=== PATIENT | female | born 1965 ===

== ENCOUNTER 2021-01-17 10:13 | Outpatient (REF) | payer MEDICARE, MEDICAID, SELFPAY ==
[2021-01-18 14:29] LABS: BV Int Neg Control Negative (Negative); BV Int Pos Control Positive (Positive)
== END 2021-01-17 10:14 | disposition home or self-care (01) ==
LOC: HO.LAB 10:13
PROVIDERS: Visit Provider Nurse Practitioner Family
DX: B37.3 Candidiasis of vulva and vagina (principal); B00.9 Herpesviral infection, unspecified
CPT/HCPCS: 87255; 87480; 87510; 87660

== ENCOUNTER 2021-06-06 07:24 | Outpatient (REF) | payer MEDICARE, BC, MEDICAID, SELFPAY ==
[2021-06-06 11:22] LABS: Hematocrit 42.5 % (37-47); Hemoglobin 13.5 g/dl (12.0-16.0); Mean Corpuscular HGB Conc 31.8 g/dl (31.0-35.0); Mean Corpuscular Hemoglobin 29.3 pg (27.0-33.0); Mean Corpuscular Volume 92.4 fL (80-98); Mean Platelet Volume 11.2 fL (9.4-12.3); Platelet Count 241 X10*3/uL (160-400); Red Cell Distribution Width 13.2 % (11.0-16.0); White Blood Count 4.8 X10*3/uL (4.8-10.8)
[2021-06-06 11:32] LABS: Estimated Average Glucose 217 mg/dL; Hemoglobin A1c % 9.2 %
[2021-06-06 12:05] LABS: Creatinine Urine 184.84 mg/dL; Microalbum/Creatinine Ratio Ur 59.5 ug/mg cr
[2021-06-06 12:06] LABS: ~Hepatitis B Surface Antibody NONREACTIVE (Nonreactive)
[2021-06-06 12:13] LABS: Alanine Aminotransferase 22 U/L (0-31); Alkaline Phosphatase 75 U/L (39-117); Anion Gap 14 (12-20); Aspartate Amino Transferase 16 U/L (5-31); Bilirubin Total 0.9 mg/dL (0.0-1.0); Blood Urea Nitrogen 10 mg/dL (9-16); Calcium 9.1 mg/dL (8.4-10.2); Carbon Dioxide 26 mmol/L (22-29); Chloride 104 mmol/L (96-108); Cholesterol 201 mg/dL; Estimated Glomerular Filt Rate > 60; Glucose Fasting 226 mg/dL (60-99); HDL Cholesterol 61 mg/dL; LDL Cholesterol Calculated 118 mg/dl; Potassium 4.6 mmol/L (3.3-5.1); Sodium 139 mmol/L (135-145); Total Protein 7.1 g/dL (6.5-8.0); Triglycerides 112 mg/dL
[2021-06-06 12:21] LABS: Thyroid Stimulating Hormone 1.89 uIU/mL (0.32-4.0)
[2021-06-07 12:41] LABS: Mumps Virus IgG Antibody <9.00 AU/mL; Rubella IgG Antibody <0.90 Index; Rubeola IgG (Measles) <13.50 AU/mL
[2021-06-09 01:51] LABS: TS Negative Control Passed; TS Panel A 0; TS Panel B 0; TS Positive Control Passed; TSpotTB Negative (SeeBelow)
== END 2021-06-06 07:25 | disposition home or self-care (01) ==
LOC: HO.HMGCLDS 07:24
PROVIDERS: PCP Internal Medicine; Visit Provider Internal Medicine
DX: Z02.1 Encounter for pre-employment examination (principal); E11.9 Type 2 diabetes mellitus without complications; E78.5 Hyperlipidemia, unspecified; E66.9 Obesity, unspecified
CPT/HCPCS: 36415; 80053; 80061; 82043; 83036; 84443; 85027; 86481; 86706; 86735; 86762; 86765; 86787

== ENCOUNTER 2021-06-28 12:59 | Outpatient (REF) | payer BC, MEDICARE, MEDICAID, SELFPAY ==
--- NOTE | ~2021-06-28 | XR_ITS ---
EXAMINATION: XR CHEST CLINICAL INFORMATION: Chest pain COMPARISON: Previous chest x-ray most recent April 2017 TECHNIQUE: 2 views of the chest were obtained. FINDINGS: The cardiac silhouette is upper normal in size. There is an air-fluid level behind the heart probably representing an esophageal hernia. Hilar and mediastinal contours are otherwise unremarkable. The lungs are clear. There is no pleural effusion. Bony structures are unremarkable. XR/XR chest 2V IMPRESSION: Upper normal-size cardiac silhouette. Air-fluid level behind the heart probably representing an esophageal hernia.
== END 2021-06-28 13:00 | disposition home or self-care (01) ==
LOC: HO.HMGCX 12:59
PROVIDERS: PCP Internal Medicine; Visit Provider Internal Medicine
DX: Z13.89 Encounter for screening for other disorder (principal)
CPT/HCPCS: 71046

== ENCOUNTER 2022-05-21 08:08 | Outpatient (REF) | payer BC, MEDICARE, MEDICAID, SELFPAY ==
[2022-05-21 11:42] LABS: Estimated Average Glucose 120 mg/dL; Hemoglobin A1c % 5.8 %
[2022-05-21 11:53] LABS: Alanine Aminotransferase 15 U/L (0-31); Alkaline Phosphatase 76 U/L (39-117); Anion Gap 14 (12-20); Aspartate Amino Transferase 15 U/L (5-31); Bilirubin Total 1.4 mg/dL (0.0-1.0); Blood Urea Nitrogen 12 mg/dL (9-16); Calcium 9.3 mg/dL (8.4-10.2); Carbon Dioxide 27 mmol/L (22-29); Chloride 105 mmol/L (96-108); Cholesterol 191 mg/dL; Estimated Glomerular Filt Rate > 60; Glucose Fasting 105 mg/dL (60-99); HDL Cholesterol 67 mg/dL; LDL Cholesterol Calculated 108 mg/dl; Potassium 4.4 mmol/L (3.3-5.1); Sodium 142 mmol/L (135-145); Total Protein 7.1 g/dL (6.5-8.0); Triglycerides 83 mg/dL
[2022-05-21 12:21] LABS: Creatinine Urine 73.32 mg/dL; Microalbum/Creatinine Ratio Ur 27.2 ug/mg cr
== END 2022-05-21 08:09 | disposition home or self-care (01) ==
LOC: HO.HMGCLDS 08:08
PROVIDERS: PCP Internal Medicine; Visit Provider Internal Medicine
DX: E11.9 Type 2 diabetes mellitus without complications (principal); E78.5 Hyperlipidemia, unspecified; M72.2 Plantar fascial fibromatosis
CPT/HCPCS: 36415; 80053; 80061; 82043; 83036

== ENCOUNTER 2022-07-16 09:08 | Outpatient (REF) | payer BC, MEDICARE, SELFPAY ==
[2022-07-16 12:07] LABS: Estimated Average Glucose 123 mg/dL; Hemoglobin A1c % 5.9 %
== END 2022-07-16 09:09 | disposition home or self-care (01) ==
LOC: HO.HMGCLDS 09:08
PROVIDERS: PCP Internal Medicine; Visit Provider Podiatrist
DX: E11.9 Type 2 diabetes mellitus without complications (principal)
CPT/HCPCS: 36415; 83036

== ENCOUNTER 2022-07-25 05:50 | Day surgery (SDC) | payer BC, MEDICARE, SELFPAY ==
--- NOTE | 2022-07-24 11:05 | HP_ITS ---
DATE OF SERVICE: 07/25/2022 PREOPERATIVE DIAGNOSIS: Plantar fibroma left foot. PLANNED PROCEDURE: Excision of plantar fibroma, left foot. PAST MEDICAL HISTORY: Arthritis; asthma; hip, back, knee pain; cancer; cataracts; diabetes; chickenpox; gallbladder problems; joint implants; blindness in left eye; and blood clot. CURRENT MEDICATIONS: Albuterol, Eliquis, gabapentin, meloxicam, metformin, Trulicity, rosuvastatin. PAST SURGICAL HISTORY: Denies. FAMILY HISTORY: Heart disease, stroke, diabetes, hypertension. SOCIAL HISTORY: Patient is a nonsmoker. Denies any illicit drug use. 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 She is with 3 children. ALLERGIES: TO LATEX AND OXYCODONE. HOSPITALIZATIONS: Denies. REVIEW OF SYSTEMS: Within normal limits. HISTORY OF PRESENT ILLNESS: This is a 57-year-old female who presents with a painful lump and tenderness in her plantar left arch, has been present for over a year and a half. It has been getting progressively worse. Patient tried rest, medications, including prednisone, elevations, soaks, change in shoes and stretching without any significant relief in symptoms. PHYSICAL EXAMINATION: GENERAL: Reveals a pleasant, alert, well-nourished, well-developed, well-hydrated individual demonstrates proper attention to body habitus, in no acute distress. NEUROLOGIC: Reveals intact sensorium. Pain sensation is normal. Vibratory sensation is intact. Pinprick sensation is normal. There is no anesthesias, burning, or paresthesias bilaterally. VASCULAR: DP and PT pulses are 3/4 bilaterally. Capillary refill is immediate to all digits. Skin temperature, elasticity, and turgor is normal. Pigmentation is normal. There is no edema. DERMATOLOGIC: Shows signs of a semifirm painful, nontranslucent, non pulsatile subcutaneous tumor measuring about 14 mm on the plantar midfoot of the left foot. ORTHOPEDIC: Muscle strength 5/5 in a symmetrical fashion. There is antalgic gait abnormality and she has pes planus structure with decreased dorsiflexion of the ankle joint within the extended. She also has some pain on palpation of plantar fascia at the medial and central bands, intrinsic muscular, infracalcaneal bursa, and medial calcaneal tubercle of the left foot. LABORATORY DATA: Hemoglobin A1c is 5.9. PLAN: The patient is scheduled for surgery. Surgical procedures to treat the patient's foot problem were discussed in detail with the patient including risks, benefits, and possible complications including, but not limited to pain, swelling, bleeding, scarring, numbness, infection, delayed or nonhealing, failure of the procedure, need for more surgery, recurrence, as well as possibility of loss of toe, foot, life, or limb. Discussed use of local and IV anesthesia and the usual postoperative course. No guarantees were given. The patient indicated a full understanding of the above conversation and any other questions were answered to her satisfaction. We decided on performing excision of plantar fibroma of the left foot. Based on the patient's complaints, medical and social history, and physical exam. The patient would like to proceed with surgical treatment and discuss that patient will need to be nonweightbearing for at least 3 weeks postoperatively to allow to skin healing. Risk of recurrence and scarring was discussed in detail with the patient. The patient would like to proceed with surgical treatment. She will obtain preoperative labs as well as medical clearance for surgery and anesthesia. She was made aware to stop blood thinners, her Eliquis 3 days prior to surgery and restart her Eliquis 1 day postoperatively according to her primary care physician. She is made aware that driving is not allowed during a portion of postoperative period. The patient is also made aware that smoking tobacco products are not allowed. An A1c was performed just prior to surgery about 5.9, which is sufficient for her planned procedure. The patient was given prescription for Vicodin for postoperative breakthrough pain. Patient can take Tylenol or Motrin as needed postoperatively. RIC Rahman / [id number]
--- NOTE | 2022-07-24 11:13 | P.CONAN_ITS ---
Documented by User: Ryann Hernandez NP 07/24/22 11:17 HPI - Anesthesia Eval Consult details Narrative: 57yo F for Left excision,plantar fibroma on arch of foot PCP cleared Eliquis for hx DVT *No IV/BP on Right s/p mastectomy* PMFSH Active Problems Active Problems: All Active Problems (Updated 07/22/22 @ 13:52 by Michell Fatima MD) Bone cyst of foot (Acute) Herpes (Acute) Candidal vaginitis (Acute) Encounter for pre-employment health screening examination (Acute) Peripheral neuropathy (Acute) Plantar fasciitis of left foot (Acute) Annual physical exam (Acute) Chest pain (Acute) Obese (Acute) Normal Pap smear (Acute) Normal colonoscopy (Acute) DVT (deep venous thrombosis) (Acute) Breast CA (Acute) Asthma (Acute) Hyperlipemia (Acute) DM (diabetes mellitus) (Acute) Past Medical History Medical History Annual physical exam Asthma Breast CA Chest pain DM (diabetes mellitus) DVT (deep venous thrombosis) Hyperlipemia Normal colonoscopy Normal Pap smear Obese Family History Family History Father Dementia Mother No problems noted. Son No problems noted. Son No problems noted. Daughter No problems noted. Brother Substance use disorder Brother Substance use disorder Surgical History Surgical History H/O colonoscopy History of esophagogastroduodenoscopy (EGD) Hx of meniscectomy of right knee Social History Social History Housing: House Patient Tobacco Use Status: Never used Tobacco e-Cigarette/Vaping Use: Never Used Use of substances other than those prescribed or required for medical reasons: No Are you DNR?: No Advance Directives: No Advance Directives Information Provided: Yes Current occupational status: employed and unemployed Cognitive needs: No Hearing needs: No Vision needs: Yes Meds Allergies Allergy/AdvReac Type Severity Reaction Status Date / Time codeine [CODEINE] Allergy Severe SWELLING Verified 07/22/22 13:25 dapagliflozin [From FARXIGA] Allergy Intermediate RASH Verified 07/22/22 13:25 latex [LATEX] Allergy Intermediate RASH Verified 07/22/22 13:25 montelukast [MONTELUKAST] Allergy Unknown ?? HX ILL Verified 07/22/22 13:25 EFFECTS BUT STILL TAKING oxycodone [OXYCODONE] Allergy Unknown PER H&P Verified 07/22/22 13:25 metformin AdvReac Intermediate stomach Verified 07/22/22 13:25 upset Home Medications Medication Instructions Recorded Confirmed Last Taken Type clotrimazole-betamethasone 1 appl topical 06/28/21 07/22/22 Unknown History %-0.05 % topical cream cholecalciferol (vitamin D3) 50 50 mcg PO DAILY 07/17/21 07/22/22 Unknown History mcg (2,000 unit) capsule multivitamin (Daily Multi-Vitamin 1 tab PO DAILY 07/17/21 07/22/22 Unknown History tablet) ondansetron HCl 4 mg tablet 4 mg PO Q8H PRN 10/08/21 07/22/22 Unknown History psyllium husk 6 gram/6 gram oral 1 tbsp PO DAILY 10/08/21 07/22/22 Unknown History powder Exam Exam Date and Time: July 24, 2022 1113 Pertinent Lab Results Pertinent Lab Results: Laboratory Tests 05/21/22 08:14 Sodium 142 Potassium 4.4 Chloride 105 Carbon Dioxide 27 BUN 12 Creatinine 0.64 Assessment and Plan Assessment Anesthesia Assessment: Chart Reviewed Documented by User: Christian Barreto MD 07/25/22 16:28 [facility] Past Medical History Medical History Annual physical exam Asthma Breast CA Chest pain DM (diabetes mellitus) DVT (deep venous thrombosis) Hyperlipemia Normal colonoscopy Normal Pap smear Obese Family History Family History Father Dementia Mother No problems noted. Son No problems noted. Son No problems noted. Daughter No problems noted. Brother Substance use disorder Brother Substance use disorder Family history of problems with anesthesia: No Surgical History Surgical History H/O colonoscopy History of esophagogastroduodenoscopy (EGD) Hx of meniscectomy of right knee History of Problems with Anesthesia: Yes (PONV) Social History Social History Housing: House Patient Tobacco Use Status: Never used Tobacco e-Cigarette/Vaping Use: Never Used Use of substances other than those prescribed or required for medical reasons: No Are you DNR?: No Advance Directives: No Advance Directives Information Provided: Yes Current occupational status: employed and unemployed Cognitive needs: No Hearing needs: No Vision needs: Yes Meds Allergies Allergy/AdvReac Type Severity Reaction Status Date / Time codeine [CODEINE] Allergy Severe SWELLING Verified 07/22/22 13:25 dapagliflozin [From FARXIGA] Allergy Intermediate RASH Verified 07/22/22 13:25 latex [LATEX] Allergy Intermediate RASH Verified 07/22/22 13:25 montelukast [MONTELUKAST] Allergy Unknown ?? HX ILL Verified 07/22/22 13:25 EFFECTS BUT STILL TAKING oxycodone [OXYCODONE] Allergy Unknown PER H&P Verified 07/22/22 13:25 metformin AdvReac Intermediate stomach Verified 07/22/22 13:25 upset Home Medications Medication Instructions Recorded Confirmed Last Taken Type clotrimazole-betamethasone 1 appl topical 06/28/21 07/22/22 Unknown History %-0.05 % topical cream cholecalciferol (vitamin D3) 50 50 mcg PO DAILY 07/17/21 07/22/22 Unknown Histo ry mcg (2,000 unit) capsule multivitamin (Daily Multi-Vitamin 1 tab PO DAILY 07/17/21 07/22/22 Unknown History tablet) ondansetron HCl 4 mg tablet 4 mg PO Q8H PRN 10/08/21 07/22/22 Unknown History psyllium husk 6 gram/6 gram oral 1 tbsp PO DAILY 10/08/21 07/22/22 Unknown History powder Exam Airway Mallampati Class: III TM Dist: >3cm Neck ROM: Full Loose/Missing/Broken Teeth: Yes (Chipped teeth ) Heart: S1,S2 Lungs: b/l breath sounds Assessment and Plan Assessment Anesthesia Assessment: Anesthesia Plan Discussed Final Anesthetic Review Family History of Problems with Anesthesia: No History of Problems with Anesthesia: Yes (PONV) NPO: Yes ASA Class: III Final Preanesthetic Review: Meds/Allgs Chart Reviewed and Anes Risks/Benef Reviewed Patient Risk: Intermediate Procedure Risk: Intermediate Anesthetic Plan Anesthetic Plan: GA Disposition: Standard PACU
[2022-07-25] VITALS (12 sets, daily range): BP systolic 124–131; BP diastolic 70–88; PULSE 81–97; RESP 15–20; TEMP 36.4–36.9; O2SAT 95–99; BMI 34.5
[2022-07-25 06:30] LABS: Glucose, Whole Blood 115 mg/dL (60-115)
[2022-07-25] MEDS: Lactated Ringers 1,000 ML 100 ML IVCONT (06:42)
--- NOTE | 2022-07-25 07:34 | MHC.SHP ---
Pre-Procedural Eval Section A Date of Service: 07/25/22 The patient is an INPATIENT: No Changes since office visit: No Cold of Flu in the past 2 weeks, No New Medical Problems, No Changes in Medication and No Patient answered all questions The History & Physical has been completed within 30 days and I have reviewed it.: Yes Section B Chief Complaint: Plantar fascial fibromatosis Allergies: Allergies Allergy/AdvReac Type Severity Reaction Status Date / Time codeine [CODEINE] Allergy Severe SWELLING Verified 07/22/22 13:25 dapagliflozin [From FARXIGA] Allergy Intermediate RASH Verified 07/22/22 13:25 latex [LATEX] Allergy Intermediate RASH Verified 07/22/22 13:25 montelukast [MONTELUKAST] Allergy Unknown ?? HX ILL Verified 07/22/22 13:25 EFFECTS BUT STILL TAKING oxycodone [OXYCODONE] Allergy Unknown PER H&P Verified 07/22/22 13:25 metformin AdvReac Intermediate stomach Verified 07/22/22 13:25 upset Plan I have reviewed the history and physical and performed a pertinent physical examination on my patient. No changes have occurred unless specified.
--- NOTE | 2022-07-25 08:22 | P.BOP_ITS ---
Brief Operative Note Date of Service: 07/25/22 Pre-op diagnosis: Plantar fibroma left foot Post-op diagnosis: same Procedure: Left excision of plantar fibroma Surgeon: Ronna Bernal Anesthesia: GLMA Was an Human Resources Partner used for this Procedure?: Yes Human Resources Partner: Mendoza Vasquez Estimated blood loss (mL): 1 Tourniquet time (min): 15 Pathology: other Condition: stable Disposition: PACU
[2022-07-25] MEDS: Acetaminophen 325 MG TABLET 650 MG PO (08:47)
[2022-07-25] MEDS: fentaNYL citrate/PF 100 MCG/2 ML VIAL 25 MCG IVPUSH ×3 (09:04→09:18)
[2022-07-25 11:05] LABS: Glucose, Whole Blood 150 mg/dL (60-115)
--- NOTE | 2022-07-25 11:26 | PC.NURSE ---
BS 150 IN DISCHARGE AREA. PATIENT REQUESTED BS TO BE TAKEN. ASYMPTOMATIC. PATIENT'S NAUSEA CLEARED UP AFTER SOME GINGERALE.
--- NOTE | 2022-07-26 09:46 | OP_ITS ---
SURGEON: Ronna Bernal DPM PREOPERATIVE DIAGNOSIS: Plantar fibroma, left foot. POSTOPERATIVE DIAGNOSIS: Plantar fibroma, left foot. PROCEDURE PERFORMED: Excision of fibroma, left foot. ESTIMATED BLOOD LOSS: Less than 1 cc. COMPLICATIONS: None. ANESTHESIA: LMA with local consisting preoperatively of 12 cc of 0.5% Marcaine plain and 2% lidocaine plain. RESORT KEEPER: Mendoza Vasquez DPM HEMOSTASIS: Pneumatic ankle tourniquet set at 230 mmHg for 15 minutes. INDICATIONS FOR SURGERY: Patient had a painful lump noted to the arch of her left foot that has been present for sometime. Patient has failed conservative therapies. The above-mentioned surgery was discussed in detail with the patient including risks, benefits, and possible complications, specifically including recurrence of fibroma, pain, scarring, hammertoe deformities. The patient understood and wanted to proceed with surgical treatment. The above-mentioned surgery had surgical consents written and oral consents were performed. DESCRIPTION OF PROCEDURE: The patient was brought to the operating room, placed operating table in the supine position. The patient was placed under anesthesia and 2 g of cefazolin was administered as a prophylactic preoperative antibiotic. The above-mentioned local anesthesia was injected about the left foot in a regional field block fashion and the left foot was scrubbed, prepped, and draped in a sterile manner. The left foot was exsanguinated and the pneumatic ankle tourniquet was inflated to 230 mmHg. Attention was directed to the plantar aspect of the left foot, where there was a palpable mass noted to the medial arch of the left plantar foot using a lazy-S incision overlying the mass. The incision was deepened down through subcutaneous tissue. Great care was taken to retract vital, neural, and vascular structures. All bleeders were cauterized as necessary. The soft tissues were bluntly dissected down to the level of the plantar fascia. There was noted to be a nodule or fibroma within the plantar fascia. Using a 15 blade, the plantar fibroma was excised in total and passed the operative site and sent for pathology. The wound was irrigated with copious amounts of normal sterile saline. The subcutaneous tissues were reapproximated with 3-0 Vicryl in an interrupted suture technique. The skin was reapproximated with interrupted horizontal sutures of 3-0 nylon and simple sutures of 2-0 nylon in an interrupted suture technique. The foot was then postoperatively injection with 5 cc of ropivacaine and 1 cc of dexamethasone and the incision was dressed with Xeroform, Betadine-soaked gauze, 4 x 4s, fluffs, Kerlix, cast padding, and an Jermain bandage. Pneumatic ankle tourniquet was deflated after 15 minutes. A prompt capillary refill was noted to all 5 digits. The patient tolerated procedure and anesthesia well. She was transferred to the recovery room with vital signs stable and vascular status at preoperative levels. Following a period of postoperative recovery, the patient will be discharged home with written and oral postop instructions. She is to be strict nonweightbearing to the left foot with either crutches, walker, or knee scooter. The patient will follow up in my office for all postoperative followup care. Ronna Bernal DPM LP/KAUSHAL / [id number]
== END 2022-07-25 10:50 | disposition home or self-care (01) ==
PROVIDERS: PCP Internal Medicine; Visit Provider Podiatrist
PROC: (CPT 28043; principal; 2022-07-25 07:30)
DX: M72.2 Plantar fascial fibromatosis (principal); J45.909 Unspecified asthma, uncomplicated; E11.9 Type 2 diabetes mellitus without complications; E78.5 Hyperlipidemia, unspecified; I82.409 Acute embolism and thrombosis of unspecified deep veins of unspecified lower extremity; M19.90 Unspecified osteoarthritis, unspecified site; Z79.01 Long term (current) use of anticoagulants; Z79.84 Long term (current) use of oral hypoglycemic drugs; Z79.899 Other long term (current) drug therapy; Z88.8 Allergy status to other drugs, medicaments and biological substances; Z91.040 Latex allergy status; Z85.3 Personal history of malignant neoplasm of breast
CPT/HCPCS: 28043; 82947; 88305; J0690; J1100; J2250; J2405; J2795; J3010

== ENCOUNTER 2022-10-24 06:27 | Outpatient (REF) | payer BC, MEDICARE, SELFPAY ==
[2022-10-24 11:21] LABS: MANUAL DIFF FLAG NO
[2022-10-24 11:42] LABS: Basophils Percent Auto 0.4 % (0-2); Eosinophils Absolute Auto 0.2 X10*3/uL (0.0-0.4); Hematocrit 40.7 % (37.0-47.0); Imm Gran Abs Auto 0.02 X10*3/uL (0.00-0.03); Imm Gran Pct Auto 0.4 % (0.0-0.4); Lymphocytes Absolute Auto 1.7 X10*3/uL (1.2-4.9); Lymphocytes Percent Auto 34.1 % (20-40); Mean Corpuscular HGB Conc 31.9 g/dl (31.0-35.0); Mean Corpuscular Hemoglobin 29.9 pg (27.0-33.0); Mean Corpuscular Volume 93.6 fL (80.0-98.0); Mean Platelet Volume 10.8 fL (9.4-12.3); Monocytes Absolute Auto 0.3 X10*3/uL (0.1-1.2); Monocytes Percent Auto 6.8 % (2-11); Neutrophils Absolute Auto 2.7 x10*3/uL (2.0-8.3); Neutrophils Percent Auto 54.3 % (45-73); Platelet Count 216 X10*3/uL (160-400); Red Blood Count 4.35 X10*6/uL (4.20-5.50); Red Cell Distribution Width 13.3 % (11.0-16.0)
[2022-10-24 11:53] LABS: Estimated Average Glucose 114 mg/dL; Hemoglobin A1c % 5.6 %
[2022-10-24 12:07] LABS: Creatinine Urine 97.58 mg/dL; Microalbum/Creatinine Ratio Ur 6.1 ug/mg cr
[2022-10-24 12:12] LABS: Alanine Aminotransferase 16 U/L (0-31); Alkaline Phosphatase 72 U/L (39-117); Anion Gap 14 (12-20); Aspartate Amino Transferase 15 U/L (5-31); Bilirubin Total 0.9 mg/dL (0.0-1.0); Blood Urea Nitrogen 15 mg/dL (9-16); Calcium 9.1 mg/dL (8.4-10.2); Carbon Dioxide 26 mmol/L (22-29); Chloride 107 mmol/L (96-108); Cholesterol 203 mg/dL; Estimated Glomerular Filt Rate > 60; Glucose Fasting 132 mg/dL (60-99); HDL Cholesterol 70 mg/dL; LDL Cholesterol Calculated 114 mg/dl; Potassium 4.8 mmol/L (3.3-5.1); Sodium 142 mmol/L (135-145); Total Protein 6.9 g/dL (6.5-8.0); Triglycerides 98 mg/dL
[2022-10-24 12:16] LABS: TSH reflex Free T4 1.56 uIU/mL (0.32-4.0)
== END 2022-10-24 06:28 | disposition home or self-care (01) ==
LOC: HO.HMGCLDS 06:27
PROVIDERS: PCP Internal Medicine; Visit Provider Internal Medicine
DX: Z00.00 Encounter for general adult medical examination without abnormal findings (principal); M85.679 Other cyst of bone, unspecified ankle and foot; E11.9 Type 2 diabetes mellitus without complications; E78.5 Hyperlipidemia, unspecified
CPT/HCPCS: 36415; 80053; 80061; 82043; 83036; 84443; 85025

== ENCOUNTER → 2023-01-02 09:38 | Outpatient (BNVA) | payer BC, MEDICARE, SELFPAY | PROVIDERS: PCP Internal Medicine; Visit Provider Nurse Practitioner | DX: Z13.89 Encounter for screening for other disorder (principal) ==

== ENCOUNTER 2023-01-02 10:49 | Outpatient (REF) | payer BC, MEDICARE, SELFPAY ==
[2023-01-02 12:48] LABS: C Reactive Protein 0.21 mg/dL (< or = 0.50)
== END 2023-01-02 10:50 | disposition home or self-care (01) ==
LOC: HO.LAB 10:49
PROVIDERS: Visit Provider Nurse Practitioner
DX: R19.5 Other fecal abnormalities (principal); K59.04 Chronic idiopathic constipation
CPT/HCPCS: 36415; 86003; 86140

== ENCOUNTER 2023-01-21 11:02 | Outpatient (REF) | payer BC, MEDICARE, SELFPAY ==
[2023-01-30 00:53] LABS: Pancreatic Elastase-1 253 mcg/g
== END 2023-01-21 11:03 | disposition home or self-care (01) ==
LOC: HO.LNP 11:02
PROVIDERS: Visit Provider Nurse Practitioner
DX: K59.04 Chronic idiopathic constipation (principal); R19.5 Other fecal abnormalities
CPT/HCPCS: 82656

== ENCOUNTER → 2023-01-23 08:21 | Outpatient (BNVA) | payer BC, MEDICARE, SELFPAY | PROVIDERS: PCP Internal Medicine; Visit Provider Nurse Practitioner | DX: Z13.89 Encounter for screening for other disorder (principal) ==

== ENCOUNTER 2023-02-13 08:23 | Outpatient (REF) | payer BC, SELFPAY ==
[2023-02-13 11:19] LABS: MANUAL DIFF FLAG NO
[2023-02-13 11:42] LABS: Basophils Percent Auto 0.4 % (0-2); Eosinophils Absolute Auto 0.2 X10*3/uL (0.0-0.4); Eosinophils Percent Auto 3.4 % (0-4); Hematocrit 42.3 % (37.0-47.0); Hemoglobin 13.5 g/dl (12.0-16.0); Imm Gran Abs Auto 0.01 X10*3/uL (0.00-0.03); Imm Gran Pct Auto 0.2 % (0.0-0.4); Lymphocytes Percent Auto 39.8 % (20-40); Mean Corpuscular HGB Conc 31.9 g/dl (31.0-35.0); Mean Corpuscular Hemoglobin 29.7 pg (27.0-33.0); Mean Platelet Volume 10.8 fL (9.4-12.3); Monocytes Absolute Auto 0.4 X10*3/uL (0.1-1.2); Monocytes Percent Auto 7.1 % (2-11); Neutrophils Absolute Auto 2.5 x10*3/uL (2.0-8.3); Neutrophils Percent Auto 49.1 % (45-73); Platelet Count 232 X10*3/uL (160-400); Red Blood Count 4.55 X10*6/uL (4.20-5.50); Red Cell Distribution Width 13.4 % (11.0-16.0); White Blood Count 5.1 X10*3/uL (4.8-10.8)
[2023-02-13 11:51] LABS: Estimated Average Glucose 128 mg/dL; Hemoglobin A1c % 6.1 %
[2023-02-13 12:04] LABS: Creatinine Urine 115.88 mg/dL; Microalbumin Urine < 5.0 mg/L
[2023-02-13 12:36] LABS: Alanine Aminotransferase 18 U/L (0-31); Alkaline Phosphatase 83 U/L (39-117); Anion Gap 12 (12-20); Aspartate Amino Transferase 15 U/L (5-31); Bilirubin Total 1.2 mg/dL (0.0-1.0); Blood Urea Nitrogen 14 mg/dL (9-16); Calcium 9.4 mg/dL (8.4-10.2); Carbon Dioxide 30 mmol/L (22-29); Chloride 105 mmol/L (96-108); Cholesterol 212 mg/dL; Estimated Glomerular Filt Rate > 60; Glucose Fasting 121 mg/dL (60-99); HDL Cholesterol 69 mg/dL; LDL Cholesterol Calculated 128 mg/dl; Potassium 4.7 mmol/L (3.3-5.1); Sodium 142 mmol/L (135-145); Total Protein 7.1 g/dL (6.5-8.0); Triglycerides 75 mg/dL
== END 2023-02-13 08:24 | disposition home or self-care (01) ==
LOC: HO.HMGCLDS 08:23
PROVIDERS: PCP Internal Medicine; Visit Provider Internal Medicine
DX: Z00.00 Encounter for general adult medical examination without abnormal findings (principal); E78.5 Hyperlipidemia, unspecified; K63.5 Polyp of colon; E11.9 Type 2 diabetes mellitus without complications
CPT/HCPCS: 36415; 80053; 80061; 82043; 83036; 85025

== ENCOUNTER 2023-02-18 07:46 | Outpatient (REF) | payer BC, SELFPAY ==
--- NOTE | ~2023-02-18 | FL_ITS ---
PROCEDURE: XR UPPER GI SERIES WITH SMALL BOWEL CLINICAL INFORMATION: Chronic idiopathic constipation. Irritable bowel syndrome. COMPARISON: None available. TECHNIQUE: A single KUB is obtained prior to the exam. Subsequently 2 glasses of barium was administered orally and sequential images were obtained. Water was administered after 2 hours to facilitate peristalsis. FINDINGS: Single supine view of the abdomen reveals scattered stool in the right colon and gas in the rest of the colon. No organomegaly. There are phleboliths in the pelvis. The gallbladder has been surgically removed. Initial images after barium reveal the small bowel essentially jejunal pattern to be normal. No narrowing or wall thickening seen. Subsequent images reveal ileum to be normal. Delayed visualization of the ileocecal junction seen by 168 minutes which is greater than 2 hours. On spot images of the ileocecal junction no abnormality seen involving the junction or the terminal ileum. Appendix is visualized and appears normal. FLUOROSCOPY TIME: Less than 1 minute. DOSE AREA PRODUCT: 59.961 uGy-m2 (microgray-meter squared). FL/FL upper GI small bowel IMPRESSION: 1. There is delayed visualization of the ileocecal junction by 168 minutes. 2. There is no abnormality seen involving the ileocecal junction or the small bowel pattern.
== END 2023-02-18 07:47 | disposition home or self-care (01) ==
LOC: HO.XRAY 07:46
PROVIDERS: PCP Internal Medicine; Visit Provider Nurse Practitioner
DX: K59.04 Chronic idiopathic constipation (principal)
CPT/HCPCS: 74240; 74248

== ENCOUNTER → 2023-03-05 07:47 | Outpatient (BNVA) | payer BC, SELFPAY | PROVIDERS: PCP Internal Medicine; Referring Provider Internal Medicine; Visit Provider Nurse Practitioner ==

== ENCOUNTER → 2023-04-09 08:16 | Outpatient (BNVA) | payer BC, SELFPAY | PROVIDERS: PCP Internal Medicine; Visit Provider Nurse Practitioner ==

== ENCOUNTER 2023-06-12 08:46 | Outpatient (AMB) | payer BC, SELFPAY ==
--- NOTE | 2023-06-12 08:51 | MHC.OFFVIS ---
Intake Vital Signs 06/12/23 08:55 Height 5 ft 2 in Weight 201 lb 15.095 oz BMI 36.9 BP 128/88 Blood Pressure Location Lt brachial Position Sitting Pulse 92 Intake Visit Reasons: 6 week follow up Intake Note: Katya presents in the office as a 6 weeks follow up. CC: Patient c/o constipation, diarrhea, and epigastric pain. She also reports darker stools lately. 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 HX ILL EFFECTS BUT STILL TAKING oxycodone [OXYCODONE] Allergy (Unknown, Verified 06/12/23 08:59) PER H&P HPI 6 week follow up HPI Details Assessment & Plan (1) Small bowel motility disorder: ?Comment: Determined by small-bowel follow-through study ?Code(s): K59.9 - Functional intestinal disorder, unspecified ?Plan: Her PCP told her the risk was too high for the reglan. She still had her usual 5 day stooling cycle with severe bloating in between. She continues on her LInzess 290, and we will try adding bisacodyl 1-2 tabs qhs. She is agreeable to this.? She does have a severe delay in the small-bowel and they are very little ways for us to address this besides Reglan but will try adding additional stimulant laxatives. Her vacation was quite trying because family members were ill - but she had some fun the last week. ROV 6 weeks. (2) Chronic idiopathic constipation: ?Code(s): K59.04 - Chronic idiopathic constipation (3) Egg protein allergy: ?Code(s): Z91.012 - Allergy to eggs ? ? ? Medications: New bisacodyl (Dulcola x (bisacodyl)) 10 mg (2 x 5 mg) P O BEDTIME 30 days 60 tabs 6RF ? ? Refilled linaclotide (Linze ss) 290 mcg? PO DAILY 30 days 30 caps 6R F K59.04 - Chronic i diopathic constipa tion ? TODAYS VISIT She is still having bloating, worse in the after noon, but her BM's with LInzess 290 and bisacodyl are producing watery diarrhea several times a day. She also is having burning back pain. We will stop the bisacodyl and continue LInzess, and we discuss another trial of reglan. She was scared away from the possible a/e by her PCP (who clearly does not understand that these effects are very rare and occur at very high doses over 60mg/day.) She did NOT have any a/e. She understands that with a small bowel motility disorder we have limited pharmacological options otherwise I would be more than happy to recommend different course. In fact this is what we tried to do by managing it from the bottom down with the laxative regimen. Will restart the Reglan at bid 5mg. Will get abd xr and LS/Si xr. ROV 4 weeks. [facility] Medical History Annual physical exam (~10/29/22) Asthma Breast CA Chest pain DM (diabetes mellitus) DVT (deep venous thrombosis) Hyperlipemia Normal colonoscopy Normal Pap smear Obese Surgical History (Updated 06/12/23 @ 09:29 by BANDAR Sheldon) H/O colonoscopy History of esophagogastroduodenoscopy (EGD) Hx of meniscectomy of right knee S/P repair of paraesophageal hernia Family History Father Dementia Mother No problems noted. Son No problems noted. Son No problems noted. Daughter No problems noted. Brother Substance use disorder Brother Substance use disorder Social History Housing: House Patient Tobacco Use Status: Never used Tobacco e-Cigarette/Vaping Use: Never Used Current occupational status: employed and unemployed Cognitive needs: No Hearing needs: No Vision needs: Yes Review of Systems Const Denies fatigue, Denies fever(s), Denies night sweats, Denies poor appetite and Reports weight loss (Intentional dieting) ENT Reports Normal hearing present, Denies dental pain, Denies dysphagia, Denies hearing loss, Denies mouth pain, Denies odynophagia, Denies throat swelling, Denies tongue swelling and Reports other (Dentition adequate) Card Reports no additional complaints Resp Reports no additional complaints GI Denies abdominal pain, Denies melena, Reports bloating, Denies hematochezia, Reports constipation, Denies GI cramping, Denies dysphagia, Denies excessive flatus, Denies early satiety, Denies heartburn, Reports diarrhea, Denies nausea, Denies odynophagia, Denies vomiting and Denies hematemesis Musc Reports back pain Skin/Breast Denies pruritus, Denies lesions, Denies rash and Denies jaundice Neuro Reports Normal hearing present and Denies Abnormal speech present Endo Denies fatigue Aller/Immun Denies throat swelling and Denies tongue swelling Physical Exam Vital Signs: Last Vital Signs Pulse 92 06/12/23 08:55 BP 128/88 06/12/23 08:55 BMI result Body Mass Index 36.9 Const General: cooperative, no acute distress, well developed and well groomed Nutritional Appearance: well nourished and obese Orientation/consciousness: oriented to person, oriented to place and oriented to time Limitations: No language barrier HEENT Head: Yes normocephalic and Yes atraumatic Eyes General: appearance normal, both eyes and all related structures Pupils: Equal, round and reactive pupils present Neck Neck: Yes normal visual inspection and Yes no lymphadenopathy Thyroid: Thyroid normal Resp Effort & Inspection: normal respiratory effort and able to speak in complete sentences Auscultation: clear to auscultation bilaterally Cardio Rate: regular rate Rhythm: regular rhythm Heart sounds: Normal, physiologic split S2 sound present Peripheral pulses: radial pulses present and posterior tibial pulses present GI Inspection: No distended, Yes Abdominal panniculus present and Yes obesity Palpation (GI): Soft to palpation, nontender, no guarding, not rigid and No hepatosplenomegaly present Percussion: Yes normal to percussion Auscultation: normal bowel sounds Rectal Exam - Female: deferred Skin General skin exam: no rashes or lesions noted, turgor normal, skin not dry, no jaundice, No spider nevi and no striae Rashes: no rashes Nails: normal Neuro General: oriented to person, oriented to place and oriented to time Cranial nerves: Yes Equal, round and reactive pupils present and Yes Normal hearing present Speech: No Abnormal speech present Extrem General: Yes normal to inspection, No clubbing, No cyanosis and No edema Psych Appearance: grossly normal and well kempt Mental Status: mental status grossly normal Speech and movement: Normal speech and movement present Affect: normal affect Attitude: cooperative Thought process: Normal thought process present and not confabulating Thought content: Normal thought content present Insight: Fair insight present (Psych) Judgement: Fair judgement present (Psych) Assessment & Plan Assessment & Plan (1) Small bowel motility disorder: Comment: Determined by small-bowel follow-through study Code(s): K59.9 - Functional intestinal disorder, unspecified Plan: She is still having bloating, worse in the after noon, but her BM's with LInzess 290 and bisacodyl are producing watery diarrhea several times a day. She also is having burning back pain. We will stop the bisacodyl and continue LInzess, and we discuss another trial of reglan. She was scared away from the possible a/e by her PCP (who clearly does not understand that these effects are very rare and occur at very high doses over 60mg/day.) She did NOT have any a/e. She understands that with a small bowel motility disorder we have limited pharmacological options otherwise I would be more than happy to recommend different course. In fact this is what we tried to do by managing it from the bottom down with the laxative regimen. Will restart the Reglan at bid 5mg. Will get abd xr and LS/Si xr. ROV 4 weeks. (2) Chronic idiopathic constipation: Code(s): K59.04 - Chronic idiopathic constipation Orders: Orders XR abdomen w decubitus Today K59.04 - Chronic idiopathic constipation XR lumbar spine 2-3V Today K59.9 - Functional intestinal disorder, unspecified XR sacroiliac joint 1-2V Today K59.9 - Functional intestinal disorder, unspecified Medications: New metoclopramide HCl (Reglan) pt is NOT allergic to this, she was misguided about potential adverse effects by another provider. 5 mg PO TID 90 tabs 3RF K59.9 - Functional intestinal disorder, unspecified Coding Level of Care Code Est Pt Level 3 (81422) Diagnoses Small bowel motility disorder K59.9 Chronic idiopathic constipation K59.04
[2023-06-12 08:55] VITALS: BP 128/88; PULSE 92; BMI 36.9
== END 2023-06-12 09:31 | disposition home or self-care (01) ==
PROVIDERS: PCP Internal Medicine; Visit Provider Nurse Practitioner
DX: K59.9 Functional intestinal disorder, unspecified (principal); K59.04 Chronic idiopathic constipation
CPT/HCPCS: 99213

== ENCOUNTER 2023-06-12 08:46 | Outpatient (REF) | payer BC, SELFPAY ==
--- NOTE | ~2023-06-12 | XR_ITS ---
EXAMINATION: XR ABDOMEN WITH DECUBITUS VIEWS CLINICAL INDICATION: Pain. Constipation. COMPARISON: None available. TECHNIQUE: Single view of the abdomen obtained. FINDINGS: The bowel gas pattern is normal with no evidence of ileus or obstruction. There is scattered retained stool. No unusual soft tissue calcifications are noted. The bones are unremarkable. XR/XR abdomen w decubitus IMPRESSION: Nonspecific bowel gas pattern.
--- NOTE | ~2023-06-12 | XR_ITS ---
EXAMINATION: XR LUMBOSACRAL SPINE XR SACROILIAC JOINTS CLINICAL INFORMATION: Pain without injury. Sacroiliac joint pain. COMPARISON: None available. TECHNIQUE: AP and lateral views of the lumbar spine and lateral view of the lumbosacral junction. AP and bilateral Judet views of the sacroiliac joints, FINDINGS: LUMBOSACRAL SPINE: There is mild bony demineralization. Vertebral body heights and alignment are normal. At L5-S1, there is moderately severe disc space narrowing. The remaining disc spaces are relatively well-maintained. No acute fracture or spondylolisthesis is seen. There is multi-level mild thoracolumbar spondylosis. The posterior elements are intact. There is facet arthropathy at L4-L5 and L5-S1. There are aortic atherosclerotic calcifications. There are right upper quadrant surgical clips. SACROILIAC JOINTS: Bones and soft tissues are normal. No fracture. Alignment is anatomic. Sacroiliac joint spaces are well-maintained without erosions or surrounding sclerosis. There are multiple pelvic phleboliths. XR/XR lumbar spine 2-3V IMPRESSION: LUMBOSACRAL SPINE: 1. There is moderately severe degenerative disc disease at L5-S1. 2. There is mild thoracolumbar spondylosis. 3. There is facet arthropathy at L4-L5 and L5-S1. SACROILIAC JOINTS Normal sacroiliac joints.
--- NOTE | ~2023-06-12 | XR_ITS ---
EXAMINATION: XR LUMBOSACRAL SPINE XR SACROILIAC JOINTS CLINICAL INFORMATION: Pain without injury. Sacroiliac joint pain. COMPARISON: None available. TECHNIQUE: AP and lateral views of the lumbar spine and lateral view of the lumbosacral junction. AP and bilateral Judet views of the sacroiliac joints, FINDINGS: LUMBOSACRAL SPINE: There is mild bony demineralization. Vertebral body heights and alignment are normal. At L5-S1, there is moderately severe disc space narrowing. The remaining disc spaces are relatively well-maintained. No acute fracture or spondylolisthesis is seen. There is multi-level mild thoracolumbar spondylosis. The posterior elements are intact. There is facet arthropathy at L4-L5 and L5-S1. There are aortic atherosclerotic calcifications. There are right upper quadrant surgical clips. SACROILIAC JOINTS: Bones and soft tissues are normal. No fracture. Alignment is anatomic. Sacroiliac joint spaces are well-maintained without erosions or surrounding sclerosis. There are multiple pelvic phleboliths. XR/XR sacroiliac joint 1-2V IMPRESSION: LUMBOSACRAL SPINE: 1. There is moderately severe degenerative disc disease at L5-S1. 2. There is mild thoracolumbar spondylosis. 3. There is facet arthropathy at L4-L5 and L5-S1. SACROILIAC JOINTS Normal sacroiliac joints.
== END 2023-06-12 08:47 | disposition home or self-care (01) ==
LOC: HO.XRAY 08:46
PROVIDERS: PCP Internal Medicine; Visit Provider Nurse Practitioner
DX: K59.04 Chronic idiopathic constipation (principal); K59.9 Functional intestinal disorder, unspecified; M54.50 Low back pain, unspecified; M53.3 Sacrococcygeal disorders, not elsewhere classified; M51.37 Other intervertebral disc degeneration, lumbosacral region; M47.815 Spondylosis without myelopathy or radiculopathy, thoracolumbar region
CPT/HCPCS: 72100; 72200; 74021

== ENCOUNTER 2023-07-09 08:25 | Outpatient (AMB) | payer BC, SELFPAY ==
[2023-07-09 08:38] VITALS: BP 112/74; PULSE 87; O2SAT 96; BMI 36.6
--- NOTE | 2023-07-09 08:38 | MHC.PC.OV ---
Vital Signs 07/09/23 08:38 Height 5 ft 2 in Weight 200 lb BMI 36.6 BP 112/74 Blood Pressure Location Lt brachial Position Sitting Pulse 87 Pulse Source Pulse Oximeter Pulse Oximetry (%) 96 Oxygen Delivery Method Room Air Intake Visit Reasons: 4m follow up Intake Note: Pt is here today for 4 months follow up visit. Allergies codeine [CODEINE] Allergy (Severe, Verified 07/09/23 08:40) SWELLING dapagliflozin [From FARXIGA] Allergy (Intermediate, Verified 07/09/23 08:40) RASH latex [LATEX] Allergy (Intermediate, Verified 07/09/23 08:40) RASH montelukast [MONTELUKAST] Allergy (Unknown, Verified 07/09/23 08:40) ?? HX ILL EFFECTS BUT STILL TAKING oxycodone [OXYCODONE] Allergy (Unknown, Verified 07/09/23 08:40) PER H&P Medication List - Last Reconciled 07/09/23 by Michell Fatima MD albuterol sulfate 2.5 mg inhalation Q20M apixaban 5 mg PO BID atorvastatin 20 mg PO DAILY bisacodyl (Dulcolax (bisacodyl)) 10 mg (2 x 5 mg) PO BEDTIME 30 days blood sugar diagnostic (FreeStyle Lite Strips) check glucose once a day blood-glucose meter (Nanorexuch Ultra2 Meter) As directed blood-glucose meter (FreeStyle [place] kit) 1 bid dulaglutide (Trulicity) 1.5 mg (0.5 mL) subcut QWEEK gabapentin (Neurontin) 100 mg PO BID glipizide 10 mg (2 x 5 mg) PO BID linaclotide (Linzess) 290 mcg PO DAILY 30 days metformin 1,000 mg PO BID metoclopramide HCl (Reglan) 5 mg PO TID multivitamin (Daily Multi-Vitamin tablet) 1 tab PO DAILY ondansetron HCl 4 mg PO Q8H PRN Tobacco use date assessed: 07/09/23 Dental Screening Dental Screen Date: 07/09/23 Did you have a dental visit in the last 12 months?: Yes Did you have a dental problem in the last 6 months where you did not have access to dental care?: No Was dental information given to patient?: Patient has dentist HPI 4m follow up HPI Details Pt presents for f/u of DM 2. Patient complains of chronic lower back pain radiating to both sides of her hips left more than right, pain is worse when patient is walking. Patient denies pain radiating to lower extremities or weakness in lower extremities. Patient has been under lot of stress because she lost her job and her mother with dementia lives with her. [facility] Medical History (Updated 07/09/23 @ 09:15 by Michell Fatima MD) Annual physical exam (~10/29/22) Chest pain Obese Normal Pap smear Normal colonoscopy DVT (deep venous thrombosis) Breast CA Asthma Hyperlipemia DM (diabetes mellitus) Surgical History (Updated 06/12/23 @ 09:29 by BANDAR Sheldon) S/P repair of paraesophageal hernia History of esophagogastroduodenoscopy (EGD) H/O colonoscopy Hx of meniscectomy of right knee Family History Father Dementia Mother No problems noted. Son No problems noted. Son No problems noted. Daughter No problems noted. Brother Substance use disorder Brother Substance use disorder Social History Housing: House Patient Tobacco Use Status: Never used Tobacco e-Cigarette/Vaping Use: Never Used Current occupational status: employed and unemployed Cognitive needs: No Hearing needs: No Vision needs: Yes Questionnaire PHQ-9 Over the last 2 weeks, how often have you been bothered by any of the following problems? 1. Little interest or pleasure in doing things: several days 2. Feeling down, depressed, or hopeless: not at all 3. Trouble falling or staying asleep, or sleeping too much: nearly every day 4. Feeling tired or having little energy: several days 5. Poor appetite or overeating: not at all 6. Feeling bad about yourself - or that you are a failure or have let yourself or your family down: not at all 7. Trouble concentrating on things, such as reading the newspaper or watching television: not at all 8. Moving or speaking so slowly that other people could have noticed. Or the opposite - being so fidgety or restless that you have been moving around a lot more than usual: not at all 9. Thoughts that you would be better off or of hurting yourself in some way: not at all Total score: 5 Depression Screening Interpretation: Negative Source: Developed by Drs. Denny Cooley, Markell Izaguirre and colleagues, with an educational jenise from [employer]. Thrive Questionnaire Date Thrive assessed: 07/09/23 I am a: Patient What is your living situation today?: I have a steady place to live Within the past 12 months, did the food you bought not last and you didn't have the money to get more?: Never true Within the past 12 months, did you worry whether your food would run out before you got money to buy more?: Never true Do you have trouble paying for medicines?: No Do you have trouble getting transportation to medical appointments?: No Do you have trouble paying your heating and electricity bill?: No Do you have trouble taking care of your child, family member or friend?: No Do you have trouble with day-to-day activities such as bathing, preparing meals, shopping, managing finances, etc.?: No Are you currently unemployed and looking for a job?: No Are you interested in more education?: No Please select the resources that you would like help with: None Currently or been in a relationship where the following occur: no concerns reported RAMON-7 AMB Questionnaire RAMON-7 Date RAMON - 7 assessed: 07/09/23 Feeling nervous, anxious, or on edge: 0 = Not at all Not being able to stop or control worryin = Not at all Worrying too much about different things: 0 = Not at all Trouble relaxin = Not at all Being so restless that it is hard to sit still: 0 = Not at all Becoming easily annoyed or irritable: 0 = Not at all Feeling afraid as if something awful might happen: 0 = Not at all Total RAMON-7 score (0-4 normal; 5-9 mild; 10-14 moderate; 15-21 severe): 0 Source: Developed by Drs. Denny Cooley, Markell Izaguirre and colleagues, with an educational jenise from [employer]. Review of Systems Const All systems reviewed & are unremarkable except as noted in HPI and below Reports no additional complaints Eyes Reports no additional complaints ENT Reports no additional complaints Card Reports no additional complaints Resp Reports no additional complaints GI Reports no additional complaints Reports no additional complaints Physical exam (Primary Care) Vital Signs: Last Vital Signs Pulse 87 07/09/23 08:38 BP 112/74 07/09/23 08:38 Pulse Ox 96 07/09/23 08:38 Oxygen Delivery Method Room Air 07/09/23 08:38 BMI result Body Mass Index 36.6 Tobacco/Smoking Status: Tobacco use Status Tobacco use date assessed 07/09/23 07/09/23 08:44 Patient Tobacco Use Status Never used Tobacco 07/09/23 08:44 e-Cigarette/Vaping Use Never Used 07/09/23 08:44 PHQ-9: PHQ-9 Score PHQ-9: Total score 5 07/09/23 08:44 Depression Screening Interpretation: Negative Thrive Assessment: Date of Thrive Assessment Date Thrive assessed 07/09/23 07/09/23 08:44 Currently or been in a relationship where the following occur: no concerns reported Const General: no acute distress HENMT Head: Yes normal to inspection Ears: hearing grossly normal bilaterally Face and sinus: Yes normal facial exam Mouth: Normal oral and palatal mucosa present Throat: Yes posterior oropharynx normal Eyes General: appearance normal, both eyes and all related structures Neck Neck: Yes no lymphadenopathy and Yes supple Resp Effort & Inspection: normal respiratory effort Auscultation: clear to auscultation bilaterally Cardio Rhythm: regular rhythm Heart sounds: S1 normal heart sound present and S2 normal heart sound present GI Inspection: Yes normal to inspection Palpation (GI): Soft to palpation Percussion: Yes normal to percussion Extrem Other: Paraspinal tenderness in the lower lumbar region, there is left trochanteric area tenderness, DROM of both hips General: Yes no clubbing, cyanosis or edema Assessment and Plan Assessment & Plan (1) Hip pain, bilateral: Code(s): M25.551 - Pain in right hip; M25.552 - Pain in left hip Plan: Check x-rays of both hips physical therapy was recommended but patient declined. She was giving trochanteric bursitis stretching exercises (2) Hyperlipemia: Code(s): E78.5 - Hyperlipidemia, unspecified Plan: Continue statin (3) Asthma: Code(s): J45.909 - Unspecified asthma, uncomplicated (4) DM (diabetes mellitus): Code(s): E11.9 - Type 2 diabetes mellitus without complications Plan: Patient will have a fasting blood work today, ADA diet regular physical activity weight loss discussed with the patient. She will continue same medications and will follow-up in 4 months with a fasting labs before Orders: Orders Hemoglobin A1c 4 Months E78.5 - Hyperlipidemia, unspecified, J45.909 - Unspecified asthma, uncomplicated XR hip BI w PEL1V Today M25.551 - Pain in right hip, M25.552 - Pain in left hip Comprehensive [place]. Panel Fast 4 Months E78.5 - Hyperlipidemia, unspecified, J45.909 - Unspecified asthma, uncomplicated Complete Blood Count Auto Diff 4 Months E78.5 - Hyperlipidemia, unspecified, J45.909 - Unspecified asthma, uncomplicated Lipid Panel 4 Months E78.5 - Hyperlipidemia, unspecified, J45.909 - Unspecified asthma, uncomplicated Microalbumin, Random (w Creat) 4 Months E78.5 - Hyperlipidemia, unspecified, J45.909 - Unspecified asthma, uncomplicated Medications: New dulaglutide (Trulicity) 3 mg (0.5 mL) subcut QWEEK 6 mL 3RF Refilled gabapentin (Neurontin) 1 cap Q AM, 2-3 caps QPM 100 mg PO BID 360 caps 5RF gabapentin (Neurontin) 1 cap Q AM, 2-3 caps QPM 100 mg PO BID 360 caps 5RF Discontinued dulaglutide (Trulicity) Discontinued Reason: Doctor's Order 1.5 mg (0.5 mL) subcut QWEEK 6 mL 3RF E11.9 - Type 2 diabetes mellitus without complications Coding Level of Care Code Est Pt Level 4 (72803) Diagnoses Hip pain, bilateral M25.551; M25.552 Hyperlipemia E78.5 Asthma J45.909 DM (diabetes mellitus) E11.9
== END 2023-07-09 09:39 | disposition home or self-care (01) ==
PROVIDERS: Visit Provider Internal Medicine
DX: M25.551 Pain in right hip (principal); J45.909 Unspecified asthma, uncomplicated; E11.9 Type 2 diabetes mellitus without complications; M25.552 Pain in left hip; E78.5 Hyperlipidemia, unspecified
CPT/HCPCS: 99214

== ENCOUNTER 2023-07-09 09:25 | Outpatient (REF) | payer BC, SELFPAY ==
--- NOTE | ~2023-07-09 | XR_ITS ---
EXAMINATION: XR HIP, WITH AP PELVIS, BILATERAL CLINICAL INFORMATION: Pain in the right hip. COMPARISON: None available. TECHNIQUE: AP and frog-leg lateral views of each hip and an AP view of the pelvis. FINDINGS: Small marginal osteophytes are present at the acetabula. No fracture or malalignment. SI joints and pubic symphysis are unremarkable. Enthesopathic spurring is present in the anterior superior iliac spines. There is degenerative spondylosis in the lower lumbar spine. Phleboliths are present in the central pelvis. 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 No acute osseous findings.
[2023-07-09 12:24] LABS: Estimated Average Glucose 131 mg/dL; Hemoglobin A1c % 6.2 % (<6.0)
[2023-07-09 13:09] LABS: Alanine Aminotransferase 20 U/L (0-31); Albumin Level 4.1 g/dL (3.5-5.0); Alkaline Phosphatase 76 U/L (39-117); Anion Gap 13 (12-20); Aspartate Amino Transferase 16 U/L (5-31); Bilirubin Total 0.8 mg/dL (0.0-1.0); Blood Urea Nitrogen 14 mg/dL (9-16); Calcium 9.6 mg/dL (8.4-10.2); Carbon Dioxide 27 mmol/L (22-29); Chloride 106 mmol/L (96-108); Cholesterol 212 mg/dL (<200); Estimated Glomerular Filt Rate > 60; Glucose Fasting 106 mg/dL (60-99); HDL Cholesterol 76 mg/dL (>40); LDL Cholesterol Calculated 121 mg/dL (<100); Potassium 4.5 mmol/L (3.3-5.1); Sodium 141 mmol/L (135-145); Total Protein 7.5 g/dL (6.5-8.0); Triglycerides 79 mg/dL (<150)
[2023-07-09 13:28] LABS: TSH reflex Free T4 1.91 uIU/mL (0.32-4.0)
== END 2023-07-09 09:26 | disposition home or self-care (01) ==
LOC: HO.HMGCX 09:25
PROVIDERS: PCP Internal Medicine; Visit Provider Internal Medicine
DX: M25.551 Pain in right hip (principal); M25.552 Pain in left hip; E11.9 Type 2 diabetes mellitus without complications; E78.5 Hyperlipidemia, unspecified
CPT/HCPCS: 36415; 73521; 80053; 80061; 83036; 84443

== ENCOUNTER 2023-07-11 08:44 | Outpatient (AMB) | payer BC, SELFPAY ==
--- NOTE | 2023-07-11 08:52 | A.OFFVIS_ITS ---
Intake Vital Signs 07/11/23 08:58 Height 5 ft 2 in Weight 201 lb BMI 36.8 BP 123/73 Blood Pressure Location Lt brachial Position Sitting Pulse 100 Intake Visit Reasons: 4 week follow up Intake Note: Patient follow up for x ray results and med check. Patient cc: abdominal bloating, and between diarrhea and constipation. Denies any other GI issues or concern for today. [employer] Tender Required: No Accompanied by: Self / Same As Patient Allergies codeine [CODEINE] Allergy (Severe, Verified 08/06/23 09:16) SWELLING dapagliflozin [From FARXIGA] Allergy (Intermediate, Verified 08/06/23 09:16) RASH latex [LATEX] Allergy (Intermediate, Verified 08/06/23 09:16) RASH montelukast [MONTELUKAST] Allergy (Unknown, Verified 08/06/23 09:16) ?? HX ILL EFFECTS BUT STILL TAKING oxycodone [OXYCODONE] Allergy (Unknown, Verified 08/06/23 09:16) PER H&P HPI 4 week follow up HPI Details Assessment & Plan (1) Small bowel motility disorder: Comment: Determined by small-bowel follow-through study Code(s): K59.9 - Functional intestinal disorder, unspecified Plan: She is still having bloating, worse in the after noon, but her BM's with LInzess 290 and bisacodyl are producing watery diarrhea several times a day. She also is having burning back pain. We will stop the bisacodyl and continue LInzess, and we discuss another trial of reglan. She was scared away from the possible a/e by her PCP (who clearly does not understand that these effects are very rare and occur at very high doses over 60mg/day.) She did NOT have any a/e. She understands that with a small bowel motility disorder we have limited pharmacological options otherwise I would be more than happy to recommend different course. In fact this is what we tried to do by managing it from the bottom down with the laxative regimen. Will restart the Reglan at bid 5mg. Will get abd xr and LS/Si xr. ROV 4 weeks. (2) Chronic idiopathic constipation: Code(s): K59.04 - Chronic idiopathic constipation Orders: Orders XR abdomen w decub itus Today K59.04 - Chronic i diopathic constipa tion XR lumbar spine 2- 3V Today K59.9 - Functional intestinal disord er, unspecified XR sacroiliac join t 1-2V Today K59.9 - Functional intestinal disord er, unspecified Medications: New metoclopramide HCl (Reglan) pt is NOT allergic to t his, she was misgu ided about potenti al adverse effects by another provid er. 5 mg PO TID 90 ta bs 3RF K59.9 - Functional intestinal disord er, unspecified X-RAY OF THE ABDOMEN/LUMBAR SPINE X-RAY/SI JOINT X-RAYS 06/13/23 ABDOMEN FINDINGS: The bowel gas pattern is normal with no evidence of ileus or obstruction. There is scattered retained stool. No unusual soft tissue calcifications are noted. The bones are unremarkable. XR/XR abdomen w decubitus IMPRESSION: Nonspecific bowel gas pattern. FINDINGS: LUMBOSACRAL SPINE: There is mild bony demineralization. Vertebral body heights and alignment are normal. At L5-S1, there is moderately severe disc space narrowing. The remaining disc spaces are relatively well-maintained. No acute fracture or spondylolisthesis is seen. There is multi-level mild thoracolumbar spondylosis. The posterior elements are intact. There is facet arthropathy at L4-L5 and L5-S1. There are aortic atherosclerotic calcifications. There are right upper quadrant surgical clips. SACROILIAC JOINTS: Bones and soft tissues are normal. No fracture. Alignment is anatomic. Sacroiliac joint spaces are well-maintained without erosions or surrounding sclerosis. There are multiple pelvic phleboliths. XR/XR sacroiliac joint 1-2V IMPRESSION: LUMBOSACRAL SPINE: 1. There is moderately severe degenerati ve disc disease at L5-S1. 2. There is mild thoracolumbar spondylos is. 3. There is facet arthropathy at L4-L5 a nd L5-S1. SACROILIAC JOINTS Normal sacroiliac joints. Right Breast Cancer - 07/2012 -s/p R Mastectomy & chemo . ? BP ON LEFT SIDE ONLY. ?type I diabetes. ?Asthma. ?GERD - acid reflux. ?Hiatal Hernia. ?Chronic back pain. ?Mammogram. ?Colonoscopy. ?pap 05/2017 [facility]. Surgical Historyeye surgery Right Mastectomy - implant - [facility] - 09/2012gall bladder tubal ligation hand surgery- Left and Right bladder surgery heart surgery-PORT EGD + biopsy & Colonoscopy - Dr Winnie Ramon - [facility] [place] - 12/12/2016EGD with large polypectomies x 5 - Dr Winnie Ramon - [facility] [place] - 04/08/18PEH repair - Dr Weinstein - 03/2018 TODAYS VISIT She has not had good success with the LInzess has not moved her bowels but twice since last visit. Was doing better wtih bisacodyl but had some diarrhea. Did not start reglan, has concerns. We agree to try the LInzess with 1-2 bisacodyl. We review the xrays and she has moderately severe lumbar and thoracic DJD with spondylosis and facet arthropaty. Her hip xray were largely benign, so the groin and hip pain is likely referred or radicular for other parts of the spine. I am referring her to pain mgmt, but she also has good relief with yaima low dose. Has failed PT in the past and injections. ROV 4 weeks. [facility] Medical History Annual physical exam (~10/29/22) Chest pain Obese Normal Pap smear Normal colonoscopy DVT (deep venous thrombosis) Breast CA Asthma Hyperlipemia DM (diabetes mellitus) Surgical History S/P repair of paraesophageal hernia History of esophagogastroduodenoscopy (EGD) H/O colonoscopy Hx of meniscectomy of right knee Family History Father Dementia Mother No problems noted. Son No problems noted. Son No problems noted. Daughter No problems noted. Brother Substance use disorder Brother Substance use disorder Social History Housing: House Patient Tobacco Use Status: Never used Tobacco e-Cigarette/Vaping Use: Never Used Current occupational status: employed and unemployed Cognitive needs: No Hearing needs: No Vision needs: Yes Review of Systems Const Denies fatigue, Denies fever(s), Denies night sweats, Denies poor appetite and Denies weight loss ENT Reports Normal hearing present, Denies dental pain, Denies dysphagia, Denies hearing loss, Denies mouth pain, Denies odynophagia, Denies throat swelling, Den ies tongue swelling and Reports other (Dentition adequate) Card Reports no additional complaints Resp Reports no additional complaints GI Denies abdominal pain, Denies melena, Reports bloating, Denies hematochezia, Reports constipation, Reports GI cramping, Denies dysphagia, Denies excessive flatus, Denies early satiety, Denies heartburn, Denies diarrhea, Denies nausea, Denies odynophagia, Denies vomiting and Denies hematemesis Skin/Breast Denies pruritus, Denies lesions, Denies rash and Denies jaundice Neuro Reports Normal hearing present and Denies Abnormal speech present Endo Denies fatigue Aller/Immun Denies throat swelling and Denies tongue swelling Physical Exam Vital Signs: Last Vital Signs Pulse 100 07/11/23 08:58 BP 123/73 07/11/23 08:58 BMI result Body Mass Index 36.8 Const General: cooperative, no acute distress, well developed and well groomed Nutritional Appearance: well nourished and obese Orientation/consciousness: oriented to person, oriented to place and oriented to time Limitations: No language barrier HEENT Head: Yes normocephalic and Yes atraumatic Eyes General: appearance normal, both eyes and all related structures Pupils: Equal, round and reactive pupils present Neck Neck: Yes normal visual inspection and Yes no lymphadenopathy Thyroid: Thyroid normal Resp Effort & Inspection: normal respiratory effort and able to speak in complete sentences Auscultation: clear to auscultation bilaterally Cardio Rate: regular rate Rhythm: regular rhythm Heart sounds: Normal, physiologic split S2 sound present Peripheral pulses: radial pulses present and posterior tibial pulses present GI Inspection: No distended, Yes Abdominal panniculus present and Yes obesity Palpation (GI): Soft to palpation, nontender, no guarding, not rigid and No hepa tosplenomegaly present Percussion: Yes normal to percussion Auscultation: normal bowel sounds Rectal Exam - Female: deferred Skin General skin exam: no rashes or lesions noted, turgor normal, skin not dry, no jaundice, No spider nevi and no striae Rashes: no rashes Nails: normal Neuro General: oriented to person, oriented to place and oriented to time Cranial nerves: Yes Equal, round and reactive pupils present and Yes Normal hearing present Speech: No Abnormal speech present Extrem General: Yes normal to inspection, No clubbing, No cyanosis and No edema Psych Appearance: grossly normal and well kempt Mental Status: mental status grossly normal Speech and movement: Normal speech and movement present Affect: normal affect Attitude: cooperative Thought process: Normal thought process present and not confabulating Thought content: Normal thought content present Insight: Limited insight present (Psych) Judgement: Limited judgement present (Psych) Assessment & Plan Assessment & Plan (1) Chronic idiopathic constipation: Code(s): K59.04 - Chronic idiopathic constipation Plan: She has not had good success with the LInzess has not moved her bowels but twice since last visit. Was doing better wtih bisacodyl but had some diarrhea. Did not start reglan, has concerns. We agree to try the LInzess with 1-2 bisacodyl. We review the xrays and she has moderately severe lumbar and thoracic DJD with spondylosis and facet arthropaty. Her hip xray were largely benign, so the groin and hip pain is likely referred or radicular for other parts of the spine. I am referring her to pain mgmt, but she also has good relief with yaima low dose. Has failed PT in the past and injections. ROV 4 weeks. (2) Lumbar spondylosis with myelopathy: Code(s): M47.16 - Other spondylosis with myelopathy, lumbar region (3) Lumbar facet arthropathy: Code(s): M47.816 - Spondylosis without myelopathy or radiculopathy, lumbar region Orders: Referrals Pain Management Referral M47.16 - Other spondylosis with myelopathy, lumbar region, M47.816 - Spondylosis without myelopathy or radiculopathy, lumbar region Medications: New bisacodyl (Dulcolax (bisacodyl)) 10 mg (2 x 5 mg) PO BEDTIME 60 tabs 3RF 30 days K59.04 - Chronic idiopathic constipation Refilled linaclotide (Linzess) 290 mcg PO DAILY 30 caps 6RF 30 days K59.04 - Chronic idio pathic constipation Coding Level of Care Code Est Pt Level 3 (25176) Diagnoses Chronic idiopathic constipation K59.04 Lumbar spondylosis with myelopathy M47.16 Lumbar facet arthropathy M47.816
[2023-07-11 08:58] VITALS: BP 123/73; PULSE 100; BMI 36.8
== END 2023-07-11 09:20 | disposition home or self-care (01) ==
PROVIDERS: PCP Internal Medicine; Visit Provider Nurse Practitioner
DX: K59.04 Chronic idiopathic constipation (principal); M47.16 Other spondylosis with myelopathy, lumbar region; M47.816 Spondylosis without myelopathy or radiculopathy, lumbar region
CPT/HCPCS: 99213

== ENCOUNTER → 2023-07-11 08:44 | Outpatient (BNVA) | payer BC, SELFPAY | PROVIDERS: PCP Internal Medicine; Visit Provider Nurse Practitioner ==

== ENCOUNTER 2023-08-06 09:04 | Outpatient (AMB) | payer BC, SELFPAY ==
--- NOTE | 2023-08-06 09:09 | MHC.OFFVIS ---
Intake Vital Signs 08/06/23 09:12 Height 5 ft 2 in Weight 205 lb 0.478 oz BMI 37.5 BP 134/88 Blood Pressure Location Lt brachial Position Sitting Pulse 96 Intake Visit Reasons: 4 week follow up Intake Note: Patient presents to in office visit today in follow up of constipation. CC: Patient reports doing better from constipation with Dulcolax. She states the pharmacy did not received the Linzess. Allergies codeine [CODEINE] Allergy (Severe, Verified 08/06/23 09:16) SWELLING dapagliflozin [From FARXIGA] Allergy (Intermediate, Verified 08/06/23 09:16) RASH latex [LATEX] Allergy (Intermediate, Verified 08/06/23 09:16) RASH montelukast [MONTELUKAST] Allergy (Unknown, Verified 08/06/23 09:16) ?? HX ILL EFFECTS BUT STILL TAKING oxycodone [OXYCODONE] Allergy (Unknown, Verified 08/06/23 09:16) PER H&P HPI 4 week follow up HPI Details Assessment & Plan (1) Small bowel motility disorder: Comment: Determined by small-bowel follow-through study Code(s): K59.9 - Functional intestinal disorder, unspecified Plan: She is still having bloating, worse in the after noon, but her BM's with LInzess 290 and bisacodyl are producing watery diarrhea several times a day. She also is having burning back pain. We will stop the bisacodyl and continue LInzess, and we discuss another trial of reglan. She was scared away from the possible a/e by her PCP (who clearly does not understand that these effects are very rare and occur at very high doses over 60mg/day.) She did NOT have any a/e. She understands that with a small bowel motility disorder we have limited pharmacological options otherwise I would be more than happy to recommend different course. In fact this is what we tried to do by managing it from the bottom down with the laxative regimen. Will restart the Reglan at bid 5mg. Will get abd xr and LS/Si xr. ROV 4 weeks. (2) Chronic idiopathic constipation: Code(s): K59.04 - Chronic idiopathic constipation Orders: Orders XR abdomen w decub itus Today K59.04 - Chronic i diopathic constipa tion XR lumbar spine 2- 3V Today K59.9 - Functional intestinal disord er, unspecified XR sacroiliac join t 1-2V Today K59.9 - Functional intestinal disord er, unspecified Medications: New metoclopramide HCl (Reglan) pt is NOT allergic to t his, she was misgu ided about potenti al adverse effects by another provid er. 5 mg PO TID 90 ta bs 3RF K59.9 - Functional intestinal disord er, unspecified X-RAY OF THE ABDOMEN/LUMBAR SPINE X-RAY/SI JOINT X-RAYS 06/13/23 ABDOMEN FINDINGS: The bowel gas pattern is normal with no evidence of ileus or obstruction. There is scattered retained stool. No unusual soft tissue calcifications are noted. The bones are unremarkable. XR/XR abdomen w decubitus IMPRESSION: Nonspecific bowel gas pattern. FINDINGS: LUMBOSACRAL SPINE: There is mild bony demineralization. Vertebral body heights and alignment are normal. At L5-S1, there is moderately severe disc space narrowing. The remaining disc spaces are relatively well-maintained. No acute fracture or spondylolisthesis is seen. There is multi-level mild thoracolumbar spondylosis. The posterior elements are intact. There is facet arthropathy at L4-L5 and L5-S1. There are aortic atherosclerotic calcifications. There are right upper quadrant surgical clips. SACROILIAC JOINTS: Bones and soft tissues are normal. No fracture. Alignment is anatomic. Sacroiliac joint spaces are well-maintained without erosions or surrounding sclerosis. There are multiple pelvic phleboliths. XR/XR sacroiliac joint 1-2V IMPRESSION: LUMBOSACRAL SPINE: 1. There is moderately severe degenerative disc disease at L5-S1. 2. There is mild thoracolumbar spondylosis. 3. There is facet arthropathy at L4-L5 and L5-S1. SACROILIAC JOINTS Normal sacroiliac joints. TODAYS VISIT She had a problem getting her LInzess from the pharmacy - they said they did not get our refill. She also uses bisacodyl. However, when she does have all of her medications she is satisfied with her GI regimen. 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 Likely there is radiculopathy and facet arthropathy causing radiation to her groin and her hips. Her sacral iliac joints appear to be fine. I encouraged her if she has worsening difficulty sit discuss this with her primary care provider and have a possible referral to pain management. ROV 6 mos. [facility] Medical History Annual physical exam (~10/29/22) Chest pain Obese Normal Pap smear Normal colonoscopy DVT (deep venous thrombosis) Breast CA Asthma Hyperlipemia DM (diabetes mellitus) Surgical History S/P repair of paraesophageal hernia History of esophagogastroduodenoscopy (EGD) H/O colonoscopy Hx of meniscectomy of right knee Family History Father Dementia Mother No problems noted. Son No problems noted. Son No problems noted. Daughter No problems noted. Brother Substance use disorder Brother Substance use disorder Social History Housing: House Patient Tobacco Use Status: Never used Tobacco e-Cigarette/Vaping Use: Never Used Current occupational status: employed and unemployed Cognitive needs: No Hearing needs: No Vision needs: Yes Review of Systems Const Denies fatigue, Denies fever(s), Denies night sweats, Denies poor appetite and Denies weight loss ENT Reports Normal hearing present, Denies dental pain, Denies dysphagia, Denies hearing loss, Denies mouth pain, Denies odynophagia, Denies throat swelling, Denies tongue swelling and Reports other (Dentition adequate) Card Reports no additional complaints Resp Reports no additional complaints GI Denies abdominal pain, Denies melena, Denies bloating, Denies hematochezia, Reports constipation, Denies GI cramping, Denies dysphagia, Denies excessive flatus, Denies early satiety, Denies heartburn, Denies diarrhea, Denies nausea, Denies odynophagia, Denies vomiting and Denies hematemesis Musc Reports back pain, Reports arthralgias and Reports radiating pain into limb Skin/Breast Denies pruritus, Denies lesions, Denies rash and Denies jaundice Neuro Reports Normal hearing present and Denies Abnormal speech present Endo Denies fatigue Aller/Immun Denies throat swelling and Denies tongue swelling Physical Exam Vital Signs: Last Vital Signs Pulse 96 08/06/23 09:12 BP 134/88 08/06/23 09:12 BMI result Body Mass Index 37.5 Const General: cooperative, no acute distress, well developed and well groomed Nutritional Appearance: well nourished and obese morbidly obese Orientation/consciousness: oriented to person, oriented to place and oriented to time Limitations: No language barrier HEENT Head: Yes normocephalic and Yes atraumatic Eyes General: appearance normal, both eyes and all related structures Pupils: Equal, round and reactive pupils present Neck Neck: Yes normal visual inspection and Yes no lymphadenopathy Thyroid: Thyroid normal Resp Effort & Inspection: normal respiratory effort and able to speak in complete sentences Auscultation: clear to auscultation bilaterally Cardio Rate: regular rate Rhythm: regular rhythm Heart sounds: Normal, physiologic split S2 sound present Peripheral pulses: radial pulses present and posterior tibial pulses present GI Inspection: No distended, Yes Abdominal panniculus present and Yes obesity Palpation (GI): Soft to palpation, nontender, no guarding, not rigid and No hepatosplenomegaly present Percussion: Yes normal to percussion Auscultation: normal bowel sounds Rectal Exam - Female: deferred Skin General skin exam: no rashes or lesions noted, turgor normal, skin not dry, no jaundice, No spider nevi and no striae Rashes: no rashes Nails: normal Neuro General: oriented to person, oriented to place and oriented to time Cranial nerves: Yes Equal, round and reactive pupils present and Yes Normal hearing present Speech: No Abnormal speech present Extrem General: Yes normal to inspection, No clubbing, No cyanosis and No edema Psych Appearance: grossly normal and well kempt Mental Status: mental status grossly normal Speech and movement: Normal speech and movement present Affect: normal affect Attitude: cooperative Thought process: Normal thought process present and not confabulating Thought content: Normal thought content present Insight: Fair insight present (Psych) Judgement: Fair judgement present (Psych) Assessment & Plan Assessment & Plan (1) Small bowel motility disorder: Comment: Determined by small-bowel follow-through study Code(s): K59.9 - Functional intestinal disorder, unspecified Plan: She had a problem getting her LInzess from the pharmacy - they said they did not get our refill. She also uses bisacodyl. However, when she does have all of her medications she is satisfied with her GI regimen. 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 Likely there is radiculopathy and facet arthropathy causing radiation to her groin and her hips. Her sacral iliac joints appear to be fine. I encouraged her if she has worsening difficulty sit discuss this with her primary care provider and have a possible referral to pain management. ROV 6 mos. (2) Chronic idiopathic constipation: Code(s): K59.04 - Chronic idiopathic constipation Medications: Refilled bisacodyl (Dulcolax (bisacodyl)) 10 mg (2 x 5 mg) PO BEDTIME 30 days 60 tabs 3RF K59.04 - Chronic idiopathic constipation linaclotide (Linzess) 290 mcg PO DAILY 30 days 30 caps 6RF K59.04 - Chronic idiopathic constipation Coding Level of Care Code Est Pt Level 3 (66899) Diagnoses Small bowel motility disorder K59.9 Chronic idiopathic constipation K59.04
[2023-08-06 09:12] VITALS: BP 134/88; PULSE 96; BMI 37.5
== END 2023-08-06 09:32 | disposition home or self-care (01) ==
PROVIDERS: PCP Internal Medicine; Visit Provider Nurse Practitioner
DX: K59.9 Functional intestinal disorder, unspecified (principal); K59.04 Chronic idiopathic constipation
CPT/HCPCS: 99213

== ENCOUNTER → 2023-08-06 09:04 | Outpatient (BNVA) | payer BC, SELFPAY | PROVIDERS: PCP Internal Medicine; Visit Provider Nurse Practitioner ==

== ENCOUNTER 2023-10-29 08:35 | Outpatient (REF) | payer BC, SELFPAY ==
[2023-10-29 11:34] LABS: MANUAL DIFF FLAG NO
[2023-10-29 11:41] LABS: Basophils Percent Auto 0.4 % (0-2); Eosinophils Absolute Auto 0.1 X10*3/uL (0.0-0.4); Eosinophils Percent Auto 2.2 % (0-4); Hematocrit 41.6 % (37.0-47.0); Hemoglobin 13.6 g/dl (12.0-16.0); Imm Gran Abs Auto 0.01 X10*3/uL (0.00-0.03); Imm Gran Pct Auto 0.2 % (0.0-0.4); Lymphocytes Percent Auto 42.8 % (20-40); Mean Corpuscular HGB Conc 32.7 g/dl (31.0-35.0); Mean Corpuscular Hemoglobin 29.9 pg (27.0-33.0); Mean Corpuscular Volume 91.4 fL (80.0-98.0); Monocytes Absolute Auto 0.3 X10*3/uL (0.1-1.2); Monocytes Percent Auto 5.5 % (2-11); Neutrophils Absolute Auto 2.2 x10*3/uL (2.0-8.3); Neutrophils Percent Auto 48.9 % (45-73); Platelet Count 211 X10*3/uL (160-400); Red Blood Count 4.55 X10*6/uL (4.20-5.50); Red Cell Distribution Width 13.3 % (11.0-16.0); White Blood Count 4.6 X10*3/uL (4.8-10.8)
[2023-10-29 11:55] LABS: Estimated Average Glucose 126 mg/dL; Hemoglobin A1C 148.5084 umol/L
[2023-10-29 12:11] LABS: Alanine Aminotransferase 17 U/L (0-31); Alkaline Phosphatase 74 U/L (39-117); Anion Gap 15 (12-20); Aspartate Amino Transferase 18 U/L (5-31); Bilirubin Total 0.8 mg/dL (0.0-1.0); Blood Urea Nitrogen 8 mg/dL (9-16); Carbon Dioxide 25 mmol/L (22-29); Chloride 105 mmol/L (96-108); Cholesterol 163 mg/dL (<200); Estimated Glomerular Filt Rate > 60; Glucose Fasting 101 mg/dL (60-99); HDL Cholesterol 55 mg/dL (>40); LDL Cholesterol Calculated 90 mg/dL (<100); Sodium 141 mmol/L (135-145); Total Protein 7.5 g/dL (6.5-8.0); Triglycerides 94 mg/dL (<150)
== END 2023-10-29 08:36 | disposition home or self-care (01) ==
LOC: HO.HMGCLDS 08:35
PROVIDERS: PCP Internal Medicine; Visit Provider Internal Medicine
DX: J45.909 Unspecified asthma, uncomplicated (principal); E78.5 Hyperlipidemia, unspecified
CPT/HCPCS: 36415; 80053; 80061; 83036; 85025

== ENCOUNTER 2023-10-30 12:49 | Outpatient (AMB) | payer BC, SELFPAY ==
--- NOTE | 2023-10-30 12:54 | MHC.PC.OV ---
Vital Signs 10/30/23 12:56 Height 5 ft 2 in Weight 202 lb BMI 36.9 BP 118/80 Blood Pressure Location Lt brachial Position Sitting Pulse 105 H Pulse Source Pulse Oximeter Pulse Oximetry (%) 96 Oxygen Delivery Method Room Air Intake Visit Reasons: Annual PE Intake Note: Pt is here today for PE.Pt states that she has been sick for a week now. Pt states that she has a cough and wheezing.Pt states that she has a covid test at home and it was negative. Allergies codeine [CODEINE] Allergy (Severe, Verified 10/30/23 12:58) SWELLING dapagliflozin [From FARXIGA] Allergy (Intermediate, Verified 10/30/23 12:58) RASH latex [LATEX] Allergy (Intermediate, Verified 10/30/23 12:58) RASH montelukast [MONTELUKAST] Allergy (Unknown, Verified 10/30/23 12:58) ?? HX ILL EFFECTS BUT STILL TAKING oxycodone [OXYCODONE] Allergy (Unknown, Verified 10/30/23 12:58) PER H&P Medication List - Last Reconciled 10/30/23 by Michell Fatima MD albuterol sulfate 2.5 mg (0.5 mL) inhalation Q20M apixaban 5 mg PO BID atorvastatin 20 mg PO DAILY bisacodyl (Dulcolax (bisacodyl)) 10 mg (2 x 5 mg) PO BEDTIME 30 days blood sugar diagnostic (FreeStyle Lite Strips) check glucose once a day blood-glucose meter (OneTouch Ultra2 Meter) As directed blood-glucose meter (FreeStyle [place] kit) 1 bid dulaglutide (Trulicity) 3 mg (0.5 mL) subcut QWEEK gabapentin (Neurontin) 100 mg PO BID glipizide 10 mg PO BID linaclotide (Linzess) 290 mcg PO DAILY 30 days metformin 1,000 mg PO BID multivitamin (Daily Multi-Vitamin tablet) 1 tab PO DAILY Tobacco use date assessed: 10/30/23 Dental Screening Dental Screen Date: 10/30/23 Did you have a dental visit in the last 12 months?: Yes Did you have a dental problem in the last 6 months where you did not have access to dental care?: No Was dental information given to patient?: Patient has dentist HPI Annual PE HPI Details Pt presents for PE. Pt c/o 1 week cough, fever, chills, wheezing, chest tightness. Patient has been using albuterol nebulized up to 3 times a day with minimal relief. [facility] Medical History Annual physical exam (~10/29/22) Chest pain Obese Normal Pap smear Normal colonoscopy DVT (deep venous thrombosis) Breast CA Asthma Hyperlipemia DM (diabetes mellitus) Surgical History S/P repair of paraesophageal hernia History of esophagogastroduodenoscopy (EGD) H/O colonoscopy Hx of meniscectomy of right knee Family History Father Dementia Mother No problems noted. Son No problems noted. Son No problems noted. Daughter No problems noted. Brother Substance use disorder Brother Substance use disorder Social History Housing: House Patient Tobacco Use Status: Never used Tobacco e-Cigarette/Vaping Use: Never Used Current occupational status: employed and unemployed Cognitive needs: No Hearing needs: No Vision needs: Yes Questionnaire Thrive Questionnaire Date Thrive assessed: 07/09/23 AUDIT C Alcohol Use Questionnaire (AUDIT-C) 1. How often do you have a drink containing alcohol?: Never 3. How often do you have six or more drinks on one occasion?: Never Total Score: 0 RAMON-7 AMB Questionnaire RAMON-7 Date RAMON - 7 assessed: 07/09/23 Source: Developed by Drs. Denny Cooley, Eneida Fleming, Markell Mtz and colleagues, with an educational jenise from [employer]. Review of Systems Const All systems reviewed & are unremarkable except as noted in HPI and below Reports no additional complaints Eyes Reports no additional complaints ENT Reports no additional complaints Card Reports no additional complaints Resp Reports no additional complaints GI Reports no additional complaints Reports no additional complaints Physical exam (Primary Care) Vital Signs: Last Vital Signs Pulse 105 H 10/30/23 12:56 BP 118/80 10/30/23 12:56 Pulse Ox 96 10/30/23 12:56 Oxygen Delivery Method Room Air 10/30/23 12:56 BMI result Body Mass Index 36.9 Tobacco/Smoking Status: Tobacco use Status Tobacco use date assessed 10/30/23 10/30/23 13:01 Patient Tobacco Use Status Never used Tobacco 10/30/23 13:01 e-Cigarette/Vaping Use Never Used 10/30/23 12:54 Thrive Assessment: Date of Thrive Assessment Date Thrive assessed 07/09/23 10/30/23 12:54 Const General: no acute distress HENMT Head: Yes normal to inspection Ears: hearing grossly normal bilaterally General nose exam: Normal external nose present Mouth: Normal oral and palatal mucosa present Eyes General: appearance normal, both eyes and all related structures Neck Neck: Yes supple Resp Effort & Inspection: able to speak in complete sentences and Actively coughing Auscultation: rhonchi, wheezes and diminished lung sounds Cardio Rhythm: regular rhythm Heart sounds: S1 normal heart sound present and S2 normal heart sound present GI Inspection: Yes normal to inspection Palpation (GI): Soft to palpation Percussion: Yes normal to percussion Auscultation: normal bowel sounds Extrem General: Yes no clubbing, cyanosis or edema Assessment and Plan Assessment & Plan (1) Hyperlipemia: Code(s): E78.5 - Hyperlipidemia, unspecified Plan: Continue statin (2) Asthma: Code(s): J45.909 - Unspecified asthma, uncomplicated Plan: For asthma exacerbation and bronchitis doxycycline 100 mg twice a day for 10 days, prednisone taper and Tessalon Perles are prescribed patient was advised to use albuterol up to 3 times a day as needed. (3) DM (diabetes mellitus): Code(s): E11.9 - Type 2 diabetes mellitus without complications Plan: A1c is 6.0, ADA diet regular exercise weight loss discussed with the patient she will continue the same medications and follow-up in 3 months with a fasting labs before Orders: Orders Complete Blood Count Auto Diff 3 Months E11.9 - Type 2 diabetes mellitus without complications, E78.5 - Hyperlipidemia, unspecified, J45.909 - Unspecified asthma, uncomplicated Lipid Panel 3 Months E11.9 - Type 2 diabetes mellitus without complications, E78.5 - Hyperlipidemia, unspecified, J45.909 - Unspecified asthma, uncomplicated Hemoglobin A1c 3 Months E11.9 - Type 2 diabetes mellitus without complications, E78.5 - Hyperlipidemia, unspecified, J45.909 - Unspecified asthma, uncomplicated Comprehensive [place]. Panel Fast 3 Months E11.9 - Type 2 diabetes mellitus without complications, E78.5 - Hyperlipidemia, unspecified, J45.909 - Unspecified asthma, uncomplicated Microalbumin, Random (w Creat) 3 Months E11.9 - Type 2 diabetes mellitus without complications, E78.5 - Hyperlipidemia, unspecified, J45.909 - Unspecified asthma, uncomplicated Medications: New prednisone 4 tabl qd x 3 days, then 3 tabl qd x 3days, then 2 tabl qd x 3 days, then 1 tabl qd x 3 days 10 mg PO DAILY 30 tabs 0RF doxycycline hyclate 100 mg PO BID 20 tabs 0RF benzonatate 100 mg PO BID-TID PRN 30 caps 0RF cough Changed From albuterol sulfate for up to 3 doses 2.5 mg (0.5 mL) inhalation Q20M 30 ea 0RF To albuterol sulfate 2.5 mg (0.5 mL) inhalation Q8H 90 ea 3RF Refilled linaclotide (Linzess) 290 mcg PO DAILY 30 days 90 caps 6RF K59.04 - Chronic idiopathic constipation gabapentin (Neurontin) 1 cap Q AM, 2-3 caps QPM 100 mg PO BID 360 caps 5RF Discontinued glipizide Discontinued Reason: Doctor's Order 10 mg PO BID 180 tabs 1RF Coding Level of Care Code Est Pt Prev Care 40-64y(64405) Diagnoses Hyperlipemia E78.5 Asthma J45.909 DM (diabetes mellitus) E11.9
[2023-10-30 12:56] VITALS: BP 118/80; PULSE 105; O2SAT 96; BMI 36.9
== END 2023-10-30 14:11 | disposition home or self-care (01) ==
PROVIDERS: PCP Internal Medicine; Visit Provider Internal Medicine
DX: Z00.00 Encounter for general adult medical examination without abnormal findings (principal); E78.5 Hyperlipidemia, unspecified; J45.909 Unspecified asthma, uncomplicated; E11.9 Type 2 diabetes mellitus without complications
CPT/HCPCS: 99396

== ENCOUNTER 2024-02-22 12:44 | Emergency (ER) | payer BC, SELFPAY ==
--- NOTE | ~2024-02-22 | CT_ITS ---
EXAMINATION: CT ABDOMEN AND PELVIS WITHOUT CONTRAST CLINICAL INFORMATION: Right flank pain COMPARISON: None available. TECHNIQUE: Multidetector volumetric imaging was performed from the superior aspect of the liver through the pubic symphysis. Sagittal and coronal reformatted images were obtained on the technologist's workstation. This CT examination was performed using dose optimization techniques as appropriate, variously including the following: *Automated exposure control *Adjustment of mA and/or kV according to patient size (this includes techniques or standardized protocols for targeted exams where dose is matched to indication/reason for exam; i.e. extremities or head) *Use of iterative reconstruction technique DLP: 593 mGy-cm FINDINGS: LUNG BASES: The visualized lung bases are clear. Partially visualized right breast implant. LIVER, GALLBLADDER, AND BILIARY TREE: The liver is normal in size, shape, and attenuation. No focal hepatic lesion or biliary ductal dilatation is present. The gallbladder has been removed. PANCREAS: Unremarkable. SPLEEN: Unremarkable. ADRENAL GLANDS: Unremarkable. KIDNEYS AND URETERS: The kidneys are normal in size, shape, and attenuation. No hydronephrosis, hydroureter, or calculi seen. No perinephric stranding. BLADDER: Not optimally distended. GASTROINTESTINAL TRACT: Small and large bowel is nondilated but fluid-filled. Appearance is questionable for a generalized ileus. The small and large bowel are otherwise unremarkable. The appendix is unremarkable. There is an esophageal hernia. ABDOMINAL WALL: No significant hernia is appreciated. LYMPH NODES: Normal. VASCULAR: Unremarkable. PELVIC VISCERA: Unremarkable. OSSEOUS STRUCTURES: Degenerative changes of the spine. CT/CT abdomen pelvis wo IV con IMPRESSION: No stone or hydronephrosis. Fluid-filled nondilated small and large bowel questionable for an ileus. Esophageal hernia. Fleischner guidelines were followed.
--- NOTE | 2024-02-22 13:16 | ED_ITS ---
HPI - Abdominal Pain General Chief Complaint: Abdominal Pain Stated Complaint: GI Discomfort Time Seen by Provider: 02/22/24 13:40 Source: patient Mode of arrival: ambulatory Limitations: no limitations History of Present Illness HPI narrative: 58-year-old female presents the ER for evaluation of right lower back pain that radiates to the right groin that started all of a sudden 4 days ago. Patient reports the pain is burning in nature, 07/29 and is now constant. It was initially intermittent but over the course of the last couple of days it is now more constant. She denies any nausea, vomiting, fever, chills. No urinary symptoms. She has chronic bowel issues, follows with January here and has frequent watery bowel movements. Last bowel movement was this morning and was at her baseline. MD elicited complaint: abdominal pain Pertinent past history: constipation and other (Diarrhea) Onset (ago): day(s) Pain Consistency: constant Location: R flank Severity: severe Pain scale (0-10): 10 Quality: burning Radiation: other (Right groin) Exacerbating factors: movement Associated symptoms: diarrhea Related Data Home Medications ?Medication ?Instructions ?Recorded ?Confirmed multivitamin (Daily Multi-Vitamin 1 tab PO DAILY 07/17/21 10/30/23 tablet) Previous Rx's ?Medication ?Instructions ?Recorded blood-glucose meter (OneTouch #1 ea 01/22/21 Ultra2 Meter) atorvastatin 20 mg tablet 20 mg PO DAILY #90 tabs 10/08/21 blood-glucose meter (FreeStyle #1 ea 10/08/21 Goodrich kit) blood sugar diagnostic (FreeStyle #100 ea 10/29/22 Lite Strips) apixaban 5 mg tablet 5 mg PO BID #180 tabs 05/13/23 dulaglutide 3 mg/0.5 mL 3 mg (0.5 mL) subcut QWEEK #6 mL 07/09/23 [facility] bisacodyl 5 mg tablet,delayed 10 mg (2 x 5 mg) PO BEDTIME 30 08/06/23 release (Dulcolax (bisacodyl)) days #60 tabs metformin 1,000 mg tablet 1,000 mg PO BID #180 tabs 10/03/23 benzonatate 100 mg capsule 100 mg PO BID-TID PRN cough #30 10/30/23 caps doxycycline hyclate 100 mg tablet 100 mg PO BID #20 tabs 10/30/23 gabapentin 100 mg capsule 100 mg PO BID #360 caps 10/30/23 (Neurontin) linaclotide 290 mcg capsule 290 mcg PO DAILY 30 days #90 caps 10/30/23 (Linzess) prednisone 10 mg tablet 10 mg PO DAILY #30 tabs 10/30/23 albuterol sulfate 2.5 mg/3 mL 2.5 mg (3 mL) inhalation .COMPLEX 11/05/23 (0.083 %) solution for nebulization PRN shortness of breath or wheezing #90 mL levofloxacin 500 mg tablet 500 mg PO DAILY #7 tabs 02/22/24 morphine 15 mg immediate release 15 mg PO Q8H PRN severe pain 02/22/24 tablet (scale score 7-10) #6 tabs Allergies Allergy/AdvReac Type Severity Reaction Status Date / Time codeine [CODEINE] Allergy Severe SWELLING Verified 02/22/24 13:23 dapagliflozin [From [facility]] Allergy Intermediate RASH Verified 02/22/24 13:23 latex [LATEX] Allergy Intermediate RASH Verified 02/22/24 13:23 montelukast [MONTELUKAST] Allergy Unknown ?? HX ILL Verified 02/22/24 13:23 EFFECTS BUT STILL TAKING oxycodone [OXYCODONE] Allergy Unknown PER H&P Verified 02/22/24 13:23 Review of Systems Review of Systems Yes all other systems are reviewed and are negative [facility] Past Medical History Medical History Annual physical exam (~10/29/22) Chest pain Obese Normal Pap smear Normal colonoscopy DVT (deep venous thrombosis) Breast CA Asthma Hyperlipemia DM (diabetes mellitus) Surgical History S/P repair of paraesophageal hernia History of esophagogastroduodenoscopy (EGD) H/O colonoscopy Hx of meniscectomy of right knee Family History Family History Father Dementia Mother No problems noted. Son No problems noted. Son No problems noted. Daughter No problems noted. Brother Substance use disorder Brother Substance use disorder Social History Social History Housing: House Patient Tobacco Use Status: Never used Tobacco Smoked in Last 30 Days: No e-Cigarette/Vaping Use: Never Used Use of substances other than those prescribed or required for medical reasons: No Advance Directives: No Advance Directives Information Provided: Yes Do you have a plan to hurt others: No Plan Current occupational status: employed and unemployed Cognitive needs: No Hearing needs: No Vision needs: Yes Physical Exam ED Vital Signs: Vital Signs - 24 hr 02/22/24 13:17 02/22/24 15:37 Temperature 96.8 F Pulse Rate 98 93 Respiratory Rate 18 20 Blood Pressure 138/83 132/92 H Pulse Oximetry 95 97 Oxygen Delivery Method Room Air Room Air BMI result Body Mass Index 40.2 Appearance: Alert. Oriented X3. No acute distress. Head: normocephalic, atraumatic. Eyes: Pupils equal, round and reactive to light. ENT: Pharynx normal. No tonsillar swelling or exudate. Neck: Normal inspection. Neck supple. CVS: Normal heart rate and rhythm. Pulses normal. Respiratory: No respiratory distress. Breath sounds normal. Abdomen: Obese, Soft and nontender. Mild tenderness to the right flank. +BS x4. Positive CVA tenderness on the right Skin: Skin warm and dry. Normal skin color. Normal skin turgor. No rashes. Extremities: No lower extremity edema. No joint swelling. Neuro/psych: Oriented X 3. No motor deficit. No sensory deficit. CN II-XII intact. Normal speech and cognition. Course Course Course Narrative: This is an RME performed by Karen Lal CNP: Additional HPI, ROS, PE not included below will be deferred to primary provider. Patient is a 58-year-old who presents emergency department for evaluation of R flank pain radiating into abdomen x 4 days. Burning pain, feels liks its on fire like someone is stabbing me if i move the wrong way . Nonradiating into the leg. Denies urinary frequency/urgency/hesitancy, dysuria, hematuria. She has chronic constipation and diarrhea secondary to IBS. Physical exam: Tenderness upon palpation right/SI, reported radiation into the right lower quadrant of abdomen. No rebound tenderness. Plan: Labs, urinalysis Medical Decision Making Medical Decision Making MDM Narrative: 58-year-old female presents to the ER for evaluation of right lower back pain that radiates into the right inguinal area that started on . No palpable masses on exam. No urinary symptoms. She does have CVA tenderness on exam. Be musculoskeletal pain. Lab workup showing no leukocytosis, no anemia. Her urinalysis is positive for infection with microscopic hematuria. CT scan of the abdomen was ordered to rule out obstructive uropathy. This was negative for stone. It showed possible ileus however clinically she does not have an ileus. She is moving her bowels and not vomiting. Will treat for pyelonephritis. Levaquin and pain control ordered. Can not take NSAIDs due to her anticoagulation. Stable for discharge home with close outpatient follow-up. Return precautions were discussed. Differential Diagnosis Differential Diagnoses: The differential diagnosis associated with the presentation includes UTI, pyelonephritis, musculoskeletal pain, obstructive uropathy, kidney stones, hernia Admission/Observation Consideration of admission/observation: Escalation of care including admission/observation considered Lab Data MDM Lab Attestation statement: I reviewed the patient's lab results. No leukocytosis, no anemia 02/22/24 13:31 02/22/24 13:31 Labs: Lab Results 02/22/24 02/22/24 Range/Units 13:31 13:35 WBC 7.5 (4.8-10.8) X10*3/uL RBC 4.74 (4.20-5.50) X10*6/uL Hgb 14.4 (12.0-16.0) g/dl Hct 43.3 (37.0-47.0) % MCV 91.4 (80.0-98.0) fL MCH 30.4 (27.0-33.0) pg MCHC 33.3 (31.0-35.0) g/dl RDW 13.2 (11.0-16.0) % Plt Count 242 (160-400) X10*3/uL MPV 10.2 (9.4-12.3) fL Immature Gran % (Auto) 0.3 (0.0-0.4) % Neut % (Auto) 65.2 (45-73) % Lymph % (Auto) 26.5 (20-40) % [place] % (Auto) 5.9 (2-11) % Eos % (Auto) 1.7 (0-4) % Baso % (Auto) 0.4 (0-2) % Lymph # (Auto) 2.0 (1.2-4.9) X10*3/uL [place] # (Auto) 0.4 (0.1-1.2) X10*3/uL Eos # (Auto) 0.1 (0.0-0.4) X10*3/uL Baso # (Auto) 0.0 (0.0-0.2) X10*3/uL Abs Immat Gran (auto) 0.02 (0.00-0.03) X10*3/uL Absolute Neuts (auto) 4.9 (2.0-8.3) x10*3/uL Absolute Nucleated RBC 0.000 (0.0-0.012) X10*3/uL Nucleated RBC % (auto) 0.0 (0.0-0.2) /100WBC Sodium 143 (135-145) mmol/L Potassium 4.2 (3.3-5.1) mmol/L Chloride 107 (96-108) mmol/L Carbon Dioxide 25 (22-29) mmol/L Anion Gap 15 (12-20) BUN 10 (9-16) mg/dL Creatinine 0.69 (0.5-1.4) mg/dL Estim Creat Clear Calc 99.4 Estimated GFR > 60 Random Glucose 71 (60-115) mg/dL Calcium 10.0 D (8.4-10.2) mg/dL Total Bilirubin 0.6 (0.0-1.0) mg/dL AST 15 (5-31) U/L ALT 19 (0-31) U/L Alkaline Phosphatase 84 (39-117) U/L Total Protein 8.0 (6.5-8.0) g/dL Albumin 4.2 (3.5-5.0) g/dL Urine Color Yellow Urine Appearance Cloudy Urine pH 5.5 (5.0-9.0) Ur Specific [place] 1.020 (1.005-1.025) Urine Protein Trace (Neg-Trace) mg/dL Urine Glucose (UA) Negative (Negative) mg/dL Urine Ketones Trace (Negative) mg/dL Urine Blood Small (1+) H (Negative) Urine Nitrite Positive H (Negative) Ur Leukocyte Esterase Moderate (2+) H (Negative) Urine RBC 0-2 (0-2) /HPF Urine WBC >50 H (0-5) /HPF Ur Squamous Epith Cells 6-10 (0-2) /HPF Urine Bacteria 4+ (None Seen) Hyaline Casts 3-5 (0-2) /LPF Independent Interpretation I performed an independent interpretation of an: CT Scan Interpretation: No kidney stone appreciated, some dilated loops of bowel in the small bowel without any transition point, air in colon, no evidence of SBO or obstruction Radiology Impression Discussion of test interpretation with radiology: I have reviewed the radiologist's reading. Radiologist Impression: EXAMINATION: CT ABDOMEN AND PELVIS WITHOUT CONTRAST CLINICAL INFORMATION: Right flank pain COMPARISON: None available. TECHNIQUE: Multidetector volumetric imaging was performed from the superior aspect of the liver through the pubic symphysis. Sagittal and coronal reformatted images were obtained on the technologist's workstation. This CT examination was performed using dose optimization techniques as appropriate, variously including the following: *Automated exposure control *Adjustment of mA and/or kV according to patient size (this includes techniques or standardized protocols for targeted exams where dose is matched to indication/reason for exam; i.e. extremities or head) *Use of iterative reconstruction technique DLP: 593 mGy-cm FINDINGS: LUNG BASES: The visualized lung bases are clear. Partially visualized right breast implant. LIVER, GALLBLADDER, AND BILIARY TREE: The liver is normal in size, shape, and attenuation. No focal hepatic lesion or biliary ductal dilatation is present. The gallbladder has been removed. PANCREAS: Unremarkable. SPLEEN: Unremarkable. ADRENAL GLANDS: Unremarkable. KIDNEYS AND URETERS: The kidneys are normal in size, shape, and attenuation. No hydronephrosis, hydroureter, or calculi seen. No perinephric stranding. BLADDER: Not optimally distended. GASTROINTESTINAL TRACT: Small and large bowel is nondilated but fluid-filled. Appearance is questionable for a generalized ileus. The small and large bowel are otherwise unremarkable. The appendix is unremarkable. There is an esophageal hernia. ABDOMINAL WALL: No significant hernia is appreciated. LYMPH NODES: Normal. VASCULAR: Unremarkable. PELVIC VISCERA: Unremarkable. OSSEOUS STRUCTURES: Degenerative changes of the spine. CT/CT abdomen pelvis wo IV con IMPRESSION: No stone or hydronephrosis. Fluid-filled nondilated small and large bowel questionable for an ileus. Esophageal hernia. Independent Historian Clinical information obtained from an independent historian. History obtained from or confirmed by: Spouse External Record Review External record reviewed: Outpatient record, Prior outpatient labs and Prior outpatient radiology Prescription Management I considered prescription management with: Pain Medication and Antibiotic Chronic Conditions Patient?s care impacted by: Other (Small-bowel motility disorder, chronic constipation) Critical Care Time Critical Care Time Critical Care Time: No Discharge Plan Discharge Clinical Impression: Pyelonephritis Patient Disposition: Home, Self-Care Instructions: Kidney Infection (ED) Additional Instructions: Your urine test was positive for infection. Your being treated for kidney infection. Take the prescribed antibiotics as directed, complete the entire course and do not miss any doses Your CT scan showed some dilated loops of bowel, this could be due to slow transition in the bowel. If you develop any abdominal pain, vomiting or are not passing any bowel movements, call your doctor or come back to the ER for further evaluation and treatment If you develop new or worsening symptoms call 911 or come back to the ER for further evaluation. Prescriptions: New levofloxacin 500 mg tablet 500 mg PO DAILY Qty: 7 0RF morphine 15 mg tablet 15 mg PO Q8H PRN (Reason: severe pain (scale score 7-10)) Qty: 6 0RF Rx Instructions: Partial Fill upon patient request. No Action (DME) blood-glucose meter [[employer] Ultra2 Meter] Misc See Rx Instructions .ROUTE .MEDSUPPLY Qty: 1 0RF Rx Instructions: As directed apixaban 5 mg tablet 5 mg PO BID Qty: 180 3RF metformin 1,000 mg tablet 1,000 mg PO BID Qty: 180 3RF albuterol sulfate 2.5 mg /3 mL (0.083 %) solution for nebulization 2.5 mg inhalation .COMPLEX PRN (Reason: shortness of breath or wheezing) Qty: 90 3RF Rx Instructions: 2.5 mg inhaled every 20 min for up to 3 doses PRN; atorvastatin 20 mg tablet 20 mg PO DAILY Qty: 90 3RF (DME) blood-glucose meter [iogynyle Goodrich] Kit See Rx Instructions .Route Qty: 1 0RF Rx Instructions: 1 bid multivitamin [Daily Multi-Vitamin] Tablet 1 tab PO DAILY Trulicity 3 mg/0.5 mL pen injector 3 mg subcut QWEEK Qty: 6 3RF Linzess 290 mcg capsule 290 mcg PO DAILY 30 Days Qty: 90 6RF gabapentin [Neurontin] 100 mg capsule 100 mg PO BID Qty: 360 5RF Rx Instructions: 1 cap Q AM, 2-3 caps QPM prednisone 10 mg tablet 10 mg PO DAILY Qty: 30 0RF Rx Instructions: 4 tabl qd x 3 days, then 3 tabl qd x 3days, then 2 tabl qd x 3 days, then 1 tabl qd x 3 days doxycycline hyclate 100 mg tablet 100 mg PO BID Qty: 20 0RF benzonatate 100 mg capsule 100 mg PO BID-TID PRN (Reason: cough) Qty: 30 0RF (DME) FreeStyle Lite Strips Strip See Rx Instructions .Route Qty: 100 3RF Rx Instructions: check glucose once a day bisacodyl [Dulcolax (bisacodyl)] 5 mg tablet,delayed release (DR/EC) 10 mg PO BEDTIME 30 Days Qty: 60 3RF Referrals: Michell Fatima MD [Primary Care Provider] - Print Language: Nepalese
[2024-02-22 13:17] VITALS: BP 138/83; PULSE 98; RESP 18; TEMP 36; O2SAT 95; BMI 40.2
[2024-02-22 13:35] LABS: MANUAL DIFF FLAG NO
[2024-02-22 13:37] LABS: Basophils Percent Auto 0.4 % (0-2); Eosinophils Absolute Auto 0.1 X10*3/uL (0.0-0.4); Eosinophils Percent Auto 1.7 % (0-4); Hematocrit 43.3 % (37.0-47.0); Hemoglobin 14.4 g/dl (12.0-16.0); Imm Gran Abs Auto 0.02 X10*3/uL (0.00-0.03); Imm Gran Pct Auto 0.3 % (0.0-0.4); Lymphocytes Percent Auto 26.5 % (20-40); Mean Corpuscular HGB Conc 33.3 g/dl (31.0-35.0); Mean Corpuscular Hemoglobin 30.4 pg (27.0-33.0); Mean Corpuscular Volume 91.4 fL (80.0-98.0); Mean Platelet Volume 10.2 fL (9.4-12.3); Monocytes Absolute Auto 0.4 X10*3/uL (0.1-1.2); Monocytes Percent Auto 5.9 % (2-11); Neutrophils Absolute Auto 4.9 x10*3/uL (2.0-8.3); Neutrophils Percent Auto 65.2 % (45-73); Platelet Count 242 X10*3/uL (160-400); Red Blood Count 4.74 X10*6/uL (4.20-5.50); Red Cell Distribution Width 13.2 % (11.0-16.0); White Blood Count 7.5 X10*3/uL (4.8-10.8)
[2024-02-22 13:42] LABS: Appearance Urine Cloudy; Color Urine Yellow; Glucose Urine UA Negative (Negative); Leukocyte Esterase Urine Moderate (2+) (Negative); Nitrite Urine Positive (Negative); PH 5.5 (5.0-9.0); UMIC TRIGGER UACC YES; Urine Blood Small (1+) (Negative); Urine Ketones Trace mg/dL (Negative); Urine Protein Trace mg/dL (Neg-Trace)
[2024-02-22 13:54] LABS: Bacteria Urine 4+ (None Seen); RBC Urine 0-2 /HPF (0-2); UACC Culture Trigger YES; WBC Urine >50 /HPF (0-5)
[2024-02-22 14:01] LABS: Alanine Aminotransferase 19 U/L (0-31); Albumin Level 4.2 g/dL (3.5-5.0); Alkaline Phosphatase 84 U/L (39-117); Anion Gap 15 (12-20); Aspartate Amino Transferase 15 U/L (5-31); Bilirubin Total 0.6 mg/dL (0.0-1.0); Blood Urea Nitrogen 10 mg/dL (9-16); Carbon Dioxide 25 mmol/L (22-29); Chloride 107 mmol/L (96-108); Creatinine Clr Calc Pharmacy 99.4; Estimated Glomerular Filt Rate > 60; Glucose Random 71 mg/dL (60-115); Potassium 4.2 mmol/L (3.3-5.1); Sodium 143 mmol/L (135-145)
[2024-02-22 15:37] VITALS: BP 132/92; PULSE 93; RESP 20; O2SAT 97
[2024-02-22] MEDS: levoFLOXacin 500 MG TABLET PO (16:07)
[2024-02-22] MEDS: Morphine Sulfate Immed Release 15 MG TABLET PO (16:07)
[2024-02-22] MEDS: Phenazopyridine HCL 100 MG TABLET PO (16:07)
[2024-02-22 16:24] VITALS: BP 132/92; PULSE 93; RESP 20; TEMP 36.8; O2SAT 97
== END 2024-02-22 16:15 | disposition home or self-care (01) ==
PROVIDERS: Nurse Practitioner Family; Emergency Provider Emergency Medicine; PCP Internal Medicine
DX: N12 Tubulo-interstitial nephritis, not specified as acute or chronic (principal); E11.9 Type 2 diabetes mellitus without complications; J45.909 Unspecified asthma, uncomplicated; Z86.718 Personal history of other venous thrombosis and embolism
CPT/HCPCS: 36415; 74176; 80053; 81001; 85025; 87086; 87088; 87186; 99284

== ENCOUNTER 2024-05-05 08:57 | Outpatient (AMB) | payer BC, MEDICARE, SELFPAY ==
--- NOTE | 2024-05-05 09:01 | MHC.OFFWIV ---
Intake Vital Signs 05/05/24 09:04 Height 5 ft 2 in Weight 204 lb BMI 37.3 BP 128/84 Blood Pressure Location Lt brachial Position Sitting Pulse 94 Pulse Source Pulse Oximeter Temp 98.1 F Temp Source Oral Pulse Oximetry (%) 96 Oxygen Delivery Method Room Air Intake Visit Reasons: EP LT knee Pain 1 month Intake Note: pt is here c/o LT knee pain for 1 month Patient Tobacco Use Status: Never used Tobacco Allergies codeine [CODEINE] Allergy (Severe, Verified 05/05/24 09:01) SWELLING dapagliflozin [From FARXIGA] Allergy (Intermediate, Verified 05/05/24 09:01) RASH latex [LATEX] Allergy (Intermediate, Verified 05/05/24 09:01) RASH montelukast [MONTELUKAST] Allergy (Unknown, Verified 05/05/24 09:01) ?? HX ILL EFFECTS BUT STILL TAKING oxycodone [OXYCODONE] Allergy (Unknown, Verified 05/05/24 09:01) PER H&P Do you need a note to return to daycare/school/sports/work: No HPI HPI Comments History of Present Illness Details Patient is a 58-year-old female complaining of increasing left knee pain over the last month. She states she had surgery on her right knee at [facility] and she thinks she was using her left leg to compensate during that recovery and then she had surgery on the bottom of her left foot for a cyst and she is thinking that also exacerbated they pain during her recovery from the surgery. She states she has been using a compression garment and she has been icing it with minimal relief. She states it feels exactly like the right knee felt before she needed surgery on that knee. She states she did not have a knee replacement rather a smaller surgery she is unclear exactly what it was, maybe a tendon repair. [facility], [facility] Medical History Annual physical exam (~10/29/22) Chest pain Obese Normal Pap smear Normal colonoscopy DVT (deep venous thrombosis) Breast CA Asthma Hyperlipemia DM (diabetes mellitus) Surgical History S/P repair of paraesophageal hernia History of esophagogastroduodenoscopy (EGD) H/O colonoscopy Hx of meniscectomy of right knee Family History Father Dementia Mother No problems noted. Son No problems noted. Son No problems noted. Daughter No problems noted. Brother Substance use disorder Brother Substance use disorder Social History Housing: House Patient Tobacco Use Status: Never used Tobacco e-Cigarette/Vaping Use: Never Used Current occupational status: employed and unemployed Cognitive needs: No Hearing needs: No Vision needs: Yes Review of Systems Const All systems reviewed & are unremarkable except as noted in HPI and below Physical Exam Vital Signs: Last Vital Signs Temp 98.1 F 05/05/24 09:04 Pulse 94 05/05/24 09:04 BP 128/84 05/05/24 09:04 Pulse Ox 96 05/05/24 09:04 Oxygen Delivery Method Room Air 05/05/24 09:04 BMI result Body Mass Index 37.3 Const General: cooperative, healthy appearing, comfortable, no acute distress and well developed Orientation/consciousness: patient oriented x3 Limitations: no limitations HEENT Head: Yes normal to inspection Ears: hearing grossly normal bilaterally General nose exam: Normal external nose present Neuro General: patient oriented x3 Extrem Left lower extremity: knee Details: normal to inspection, tenderness Location: of the medial joint line, normal ROM and knee ligament exam normal; no swelling, no abrasions, no lacerations, no ecchymosis, no deformity and no unusual warmth Assessment & Plan Assessment & Plan (1) Left medial knee pain: Code(s): M25.562 - Pain in left knee Plan: Sent referral for orthopedics Plan See above Orders: Referrals Orthopedics Referral M25.562 - Pain in left knee Coding Level of Care Code Est Pt Level 3 (67146) Diagnoses Left medial knee pain M25.562
[2024-05-05 09:04] VITALS: BP 128/84; PULSE 94; TEMP 36.7; O2SAT 96; BMI 37.3
== END 2024-05-05 09:52 | disposition home or self-care (01) ==
PROVIDERS: PCP Internal Medicine; Visit Provider Physician Assistant
DX: M25.562 Pain in left knee (principal)
CPT/HCPCS: 99213

== ENCOUNTER 2024-06-02 09:28 | Outpatient (AMB) | payer BC, MEDICARE, SELFPAY ==
--- NOTE | 2024-06-02 09:28 | MHC.OFFWIV ---
Intake Vital Signs 06/02/24 09:30 Height 5 ft 2 in Weight 206 lb BMI 37.7 BP 140/90 H Blood Pressure Location Lt brachial Position Sitting Pulse 111 H Pulse Source Pulse Oximeter Temp 98.4 F Temp Source Oral Pulse Oximetry (%) 98 Oxygen Delivery Method Room Air Intake Visit Reasons: EP- sick, coughing, vomiting, dizziness Intake Note: Patient here for cough,vomiting,no appetite which has been present for about 2 weeks. She has tried theraflu,mucinex and has been using albuterol inhaler. Patient Tobacco Use Status: Never used Tobacco Allergies codeine [CODEINE] Allergy (Severe, Verified 06/02/24 09:31) SWELLING dapagliflozin [From FARXIGA] Allergy (Intermediate, Verified 06/02/24 09:31) RASH latex [LATEX] Allergy (Intermediate, Verified 06/02/24 09:31) RASH montelukast [MONTELUKAST] Allergy (Unknown, Verified 06/02/24 09:31) ?? HX ILL EFFECTS BUT STILL TAKING oxycodone [OXYCODONE] Allergy (Unknown, Verified 06/02/24 09:31) PER H&P Do you need a note to return to daycare/school/sports/work: No HPI HPI Comments History of Present Illness Details Patient is a 58-year-old female complaining of 2 weeks of cough, wheezing, chest congestion and sweating. She states she has not actually checked her temperature but she feels like she sweating all the time. She also states she has been vomiting, last vomiting episode was this morning after she ate a small orange and an [place] muffin. She states she is unable to keep any food down. She states she has tried Mucinex, TheraFlu and her albuterol inhaler without much relief. She states she did test at home for COVID and was negative. She denies any head pain, ear pain. [facility] Medical History Annual physical exam (~10/29/22) Chest pain Obese Normal Pap smear Normal colonoscopy DVT (deep venous thrombosis) Breast CA Asthma Hyperlipemia DM (diabetes mellitus) Surgical History S/P repair of paraesophageal hernia History of esophagogastroduodenoscopy (EGD) H/O colonoscopy Hx of meniscectomy of right knee Family History Father Dementia Mother No problems noted. Son No problems noted. Son No problems noted. Daughter No problems noted. Brother Substance use disorder Brother Substance use disorder Social History Housing: House Patient Tobacco Use Status: Never used Tobacco e-Cigarette/Vaping Use: Never Used Current occupational status: employed and unemployed Cognitive needs: No Hearing needs: No Vision needs: Yes Review of Systems Const All systems reviewed & are unremarkable except as noted in HPI and below Physical Exam Vital Signs: Last Vital Signs Temp 98.4 F 06/02/24 09:30 Pulse 111 H 06/02/24 09:30 BP 140/90 H 06/02/24 09:30 Pulse Ox 98 06/02/24 09:30 Oxygen Delivery Method Room Air 06/02/24 09:30 BMI result Body Mass Index 37.7 Const General: cooperative, healthy appearing, comfortable and no acute distress Orientation/consciousness: patient oriented x3 Limitations: no limitations HEENT Head: Yes normal to inspection Ears: hearing grossly normal bilaterally and external ears normal General nose exam: Normal external nose present, Normal nares present and No nasal discharge present Face and sinus: Yes normal facial exam and Yes sinuses nontender Mouth: Normal oral and palatal mucosa present and moist mucous membranes Throat: Yes tonsils normal, Yes uvula midline and Yes posterior oropharynx abnormal (Erythema) Eyes General: appearance normal, both eyes and all related structures Neck Neck: Yes normal visual inspection Resp Effort & Inspection: normal respiratory effort, able to speak in complete sentences, Actively coughing, no respiratory distress, not tachypneic, no tripod positioning and no use of accessory muscles Auscultation: clear to auscultation bilaterally, rhonchi and wheezes expiratory wheezes Cardio Rate: regular rate Rhythm: regular rhythm Heart sounds: normal S1 and S2 Skin General skin exam: no rashes or lesions noted Neuro General: patient oriented x3 Extrem General: Yes normal to inspection and Yes no clubbing, cyanosis or edema Assessment & Plan Assessment & Plan (1) CAP (community acquired pneumonia): Code(s): J18.9 - Pneumonia, unspecified organism Qualifiers: Laterality: unspecified laterality Qualified Code(s): J18.9 - Pneumonia, unspecified organism Plan: CXR shows what looks like a small pneumonia. Still waiting on final radiologist's read. As patient is tachycardic, she is clearly dehydrated and needs IV fluids and labs. She does not want to pay her ER co-pay so she knows of an urgent care in [place] she is going to go to to get IV hydration and labs. Plan See above Orders: Orders XR chest 2V Today R05.9 - Cough, unspecified Medications: New azithromycin For 250 mg dose pack: take 500 mg today (day 1), then 250 mg for 4 days (days 2-5) PO 6 tabs 0RF prednisone 50 mg PO DAILY 5 tabs 0RF Coding Level of Care Code Est Pt Level 4 (92054) Diagnoses Community acquired pneumonia, unspecified laterality J18.9 Laterality: unspecified laterality
[2024-06-02 09:30] VITALS: BP 140/90; PULSE 111; TEMP 36.9; O2SAT 98; BMI 37.7
== END 2024-06-02 10:43 | disposition home or self-care (01) ==
PROVIDERS: PCP Internal Medicine; Visit Provider Physician Assistant
DX: J18.9 Pneumonia, unspecified organism (principal)
CPT/HCPCS: 99214

== ENCOUNTER 2024-06-02 09:52 | Outpatient (REF) | payer BC, SELFPAY ==
--- NOTE | ~2024-06-02 | XR_ITS ---
EXAMINATION: XR CHEST CLINICAL INFORMATION: Cough. COMPARISON: 06/28/2021 TECHNIQUE: 2 views of the chest were obtained. FINDINGS: The lungs are moderately expanded. No focal consolidation. No pleural effusion. Cardiac silhouette is unchanged. Moderate hiatal hernia. XR/XR chest 2V IMPRESSION: No acute abnormality.
== END 2024-06-02 09:53 | disposition home or self-care (01) ==
LOC: HO.HMGCX 09:52
PROVIDERS: PCP Internal Medicine; Visit Provider Physician Assistant
DX: R05.9 Cough, unspecified (principal)
CPT/HCPCS: 71046

== ENCOUNTER 2024-06-04 08:39 | Outpatient (REF) | payer BC, SELFPAY ==
--- NOTE | ~2024-06-04 | XR_ITS ---
EXAMINATION: Left knee x-ray. CLINICAL INFORMATION: Left knee pain COMPARISON: None available. TECHNIQUE: AP frontal x-ray of right and left knees, sunrise view X-rays of left knee FINDINGS: BONES: Bony structures are intact. There is no focal bone destruction or periosteal reaction seen. JOINTS: Alignment of joints is normal. SOFT TISSUE: Soft tissue is normal. No radiopaque foreign body or abnormal air collection is seen. XR/XR knee LT 2V IMPRESSION: 1. Normal x-rays of left knee. No fracture or dislocation or signs of osteomyelitis are found. Electronically signed by: Rosalba Jimenez MD 06/25/2024 08:14 AM EDT
--- NOTE | ~2024-06-04 | XR_ITS ---
EXAMINATION: XR KNEE, RIGHT CLINICAL INFORMATION: Right knee pain COMPARISON: X-ray right knee on 02/25/2020 TECHNIQUE: AP x-ray of the right knee. FINDINGS: BONES: Bony structures are intact. Mild medial right femoral condyle and medial tibial plateau osteophytosis is present. There is no focal bone destruction or periosteal reaction seen. JOINTS: Alignment of joints is normal. There is persistent mild decrease in medial compartment right knee joint space. SOFT TISSUE: Soft tissue is normal. No radiopaque foreign body or abnormal air collection is seen. XR/XR knee RT 1V IMPRESSION: 1. Unchanged mild medial compartment right tibiofemoral joint osteoarthritis. 2. No fracture or dislocation or signs of osteomyelitis are found. Electronically signed by: Rosalba Jimenez MD 06/25/2024 08:14 AM EDT
== END 2024-06-04 08:40 | disposition home or self-care (01) ==
LOC: HO.XRAY 08:39
PROVIDERS: PCP Internal Medicine; Visit Provider Physician Assistant
DX: M25.561 Pain in right knee (principal); M25.562 Pain in left knee
CPT/HCPCS: 73560

== ENCOUNTER 2024-06-04 09:17 | Outpatient (AMB) | payer BC, SELFPAY ==
--- NOTE | 2024-06-04 09:35 | A.OFFVIS_ITS ---
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 Patient reports her pain has been present for about 1.5 months. Denies injury. She describes her pain as a burning stabbing sensation located at the medial aspect. No previous tx. Hx of right knee . She uses a knee sleeve. Finds no relief with Motrin. [facility] Medical History Annual physical exam (~10/29/22) Chest pain Obese Normal Pap smear Normal colonoscopy DVT (deep venous thrombosis) Breast CA Asthma Hyperlipemia DM (diabetes mellitus) Surgical History S/P repair of paraesophageal hernia History of esophagogastroduodenoscopy (EGD) H/O colonoscopy Hx of meniscectomy of right knee Family History Father Dementia Mother No problems noted. Son No problems noted. Son No problems noted. Daughter No problems noted. Brother Substance use disorder Brother Substance use disorder Social History Housing: House Patient Tobacco Use Status: Never used Tobacco e-Cigarette/Vaping Use: Never Used Current occupational status: employed and unemployed Cognitive needs: No Hearing needs: No Vision needs: Yes Physical Exam Vital Signs: BMI result Body Mass Index 37.7 Extrem Other: Left knee with medial compartment tenderness to palpation positive medial Leann's. No effusion. Positive gait antalgia. Full range of motion. Stable ligamentous exam. Results Reviewed Results Reviewed: I personally reviewed relevant radiographs. Mild patellofemoral OA left knee and mild medial compartment OA. Right knee with moderate medial compartment and lateral compartment OA Assessment & Plan Assessment & Plan (1) Internal derangement of left knee: Code(s): M23.92 - Unspecified internal derangement of left knee Category: Medical Plan: This is a 58-year-old woman who has medial compartment pain in the left knee. She had a right knee arthroscopy at an outside institution. She has had treatment for her left knee including injections and has done physical therapy. I recommend an MRI to assess. Orders: Orders XR knee LT 2V 06/04/24 M25.562 - Pain in left knee XR knee RT 1V 06/04/24 M25.561 - Pain in right knee Coding Level of Care Code New Pt Level 3 (85082) Diagnoses Internal derangement of left knee M23.92
[2024-06-04 09:55] VITALS: BMI 37.7
== END 2024-06-04 09:56 | disposition home or self-care (01) ==
PROVIDERS: PCP Internal Medicine; Visit Provider Orthopaedic Surgery
DX: M23.92 Unspecified internal derangement of left knee (principal)
CPT/HCPCS: 99203

== ENCOUNTER 2024-06-09 09:48 | Outpatient (AMB) | payer BC, MEDICARE, SELFPAY ==
--- NOTE | 2024-06-09 09:54 | A.OFFPC_ITS ---
Vital Signs 06/09/24 09:56 Height 5 ft 2 in Weight 206 lb BMI 37.7 BP 128/78 Blood Pressure Location Lt brachial Position Sitting Pulse 96 Pulse Source Pulse Oximeter Pulse Oximetry (%) 97 Oxygen Delivery Method Room Air Intake Visit Reasons: Diabetes followup Intake Note: Pt is here today for a follow up visit. Pt states that she was dx with walking pneumonia and she is on antibiotics and prednisone. Allergies codeine [CODEINE] Allergy (Severe, Verified 06/09/24 09:58) SWELLING dapagliflozin [From FARXIGA] Allergy (Intermediate, Verified 06/09/24 09:58) RASH latex [LATEX] Allergy (Intermediate, Verified 06/09/24 09:58) RASH montelukast [MONTELUKAST] Allergy (Unknown, Verified 06/09/24 09:58) ?? HX ILL EFFECTS BUT STILL TAKING oxycodone [OXYCODONE] Allergy (Unknown, Verified 06/09/24 09:58) PER H&P Medication List - Last Reconciled 06/09/24 by Michell Fatima MD albuterol sulfate 2.5 mg inhaled every 20 min for up to 3 doses PRN; apixaban 5 mg PO BID atorvastatin 20 mg PO DAILY azithromycin For 250 mg dose pack: take 500 mg today (day 1), then 250 mg for 4 days (days 2-5) PO bisacodyl (Dulcolax (bisacodyl)) 10 mg (2 x 5 mg) PO BEDTIME 30 days blood sugar diagnostic (FreeStyle Lite Strips) check glucose once a day blood-glucose meter (OneTouch Ultra2 Meter) As directed blood-glucose meter (FreeStyle Hope kit) 1 bid dulaglutide (Trulicity) 3 mg (0.5 mL) subcut QWEEK gabapentin (Neurontin) 100 mg PO BID linaclotide (Linzess) 290 mcg PO DAILY 30 days metformin 1,000 mg PO BID multivitamin (Daily Multi-Vitamin tablet) 1 tab PO DAILY oxybutynin chloride 5 mg PO DAILY prednisone 50 mg PO DAILY Tobacco use date assessed: 06/09/24 Dental Screening Dental Screen Date: 06/09/24 Did you have a dental visit in the last 12 months?: Yes Did you have a dental problem in the last 6 months where you did not have access to dental care?: No Was dental information given to patient?: Patient has dentist HPI Diabetes followup HPI Details Patient presents for the follow-up of walk in visit for acute bronchitis question community-acquired pneumonia. She was prescribed Z-Stevo, Augmentin and 50 mg of prednisone for 5 days, finished yesterday. Patient reports persistent productive cough wheezing but denies pleurisy fever chills night sweats. Type 2 diabetes is controlled on Trulicity and metformin. Patient complains of chronic left knee pain and will have an MRI ordered by [facility] Medical History Annual physical exam (~10/29/22) Chest pain Obese Normal Pap smear Normal colonoscopy DVT (deep venous thrombosis) Breast CA Asthma Hyperlipemia DM (diabetes mellitus) Surgical History S/P repair of paraesophageal hernia History of esophagogastroduodenoscopy (EGD) H/O colonoscopy Hx of meniscectomy of right knee Family History Father Dementia Mother No problems noted. Son No problems noted. Son No problems noted. Daughter No problems noted. Brother Substance use disorder Brother Substance use disorder Social History Housing: House Patient Tobacco Use Status: Never used Tobacco e-Cigarette/Vaping Use: Never Used service: No Current occupational status: unemployed Cognitive needs: No Hearing needs: No Vision needs: Yes Questionnaire PHQ-9 Over the last 2 weeks, how often have you been bothered by any of the following problems? 1. Little interest or pleasure in doing things: not at all 2. Feeling down, depressed, or hopeless: not at all 3. Trouble falling or staying asleep, or sleeping too much: not at all 4. Feeling tired or having little energy: not at all 5. Poor appetite or overeating: not at all 6. Feeling bad about yourself - or that you are a failure or have let yourself or your family down: not at all 7. Trouble concentrating on things, such as reading the newspaper or watching television: not at all 8. Moving or speaking so slowly that other people could have noticed. Or the opposite - being so fidgety or restless that you have been moving around a lot more than usual: not at all 9. Thoughts that you would be better off or of hurting yourself in some way: not at all Total score: 0 Depression Screening Interpretation: Negative Depression Screening Done: Yes 66942 - PHQ-9 Billing: Yes Source: Developed by Drs. Denny Cooley, Eneida Fleming, Markell Mtz and colleagues, with an educational jenise from [employer]. Thrive Questionnaire Date Thrive assessed: 06/09/24 I am a: Patient What is your living situation today?: I have a steady place to live Within the past 12 months, did the food you bought not last and you didn't have the money to get more?: Never true Within the past 12 months, did you worry whether your food would run out before you got money to buy more?: Never true Do you have trouble paying for medicines?: No Do you have trouble getting transportation to medical appointments?: No Do you have trouble paying your heating and electricity bill?: No Do you have trouble taking care of your child, family member or friend?: No Do you have trouble with day-to-day activities such as bathing, preparing meals, shopping, managing finances, etc.?: No Are you currently unemployed and looking for a job?: No Are you interested in more education?: No Please select the resources that you would like help with: None THRIVE Score: 0 AUDIT C Alcohol Use Questionnaire (AUDIT-C) 1. How often do you have a drink containing alcohol?: Never 3. How often do you have six or more drinks on one occasion?: Never Total Score: 0 RAMON-7 AMB Questionnaire RAMON-7 Date RAMON - 7 assessed: 06/09/24 Feeling nervous, anxious, or on edge: 0 = Not at all Not being able to stop or control worryin = Not at all Worrying too much about different things: 0 = Not at all Trouble relaxin = Not at all Being so restless that it is hard to sit still: 0 = Not at all Becoming easily annoyed or irritable: 0 = Not at all Feeling afraid as if something awful might happen: 0 = Not at all Total RAMON-7 score (0-4 normal; 5-9 mild; 10-14 moderate; 15-21 severe): 0 Source: Developed by Drs. Denny Cooley, Eneida Fleming, Markell Mtz and colleagues, with an educational jenise from [employer]. RAMON-7 Assessment Billing RAMON-7 Assessment Tool: RAMON-7 Assessment 26582 Physical exam (Primary Care) Vital Signs: Last Vital Signs Pulse 96 06/09/24 09:56 BP 128/78 06/09/24 09:56 Pulse Ox 97 06/09/24 09:56 Oxygen Delivery Method Room Air 06/09/24 09:56 BMI result Body Mass Index 37.7 Tobacco/Smoking Status: Tobacco use Status Tobacco use date assessed 06/09/24 06/09/24 09:59 Patient Tobacco Use Status Never used Tobacco 06/09/24 09:59 e-Cigarette/Vaping Use Never Used 06/09/24 09:55 PHQ-9: PHQ-9 Score PHQ-9: Total score 0 06/09/24 10:44 Depression Screening Interpretation: Negative Thrive Assessment: Date of Thrive Assessment Date Thrive assessed 06/09/24 06/09/24 10:04 Const General: no acute distress HENMT Ears: hearing grossly normal bilaterally Throat: Yes posterior oropharynx normal Eyes General: appearance normal, both eyes and all related structures Neck Neck: Yes supple Resp Effort & Inspection: normal respiratory effort Auscultation: rhonchi and wheezes Cardio Rhythm: regular rhythm Heart sounds: S1 normal heart sound present and S2 normal heart sound present Office Procedures Nebulizer Treatment Nebulizer Treatment 59650-Ersieziev/MDI RX initial, or Nebulizer Subsequent Treatment Office Meds ipratropium 0.5 mg-albuterol 3 mg (2.5 mg base)/3 mL nebulization soln Performing Provider: Michell Fatima MD Performing Location: [facility] Administered by: Belinda Montano RN on 06/09/24 10:44 Dose Route Admin Location Dispensed Lot Number Expiration Date N[employer] 3 mL inhalation 3 mL [id number] 08/19/25 [id number] [employer] Results AMB Hemoglobin A1c AMB Hemoglobin A1c 7.1 % Last Edit by MAGGI Browne on 06/09/24 10:1 1 Results Reviewed Results Reviewed: Laboratory Last Values Hgb A1c (Clinic) 7.1 % (4.0-6.0) H 06/09/24 10:05 Assessment and Plan Assessment & Plan (1) Asthma: Code(s): J45.909 - Unspecified asthma, uncomplicated Plan: With acute upper respiratory infection with bronchospasm patient will continue 20 mg of prednisone for 5 days and Augmentin. She will restart albuterol nebuli zed up to 4 times a day and Breo 100/25 will be started. Follow-up in 1 week (2) DM (diabetes mellitus): Code(s): E11.9 - Type 2 diabetes mellitus without complications Plan: A1c is 7.0, ADA diet increase exercise discussed with the patient Trulicity will be increased to 4.5 mg patient will continue metformin (3) Breast CA: Comment: infiltrating ductal CA estrogen positive status post right mastectomy chemotherapy 2011 and s/p tamoxifen 5yrs , silicone bilateral breast implant f/u [facility] Breast ca Code(s): C50.919 - Malignant neoplasm of unspecified site of unspecified female breast Plan: Follow-up with oncology (4) DVT (deep venous thrombosis): Comment: recurrent on Eliquis Code(s): I82.409 - Acute embolism and thrombosis of unspecified deep veins of unspecified lower extremity Plan: Continue Eliquis Orders: Orders AMB Hemoglobin A1c Today Z13.9 - Encounter for screening, unspecified AMB Nebulizer Treatment Today J18.9 - Pneumonia, unspecified organism Medications: New fluconazole 150 mg PO Q3D 2 tabs 1RF nebulizers As directed 1 ea 0RF J45.909 - Unspecified asthma, uncomplicated Breo Ellipta 100-25 mcg/dose (fluticasone furoate-vilanterol) 1 inh inhalation DAILY 60 ea 4RF NS prednisone 20 mg PO DAILY 5 tabs 0RF Refilled albuterol sulfate (3 mL) 2.5 mg inhaled every 20 min for up to 3 doses PRN; 90 mL 3RF shortness of breath or wheezing J45.909 - Unspecified asthma, uncomplicated Discontinued azithromycin Discontinued Reason: Doctor's Order For 250 mg dose pack: take 500 mg today (day 1), then 250 mg for 4 days (days 2-5) PO 6 tabs 0RF prednisone Discontinued Reason: Doctor's Order 50 mg PO DAILY 5 tabs 0RF Coding Level of Care Code Est Pt Level 4 (95320) Diagnoses Asthma J45.909 DM (diabetes mellitus) E11.9 Breast CA C50.919 DVT (deep venous thrombosis) I82.409 CPT Codes Nebulizer Treatment - Nebulizer Treatment, initial or subsequent: 21975- Nebulizer/MDI RX initial, or Nebulizer Subsequent Treatment ([id number]) Additional Codes RAMON-7 Assessment Billing - RAMON-7 Assessment Tool: RAMON-7 Assessment 78759 ([id number])
[2024-06-09 09:56] VITALS: BP 128/78; PULSE 96; O2SAT 97; BMI 37.7
== END 2024-06-09 11:20 | disposition home or self-care (01) ==
PROVIDERS: PCP Internal Medicine; Visit Provider Internal Medicine
DX: J45.909 Unspecified asthma, uncomplicated (principal); E11.9 Type 2 diabetes mellitus without complications; C50.919 Malignant neoplasm of unspecified site of unspecified female breast; I82.409 Acute embolism and thrombosis of unspecified deep veins of unspecified lower extremity; J18.9 Pneumonia, unspecified organism
CPT/HCPCS: 83036; 94640; 99214; J7620

== ENCOUNTER 2024-06-22 12:39 | Outpatient (AMB) | payer BC, MEDICARE, SELFPAY ==
[2024-06-22 12:40] VITALS: BP 118/68; PULSE 104; O2SAT 96; BMI 36.8
--- NOTE | 2024-06-22 12:40 | MHC.PC.OV ---
Vital Signs 06/22/24 12:40 Height 5 ft 2 in Weight 201 lb BMI 36.8 BP 118/68 Blood Pressure Location Lt brachial Position Sitting Pulse 104 H Pulse Source Pulse Oximeter Pulse Oximetry (%) 96 Oxygen Delivery Method Room Air Intake Visit Reasons: 1 week f/u Allergies codeine [CODEINE] Allergy (Severe, Verified 06/22/24 12:53) SWELLING dapagliflozin [From FARXIGA] Allergy (Intermediate, Verified 06/22/24 12:53) RASH latex [LATEX] Allergy (Intermediate, Verified 06/22/24 12:53) RASH montelukast [MONTELUKAST] Allergy (Unknown, Verified 06/22/24 12:53) ?? HX ILL EFFECTS BUT STILL TAKING oxycodone [OXYCODONE] Allergy (Unknown, Verified 06/22/24 12:53) PER H&P Medication List - Last Reconciled 06/22/24 by Michell Fatima MD albuterol sulfate 2.5 mg inhaled every 20 min for up to 3 doses PRN; apixaban 5 mg PO BID atorvastatin 20 mg PO DAILY benzonatate 100 mg PO BID PRN bisacodyl (Dulcolax (bisacodyl)) 10 mg (2 x 5 mg) PO BEDTIME 30 days blood sugar diagnostic (FreeStyle Lite Strips) check glucose once a day blood-glucose meter (OneTouch Ultra2 Meter) As directed blood-glucose meter (FreeStyle [place] kit) 1 bid Breo Ellipta 100-25 mcg/dose (fluticasone furoate-vilanterol) 1 inh inhalation DAILY NS dulaglutide (Trulicity) 4.5 mg (0.5 mL) subcut QWEEK fluconazole 150 mg PO Q3D 2 doses fluticasone furoate-vilanterol 200-25 mcg/dose (Breo Ellipta) 1 inh inhalation DAILY gabapentin (Neurontin) 100 mg PO BID linaclotide (Linzess) 290 mcg PO DAILY 30 days metformin 1,000 mg PO BID multivitamin (Daily Multi-Vitamin tablet) 1 tab PO DAILY nebulizers As directed oxybutynin chloride 5 mg PO DAILY Tobacco use date assessed: 06/09/24 Dental Screening Dental Screen Date: 06/09/24 HPI 1 week f/u HPI Details Patient presents for the follow-up of asthma exacerbation. Patient is feeling better but still has occasional cough. She denies fever chills pleurisy sputum production [facility] Medical History Annual physical exam (~10/29/22) Chest pain Obese Normal Pap smear Normal colonoscopy DVT (deep venous thrombosis) Breast CA Asthma Hyperlipemia DM (diabetes mellitus) Surgical History S/P repair of paraesophageal hernia History of esophagogastroduodenoscopy (EGD) H/O colonoscopy Hx of meniscectomy of right knee Family History Father Dementia Mother No problems noted. Son No problems noted. Son No problems noted. Daughter No problems noted. Brother Substance use disorder Brother Substance use disorder Social History Housing: House Patient Tobacco Use Status: Never used Tobacco e-Cigarette/Vaping Use: Never Used service: No Current occupational status: unemployed Cognitive needs: No Hearing needs: No Vision needs: Yes Questionnaire PHQ-9 Over the last 2 weeks, how often have you been bothered by any of the following problems? 1. Little interest or pleasure in doing things: not at all 2. Feeling down, depressed, or hopeless: not at all 3. Trouble falling or staying asleep, or sleeping too much: not at all 4. Feeling tired or having little energy: not at all 5. Poor appetite or overeating: not at all 6. Feeling bad about yourself - or that you are a failure or have let yourself or your family down: not at all Source: Developed by Drs. Denny Cooley, Markell Izaguirre and colleagues, with an educational jenise from [employer]. Thrive Questionnaire Date Thrive assessed: 06/09/24 RAMON-7 AMB Questionnaire RAMON-7 Date RAMON - 7 assessed: 06/09/24 Source: Developed by Drs. Denny Cooley, Markell Izaguirre and colleagues, with an educational jenise from [employer]. Review of Systems Const All systems reviewed & are unremarkable except as noted in HPI and below ENT Reports no additional complaints Card Reports no additional complaints Resp Reports no additional complaints GI Reports no additional complaints Reports no additional complaints Physical exam (Primary Care) Vital Signs: Last Vital Signs Pulse 104 H 06/22/24 12:40 BP 118/68 06/22/24 12:40 Pulse Ox 96 06/22/24 12:40 Oxygen Delivery Method Room Air 06/22/24 12:40 BMI result Body Mass Index 36.8 Tobacco/Smoking Status: Tobacco use Status Tobacco use date assessed 06/09/24 06/22/24 12:40 Patient Tobacco Use Status Never used Tobacco 06/22/24 12:40 e-Cigarette/Vaping Use Never Used 06/22/24 12:40 Thrive Assessment: Date of Thrive Assessment Date Thrive assessed 06/09/24 06/22/24 12:40 Const General: no acute distress HENMT Head: Yes normal to inspection Mouth: Normal oral and palatal mucosa present Eyes General: appearance normal, both eyes and all related structures Neck Neck: Yes supple Resp Effort & Inspection: normal respiratory effort Auscultation: clear to auscultation bilaterally Cardio Rhythm: regular rhythm Heart sounds: S1 normal heart sound present and S2 normal heart sound present Assessment and Plan Assessment & Plan (1) Asthma: Code(s): J45.909 - Unspecified asthma, uncomplicated Plan: Change Breo Ellipta from 100 to 200 mcg, continue albuterol p.r.n. and Tessalon Perles prn for cough. Follow-up in 3 weeks (2) DM (diabetes mellitus): Code(s): E11.9 - Type 2 diabetes mellitus without complications Plan: Continue current medication and ADA diet Medications: New fluticasone furoate-vilanterol 200-25 mcg/dose (Breo Ellipta) 1 inh inhalation DAILY 60 ea 1RF benzonatate 100 mg PO BID PRN 30 caps 0RF cough Coding Level of Care Code Est Pt Level 3 (79797) Diagnoses Asthma J45.909 DM (diabetes mellitus) E11.9
== END 2024-06-22 13:19 | disposition home or self-care (01) ==
PROVIDERS: PCP Internal Medicine; Visit Provider Internal Medicine
DX: J45.909 Unspecified asthma, uncomplicated (principal); E11.9 Type 2 diabetes mellitus without complications
CPT/HCPCS: 99213

== ENCOUNTER 2024-07-12 20:02 | Outpatient (REF) | payer BC, MEDICARE, SELFPAY ==
--- NOTE | ~2024-07-12 | MR_ITS ---
EXAMINATION: MR KNEE WITHOUT CONTRAST, LEFT CLINICAL INFORMATION: Left knee pain and swelling. Internal derangement. COMPARISON: Left knee radiographs dated 06/04/2024. TECHNIQUE: MRI of the knee without contrast was performed using routine sequences on a high-field scanner. FINDINGS: MENISCI: Medial Meniscus: Near-complete radial tear of the meniscal body measuring 0.6 cm in AP dimension with a superiorly displaced meniscal flap measuring up to 0.6 cm. Adjacent soft tissue edema. Oblique inner margin tearing extending through the posterior body and into the posterior horn and root. Lateral Meniscus: Intact LIGAMENTS: Cruciate: Intact Collateral: Edema adjacent to the medial collateral ligament which may be related to the meniscal tear or indicate a grade 1 sprain. Intact fibular collateral ligament. EXTENSOR MECHANISM: Superior and inferior patellar enthesophytes. Intact quadriceps and patellar tendons. Normal patellofemoral alignment. ARTICULAR CARTILAGE/BONE: Patellofemoral Compartment: Intact articular cartilage. Medial Compartment: Intact articular cartilage. Lateral Compartment: Intact articular cartilage. JOINT FLUID AND BURSAE: Small joint effusion and trace Sandoval's cyst. Edema within the popliteal fossa. MR/MR knee LT wo con IMPRESSION: 1. Near-complete radial tear of the medial meniscal body with a superiorly displaced meniscal flap measuring up to 0.6 cm. Oblique inner margin tearing extending through the posterior body, posterior horn, and root. 2. Edema adjacent to the medial collateral ligament which may be related to the meniscal tear or indicate a grade 1 sprain. 3. Small joint effusion and trace Sandoval's cyst. Edema within the popliteal fossa. Electronically signed by: Jovanni Luz MD 07/13/2024 01:40 PM EDT
== END 2024-07-12 20:03 | disposition home or self-care (01) ==
LOC: HO.MRI 20:02
PROVIDERS: PCP Internal Medicine; Visit Provider Orthopaedic Surgery
DX: M23.92 Unspecified internal derangement of left knee (principal)
CPT/HCPCS: 73721

== ENCOUNTER 2024-07-13 10:22 | Outpatient (AMB) | payer BC, MEDICARE, SELFPAY ==
[2024-07-13 10:59] VITALS: BP 124/80; PULSE 88; O2SAT 98; BMI 36.6
--- NOTE | 2024-07-13 10:59 | MHC.PC.OV ---
Vital Signs 07/13/24 10:59 Height 5 ft 2 in Weight 200 lb BMI 36.6 BP 124/80 Blood Pressure Location Lt brachial Position Sitting Pulse 88 Pulse Source Pulse Oximeter Pulse Oximetry (%) 98 Oxygen Delivery Method Room Air Intake Visit Reasons: Follow up Allergies codeine [CODEINE] Allergy (Severe, Verified 07/13/24 11:08) SWELLING dapagliflozin [From FARXIGA] Allergy (Intermediate, Verified 07/13/24 11:08) RASH latex [LATEX] Allergy (Intermediate, Verified 07/13/24 11:08) RASH montelukast [MONTELUKAST] Allergy (Unknown, Verified 07/13/24 11:08) ?? HX ILL EFFECTS BUT STILL TAKING oxycodone [OXYCODONE] Allergy (Unknown, Verified 07/13/24 11:08) PER H&P Medication List - Last Reconciled 07/13/24 by Michell Fatima MD albuterol sulfate 2.5 mg inhaled every 20 min for up to 3 doses PRN; apixaban 5 mg PO BID atorvastatin 20 mg PO DAILY benzonatate 100 mg PO BID PRN bisacodyl (Dulcolax (bisacodyl)) 10 mg (2 x 5 mg) PO BEDTIME 30 days blood sugar diagnostic (FreeStyle Lite Strips) check glucose once a day blood-glucose meter ([place] Ultra2 Meter) As directed blood-glucose meter (FreeStyle [place] kit) 1 bid Breo Ellipta 100-25 mcg/dose (fluticasone furoate-vilanterol) 1 inh inhalation DAILY NS dulaglutide (Trulicity) 4.5 mg (0.5 mL) subcut QWEEK fluconazole 150 mg PO Q3D 2 doses fluticasone furoate-vilanterol 200-25 mcg/dose (Breo Ellipta) 1 inh inhalation DAILY gabapentin (Neurontin) 100 mg PO BID linaclotide (Linzess) 290 mcg PO DAILY 30 days metformin 1,000 mg PO BID multivitamin (Daily Multi-Vitamin tablet) 1 tab PO DAILY nebulizers As directed oxybutynin chloride 5 mg PO DAILY Tobacco use date assessed: 07/13/24 Dental Screening Dental Screen Date: 06/09/24 HPI Follow up HPI Details Patient presents for the follow-up asthma better controlled on higher dose of Breo. Patient can not tolerate higher dose of Trulicity 4.5 mg , complaining of nausea and abdominal upset. She reports fasting blood glucose around 140. Patient has been under lot of stress taking care of her ill mother. [facility] Medical History Annual physical exam (~10/29/22) Chest pain Obese Normal Pap smear Normal colonoscopy DVT (deep venous thrombosis) Breast CA Asthma Hyperlipemia DM (diabetes mellitus) Surgical History S/P repair of paraesophageal hernia History of esophagogastroduodenoscopy (EGD) H/O colonoscopy Hx of meniscectomy of right knee Family History Father Dementia Mother No problems noted. Son No problems noted. Son No problems noted. Daughter No problems noted. Brother Substance use disorder Brother Substance use disorder Social History Housing: House Patient Tobacco Use Status: Never used Tobacco e-Cigarette/Vaping Use: Never Used service: No Current occupational status: unemployed Cognitive needs: No Hearing needs: No Vision needs: Yes Questionnaire Thrive Questionnaire Date Thrive assessed: 06/09/24 RAMON-7 AMB Questionnaire RAMON-7 Date RAMON - 7 assessed: 06/09/24 Source: Developed by Drs. Denny Cooley, Eneida Fleming, Markell Mtz and colleagues, with an educational jenise from [employer]. Review of Systems Const All systems reviewed & are unremarkable except as noted in HPI and below ENT Reports no additional complaints Card Reports no additional complaints Resp Reports no additional complaints GI Reports no additional complaints Reports no additional complaints Physical exam (Primary Care) Vital Signs: Last Vital Signs Pulse 88 07/13/24 10:59 BP 124/80 07/13/24 10:59 Pulse Ox 98 07/13/24 10:59 Oxygen Delivery Method Room Air 07/13/24 10:59 BMI result Body Mass Index 36.6 Tobacco/Smoking Status: Tobacco use Status Tobacco use date assessed 07/13/24 07/13/24 11:12 Patient Tobacco Use Status Never used Tobacco 07/13/24 11:00 e-Cigarette/Vaping Use Never Used 07/13/24 11:00 Thrive Assessment: Date of Thrive Assessment Date Thrive assessed 06/09/24 07/13/24 11:00 Const General: no acute distress HENMT Head: Yes normal to inspection Neck Neck: Yes no lymphadenopathy and Yes supple Resp Effort & Inspection: normal respiratory effort Auscultation: clear to auscultation bilaterally Cardio Rhythm: regular rhythm Heart sounds: S1 normal heart sound present and S2 normal heart sound present Assessment and Plan Assessment & Plan (1) DM (diabetes mellitus): Code(s): E11.9 - Type 2 diabetes mellitus without complications Plan: ADA diet increase physical activity weight loss discussed with the patient. She will try Mounjaro instead of Trulicity at 2.5 mg for the 1st month then increase to 5 mg. Patient will continue metformin and follow-up in 2 months with a fasting labs before (2) Hyperlipemia: Code(s): E78.5 - Hyperlipidemia, unspecified Plan: Continue statin (3) Asthma: Code(s): J45.909 - Unspecified asthma, uncomplicated Plan: Continue Breo and [id number] antihistamine p.r.n. for seasonal allergy Orders: Orders Hemoglobin A1c 2 Months E11.9 - Type 2 diabetes mellitus without complications, E78.5 - Hyperlipidemia, unspecified, J45.909 - Unspecified asthma, uncomplicated Complete Blood Count Auto Diff 2 Months E11.9 - Type 2 diabetes mellitus without complications, E78.5 - Hyperlipidemia, unspecified, J45.909 - Unspecified asthma, uncomplicated Lipid Panel 2 Months E11.9 - Type 2 diabetes mellitus without complications, E78.5 - Hyperlipidemia, unspecified, J45.909 - Unspecified asthma, uncomplicated Microalbumin, Random (w Creat) 2 Months E11.9 - Type 2 diabetes mellitus without complications, E78.5 - Hyperlipidemia, unspecified, J45.909 - Unspecified asthma, uncomplicated Comprehensive [place]. Panel Fast 2 Months E11.9 - Type 2 diabetes mellitus without complications, E78.5 - Hyperlipidemia, unspecified, J45.909 - Unspecified asthma, uncomplicated Medications: New Mounjaro (tirzepatide) for 4 weeks, then 5 mg weekly 2.5 mg (0.5 mL) subcut QWEEK 6 mL 0RF NS Refilled fluticasone furoate-vilanterol 200-25 mcg/dose (Breo Ellipta) 1 inh inhalation DAILY 120 ea 2RF benzonatate 100 mg PO BID PRN 30 caps 0RF cough Discontinued Breo Ellipta 100-25 mcg/dose (fluticasone furoate-vilanterol) Discontinued Reason: Doctor's Order 1 inh inhalation DAILY 60 ea 4RF NS dulaglutide (Trulicity) Discontinued Reason: Doctor's Order 4.5 mg (0.5 mL) subcut QWEEK 6 mL 2RF Coding Level of Care Code Est Pt Level 4 (82770) Diagnoses DM (diabetes mellitus) E11.9 Hyperlipemia E78.5 Asthma J45.909
== END 2024-07-13 11:40 | disposition home or self-care (01) ==
PROVIDERS: PCP Internal Medicine; Visit Provider Internal Medicine
DX: E11.9 Type 2 diabetes mellitus without complications (principal); E78.5 Hyperlipidemia, unspecified; J45.909 Unspecified asthma, uncomplicated

== ENCOUNTER → 2024-07-13 10:22 | Outpatient (BNVA) | payer BC, MEDICARE, SELFPAY | PROVIDERS: PCP Internal Medicine; Visit Provider Internal Medicine | DX: E11.9 Type 2 diabetes mellitus without complications (principal); E78.5 Hyperlipidemia, unspecified; J45.909 Unspecified asthma, uncomplicated; Z79.899 Other long term (current) drug therapy ==

== ENCOUNTER 2024-07-30 11:47 | Outpatient (AMB) | payer BC, MEDICARE, SELFPAY ==
--- NOTE | 2024-07-30 12:10 | A.OFFVIS_ITS ---
Intake Visit Reasons: OV - Left Knee MRI Review Intake Note: Katya is a 59 year old female who presents today for an MRI review of her left knee. She was last seen in May with atraumatic left knee pain. Hx of left knee Arthroscopy at outside facility. Tried and failed Physical Therapy and Injections. MR/MR knee LT wo con IMPRESSION: 1. Near-complete radial tear of the medial meniscal body with a superiorly displaced meniscal flap measuring up to 0.6 cm. Oblique inner margin tearing extending through the posterior body, posterior horn, and root. 2. Edema adjacent to the medial collateral ligament which may be related to the meniscal tear or indicate a grade 1 sprain. 3. Small joint effusion and trace Sandoval's cyst. Edema within the popliteal fossa. Electronically signed by: Jovanni Luz MD 07/13/2024 01:40 PM EDT RP Allergies codeine [CODEINE] Allergy (Severe, Verified 07/30/24 12:10) SWELLING dapagliflozin [From FARXIGA] Allergy (Intermediate, Verified 07/30/24 12:10) RASH latex [LATEX] Allergy (Intermediate, Verified 07/30/24 12:10) RASH montelukast [MONTELUKAST] Allergy (Unknown, Verified 07/30/24 12:10) ?? HX ILL EFFECTS BUT STILL TAKING oxycodone [OXYCODONE] Allergy (Unknown, Verified 07/30/24 12:10) PER H&P HPI HPI OV - Left Knee MRI Review: Details: Katya is a 59 year old female who presents today for an MRI review of her left knee. She was last seen in May with atraumatic left knee pain. Hx of left knee Arthroscopy at outside facility. Tried and failed Physical Therapy and Injections. She describes difficulty ambulating and twisting. She has pain that is mostly medial and posterior. She feels extremely limited and frustrated. [facility] Medical History Annual physical exam (~10/29/22) Chest pain Obese Normal Pap smear Normal colonoscopy DVT (deep venous thrombosis) Breast CA Asthma Hyperlipemia DM (diabetes mellitus) Surgical History S/P repair of paraesophageal hernia History of esophagogastroduodenoscopy (EGD) H/O colonoscopy Hx of meniscectomy of right knee Family History Father Dementia Mother No problems noted. Son No problems noted. Son No problems noted. Daughter No problems noted. Brother Substance use disorder Brother Substance use disorder Social History Housing: House Patient Tobacco Use Status: Never used Tobacco e-Cigarette/Vaping Use: Never Used service: No Current occupational status: unemployed Cognitive needs: No Hearing needs: No Vision needs: Yes Physical Exam Extrem Other: Left knee with medial compartment tenderness to palpation positive medial Leann's. No effusion. Positive gait antalgia. Full range of motion. Stable ligamentous exam. Results Reviewed Results Reviewed: I personally reviewed the MR images. IMPRESSION: 1. Near-complete radial tear of the medial meniscal body with a superiorly displaced meniscal flap measuring up to 0.6 cm. Oblique inner margin tearing extending through the posterior body, posterior horn, and root. 2. Edema adjacent to the medial collateral ligament which may be related to the meniscal tear or indicate a grade 1 sprain. 3. Small joint effusion and trace Sandoval's cyst. Edema within the popliteal fossa. Assessment & Plan Assessment & Plan (1) Medial meniscus tear: Code(s): S83.249A - Other tear of medial meniscus, current injury, unspecified knee, initial encounter Category: Medical Plan: This is a 59-year-old woman with a large medial meniscus tear of the left knee. I discussed treatment options and I recommend a medial meniscectomy with po ssible medial meniscus repair. I discussed with her the surgery as well as the risks, benefits and alternatives including to, but not limited to, the risk of infection, stiffness, incomplete symptom resolution as well as medical complications associated with surgery in general. She expressed understanding and we will proceed forward accordingly. Coding Level of Care Code Est Pt Level 4 (40587) Diagnoses Medial meniscus tear S83.249A
== END 2024-07-30 12:38 | disposition home or self-care (01) ==
PROVIDERS: PCP Internal Medicine; Visit Provider Orthopaedic Surgery
DX: S83.242A Other tear of medial meniscus, current injury, left knee, initial encounter (principal)
CPT/HCPCS: 99214

== ENCOUNTER → 2024-07-30 11:47 | Outpatient (BNVA) | payer BC, MEDICARE, SELFPAY | PROVIDERS: PCP Internal Medicine; Visit Provider Orthopaedic Surgery ==

== ENCOUNTER 2024-08-13 08:05 | Outpatient (AMB) | payer BC, MEDICARE, SELFPAY ==
[2024-08-13 08:07] VITALS: BP 124/92; PULSE 82; TEMP 36.4; O2SAT 98; BMI 36.2
--- NOTE | 2024-08-13 08:07 | MHC.OFFWIV ---
Intake Vital Signs 08/13/24 08:07 Height 5 ft 2 in Weight 198 lb BMI 36.2 BP 124/92 H Blood Pressure Location Lt brachial Position Sitting Pulse 82 Pulse Source Pulse Oximeter Temp 97.5 F Temp Source Oral Pulse Oximetry (%) 98 Oxygen Delivery Method Room Air Intake Visit Reasons: EP RT elbow Intake Note: Pt is here today c/o Rt elbow pain due to a event sliding in a park and has a red spot inflammed Patient Tobacco Use Status: Never used Tobacco Allergies codeine [CODEINE] Allergy (Severe, Verified 08/13/24 08:10) SWELLING dapagliflozin [From FARXIGA] Allergy (Intermediate, Verified 08/13/24 08:10) RASH latex [LATEX] Allergy (Intermediate, Verified 08/13/24 08:10) RASH montelukast [MONTELUKAST] Allergy (Unknown, Verified 08/13/24 08:10) ?? HX ILL EFFECTS BUT STILL TAKING oxycodone [OXYCODONE] Allergy (Unknown, Verified 08/13/24 08:10) PER H&P HPI HPI Comments History of Present Illness Details Patient is a 59-year-old female complaining of left elbow tenderness. She tells me she has 2 areas of concern, the 1st area is a scab that she thinks is healing well from incident going down a slide but right next to it she says this area of redness started 2 days ago and it is very tender and feels like it is burning. She was able to squeeze it last night and get some drainage out of it but now it just feels hard and warm and uncomfortable. [facility] Medical History Annual physical exam (~10/29/22) Chest pain Obese Normal Pap smear Normal colonoscopy DVT (deep venous thrombosis) Breast CA Asthma Hyperlipemia DM (diabetes mellitus) Surgical History S/P repair of paraesophageal hernia History of esophagogastroduodenoscopy (EGD) H/O colonoscopy Hx of meniscectomy of right knee Family History Father Dementia Mother No problems noted. Son No problems noted. Son No problems noted. Daughter No problems noted. Brother Substance use disorder Brother Substance use disorder Social History Housing: House Patient Tobacco Use Status: Never used Tobacco e-Cigarette/Vaping Use: Never Used service: No Current occupational status: unemployed Cognitive needs: No Hearing needs: No Vision needs: Yes Review of Systems Const All systems reviewed & are unremarkable except as noted in HPI and below Physical Exam Vital Signs: Last Vital Signs Temp 97.5 F 08/13/24 08:07 Pulse 82 08/13/24 08:07 BP 124/92 H 08/13/24 08:07 Pulse Ox 98 08/13/24 08:07 Oxygen Delivery Method Room Air 08/13/24 08:07 BMI result Body Mass Index 36.2 Const General: cooperative, healthy appearing, comfortable, no acute distress and well developed Orientation/consciousness: patient oriented x3 Limitations: no limitations HEENT Head: Yes normal to inspection Eyes General: appearance normal, both eyes and all related structures Neck Neck: Yes normal visual inspection and Yes full ROM Resp Effort & Inspection: normal respiratory effort and able to speak in complete sentences Skin Other: 1cm area of erythema, warmth on right elbow, indurated, not fluctuant, no drainage noted upon squeezing, no ecchymosis, no lesions, no lacerations or abrasions noted Neuro General: patient oriented x3 Extrem General: Yes normal to inspection Assessment & Plan Assessment & Plan (1) Cellulitis: Code(s): L03.90 - Cellulitis, unspecified Qualifiers: Site of cellulitis: extremity Site of cellulitis of extremity: upper extremity Laterality: right Qualified Code(s): L03.113 - Cellulitis of right upper limb Plan: As there does not appear to be an abscess left, we will treat this as cellulitis with Keflex, sent prescription to pharmacy. Plan See above Medications: New cephalexin 500 mg PO Q6H 20 caps 0RF Coding Level of Care Code Est Pt Level 3 (99914) Diagnoses Cellulitis of right upper extremity L03.113 Site of cellulitis: extremity Site of cellulitis of extremity: upper extremity Laterality: right
== END 2024-08-13 09:06 | disposition home or self-care (01) ==
PROVIDERS: PCP Internal Medicine; Visit Provider Physician Assistant
DX: L03.113 Cellulitis of right upper limb (principal)

== ENCOUNTER → 2024-08-13 08:05 | Outpatient (BNVA) | payer BC, MEDICARE, SELFPAY | PROVIDERS: PCP Internal Medicine ==

== ENCOUNTER 2024-08-25 05:58 | Day surgery (SDC) | payer BC, MEDICARE, SELFPAY ==
[2024-08-20 15:07] VITALS: BMI 36.6
--- NOTE | 2024-08-24 09:35 | P.CONAN_ITS ---
Documented by User: Ryann Hernandez NP 08/24/24 09:37 HPI - Anesthesia Eval Consult details Narrative: 59yo F for Left Knee Arthroscopy Eliquis for DVT PMFSH Active Problems Active Problems: All Active Problems Cellulitis (Acute) Medial meniscus tear (Acute) Internal derangement of left knee (Acute) CAP (community acquired pneumonia) (Acute) Left medial knee pain (Acute) Lumbar facet arthropathy (Acute) Lumbar spondylosis with myelopathy (Acute) Hip pain, bilateral (Acute) 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 allergy (Acute) Loose stools (Acute) Chronic idiopathic constipation (Acute) Bone cyst of foot (Acute) Annual physical exam (Acute ~10/29/22) Plantar fasciitis of left foot (Acute) Peripheral neuropathy (Acute) Encounter for pre-employment health screening examination (Acute) Candidal vaginitis (Acute) Herpes (Acute) Normal Pap smear (Acute) Chest pain (Acute) Obese (Acute) Normal colonoscopy (Acute) DVT (deep venous thrombosis) (Acute) Breast CA (Acute) Asthma (Acute) Hyperlipemia (Acute) DM (diabetes mellitus) (Acute) Past Medical History Medical History (Updated 08/25/24 @ 06:14 by Gabby Lyles RN) Peripheral neuropathy Lumbar spondylosis Chest pain Obese Normal colonoscopy DVT (deep venous thrombosis) Breast CA Asthma Hyperlipemia DM (diabetes mellitus) Family History Family History Father Dementia Mother No problems noted. Son No problems noted. Son No problems noted. Daughter No problems noted. Brother Substance use disorder Brother Substance use disorder Family history of problems with anesthesia: No Surgical History Surgical History (Updated 08/25/24 @ 06:17 by Gabby Lyles RN) History of foot surgery Hx of right mastectomy Hx of foot surgery S/P repair of paraesophageal hernia History of esophagogastroduodenoscopy (EGD) H/O colonoscopy Hx of meniscectomy of right knee History of Problems with Anesthesia: Yes Social History Social History Housing: House Patient Tobacco Use Status: Never used Tobacco e-Cigarette/Vaping Use: Never Used Use of substances other than those prescribed or required for medical reasons: No Are you DNR?: No Advance Directives: No Advance Directives Information Provided: Yes Advance Directives on File: No Recently lost weight without trying: No Nutrition Risks: No Nutritional Risk Patient : No service: No Current occupational status: unemployed Cognitive needs: No Hearing needs: No Vision needs: Yes Meds Allergies Allergy/AdvReac Type Severity Reaction Status Date / Time codeine [CODEINE] Allergy Severe SWELLING Verified 08/13/24 08:10 dapagliflozin [From FARXIGA] Allergy Intermediate RASH Verified 08/13/24 08:10 latex [LATEX] Allergy Intermediate RASH Verified 08/13/24 08:10 montelukast [MONTELUKAST] Allergy Mild ill effects Verified 08/20/24 15:05 oxycodone [OXYCODONE] Allergy Unknown Rash Verified 08/25/24 06:16 Home Medications ?Medication ?Instructions ?Recorded ?Confirmed ?Last Taken ?Type multivitamin (Daily Multi-Vitamin 1 tab PO DAILY 07/17/21 08/20/24 Unknown History tablet) oxybutynin chloride 5 mg tablet 5 mg PO DAILY 05/05/24 08/20/24 Unknown History Exam Height,Weight and Vital Signs: Height 5 ft 2 in Weight 90.718 kg Pertinent Lab Results Pertinent Lab Results: Laboratory Tests 02/22/24 13:31 WBC 7.5 Hgb 14.4 Hct 43.3 Plt Count 242 Sodium 143 Potassium 4.2 Chloride 107 Carbon Dioxide 25 BUN 10 Creatinine 0.69 Assessment and Plan Assessment Anesthesia Assessment: Chart Reviewed Final Anesthetic Review Family History of Problems with Anesthesia: No History of Problems with Anesthesia: Yes Documented by User: Aguila Motta MD 08/25/24 08:01 [facility], [facility] Past Medical History Medical History (Updated 08/25/24 @ 06:14 by Gabby Lyles RN) Peripheral neuropathy Lumbar spondylosis Chest pain Obese Normal colonoscopy DVT (deep venous thrombosis) Breast CA Asthma Hyperlipemia DM (diabetes mellitus) Family History Family History Father Dementia Mother No problems noted. Son No problems noted. Son No problems noted. Daughter No problems noted. Brother Substance use disorder Brother Substance use disorder Surgical History Surgical History (Updated 08/25/24 @ 06:17 by Gabby Lyles RN) History of foot surgery Hx of right mastectomy Hx of foot surgery S/P repair of paraesophageal hernia History of esophagogastroduodenoscopy (EGD) H/O colonoscopy Hx of meniscectomy of right knee History of Problems with Anesthesia: No Social History Social History Housing: House Patient Tobacco Use Status: Never used Tobacco e-Cigarette/Vaping Use: Never Used Use of substances other than those prescribed or required for medical reasons: No Are you DNR?: No Advance Directives: No Advance Directives Information Provided: Yes Advance Directives on File: No Recently lost weight without trying: No Nutrition Risks: No Nutritional Risk Patient : No service: No Current occupational status: unemployed Cognitive needs: No Hearing needs: No Vision needs: Yes Meds Allergies Allergy/AdvReac Type Severity Reaction Status Date / Time codeine [CODEINE] Allergy Severe SWELLING Verified 08/13/24 08:10 dapagliflozin [From FARXIGA] Allergy Intermediate RASH Verified 08/13/24 08:10 latex [LATEX] Allergy Intermediate RASH Verified 08/13/24 08:10 montelukast [MONTELUKAST] Allergy Mild ill effects Verified 08/20/24 15:05 oxycodone [OXYCODONE] Allergy Unknown Rash Verified 08/25/24 06:16 Home Medications ?Medication ?Instructions ?Recorded ?Confirmed ?Last Taken ?Type multivitamin (Daily Multi-Vitamin 1 tab PO DAILY 07/17/21 08/20/24 Unknown History tablet) oxybutynin chloride 5 mg tablet 5 mg PO DAILY 05/05/24 08/20/24 Unknown History Exam Airway Mallampati Class: II TM Dist: >3cm Neck ROM: Full Assessment and Plan Assessment Anesthesia Assessment: Anesthesia Plan Discussed Final Anesthetic Review History of Problems with Anesthesia: No NPO: Yes ASA Class: III Final Preanesthetic Review: No Changes in Pt Med Stat, Meds/Allgs Chart Reviewed, Consent Obtained/Reviewed and Anes Risks/Benef Reviewed Patient Risk: Intermediate Anesthetic Plan Anesthetic Plan: GA Disposition: Standard PACU
[2024-08-25] VITALS (8 sets, daily range): BP systolic 142–152; BP diastolic 90–105; PULSE 87–107; RESP 16–18; TEMP 36.6–37.2; O2SAT 94–97; BMI 35.7
[2024-08-25 06:41] LABS: Glucose, Whole Blood 228 mg/dL (60-115)
[2024-08-25] MEDS: Lactated Ringers 1,000 ML 100 ML IVCONT (06:50)
--- NOTE | 2024-08-25 07:21 | MHC.SHP ---
Pre-Procedural Eval Section A - 24 Hr Update-Section A only Date of Service: 08/25/24 The patient is an INPATIENT: No Changes since office visit: No Cold of Flu in the past 2 weeks, No New Medical Problems, No Changes in Medication and No Patient answered all questions The patient has been examined within 24 hours of the surgical procedure. The History & Physical has been completed within 30 days and I have reviewed it.: Yes Section B - Complete if H&P > 30 days Chief Complaint: Other tear of medial meniscus, current injury, lef Allergies: Allergies Allergy/AdvReac Type Severity Reaction Status Date / Time codeine [CODEINE] Allergy Severe SWELLING Verified 08/13/24 08:10 dapagliflozin [From FARXIGA] Allergy Intermediate RASH Verified 08/13/24 08:10 latex [LATEX] Allergy Intermediate RASH Verified 08/13/24 08:10 montelukast [MONTELUKAST] Allergy Mild ill effects Verified 08/20/24 15:05 oxycodone [OXYCODONE] Allergy Unknown Rash Verified 08/25/24 06:16 Plan I have reviewed the history and physical and performed a pertinent physical examination on my patient. No changes have occurred unless specified. Time Spent With Patient Time: Total time managing care of this patient today ____ minutes.
--- NOTE | 2024-08-25 08:03 | W.PM.OPN ---
Operative Note Operative Note Date of Service: 08/25/24 Narrative: Date of Service: 08/25/24 Pre-op diagnosis: Left knee MMT Post-op diagnosis: same Procedure: Left knee partial medial meniscectomy Implants: none Surgeon: Nitin Perez MD Anesthesia: GLMA and local Was an Helper Coordinator used for this Procedure?: No Estimated blood loss (mL): 0 Tourniquet time (min): 13 IV fluids (mL): 500 Pathology: none sent Condition: stable Disposition: PACU Procedure in detail: Patient was brought to the operating room placed supine on the arthroscopic table and prepped and draped in standard sterile fashion. A time-out was called to identify proper site proper procedure proper surgeon and IV antibiotics per weight were administered. I began by exsanguinating the limb and insufflating tourniquet to 300 mm Hg. Then made a standard anterolateral stab incision. The knee was insufflated with water and 30 degree arthroscope was placed. There was normal cartilage of the patella and trochlea and overall the suprapatellar pouch and the gutters were clean. I descended into the medial compartment where I made my medial portal under direct visualization. There was a complex tear of the posterior horn of the medial meniscus. The root was intact and there was grade 0changes in the tibial plateau and MFC. I used a combination of biter shaver and cautery to remove unstable portions of the meniscus. Apporximately 30% meniscal volume was removed. Once I was satsfied with this the ACL was examined and found to be intact and the lateral compartment also was without the need for intervention. I then removed all instrumentation and closed the portals with skin glue. 25 mL of 2% Marcaine with epinephrine was injected into the joint and the surrounding soft tissues. Patient was then placed in sterile dressing extubated brought recovery room stable condition. There were no known complications.
[2024-08-25] MEDS: fentaNYL citrate/PF 100 MCG/2 ML VIAL 50 MCG IVPUSH (08:45)
== END 2024-08-25 09:37 | disposition home or self-care (01) ==
LOC: HO.SSS 05:58
PROVIDERS: PCP Internal Medicine; Visit Provider Orthopaedic Surgery
PROC: (CPT 29870; principal; 2024-08-25 07:30)
DX: S83.232A Complex tear of medial meniscus, current injury, left knee, initial encounter (principal); R26.2 Difficulty in walking, not elsewhere classified; R60.0 Localized edema; M25.462 Effusion, left knee; X58.XXXA Exposure to other specified factors, initial encounter; Y93.9 Activity, unspecified; Y92.9 Unspecified place or not applicable; Y99.9 Unspecified external cause status; E11.9 Type 2 diabetes mellitus without complications; E78.5 Hyperlipidemia, unspecified; J45.909 Unspecified asthma, uncomplicated; I82.509 Chronic embolism and thrombosis of unspecified deep veins of unspecified lower extremity; Z79.01 Long term (current) use of anticoagulants; Z85.3 Personal history of malignant neoplasm of breast; Z79.51 Long term (current) use of inhaled steroids; Z79.84 Long term (current) use of oral hypoglycemic drugs; Z79.899 Other long term (current) drug therapy; Z88.5 Allergy status to narcotic agent; Z88.8 Allergy status to other drugs, medicaments and biological substances; Z91.040 Latex allergy status; Z56.0 Unemployment, unspecified
CPT/HCPCS: 29881; 82947; J0131; J0171; J0690; J1100; J2003; J2250; J2405; J2704; J2795; J3010

== ENCOUNTER → 2024-08-25 05:58 | Outpatient (BNV) | payer BC, MEDICARE, SELFPAY | PROVIDERS: PCP Internal Medicine; Visit Provider Orthopaedic Surgery | DX: S83.232A Complex tear of medial meniscus, current injury, left knee, initial encounter (principal) | CPT/HCPCS: 29881 ==

== ENCOUNTER 2024-09-01 12:07 | Outpatient (REF) | payer BC, MEDICARE, SELFPAY ==
[2024-09-02 12:04] LABS: Bacterial Vaginosis PCR NEGATIVE (Negative); Candida Group PCR DETECTED (Not Detect); Candida glab krusei PCR NOT DETECTED (Not Detect); Trichomonas vaginalis PCR NOT DETECTED (Not Detect)
== END 2024-09-01 12:08 | disposition home or self-care (01) ==
LOC: HO.LAB 12:07
PROVIDERS: PCP Internal Medicine; Visit Provider Internal Medicine
DX: N76.0 Acute vaginitis (principal)
CPT/HCPCS: 0352U

== ENCOUNTER 2024-09-01 12:07 | Outpatient (AMB) | payer BC, MEDICARE, SELFPAY ==
--- NOTE | 2024-09-01 12:08 | A.OFFPC_ITS ---
Vital Signs 09/01/24 12:09 Height 5 ft 2 in Weight 195 lb BMI 35.7 BP 126/78 Blood Pressure Location Lt brachial Position Sitting Pulse 96 Pulse Source Pulse Oximeter Pulse Oximetry (%) 96 Oxygen Delivery Method Room Air Intake Visit Reasons: Yeast infection Intake Note: Pt is here today for a follow up visit. Pt c/o on going vaginal itchiness and discharge. Pt states that she was on Fluconazole and she finished it but it did not help. Allergies codeine [CODEINE] Allergy (Severe, Verified 09/01/24 12:13) SWELLING dapagliflozin [From FARXIGA] Allergy (Intermediate, Verified 09/01/24 12:13) RASH latex [LATEX] Allergy (Intermediate, Verified 09/01/24 12:13) RASH montelukast [MONTELUKAST] Allergy (Mild, Verified 09/01/24 12:13) ill effects oxycodone [OXYCODONE] Allergy (Unknown, Verified 09/01/24 12:13) Rash Medication List - Last Reconciled 09/01/24 by Michell Fatima MD albuterol sulfate 2.5 mg inhaled every 20 min for up to 3 doses PRN; apixaban 5 mg PO BID atorvastatin 20 mg PO DAILY blood sugar diagnostic (FreeStyle Lite Strips) check glucose once a day blood-glucose meter (Upstream Commerceuch Ultra2 Meter) As directed blood-glucose meter (FreeStyle [place] kit) 1 bid fluticasone furoate-vilanterol 200-25 mcg/dose (Breo Ellipta) 1 inh inhalation DAILY gabapentin (Neurontin) 100 mg PO BID hydrocodone-acetaminophen 5-325 mg 1 tab PO Q4-6H PRN 7 days linaclotide (Linzess) 290 mcg PO DAILY 30 days metformin 1,000 mg PO BID multivitamin (Daily Multi-Vitamin tablet) 1 tab PO DAILY nebulizers As directed oxybutynin chloride 5 mg PO DAILY Tobacco use date assessed: 07/13/24 Dental Screening Dental Screen Date: 06/09/24 HPI Yeast infection HPI Details Patient complains of vaginal discharge itching and discomfort during the intercourse for 1 week started after patient took Keflex for elbow cellulitis. She reports increasing wheezing and productive cough with clear sputum for the last month. Patient denies fever chills pleurisy. She has been taking Breo daily and using albuterol at least twice a day [facility] Medical History (Updated 09/01/24 @ 12:46 by Michell Fatima MD) Peripheral neuropathy Lumbar spondylosis Chest pain Obese Normal colonoscopy DVT (deep venous thrombosis) Breast CA Asthma Hyperlipemia DM (diabetes mellitus) Surgical History (Updated 08/25/24 @ 06:17 by Gabby Lyles RN) History of foot surgery Hx of right mastectomy Hx of foot surgery S/P repair of paraesophageal hernia History of esophagogastroduodenoscopy (EGD) H/O colonoscopy Hx of meniscectomy of right knee Family History Father Dementia Mother No problems noted. Son No problems noted. Son No problems noted. Daughter No problems noted. Brother Substance use disorder Brother Substance use disorder Social History Housing: House Patient Tobacco Use Status: Never used Tobacco e-Cigarette/Vaping Use: Never Used service: No Current occupational status: unemployed Cognitive needs: No Hearing needs: No Vision needs: Yes Questionnaire Thrive Questionnaire Date Thrive assessed: 09/01/24 I am a: Patient RAMON-7 AMB Questionnaire RAMON-7 Date RAMON - 7 assessed: 06/09/24 Source: Developed by Drs. Denny Cooley, Eneida Fleming, Markell Mtz and colleagues, with an educational jenise from [employer]. Review of Systems Const All systems reviewed & are unremarkable except as noted in HPI and below ENT Reports no additional complaints Card Reports no additional complaints Resp Reports no additional complaints GI Reports no additional complaints Reports no additional complaints Physical exam (Primary Care) Vital Signs: Last Vital Signs Pulse 96 09/01/24 12:09 BP 126/78 09/01/24 12:09 Pulse Ox 96 09/01/24 12:09 Oxygen Delivery Method Room Air 09/01/24 12:09 BMI result Body Mass Index 35.7 Tobacco/Smoking Status: Tobacco use Status Tobacco use date assessed 07/13/24 09/01/24 12:14 Patient Tobacco Use Status Never used Tobacco 09/01/24 12:14 e-Cigarette/Vaping Use Never Used 09/01/24 12:14 Thrive Assessment: Date of Thrive Assessment Date Thrive assessed 09/01/24 09/01/24 12:14 Const General: no acute distress HENMT Head: Yes normal to inspection Resp Effort & Inspection: normal respiratory effort Auscultation: rhonchi and wheezes Cardio Rhythm: regular rhythm Heart sounds: S1 normal heart sound present and S2 normal heart sound present External Female Exam: externally tender and external swelling Speculum Exam - Vagina: abnormal vaginal discharge white and erythematous Speculum Exam - Cervix: normal appearance of the cervix Coding Level of Care Code Est Pt Level 4 (26700) Diagnoses Candidal vaginitis B37.3 Asthma J45.909 DM (diabetes mellitus) E11.9 Assessment & Plan Assessment & Plan (1) Candidal vaginitis: Code(s): B37.3 - Candidiasis of vulva and vagina Category: Medical Plan: Vaginitis swab sent and Diflucan 100 mg daily for 1 week as prescribed. (2) Asthma: Code(s): J45.909 - Unspecified asthma, uncomplicated Category: Medical Plan: Change Breo to Trelegy 100 continue albuterol p.r.n. and add montelukast follow- up next week (3) DM (diabetes mellitus): Code(s): E11.9 - Type 2 diabetes mellitus without complications Category: Medical Plan: Continue metformin ADA diet return for fasting blood work next week Orders: Orders Bacterial Vaginosis Panel Today N76.0 - Acute vaginitis Medications: New fluconazole (Diflucan) 100 mg PO DAILY 7 tabs 0RF Trelegy Ellipta 100-62.5-25 mcg ([id number]) 1 inh inhalation DAILY 60 ea 3RF NS montelukast 10 mg PO BEDTIME 90 tabs 0RF Refilled linaclotide (Linzess) 290 mcg PO DAILY 30 days 90 caps 6RF K59.04 - Chronic idiopathic constipation Discontinued fluticasone furoate-vilanterol 200-25 mcg/dose (Breo Ellipta) Discontinued Reason: Doctor's Order 1 inh inhalation DAILY 120 ea 2RF
[2024-09-01 12:09] VITALS: BP 126/78; PULSE 96; O2SAT 96; BMI 35.7
== END 2024-09-01 12:46 | disposition home or self-care (01) ==
PROVIDERS: PCP Internal Medicine; Visit Provider Internal Medicine
DX: J45.909 Unspecified asthma, uncomplicated (principal); B37.31 Acute candidiasis of vulva and vagina; E11.9 Type 2 diabetes mellitus without complications

== ENCOUNTER 2024-09-02 15:02 | Outpatient (AMB) | payer BC, MEDICARE, SELFPAY ==
--- NOTE | 2024-09-02 15:06 | A.OFFVIS_ITS ---
Intake Visit Reasons: PO Lt knee partial medial meniscectomy 08/25/24 NE Intake Note: Katya is a 59 year old female who presents today for a post op appointment s/p Left knee partial medial meniscectomy 08/25/24 NE. Patient reports she is doing better. She mentions when she is getting up from the sitting position she tends to hear a popping sound. Allergies codeine [CODEINE] Allergy (Severe, Verified 09/02/24 15:11) SWELLING dapagliflozin [From FARXIGA] Allergy (Intermediate, Verified 09/02/24 15:11) RASH latex [LATEX] Allergy (Intermediate, Verified 09/02/24 15:11) RASH montelukast [MONTELUKAST] Allergy (Mild, Verified 09/02/24 15:11) ill effects oxycodone [OXYCODONE] Allergy (Unknown, Verified 09/02/24 15:11) Rash HPI HPI PO Lt knee partial medial meniscectomy 08/25/24 NE: Details: 59-year-old female who presents in the office today 8 days status post left knee partial medial meniscectomy, which was performed on 08/25/[address] Perez. While in the office today, the patient reports experiencing a popping sound when moving from sitting to standing position. Otherwise, the patient states she is doing better. COUNT INCLUDES THE [facility] Medical History (Updated 09/02/24 @ 15:22 by Edith Diaz) Peripheral neuropathy Lumbar spondylosis Chest pain Obese Normal colonoscopy DVT (deep venous thrombosis) Breast CA Asthma Hyperlipemia DM (diabetes mellitus) Surgical History (Updated 08/25/24 @ 06:17 by Gabby Lyles RN) History of foot surgery Hx of right mastectomy Hx of foot surgery S/P repair of paraesophageal hernia History of esophagogastroduodenoscopy (EGD) H/O colonoscopy Hx of meniscectomy of right knee Family History Father Dementia Mother No problems noted. Son No problems noted. Son No problems noted. Daughter No problems noted. Brother Substance use disorder Brother Substance use disorder Social History Housing: House Patient Tobacco Use Status: Never used Tobacco e-Cigarette/Vaping Use: Never Used service: No Current occupational status: unemployed Cognitive needs: No Hearing needs: No Vision needs: Yes Review of Systems Const All systems reviewed & are unremarkable except as noted in HPI and below Physical Exam Const General: cooperative, healthy appearing and no acute distress Resp Effort & Inspection: normal respiratory effort and able to speak in complete sentences Cardio Rate: regular rate Peripheral pulses: Peripheral pulses 2+ throughout GI Palpation (GI): Soft to palpation Skin Lesions: no lesions Rashes: no rashes Extrem Other: Left knee: Incision sites are clean, dry, and intact. No surrounding erythema or drainage. No signs of infection. ROM is 0-110. NVI. Assessment & Plan Assessment & Plan (1) Tear of medial meniscus of left knee: Code(s): S83.242A - Other tear of medial meniscus, current injury, left knee, initial encounter Category: Medical (2) Tear of medial meniscus of left knee: Code(s): S83.242A - Other tear of medial meniscus, current injury, left knee, initial encounter Category: Medical Plan Ms. Skaggs is a 59-year-old female who presents in the office today 8 days status post left knee partial medial meniscectomy which was performed on 08/25/[address] Perez. While in the office today, the patient reports experiencing a popping sound when moving from sitting to standing position. Otherwise, the patient states she is doing better. We discussed the role of physical therapy; however, the patient deferred it at this time. She will return to normal activities as tolerated. Follow up will be PRN, or sooner if needed. Patient Instructions: Scribed by Edith Diaz director medical safety, for Gina Nieto PA-C on 09/02/24 at 3:22 pm EST. Coding Level of Care Code Global (23505) Diagnoses Tear of medial meniscus of left knee S83.242A
== END 2024-09-02 15:13 | disposition home or self-care (01) ==
PROVIDERS: PCP Internal Medicine; Visit Provider Physician Assistant
DX: S83.242A Other tear of medial meniscus, current injury, left knee, initial encounter (principal)
CPT/HCPCS: 99024

== ENCOUNTER 2024-09-07 08:01 | Outpatient (REF) | payer BC, MEDICARE, SELFPAY ==
[2024-09-07 10:07] LABS: MANUAL DIFF FLAG NO
[2024-09-07 10:21] LABS: Basophils Percent Auto 0.5 % (0-2); Eosinophils Absolute Auto 0.2 X10*3/uL (0.0-0.4); Eosinophils Percent Auto 3.5 % (0-4); Hematocrit 41.4 % (37.0-47.0); Hemoglobin 13.6 g/dl (12.0-16.0); Imm Gran Abs Auto 0.03 X10*3/uL (0.00-0.03); Imm Gran Pct Auto 0.5 % (0.0-0.4); Lymphocytes Absolute Auto 2.4 X10*3/uL (1.2-4.9); Lymphocytes Percent Auto 37.8 % (20-40); Mean Corpuscular HGB Conc 32.9 g/dl (31.0-35.0); Mean Corpuscular Hemoglobin 30.4 pg (27.0-33.0); Mean Corpuscular Volume 92.6 fL (80.0-98.0); Mean Platelet Volume 11.1 fL (9.4-12.3); Monocytes Absolute Auto 0.4 X10*3/uL (0.1-1.2); Monocytes Percent Auto 7.1 % (2-11); Neutrophils Absolute Auto 3.2 x10*3/uL (2.0-8.3); Neutrophils Percent Auto 50.6 % (45-73); Platelet Count 275 X10*3/uL (160-400); Red Blood Count 4.47 X10*6/uL (4.20-5.50); Red Cell Distribution Width 12.5 % (11.0-16.0); White Blood Count 6.2 X10*3/uL (4.8-10.8)
[2024-09-07 10:24] LABS: Estimated Average Glucose 235 mg/dL; Hemoglobin A1C 294.6572 umol/L; Hemoglobin A1c % 9.8 % (<6.0); Total Hemoglobin (HGBA1C) 3528.0687 umol/L
[2024-09-07 10:54] LABS: Alanine Aminotransferase 24 U/L (0-31); Alkaline Phosphatase 90 U/L (39-117); Anion Gap 11 (12-20); Aspartate Amino Transferase 21 U/L (5-31); Bilirubin Total 0.9 mg/dL (0.0-1.0); Blood Urea Nitrogen 13 mg/dL (9-16); Calcium 9.6 mg/dL (8.4-10.2); Carbon Dioxide 29 mmol/L (22-29); Chloride 103 mmol/L (96-108); Cholesterol 189 mg/dL (<200); Estimated Glomerular Filt Rate > 60; Glucose Fasting 212 mg/dL (60-99); HDL Cholesterol 60 mg/dL (>40); LDL Cholesterol Calculated 105 mg/dL (<100); Potassium 4.5 mmol/L (3.3-5.1); Sodium 138 mmol/L (135-145); Total Protein 7.5 g/dL (6.5-8.0); Triglycerides 123 mg/dL (<150)
[2024-09-07 11:49] LABS: Creatinine Urine 52.98 mg/dL; Microalbumin Urine < 5.0 mg/L
== END 2024-09-07 08:02 | disposition home or self-care (01) ==
LOC: HO.HMGCLDS 08:01
PROVIDERS: PCP Internal Medicine; Visit Provider Internal Medicine
DX: E11.9 Type 2 diabetes mellitus without complications (principal); E78.5 Hyperlipidemia, unspecified; J45.909 Unspecified asthma, uncomplicated
CPT/HCPCS: 36415; 80053; 80061; 82043; 82570; 83036; 85025

== ENCOUNTER 2024-09-09 10:20 | Outpatient (AMB) | payer BC, MEDICARE, SELFPAY ==
--- NOTE | 2024-09-09 10:22 | MHC.PC.OV ---
Vital Signs 09/09/24 10:23 Height 5 ft 2 in Weight 194 lb BMI 35.5 BP 118/70 Blood Pressure Location Lt brachial Position Sitting Pulse 110 H Pulse Source Pulse Oximeter Pulse Oximetry (%) 96 Oxygen Delivery Method Room Air Intake Visit Reasons: 2 months f/up Intake Note: Pt is here today for 2 months follow up visit. Allergies codeine [CODEINE] Allergy (Severe, Verified 09/09/24 10:27) SWELLING dapagliflozin [From FARXIGA] Allergy (Intermediate, Verified 09/09/24 10:27) RASH latex [LATEX] Allergy (Intermediate, Verified 09/09/24 10:27) RASH montelukast [MONTELUKAST] Allergy (Mild, Verified 09/09/24 10:27) ill effects oxycodone [OXYCODONE] Allergy (Unknown, Verified 09/09/24 10:27) Rash Medication List - Last Reconciled 09/09/24 by Michell Fatima MD albuterol sulfate 2.5 mg inhaled every 20 min for up to 3 doses PRN; apixaban 5 mg PO BID atorvastatin 20 mg PO DAILY blood sugar diagnostic (FreeStyle Lite Strips) check glucose once a day blood-glucose meter (OneTouch Ultra2 Meter) As directed blood-glucose meter (FreeStyle [place] kit) 1 bid fluconazole (Diflucan) 100 mg PO DAILY gabapentin (Neurontin) 100 mg PO BID glipizide 10 mg PO BID hydrocodone-acetaminophen 5-325 mg 1 tab PO Q4-6H PRN 7 days linaclotide (Linzess) 290 mcg PO DAILY 30 days metformin 1,000 mg PO BID montelukast 10 mg PO BEDTIME multivitamin (Daily Multi-Vitamin tablet) 1 tab PO DAILY nebulizers As directed oxybutynin chloride 5 mg PO DAILY Trelegy Ellipta 100-62.5-25 mcg (honslxzpjze-ykitywaic-jmqiwijf) 1 inh inhalation DAILY NS Tobacco use date assessed: 07/13/24 Dental Screening Dental Screen Date: 06/09/24 HPI 2 months f/up HPI Details Patient presents for the follow-up of type 2 diabetes and chronic asthma. She reports high blood glucose readings since stopped taking glipizide and Trulicity because of itching and rash. Patient could not tolerate Farxiga. She complains of persistent cough productive with yellow sputum for 3 weeks. She reports shortness or breath when walking up the stairs, PND, needs to use 2 pillows to elevate her head. Patient has been using Trelegy and albuterol once or twice a day. She denies pleurisy fever chills. [facility] Medical History (Updated 09/09/24 @ 11:13 by Michell Fatima MD) Peripheral neuropathy Lumbar spondylosis Chest pain Obese Normal colonoscopy DVT (deep venous thrombosis) Breast CA Asthma Hyperlipemia DM (diabetes mellitus) Surgical History (Updated 08/25/24 @ 06:17 by Gabby Lyles RN) History of foot surgery Hx of right mastectomy Hx of foot surgery S/P repair of paraesophageal hernia History of esophagogastroduodenoscopy (EGD) H/O colonoscopy Hx of meniscectomy of right knee Family History Father Dementia Mother No problems noted. Son No problems noted. Son No problems noted. Daughter No problems noted. Brother Substance use disorder Brother Substance use disorder Social History Housing: House Patient Tobacco Use Status: Never used Tobacco e-Cigarette/Vaping Use: Never Used service: No Current occupational status: unemployed Cognitive needs: No Hearing needs: No Vision needs: Yes Questionnaire Thrive Questionnaire Date Thrive assessed: 09/01/24 RAMON-7 AMB Questionnaire RAMON-7 Date RAMON - 7 assessed: 06/09/24 Source: Developed by Drs. Denny Cooley, Eneida Fleming, Markell Mtz and colleagues, with an educational jenise from [employer]. Review of Systems Const All systems reviewed & are unremarkable except as noted in HPI and below Eyes Reports no additional complaints Card Reports no additional complaints Resp Reports no additional complaints GI Reports no additional complaints Reports no additional complaints Physical exam (Primary Care) Vital Signs: Last Vital Signs Pulse 110 H 09/09/24 10:23 BP 118/70 09/09/24 10:23 Pulse Ox 96 09/09/24 10:23 Oxygen Delivery Method Room Air 09/09/24 10:23 BMI result Body Mass Index 35.5 Tobacco/Smoking Status: Tobacco use Status Tobacco use date assessed 07/13/24 09/09/24 10:22 Patient Tobacco Use Status Never used Tobacco 09/09/24 10:22 e-Cigarette/Vaping Use Never Used 09/09/24 10:22 Thrive Assessment: Date of Thrive Assessment Date Thrive assessed 09/01/24 09/09/24 10:22 Const General: no acute distress HENMT Head: Yes normal to inspection Throat: Yes posterior oropharynx normal Neck Neck: Yes supple Resp Effort & Inspection: able to speak in complete sentences Auscultation: rales (at bases) bilateral, rhonchi and diminished lung sounds Cardio Rate: tachycardic Rhythm: regular rhythm Heart sounds: S1 normal heart sound present and S2 normal heart sound present GI Inspection: Yes normal to inspection Palpation (GI): Soft to palpation Percussion: Yes normal to percussion Auscultation: normal bowel sounds Coding Level of Care Code Est Pt Level 4 (35999) Complex EM visit Add On G2211 Diagnoses DM (diabetes mellitus) E11.9 Asthma J45.909 Hyperlipemia E78.5 DVT (deep venous thrombosis) I82.409 SOB (shortness of breath) R06.02 Assessment & Plan Assessment & Plan (1) DM (diabetes mellitus): Comment: Intolerant to Farxiga and Trulicity(rash) Code(s): E11.9 - Type 2 diabetes mellitus without complications Category: Medical Plan: A1c is 9.8 increased since patient stopped taking glipizide and Trulicity. Glipizide will be restarted 10 mg twice a day, ADA diet increase physical activity continue metformin and try Mounjaro 2.5 mg weekly (2) Asthma: Code(s): J45.909 - Unspecified asthma, uncomplicated Category: Medical Plan: Continue Trelegy and albuterol as needed (3) Hyperlipemia: Code(s): E78.5 - Hyperlipidemia, unspecified Category: Medical Plan: Continue statin (4) DVT (deep venous thrombosis): Comment: recurrent on Eliquis Code(s): I82.409 - Acute embolism and thrombosis of unspecified deep veins of unspecified lower extremity Category: Medical Plan: Continue Eliquis (5) SOB (shortness of breath): Code(s): R06.02 - Shortness of breath Category: Medical Plan: For persistent cough and shortness or breath chest x-ray and echo will be obtained Z-Stevo as prescribed and patient was advised to use albuterol as needed Orders: Orders CA echo transthoracic complete Today R06.02 - Shortness of breath Hemoglobin A1c 3 Months E11.9 - Type 2 diabetes mellitus without complications, E78.5 - Hyperlipidemia, unspecified, I82.409 - Acute embolism and thrombosis of unspecified deep veins of unspecified lower extremity XR chest 2V Today J18.9 - Pneumonia, unspecified organism Comprehensive [place]. Panel Fast 3 Months E11.9 - Type 2 diabetes mellitus without complications, E78.5 - Hyperlipidemia, unspecified, I82.409 - Acute embolism and thrombosis of unspecified deep veins of unspecified lower extremity Lipid Panel 3 Months E11.9 - Type 2 diabetes mellitus without complications, E78.5 - Hyperlipidemia, unspecified, I82.409 - Acute embolism and thrombosis of unspecified deep veins of unspecified lower extremity Microalbumin, Random (w Creat) 3 Months E11.9 - Type 2 diabetes mellitus without complications, E78.5 - Hyperlipidemia, unspecified, I82.409 - Acute embolism and thrombosis of unspecified deep veins of unspecified lower extremity Complete Blood Count Auto Diff 3 Months E11.9 - Type 2 diabetes mellitus without complications, E78.5 - Hyperlipidemia, unspecified, I82.409 - Acute embolism and thrombosis of unspecified deep veins of unspecified lower extremity Medications: New glipizide 10 mg PO BID 180 tabs 2RF azithromycin For 250 mg dose pack: take 500 mg today (day 1), then 250 mg for 4 days (days 2-5) PO 6 tabs 0RF tirzepatide (Mounjaro) 2.5 mg (0.5 mL) subcut QWEEK 2 mL 2RF tirzepatide (Mounjaro) for 4 weeks 2.5 mg (0.5 mL) subcut QWEEK 2 mL 2RF
[2024-09-09 10:23] VITALS: BP 118/70; PULSE 110; O2SAT 96; BMI 35.5
== END 2024-09-09 11:15 | disposition home or self-care (01) ==
LOC: HO.HMCC 10:20
PROVIDERS: PCP Internal Medicine; Visit Provider Internal Medicine
DX: E11.9 Type 2 diabetes mellitus without complications (principal); J45.909 Unspecified asthma, uncomplicated; E78.5 Hyperlipidemia, unspecified; I82.409 Acute embolism and thrombosis of unspecified deep veins of unspecified lower extremity; R06.02 Shortness of breath

== ENCOUNTER → 2024-09-29 08:47 | Outpatient (REF) | payer MEDICARE, BC, SELFPAY ==
--- NOTE | 2024-09-29 08:55 | CA_ITS ---
Transthoracic Echocardiogram Patient (Last, First, Middle): Katya Skaggs D Gender: Female Date of : 1965 Age: 59 Procedure Date: 09/29/2024 Procedure Type: Transthoracic Echocardiogram Location: OP Height: 157.48 cm Weight: 95.26 kg BSA: 1.95 m2 Heart Rate: bpm BP: 128 / 80 mmHg Mycologist: Referring MD: Michell Fatima MD Director Of Services: Franco York MD Symptoms: J45.909 UNSPECIFIED ASTHMA, E78.5 HYPERLIPIDEMIA, E11.9 TYPE 2 DM Study Quality: Adequate ECG Rhythm: Sinus Conclusions: - 1. Normal LV ejection fraction of 60 65% with grade 1 diastolic dysfunction 2. Cardiac valvular Dopplers within normal limits 3. Normal RV systolic pressure 4. No gross pericardial effusion Findings Left Ventricle Normal left ventricular size, thickness, and systolic function. The visually estimated ejection fraction is between 60-65%. Spectral Doppler is indicative of an impaired relaxation filling pattern. E/E prime ratio is <8, consistent with normal filling pressures. the basal inferior wall as well as the basal inferoseptal wall appear to be hypokinetic Right Ventricle Normal right ventricular cavity size and systolic function. Atria Both atria are normal in size. There is lipomatous hypertrophy of the interatrial septum. There is no evidence of interatrial shunt. Aortic Valve The aortic valve structure and function is likely normal. There is no aortic valve stenosis. There is no aortic valve regurgitation. Mitral Valve Likely normal mitral valve structure and function. There is mild anterior mitral leaflet thickening. There is trace mitral valve regurgitation. There is no mitral valve stenosis. Pulmonic Valve The pulmonic valve was not well visualized. Tricuspid Valve Likely normal tricuspid valve structure and function. There is trace tricuspid valve regurgitation. The right ventricular systolic pressure is normal. The right ventricular systolic pressure is 19 mmHg. Normal right atrial pressure. There is no evidence of pulmonary hypertension. Great Vessels All visible segments of the aorta are normal in size. The pulmonary artery was not well visualized. There is no dilatation of the ascending aorta measuring 3.20 cm. Venous The inferior vena cava is normal in size and collapses greater than 50% with inspiration. Pericardium/Pleural There is no evidence of pericardial effusion. Prior Study Comparison No prior study available for comparison. Measurements 2D Linear Measurements IVSd: 0.94 0.6-0.9/0.6-1.0 cm LVIDd: 4.55 3.9-5.3/4.2-5.9 cm LVIDd Index: 2.33 2.4-3.2/2.2-3.1 cm/m2 LVIDs: 3.02 2.0-3.6 cm LVPWd: 0.96 0.7-1.1 cm Ao Root: 2.80 2.1-3.5 cm LA Diam: 2.60 2.7-3.8/3.0-4.0 cm LAIDs Index: 1.33 1.5-2.3 cm/m2 LV Mass: 181.49 67-162/88-224 g LV Mass Index: 93.07 43-95/49-115 g/m2 LVOT Diam: 2.00 3.0+(-)1.3 cm Mitral Valve MV Pk E: 0.72 MV PK A: 0.76 MV Decel Time: 117.00 E/A: 0.90 E'Lateral: 9.03 E'Medial: 5.87 E/E' Med: 12.20 E/E' Lat: 7.90 PHT: 34.00 MVA PHT: 6.47 Decel Stephenson: 6.12 Aortic Valve AoV Pk Garfield: 1.43 AoV Mn Garfield: 0.88 AoV VTI: 0.27 AoV Pk Grad: 8.00 Aov Mn Grad: 4.00 MAYUR Cont.VTI: 2.73 LVOT LVOT Pk Garfield: 1.09 LVOT Mn Garfield: 0.70 LVOT VTI: 0.24 LVOT Pk Grad: 5.00 LVOT Mn Grad: 2.00 LVOT Diam: 2.00 LVOT Area: 3.14 Diastolic Function MV Pk E: 0.72 MV Pk A: 0.76 E/A: 0.90 E'Medial: 5.87 E/E' Med: 12.20 E' Laterial: 9.03 E/E' Lat: 7.90 Right Ventricle TAPSE (mm): 25.00 TVS' Garfield: 12.00 Tricuspid Valve TR Pk Garfield: 2.01 TR Pk Grad: 16.00 RA Press: 3.00 RVSP: 19.00 Great Vessels Aorta Ao Root-2D: 2.80 2.0-3.7 cm Ao Asc: 3.20 2.1-3.4 cm Pulmonary Valve PV Pk Garfield: 1.05 Peak PV Grad: 4.00 Updated in Other Vendor System with Status of Final Franco York MD electronically signed on 09/30/2024 8:27:22 AM with status of Final
== END ==
LOC: HO.CARD 08:47
PROVIDERS: PCP Internal Medicine; Visit Provider Internal Medicine
DX: R06.02 Shortness of breath (principal); J18.9 Pneumonia, unspecified organism; E11.9 Type 2 diabetes mellitus without complications; J45.909 Unspecified asthma, uncomplicated; E78.5 Hyperlipidemia, unspecified
CPT/HCPCS: 71046; 93306

== ENCOUNTER → 2024-09-29 08:55 | Outpatient (BNV) | payer MEDICARE, BC, SELFPAY | PROVIDERS: PCP Internal Medicine; Visit Provider Internal Medicine Cardiovascular Disease | DX: I51.89 Other ill-defined heart diseases (principal) | CPT/HCPCS: 93306 ==

== ENCOUNTER 2024-10-26 11:00 | Outpatient (AMB) | payer BC, MEDICARE, SELFPAY ==
--- NOTE | 2024-10-26 11:54 | AM.OFFWIN_ITS ---
Intake Vital Signs 10/26/24 11:55 Height 5 ft 2 in Weight 198 lb BMI 36.2 BP 112/80 Blood Pressure Location Lt brachial Position Sitting Pulse 95 Pulse Source Pulse Oximeter Temp 97.9 F Temp Source Oral Pulse Oximetry (%) 95 Oxygen Delivery Method Room Air Intake Visit Reasons: EP RT arm pain 2 weeks, DVT?? Intake Note: Pt is here today c/o Rt arm pain [id number] Patient Tobacco Use Status: Never used Tobacco Allergies codeine [CODEINE] Allergy (Severe, Verified 10/26/24 11:58) SWELLING dapagliflozin [From FARXIGA] Allergy (Intermediate, Verified 10/26/24 11:58) RASH latex [LATEX] Allergy (Intermediate, Verified 10/26/24 11:58) RASH montelukast [MONTELUKAST] Allergy (Mild, Verified 10/26/24 11:58) ill effects oxycodone [OXYCODONE] Allergy (Unknown, Verified 10/26/24 11:58) Rash HPI HPI Comments History of Present Illness Details Patient is a 59yo F who presents with pain to R arm x 3 weeks She has hx of breast ca with mastectomy R side and LN removal. Also + chemo She had + blood clot in LUE due to her port and has been on blood thinner since. She has been taking medicine as prescribed. She states R arm feels heavy constantly Has associated intermittent cold and tingling with sharp pain She states she has been using ice, heat and topical OTC gel without relief Pain radiation from fingers to shoulder and back down Pain and symptoms occur after use for a while Pain is worse with relaxing and at night She feels almost a pulsing pain She denies pain similar elsewhere Pt notices weakness to hand due to sharp pain she gets with grabbing items Pain level is about an 8.5/10 Denies similar symptoms in past PFSH Medical History (Updated 10/26/24 @ 12:10 by Belkys Khalil PA-C) Peripheral neuropathy Lumbar spondylosis Chest pain Obese Normal colonoscopy DVT (deep venous thrombosis) Breast CA Asthma Hyperlipemia DM (diabetes mellitus) Surgical History (Updated 08/25/24 @ 06:17 by Gabby Lyles RN) History of foot surgery Hx of right mastectomy Hx of foot surgery S/P repair of paraesophageal hernia History of esophagogastroduodenoscopy (EGD) H/O colonoscopy Hx of meniscectomy of right knee Family History Father Dementia Mother No problems noted. Son No problems noted. Son No problems noted. Daughter No problems noted. Brother Substance use disorder Brother Substance use disorder Social History Housing: House Patient Tobacco Use Status: Never used Tobacco e-Cigarette/Vaping Use: Never Used service: No Current occupational status: unemployed Cognitive needs: No Hearing needs: No Vision needs: Yes Review of Systems Const Denies chills, Denies fever(s) and Reports weakness Card Denies chest pain, Denies syncope and Denies dyspnea Resp Denies cough and Denies dyspnea Musc Reports radiating pain into limb, Reports tingling and Reports other (R extreity upper heaviness/pain) Skin/Breast Denies erythema, Denies rash and Denies wounds Neuro Denies syncope, Reports tingling and Reports weakness Physical Exam Vital Signs: Last Vital Signs Temp 97.9 F 10/26/24 11:55 Pulse 95 10/26/24 11:55 BP 112/80 10/26/24 11:55 Pulse Ox 95 10/26/24 11:55 Oxygen Delivery Method Room Air 10/26/24 11:55 BMI result Body Mass Index 36.2 General: Non-toxic, NAD. Speaking full sentences. Skin: Warm dry throughout. Upper extremities are equal is size and shape bilarerally. No erythema or echymosis. No pallor Eye: EOMI Respiratory: CTA bilaterally. No wheezes, rales or rhonchi Cardiac: RRR. No murmur. Radial pulse intact and equal bilaterally. RUE courtney's test with refill wnl. Cap refill all digits R hand < 2 seconds MSK: + diffuse tederness to palpation RUE near R wrist, R upper biceps region and anterior R shoulder. Neurology: Alert. No aphasia or facial droop. Gait without abnormality Psych: Good mood and affect Assessment & Plan Assessment & Plan (1) Arm pain: Code(s): M79.603 - Pain in arm, unspecified Qualifiers: Laterality: right Qualified Code(s): M79.601 - Pain in right arm Plan: Patient seen and evaluated. She has no vascular deficit on examination Discussed with pt if US comes back negative for DVT, it would be recommended to go to ER for chest scan to ensure not mass in chest region causing compression. I educated her to go directly to ER and she understands and is in agreeable to go to ER. Expect called to [place] [facility] Patient gave verbal understanding and had no additional questions or concerns at time of discharge All questions answered Coding Level of Care Code Est Pt Level 4 (98757) Diagnoses Pain of right upper extremity M79.601 Laterality: right
[2024-10-26 11:55] VITALS: BP 112/80; PULSE 95; TEMP 36.6; O2SAT 95; BMI 36.2
== END 2024-10-26 12:19 | disposition home or self-care (01) ==
PROVIDERS: PCP Internal Medicine; Visit Provider Physician Assistant
DX: M79.601 Pain in right arm (principal)

== ENCOUNTER 2024-11-02 10:41 | Emergency (ER) | payer BC, MEDICARE, SELFPAY ==
--- NOTE | ~2024-11-02 | US_ITS ---
EXAMINATION: US COLOR FLOW DOPPLER CLINICAL INFORMATION: Cold fingertips.? Arterial occlusion. COMPARISON: None available. TECHNIQUE: Grayscale, color and spectral Doppler imaging of the major arterial vasculature of the right upper extremity was obtained. FINDINGS: There is normal triphasic flow within the subclavian artery, axillary artery, brachial artery, radial artery, and ulnar arteries with normal peak systolic velocities and resistive indices. There are normal triphasic waveforms. There is no evidence of stenosis or occlusion of any arterial vessel. 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 US/US arterial duplex UE RT IMPRESSION: 1. Normal arterial examination of the right upper extremity without evidence of elevated peak systolic velocities, resistive indices, significant plaque, or occlusion. Electronically signed by: Telly Brooks MD 11/02/2024 01:42 PM [facility]
--- NOTE | ~2024-11-02 | US_ITS ---
EXAMINATION: US TRIPLEX UPPER EXTREMITY, RIGHT CLINICAL INFORMATION: Right arm pain. Past medical history of DVT. COMPARISON: None available. TECHNIQUE: Color-flow triplex imaging with spectral analysis and compression Doppler was performed on the right upper extremity. FINDINGS: The right internal jugular, subclavian, and axillary veins are patent and free of thrombus. The imaged segment of the right brachiocephalic vein is patent. Spectral doppler waveforms are normal. The brachial, basilic, cephalic, radial, and ulnar veins are patent and compressible. US/US venous duplex UE RT IMPRESSION: No evidence of deep venous thrombosis involving the right upper extremity. Electronically signed by: Telly Brooks MD 11/02/2024 01:32 PM [facility]
[2024-11-02 11:03] VITALS: BP 139/96; PULSE 95; RESP 20; TEMP 36.3; O2SAT 97; BMI 38.4
--- NOTE | 2024-11-02 11:09 | ED_ITS ---
HPI - General Adult General Chief complaint: Extremity Problem Stated complaint: R arm pain no injury Time Seen by Provider: 11/02/24 14:36 Source: patient Mode of arrival: ambulatory Limitations: no limitations History of Present Illness ED Provider: TEX HPI narrative: 59 yo female with PMH of triple positive breast cancer s/p lymph node resection, R mastectomy in remission x 10 years, lymphedema, raynauds, DM she is R hand dominant here with c/o R arm pain and R upper arm pain wosre with movements, worse at night. She feels her fingers get cold at time as well. No knew trauma. She has hx of DVT on eliquis - compliant PCP worried for DVT MD complaint: R arm pain Onset (ago): week(s) (3) Location: right and upper extremity Radiation: extremity Severity: moderate Quality: other (throbbing) Pain Consistency: intermittent Relieving factors: immobilization Exacerbating factors: movement and other (sleep) Associated symptoms: denies other symptoms Treatments prior to arrival: none Related Data Home Medications ?Medication ?Instructions ?Recorded ?Confirmed multivitamin (Daily Multi-Vitamin 1 tab PO DAILY 07/17/21 10/26/24 tablet) oxybutynin chloride 5 mg tablet 5 mg PO DAILY 05/05/24 10/26/24 Previous Rx's ?Medication ?Instructions ?Recorded blood-glucose meter (Tandem Diabetes CareTouch #1 ea 01/22/21 Ultra2 Meter) atorvastatin 20 mg tablet 20 mg PO DAILY #90 tabs 10/08/21 blood-glucose meter (FreeStyle #1 ea 10/08/21 Windsor kit) blood sugar diagnostic (FreeStyle #100 ea 10/29/22 Lite Strips) gabapentin 100 mg capsule 100 mg PO BID #360 caps 10/30/23 (Neurontin) albuterol sulfate 2.5 mg/3 mL 2.5 mg (3 mL) inhalation .COMPLEX 06/09/24 (0.083 %) solution for nebulization PRN shortness of breath or wheezing #90 mL apixaban 5 mg tablet 5 mg PO BID #180 tabs 06/09/24 nebulizers #1 ea 06/09/24 Trelegy Ellipta 100 mcg-62.5 1 inh inhalation DAILY #60 ea 09/01/24 mcg-25 mcg powder for inhalation (uykrypjckqg-zrsmvlkix-uguezxyb) linaclotide 290 mcg capsule 290 mcg PO DAILY 30 days #90 caps 09/01/24 (Linzess) glipizide 10 mg tablet 10 mg PO BID #180 tabs 09/09/24 tirzepatide 2.5 mg/0.5 mL 2.5 mg (0.5 mL) subcut QWEEK #2 mL 09/09/24 subcutaneous pen injector (Mounjaro) metformin 1,000 mg tablet 1,000 mg PO BID #180 tabs 10/21/24 cyclobenzaprine 10 mg tablet 10 mg PO TID PRN muscle spasm #20 11/02/24 tabs Allergies Allergy/AdvReac Type Severity Reaction Status Date / Time codeine [CODEINE] Allergy Severe SWELLING Verified 11/02/24 11:06 dapagliflozin [From FARGA] Allergy Intermediate RASH Verified 11/02/24 11:06 latex [LATEX] Allergy Intermediate RASH Verified 11/02/24 11:06 montelukast [MONTELUKAST] Allergy Mild ill effects Verified 11/02/24 11:06 oxycodone [OXYCODONE] Allergy Unknown Rash Verified 11/02/24 11:06 Review of Systems 2 Review of Systems: Constitutional : No Fever, No Chills ENT/Mouth : No Ear Pain, No Hoarseness, No sore throat Eyes: No Eye Pain, No Swelling, No Redness, No Foreign Body Cardiovascular : No Chest Pain, No SOB Respiratory : No Cough, No Dyspnea Gastrointestinal : No Nausea, No Vomiting, No Diarrhea, No abdominal Pain Genitourinary : No Dysuria, No Hematuria Musculoskeletal : positive joint pain, No Myalgias, No Joint Swelling Skin : No Skin lacerations, No rash Neuro : No Weakness, No Numbness, No Loss of Consciousness All other systems reviewed and are negative [facility] Past Medical History Attestation statement: The following information was validated with the patient. Source: old records reviewed Medical History Peripheral neuropathy Lumbar spondylosis Chest pain Obese Normal colonoscopy DVT (deep venous thrombosis) Breast CA Asthma Hyperlipemia DM (diabetes mellitus) Surgical History History of foot surgery Hx of right mastectomy Hx of foot surgery S/P repair of paraesophageal hernia History of esophagogastroduodenoscopy (EGD) H/O colonoscopy Hx of meniscectomy of right knee Family History Family History Father Dementia Mother No problems noted. Son No problems noted. Son No problems noted. Daughter No problems noted. Brother Substance use disorder Brother Substance use disorder Social History Social History Housing: House Patient Tobacco Use Status: Never used Tobacco e-Cigarette/Vaping Use: Never Used Advance Directives: No Advance Directives Information Provided: Yes service: No Current occupational status: unemployed Cognitive needs: No Hearing needs: No Vision needs: Yes Physical Exam ED Vital Signs: Vital Signs - 24 hr 11/02/24 11:03 11/02/24 14:46 Temperature 97.3 F 97.3 F Pulse Rate 95 95 Respiratory Rate 20 20 Blood Pressure 139/96 H 139/96 H Pulse Oximetry 97 97 Oxygen Delivery Method Room Air Room Air BMI result Body Mass Index 38.4 Appearance: Alert. Oriented X3. No acute distress. Eyes: Pupils equal, round and reactive to light. ENT: Pharynx normal. Neck: Normal inspection. Neck supple. CVS: Normal heart rate and rhythm. Pulses normal. Respiratory: No respiratory distress. Breath sounds normal. Abdomen: Soft and nontender. Skin: Skin warm and dry. Normal skin color. Normal skin turgor. Extremities: No lower extremity edema. neg phalens and tinels, 2+ pulse in radial, BCR in all digits, hand is same color + finkelsteins test R arm Neuro: Oriented X 3. No motor deficit. No sensory deficit. CN2-12 intact Course Course Course Narrative: RME: 59-year-old female history of DVT and breast cancer in remission presents to ED for right arm pain without any trauma. Patient was sent from urgent care for referral. She states right arm felt heavy and fingertips cold compared to left upper extremity. Physical exam right forearm up to shoulder warm normal color. Radial brachial pulse intact. Tender palpation on bicep. Right fingertips seems cooler than left fingertips but negative for any bluish black discoloration or gangrene. Right upper extremity motor/neuro/vascular exam intact. Left upper extremity normal motor/neuro/vascular exam intact. Labs arterial venous ultrasound ordered. Procedures Orthopedic Splinting/Casting Injury #1: Side: right Upper Extremity Injury Location: wrist Upper Extremity Immobilizer: wrist splint Additional Comments: NV intact Medical Decision Making Medical Decision Making [facility] Narrative: 59 yo female with PMH of triple positive breast cancer s/p lymph node resection, R mastectomy in remission x 10 years, lymphedema, raynauds, DM, DVT on eliquis here with c/o R arm pain and it feels cold certain movements and sleeping hurts it. She feels the hand and forearm throb and they are cold - on my exam BCR and 2+ radial pulse present, sensation present. Given history will obtain US of R arm and arterial study. She has + pain with certain movements possible tendonitis Differential Diagnosis Differential Diagnoses: The differential diagnosis associated with the presentation includes neuropathy, DVT, strain, tendonitis pulses intact doubt clot Admission/Observation Consideration of admission/observation: Escalation of care including admission/observation considered work up and exam reassuring stable for DC Lab Data [facility] Lab Attestation statement: I reviewed the patient's lab results. 11/02/24 11:57 11/02/24 11:57 Labs: Lab Results 11/02/24 Range/Units 11:57 WBC 5.1 (4.8-10.8) X10*3/uL RBC 4.37 (4.20-5.50) X10*6/uL Hgb 13.1 (12.0-16.0) g/dl Hct 39.3 (37.0-47.0) % MCV 89.9 (80.0-98.0) fL MCH 30.0 (27.0-33.0) pg MCHC 33.3 (31.0-35.0) g/dl RDW 13.2 (11.0-16.0) % Plt Count 222 (160-400) X10*3/uL MPV 9.9 (9.4-12.3) fL Immature Gran % (Auto) 0.2 (0.0-0.4) % Neut % (Auto) 54.7 (45-73) % Lymph % (Auto) 36.2 (20-40) % Barber % (Auto) 5.4 (2-11) % Eos % (Auto) 2.7 (0-4) % Baso % (Auto) 0.8 (0-2) % Lymph # (Auto) 1.9 (1.2-4.9) X10*3/uL Barber # (Auto) 0.3 (0.1-1.2) X10*3/uL Eos # (Auto) 0.1 (0.0-0.4) X10*3/uL Baso # (Auto) 0.0 (0.0-0.2) X10*3/uL Abs Immat Gran (auto) 0.01 (0.00-0.03) X10*3/uL Absolute Neuts (auto) 2.8 (2.0-8.3) x10*3/uL Absolute Nucleated RBC 0.000 (0.0-0.012) X10*3/uL Nucleated RBC % (auto) 0.0 (0.0-0.2) /100WBC PT 12.5 H (10.9-12.4) SEC INR 1.1 (0.9-1.1) APTT 28.9 (26.0-36.8) SEC Sodium 142 (135-145) mmol/L Potassium 4.3 (3.3-5.1) mmol/L Chloride 109 H (96-108) mmol/L Carbon Dioxide 29 (22-29) mmol/L Anion Gap 8 L (12-20) BUN 10 (9-16) mg/dL Creatinine 0.69 (0.5-1.4) mg/dL Estim Creat Clear Calc 95.6 Estimated GFR > 60 Random Glucose 123 H (60-115) mg/dL Calcium 9.8 (8.4-10.2) mg/dL Total Bilirubin 0.8 (0.0-1.0) mg/dL AST 18 (5-31) U/L ALT 20 (0-31) U/L Alkaline Phosphatase 85 (39-117) U/L Total Protein 7.5 (6.5-8.0) g/dL Albumin 4.0 (3.5-5.0) g/dL Independent Interpretation I performed an independent interpretation of an: Ultrasound (normal venous and arterial studies) Radiology Impression Discussion of test interpretation with radiology: I have reviewed the radiologist's reading. External Record Review External record reviewed: Outpatient record Prescription Management I considered prescription management with: Other Discharge Plan Discharge Clinical Impression: Tendonitis Arm pain Qualifiers: Laterality: right Qualified Code(s): M79.601 - Pain in right arm Patient Disposition: Home, Self-Care Instructions: Tendinitis (ED), Arm Pain (ED) Additional Instructions: wear splint for comfort it will help at night follow up with primary care doctor today labs are reassuring, negative for blood clot and your arteries are normal avoid alcohol and driving while on muscle relaxer no dishes no vaccum limit household duties for 2 weeks Prescriptions: New cyclobenzaprine 10 mg tablet 10 mg PO TID PRN (Reason: muscle spasm) Qty: 20 0RF No Action (DME) blood-glucose meter [[employer] Ultra2 Meter] [facility] [place] Rx Instructions .ROUTE .MEDSUPPLY Qty: 1 0RF Rx Instructions: As directed apixaban 5 mg tablet 5 mg PO BID Qty: 180 3RF metformin 1,000 mg tablet 1,000 mg PO BID Qty: 180 3RF atorvastatin 20 mg tablet 20 mg PO DAILY Qty: 90 3RF (DME) blood-glucose meter [FreeStyle Windsor] Kit See Rx Instructions .Route Qty: 1 0RF Rx Instructions: 1 bid multivitamin [Daily Multi-Vitamin] Tablet 1 tab PO DAILY gabapentin [Neurontin] 100 mg capsule 100 mg PO BID Qty: 360 5RF Rx Instructions: 1 cap Q AM, 2-3 caps QPM oxybutynin chloride 5 mg tablet 5 mg PO DAILY albuterol sulfate 2.5 mg /3 mL (0.083 %) solution for nebulization 2.5 mg inhalation .COMPLEX PRN (Reason: shortness of breath or wheezing) Qty: 90 3RF Rx Instructions: 2.5 mg inhaled every 20 min for up to 3 doses PRN; (DME) nebulizers [facility] [place] Rx Instructions .Route Qty: 1 0RF Rx Instructions: As directed (DME) FreeStyle Lite Strips Strip See Rx Instructions .Route Qty: 100 3RF Rx Instructions: check glucose once a day glipizide 10 mg tablet 10 mg PO BID Qty: 180 2RF Mounjaro 2.5 mg/0.5 mL pen injector 2.5 mg subcut QWEEK Qty: 2 2RF Trelegy Ellipta 100-62.5-25 mcg blister with device 1 inh inhalation DAILY Qty: 60 3RF Linzess 290 mcg capsule 290 mcg PO DAILY 30 Days Qty: 90 6RF Interventions: ED Discharge Assessment Last Done: 11/02/24 14:46 Discharge Date/Time: 11/02/24 14:46 Print Language: Micronesian
[2024-11-02 12:00] LABS: MANUAL DIFF FLAG NO
[2024-11-02 12:03] LABS: Basophils Percent Auto 0.8 % (0-2); Eosinophils Absolute Auto 0.1 X10*3/uL (0.0-0.4); Eosinophils Percent Auto 2.7 % (0-4); Hematocrit 39.3 % (37.0-47.0); Hemoglobin 13.1 g/dl (12.0-16.0); Imm Gran Abs Auto 0.01 X10*3/uL (0.00-0.03); Imm Gran Pct Auto 0.2 % (0.0-0.4); Lymphocytes Absolute Auto 1.9 X10*3/uL (1.2-4.9); Lymphocytes Percent Auto 36.2 % (20-40); Mean Corpuscular HGB Conc 33.3 g/dl (31.0-35.0); Mean Corpuscular Volume 89.9 fL (80.0-98.0); Mean Platelet Volume 9.9 fL (9.4-12.3); Monocytes Absolute Auto 0.3 X10*3/uL (0.1-1.2); Monocytes Percent Auto 5.4 % (2-11); Neutrophils Absolute Auto 2.8 x10*3/uL (2.0-8.3); Neutrophils Percent Auto 54.7 % (45-73); Platelet Count 222 X10*3/uL (160-400); Red Blood Count 4.37 X10*6/uL (4.20-5.50); Red Cell Distribution Width 13.2 % (11.0-16.0); White Blood Count 5.1 X10*3/uL (4.8-10.8)
[2024-11-02 12:13] LABS: INTERNATIONAL NORM RATIO 1.1 (0.9-1.1); Prothrombin Time 12.5 SEC (10.9-12.4)
[2024-11-02 12:16] LABS: Partial Thromboplastin Time 28.9 SEC (26.0-36.8)
[2024-11-02 12:19] LABS: Alanine Aminotransferase 20 U/L (0-31); Alkaline Phosphatase 85 U/L (39-117); Anion Gap 8 (12-20); Aspartate Amino Transferase 18 U/L (5-31); Bilirubin Total 0.8 mg/dL (0.0-1.0); Blood Urea Nitrogen 10 mg/dL (9-16); Calcium 9.8 mg/dL (8.4-10.2); Carbon Dioxide 29 mmol/L (22-29); Chloride 109 mmol/L (96-108); Creatinine Clr Calc Pharmacy 95.6; Estimated Glomerular Filt Rate > 60; Glucose Random 123 mg/dL (60-115); Potassium 4.3 mmol/L (3.3-5.1); Sodium 142 mmol/L (135-145); Total Protein 7.5 g/dL (6.5-8.0)
[2024-11-02 14:46] VITALS: BP 139/96; PULSE 95; RESP 20; TEMP 36.3; O2SAT 97
== END 2024-11-02 14:46 | disposition home or self-care (01) ==
PROVIDERS: Physician Assistant; Emergency Provider Emergency Medicine; PCP Internal Medicine
DX: M79.601 Pain in right arm (principal); M77.8 Other enthesopathies, not elsewhere classified; Z86.718 Personal history of other venous thrombosis and embolism; Z79.01 Long term (current) use of anticoagulants
CPT/HCPCS: 36415; 80053; 85025; 85610; 85730; 93931; 93971; 99282; 99284

== ENCOUNTER → 2024-11-02 11:08 | Outpatient (BNV) | payer BC, MEDICARE, SELFPAY | PROVIDERS: PCP Internal Medicine; Visit Provider Radiology Diagnostic Radiology | DX: R20.1 Hypoesthesia of skin (principal); M79.601 Pain in right arm | CPT/HCPCS: 93931; 93971 ==

== ENCOUNTER 2024-11-16 08:38 | Outpatient (REF) | payer BC, MEDICARE, SELFPAY ==
--- OUTSIDE RECORDS SUMMARY | 2024-11-16 09:02 | XMS_ITS | Clinical Summary ---
Author Organization [facility] Address [address] [place] [id number] Care Team Providers Care Neurology Teacher Name Role Phone Michell Fatima MD Primary Care Provider [phone] Social History Tobacco Use Types Packs/Day Years Used Date Smoking Tobacco: Never Assessed Sex and Gender Information Value Date Recorded Sex Assigned at Not on file Gender Identity Not on file Sexual Orientation Not on file Plan of Treatment Health Maintenance Due Date Last Done Comments Breast Cancer Screening 1966 DTaP,Tdap,and Td Vaccines (1 - Tdap) 1985 Hepatitis B Vaccines (1 of 3 - 19+ 3-dose series) 1985 Cervical Cancer Screening: P ap Smear 1987 Zoster Vaccines (1 of 2) 2016 COVID-19 Vaccine (2023-2 5 season) 2024 Influenza Vaccine (#1) 2024 HIB Vaccines Aged Out No longer eligi ble based on patient's age to complete this topic HPV Vaccines Aged Out No longer eligi ble based on patient's age to complete this topic Hepatitis A Vaccines Aged Out No long er eligible based on patient's age to complete this topic IPV Vaccines Aged Out No longer eligi ble based on patient's age to complete this topic MMR Vaccines Aged Out No longer eligi ble based on patient's age to complete this topic Meningococcal ACWY Vaccine Aged Out N o longer eligible based on patient's age to complete this topic Pneumococcal Vaccine: Pediat rics (0 to 5 Years) and At-Risk Patients (6 to 64 Years) Aged Out No longer eligible b ased on patient's age to complete this topic RSV Immunization Patients Un toña 20 months Aged Out No longer eligible b ased on patient's age to complete this topic Varicella Vaccines Aged Out No longer eligible based on patient's age to complete this topic Care Teams Neurology Teacher Relationship Specialty Start Date End Date Michell Fatima MD PCP - General Internal Medicine 11/11/17
--- OUTSIDE RECORDS SUMMARY | 2024-11-16 09:02 | XMS_ITS | Patient Health Record ---
[facility] Address [address] [place] [address] Care Team Providers Care Market News Reporter Name Role Phone Michell Fatima MD Primary Care Provider Ronna Andrade Unavailable [phone] Allergies Allergen (clinical drug ingredient) Drug/Non Drug Allergy documented on EMR Reaction Allergy Type Onset Date Status Latex Latex rash Allergy Active oxycodone Oxycodone vomiting Drug Allergy Active Reason For Referral No Information Medications Medication SIG (Take, Route, Frequency, Duration) Notes Start Date End Date Status HYDROcodone-Acetaminoph en 5-325 MG 1 tablet as needed Orally every 4-6 hrs for 7 days Active Rosuvastatin Calcium 5 MG Oral for 90 Active Trulicity 1.5 MG/0.5ML Subcutaneous for 28 Active metFORMIN HCl 1000 MG TAKE 1 TABLET BY M OUTH TWICE A DAY Oral for 90 Active Meloxicam 15 MG TAKE 1 TABLET BY LAMIN TH EVERY DAY Oral for 30 Active Linzess 145 MCG TAKE 1 CAPSULE BY MO UTH EVERY DAY Oral for 90 Active Gabapentin 100 MG Oral for 90 Active FreeStyle Lite Test - USE DIRECTED EV JAVAN GARCIA In Vitro for 50 Active Work Note . . . Patient can retu rn to work without restrictions on 09/24/22 09/10/2022 Active Eliquis 5 MG Oral for 90 Activ e Extra Depth Orthopedic Shoes (1 Pair) with Customized Heat Molded Multidensity Innersoles (3 Pair) as directed Dx: NIDDM (E11.9), Hammertoe Foot Deformity (M20.41,M20.42), Preulcerative Skin Lesion(s) (L85.1) 09/10/2022 Active Clotrimazole-Betamethas one 1-0.05 % APPLY TO AFFECTED AREA TWICE A DAY External for 90 Active albuterol PRN Winter Active Immunizations Vaccine Route Administration Date Status Comme nts COVID-19 Moderna Vaccine Unknown 11/22/2021 Administered 1st 05/25/21 2nd 06/22/21 Social History Tobacco Use: Social History Observation Description Date Details (start date - stop date) Never Smoker NA - NA Tobacco Use/Smoking Question Answer Notes Are you a: nonsmoker Additional Findings: Tobacco Non-User Current no n-smoker Alcohol Screen Question Answer Notes Did you have a drink containing alcohol in the p ast year? No Points 0 Interpretation Negative Tobacco use other than smoking: Question Answer Notes Are you an other tobacco user? No Problems Problem Type SNOMED Code ICD Code Onset Dates Problem Status W/U Status Risk Notes Problem Acquired hammer toe of right foot (7896729848415 105) Other hammer toe(s) (acquired), right foot (M20.41) Active confirmed Problem Acquired hammer toe of left foot ([id number] 103) Other hammer toe(s) (acquired), left foot (M20.42) Active confirmed Problem [id number] Type 2 diabetes mellitus without complications (E11.9) Active confirmed Plan Of Treatment Pending Test Test Name Order Date X ray : Foot, left 3V 05/21/2022 Insurance Providers Payer Name Payer Address Payer Phone Subscriber Number Group Number Insured Name Patient Relationship to Insured Coverage Start Date Coverage End Date [employer] [address] [place] [address] [phone] [id number] Ruel Skaggs Spouse - patient is the spouse of the insured [employer] [address] [place] [address] [id number] Katya Skaggs Self - patient is the insured Medical (General) History Medical History History ICD Code Arthritis asthma Back,Hip,and Knee pain Cancer Cataracts Diabetes mellitus type ll Gall bladder problems Chicken pox Joint implants/screws blindness left eye Surgical History Surgery Date(Month/Year) Excision Plantar fibroma 07/25/2022
[2024-11-16 10:15] LABS: MANUAL DIFF FLAG NO
[2024-11-16 10:19] LABS: Basophils Percent Auto 0.7 % (0-2); Eosinophils Absolute Auto 0.2 X10*3/uL (0.0-0.4); Eosinophils Percent Auto 3.7 % (0-4); Hematocrit 41.2 % (37.0-47.0); Hemoglobin 13.1 g/dl (12.0-16.0); Imm Gran Abs Auto 0.02 X10*3/uL (0.00-0.03); Imm Gran Pct Auto 0.4 % (0.0-0.4); Lymphocytes Absolute Auto 1.9 X10*3/uL (1.2-4.9); Lymphocytes Percent Auto 34.2 % (20-40); Mean Corpuscular HGB Conc 31.8 g/dl (31.0-35.0); Mean Corpuscular Hemoglobin 29.4 pg (27.0-33.0); Mean Corpuscular Volume 92.6 fL (80.0-98.0); Mean Platelet Volume 10.8 fL (9.4-12.3); Monocytes Absolute Auto 0.3 X10*3/uL (0.1-1.2); Platelet Count 246 X10*3/uL (160-400); Red Blood Count 4.45 X10*6/uL (4.20-5.50); Red Cell Distribution Width 13.3 % (11.0-16.0); White Blood Count 5.5 X10*3/uL (4.8-10.8)
[2024-11-16 10:30] LABS: Estimated Average Glucose 160 mg/dL; Hemoglobin A1C 188.3527 umol/L; Hemoglobin A1c % 7.2 % (<6.0); Total Hemoglobin (HGBA1C) 3426.8553 umol/L
[2024-11-16 10:42] LABS: Alanine Aminotransferase 19 U/L (0-31); Albumin Level 3.9 g/dL (3.5-5.0); Alkaline Phosphatase 82 U/L (39-117); Anion Gap 13 (12-20); Aspartate Amino Transferase 19 U/L (5-31); Bilirubin Total 0.7 mg/dL (0.0-1.0); Blood Urea Nitrogen 14 mg/dL (9-16); Calcium 9.2 mg/dL (8.4-10.2); Carbon Dioxide 27 mmol/L (22-29); Chloride 106 mmol/L (96-108); Cholesterol 189 mg/dL (<200); Estimated Glomerular Filt Rate > 60; Glucose Fasting 134 mg/dL (60-99); HDL Cholesterol 64 mg/dL (>40); LDL Cholesterol Calculated 109 mg/dL (<100); Potassium 4.6 mmol/L (3.3-5.1); Sodium 141 mmol/L (135-145); Total Protein 7.6 g/dL (6.5-8.0); Triglycerides 83 mg/dL (<150)
[2024-11-16 11:06] LABS: Microalbum/Creatinine Ratio Ur 11.1 ug/mg cr (<30)
== END 2024-11-16 08:39 | disposition home or self-care (01) ==
LOC: HO.HMGCLDS 08:38
PROVIDERS: PCP Internal Medicine; Visit Provider Internal Medicine
DX: E11.9 Type 2 diabetes mellitus without complications (principal); E78.5 Hyperlipidemia, unspecified; I82.409 Acute embolism and thrombosis of unspecified deep veins of unspecified lower extremity
CPT/HCPCS: 36415; 80053; 80061; 82043; 82570; 83036; 85025

== ENCOUNTER 2024-11-19 10:45 | Outpatient (REF) | payer BC, MEDICARE, SELFPAY ==
--- NOTE | ~2024-11-19 | XR_ITS ---
EXAMINATION: XR SHOULDER, RIGHT CLINICAL INFORMATION: M25.511 - Pain in right shoulder COMPARISON: None available. TECHNIQUE: Three views of the right shoulder. FINDINGS: No gross fracture, dislocation, or suspicious bone lesion. Bone island present within the glenoid. There is anatomical alignment. Probable minimal arthritic changes of the glenohumeral joint although visualization is somewhat limited. Mild arthritic spurring of the AC joint present with both undersurface and superior surface spurs. Mildly laterally downsloping acromion without significant spur. Preservation of the subacromial space. Mild calcification of the infraspinatus tendon abutting the footplate attachment. XR/XR shoulder RT min 2V IMPRESSION: 1. No acute fracture or dislocation. 2. Mild calcific tendinopathy of the infraspinatus tendon. 3. Mild arthritic spurring of the AC joint. Electronically signed by: Telly Brooks MD 11/19/2024 04:34 PM [facility]
--- OUTSIDE RECORDS SUMMARY | 2024-11-19 14:48 | XMS_ITS | Clinical Summary ---
Author Organization [facility] Address [id number] [place] [id number] Care Team Providers Care Auto Driver Name Role Phone Michell Fatima MD Primary Care Provider [phone] Social History Tobacco Use Types Packs/Day Years [...] age to complete this topic Care Teams Auto Driver Relationship Specialty Start Date End Date Michell Fatima MD PCP - General Internal Medicine 11/11/17
== END 2024-11-19 10:46 | disposition home or self-care (01) ==
LOC: HO.HMGCX 10:45
PROVIDERS: PCP Internal Medicine; Visit Provider Internal Medicine
DX: Z00.00 Encounter for general adult medical examination without abnormal findings (principal); M25.511 Pain in right shoulder; E11.9 Type 2 diabetes mellitus without complications; E78.5 Hyperlipidemia, unspecified; Z79.899 Other long term (current) drug therapy
CPT/HCPCS: 73030; 96127

== ENCOUNTER 2024-11-19 10:45 | Outpatient (AMB) | payer BC, MEDICARE, SELFPAY ==
--- OUTSIDE RECORDS SUMMARY | 2024-11-19 11:27 | XMS_ITS | Clinical Summary ---
Author Organization [facility] Address [address] [place] [phone] Care Team Providers Care Contact Person Name Role Phone Michell Fatima MD Primary Care Provider Social History Tobacco Use Types Packs/Day Years [...] age to complete this topic Care Teams Contact Person Relationship Specialty Start Date End Date Michell Fatima MD PCP - General Internal Medicine 11/11/17
[2024-11-19 11:37] VITALS: BP 128/78; PULSE 102; TEMP 36.8; O2SAT 95; BMI 36.6
--- NOTE | 2024-11-19 11:37 | A.OFFPC_ITS ---
Vital Signs 11/19/24 11:37 Height 5 ft 2 in Weight 200 lb BMI 36.6 BP 128/78 Blood Pressure Location Lt brachial Position Sitting Pulse 102 H Pulse Source Pulse Oximeter Temp 98.2 F Temp Source Oral Pulse Oximetry (%) 95 Oxygen Delivery Method Room Air Intake Visit Reasons: Annual PE Intake Note: Pt is here today for PE. Allergies codeine [CODEINE] Allergy (Severe, Verified 11/19/24 11:38) SWELLING dapagliflozin [From FARXIGA] Allergy (Intermediate, Verified 11/19/24 11:38) RASH latex [LATEX] Allergy (Intermediate, Verified 11/19/24 11:38) RASH montelukast [MONTELUKAST] Allergy (Mild, Verified 11/19/24 11:38) ill effects oxycodone [OXYCODONE] Allergy (Unknown, Verified 11/19/24 11:38) Rash Medication List - Last Reconciled 11/19/24 by Michell Fatima MD albuterol sulfate 2.5 mg inhaled every 20 min for up to 3 doses PRN; apixaban 5 mg PO BID atorvastatin 20 mg PO DAILY blood sugar diagnostic (FreeStyle Lite Strips) check glucose once a day blood-glucose meter (OneTouch Ultra2 Meter) As directed blood-glucose meter (FreeStyle [place] kit) 1 bid cyclobenzaprine 10 mg PO TID PRN gabapentin (Neurontin) 100 mg PO BID glipizide 10 mg PO BID linaclotide (Linzess) 290 mcg PO DAILY 30 days metformin 1,000 mg PO BID multivitamin (Daily Multi-Vitamin tablet) 1 tab PO DAILY nebulizers As directed oxybutynin chloride 5 mg PO DAILY tirzepatide (Mounjaro) 2.5 mg (0.5 mL) subcut QWEEK Trelegy Ellipta 100-62.5-25 mcg (zeqkwzscrvb-mqkbsnhzn-iewfnpst) 1 inh inhalation DAILY NS Tobacco use date assessed: 11/19/24 Dental Screening Dental Screen Date: 11/19/24 Did you have a dental visit in the last 12 months?: Yes Did you have a dental problem in the last 6 months where you did not have access to dental care?: No Was dental information given to patient?: Patient has dentist HPI Annual PE HPI Details Patient presents for physical. She complains of chronic right shoulder pain worse when trying to use it reaching overhead. She denies any injury but has been sleeping with her right arm tucked under the pillow [facility] Medical History Peripheral neuropathy Lumbar spondylosis Chest pain Obese Normal colonoscopy DVT (deep venous thrombosis) Breast CA Asthma Hyperlipemia DM (diabetes mellitus) Surgical History History of foot surgery Hx of right mastectomy Hx of foot surgery S/P repair of paraesophageal hernia History of esophagogastroduodenoscopy (EGD) H/O colonoscopy Hx of meniscectomy of right knee Family History Father Dementia Mother No problems noted. Son No problems noted. Son No problems noted. Daughter No problems noted. Brother Substance use disorder Brother Substance use disorder Social History Housing: House Patient Tobacco Use Status: Never used Tobacco e-Cigarette/Vaping Use: Never Used service: No Current occupational status: unemployed Cognitive needs: No Hearing needs: No Vision needs: Yes Questionnaire PHQ-9 Over the last 2 weeks, how often have you been bothered by any of the following problems? 1. Little interest or pleasure in doing things: not at all 2. Feeling down, depressed, or hopeless: not at all 3. Trouble falling or staying asleep, or sleeping too much: not at all 4. Feeling tired or having little energy: not at all 5. Poor appetite or overeating: not at all 6. Feeling bad about yourself - or that you are a failure or have let yourself or your family down: not at all 7. Trouble concentrating on things, such as reading the newspaper or watching television: not at all 8. Moving or speaking so slowly that other people could have noticed. Or the opposite - being so fidgety or restless that you have been moving around a lot more than usual: not at all 9. Thoughts that you would be better off or of hurting yourself in some way: not at all Total score: 0 Depression Screening Interpretation: Negative Depression Screening Done: Yes 52837 - PHQ-9 Billing: Yes Source: Developed by Drs. Denny Cooley, Markell Izaguirre and colleagues, with an educational jenise from [employer] Thrive Questionnaire Date Thrive assessed: 11/19/24 I am a: Patient What is your living situation today?: I have a steady place to live Within the past 12 months, did the food you bought not last and you didn't have the money to get more?: Never true Within the past 12 months, did you worry whether your food would run out before you got money to buy more?: Never true Do you have trouble paying for medicines?: No Do you have trouble getting transportation to medical appointments?: No Do you have trouble paying your heating and electricity bill?: No Do you have trouble taking care of your child, family member or friend?: No Do you have trouble with day-to-day activities such as bathing, preparing meals, shopping, managing finances, etc.?: No Are you currently unemployed and looking for a job?: No Are you interested in more education?: No Please select the resources that you would like help with: None THRIVE Score: 0 AUDIT C Alcohol Use Questionnaire (AUDIT-C) 1. How often do you have a drink containing alcohol?: Never 3. How often do you have six or more drinks on one occasion?: Never Total Score: 0 RAMON-7 AMB Questionnaire RAMON-7 Date RAMON - 7 assessed: 11/19/24 Feeling nervous, anxious, or on edge: 1 = Several days Not being able to stop or control worryin = Not at all Worrying too much about different things: 1 = Several days Trouble relaxin = Not at all Being so restless that it is hard to sit still: 0 = Not at all Becoming easily annoyed or irritable: 0 = Not at all Feeling afraid as if something awful might happen: 0 = Not at all Total RAMON-7 score (0-4 normal; 5-9 mild; 10-14 moderate; 15-21 severe): 2 Source: Developed by Eneida Carter Kurt Kroenke and colleagues, with an educational jenise from [employer] RAMON-7 Assessment Billing RAMON-7 Assessment Tool: RAMON-7 Assessment 78057 Review of Systems Const All systems reviewed & are unremarkable except as noted in HPI and below Eyes Reports no additional complaints ENT Reports no additional complaints Card Reports no additional complaints Resp Reports no additional complaints GI Reports no additional complaints Physical exam (Primary Care) Vital Signs: Last Vital Signs Temp 98.2 F 11/19/24 11:37 Pulse 102 H 11/19/24 11:37 BP 128/78 11/19/24 11:37 Pulse Ox 95 11/19/24 11:37 Oxygen Delivery Method Room Air 11/19/24 11:37 BMI result Body Mass Index 36.6 Tobacco/Smoking Status: Tobacco use Status Tobacco use date assessed 11/19/24 11/19/24 11:42 Patient Tobacco Use Status Never used Tobacco 11/19/24 11:42 e-Cigarette/Vaping Use Never Used 11/19/24 11:38 PHQ-9: PHQ-9 Score PHQ-9: Total score 0 11/19/24 11:49 Depression Screening Interpretation: Negative Thrive Assessment: Date of Thrive Assessment Date Thrive assessed 11/19/24 11/19/24 11:49 Const General: no acute distress HENMT Head: Yes normal to inspection Face and sinus: Yes normal facial exam Mouth: Normal oral and palatal mucosa present Eyes General: appearance normal, both eyes and all related structures Neck Neck: Yes supple Resp Effort & Inspection: normal respiratory effort Auscultation: clear to auscultation bilaterally Cardio Rhythm: regular rhythm Heart sounds: S1 normal heart sound present and S2 normal heart sound present GI Inspection: Yes normal to inspection Palpation (GI): Soft to palpation Percussion: Yes normal to percussion Auscultation: normal bowel sounds Extrem Other: There is decreased range of motion of the right shoulder. tenderness of lateral right elbow, no soft tissue swelling erythema or warmth Coding Level of Care Code Est Pt Prev Care 40-64y(50322) Diagnoses Shoulder pain, right M25.511 DM (diabetes mellitus) E11.9 Hyperlipemia E78.5 Annual physical exam Z00.00 Additional Codes RAMON-7 Assessment Billing - RAMON-7 Assessment Tool: RAMON-7 Assessment 30704 ([id number]) PHQ-9 - 99370 - PHQ-9 Billing: Yes ([id number]) Assessment & Plan Assessment & Plan (1) Shoulder pain, right: Code(s): M25.511 - Pain in right shoulder Category: Medical Plan: Check x-ray and referred to physical therapy (2) DM (diabetes mellitus): Comment: Intolerant to Farxiga and Trulicity(rash) Code(s): E11.9 - Type 2 diabetes mellitus without complications Category: Medical Plan: A1c is 7.2 from 9.3, continue ADA diet current medications increase Mounjaro to 5 mg weekly, follow-up in 3 months with a fasting labs before (3) Hyperlipemia: Code(s): E78.5 - Hyperlipidemia, unspecified Category: Medical Plan: Continue statin (4) Annual physical exam: Code(s): Z00.00 - Encounter for general adult medical examination without abnormal findings Category: Medical Plan: Well-balanced diet regular exercise discussed with the patient she is up-to-date with the mammogram and colonoscopy Orders: Orders XR shoulder RT min 2V Today M25.511 - Pain in right shoulder Comprehensive Cornelius. Panel Fast 3 Months E11.9 - Type 2 diabetes mellitus without complications, E78.5 - Hyperlipidemia, unspecified Lipid Panel 3 Months E11.9 - Type 2 diabetes mellitus without complications, E78.5 - Hyperlipidemia, unspecified Microalbumin, Random (w Creat) 3 Months E11.9 - Type 2 diabetes mellitus without complications, E78.5 - Hyperlipidemia, unspecified PT Evaluation and Treatment Today M25.511 - Pain in right shoulder Hemoglobin A1c 3 Months E11.9 - Type 2 diabetes mellitus without complications, E78.5 - Hyperlipidemia, unspecified Medications: New Mounjaro (tirzepatide) 5 mg (0.5 mL) subcut QWEEK 6 mL 0RF NS meloxicam 15 mg PO DAILY 10 tabs 0RF Changed From linaclotide (Linzess) 290 mcg PO DAILY 30 days 90 caps 6RF K59.04 - Chronic idiopathic constipation To Linzess (linaclotide) 290 mcg PO DAILY 90 caps 6RF NS K59.04 - Chronic idiopathic constipation Discontinued tirzepatide (Mounjaro) Discontinued Reason: Doctor's Order 2.5 mg (0.5 mL) subcut QWEEK 2 mL 2RF
== END 2024-11-19 12:43 | disposition home or self-care (01) ==
PROVIDERS: PCP Internal Medicine; Visit Provider Internal Medicine
DX: M25.511 Pain in right shoulder (principal); E11.9 Type 2 diabetes mellitus without complications; E78.5 Hyperlipidemia, unspecified; Z00.00 Encounter for general adult medical examination without abnormal findings

== ENCOUNTER → 2024-11-19 14:48 | Outpatient (BNV) | payer BC, MEDICARE, SELFPAY | PROVIDERS: PCP Internal Medicine; Visit Provider Radiology Diagnostic Radiology | DX: M25.511 Pain in right shoulder (principal) | CPT/HCPCS: 73030 ==

== ENCOUNTER 2025-02-01 08:58 | Outpatient (AMB) | payer MEDICARE, SELFPAY ==
--- NOTE | 2025-02-01 09:07 | MHC.OFFVIS ---
Vital Signs 02/01/25 09:20 Height 5 ft 2 in Weight 206 lb 12.697 oz BMI 37.8 BP 139/92 H Blood Pressure Location Lt brachial Position Sitting Pulse 100 Intake Visit Reasons: colo screening Intake Note: Katya presents in office today for pre colonoscopy visit. CC: Patient c/o constipaton, and a burning sensation from her stomach. Per patient the medications prescribed to go to the bathroom does not work. She also c/o nausea and abdominal bloating. Behavioral Health Care Coordinator Required: No Accompanied by: Self / Same As Patient Allergies codeine [CODEINE] Allergy (Severe, Verified 02/01/25 09:25) SWELLING dapagliflozin [From FARXIGA] Allergy (Intermediate, Verified 02/01/25 09:25) RASH latex [LATEX] Allergy (Intermediate, Verified 02/01/25 09:25) RASH montelukast [MONTELUKAST] Allergy (Mild, Verified 02/01/25 09:25) ill effects oxycodone [OXYCODONE] Allergy (Unknown, Verified 02/01/25 09:25) Rash HPI HPI colo screening: Details: Assessment & Plan (1) Small bowel motility disorder: Comment: Determined by small-bowel follow-through study Code(s): K59.9 - Functional intestinal disorder, unspecified Plan: She had a problem getting her LInzess from the pharmacy - they said they did not get our refill. She also uses bisacodyl. However, when she does have all of her medications she is satisfied with her GI regimen. 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 Likely there is radiculopathy and facet arthropathy causing radiation to her groin and her hips. Her sacral iliac joints appear to be fine. I encouraged her if she has worsening difficulty sit discuss this with her primary care provider and have a possible referral to pain management. ROV 6 mos. (2) Chronic idiopathic constipation: Code(s): K59.04 - Chronic idiopathic constipation Medications: Refilled bisacodyl (Dulcolax (bisacodyl)) 10 mg (2 x 5 mg) PO BEDTIME 30 days 60 tabs 3RF K59.04 - Chronic idiopathic constipation linaclotide (Linzess) 290 mcg PO DAILY 30 days 30 caps 6RF K59.04 - Chronic idiopathic constipation RELEVANT PMX ASTHMA HISTORY OF DVT LABS: Laboratory Tests 11/16/24 08:45 WBC 5.5 Hgb 13.1 Hct 41.2 Plt Count 246 Estimated GFR > 60 Hemoglobin A1c % 7.2 H Total Bilirubin 0.7 AST 19 ALT 19 Alkaline Phosphatase 82 TODAY'S VISIT The patient has been lost to follow-up since 07/2023. APPARENTLY SHE IS HERE FOR COLONOSCOPY although the repeat should be can years per myself and endoscopist I am not sure who thing she needs it this year. SHE CONTINUES TO HAVE THE SAME PROBLEMS. SHE HAS THE SEVERE BURNING in her abdomen for 5 days with absolutely no bowel movement and then when she does move her bowels she has to stay home all day and is completely watery. She is really getting quite fit up with this cycle as it is very uncomfortable and hard to live with. In the past, we had questions about whether this was precipitated by her work schedule and her inability to take the Linzess every day but now she is not working and she does take it every day and has not changed the cycle at all. We do know that she has a small bowel motility disorder. We had started her on metoclopramide but she stopped it because she says her primary told her it was ?too risky. ? She said this was based on her renal function. I find this to be patent only untrue as it really does not have any contraindications in terms of renal function and any side effects are extremely rare and tending occur only with high doses greater than 80 mg a day over a long period of time. We will be dealing with very low doses were starting at only 20 mg a day and usually the maximum I will prescribe as a total of 40 mg a day. This was all explained to the patient. Unfortunately, there is no other medication that does with this medicine does in the [place] so I think we need to revisit this. The patient is willing. For now we are going to hold off on the Linzess as we may consider lowering the dose depending on her response. Certainly she can use it if she does not have a bowel movement and she is very uncomfortable but I want to see what happens 1st just with the metoclopramide to simplify her medication regimen. She says she is due for colonoscopy per her primary because she has a ?cancer patient. ? this is not true per guidelines as this is not a colon cancer/crossover situation. However she would be due in 2026. To put her mind at ease I will try to get a colonoscopy based on a change in bowel habits. We certainly do not want to get stuck with a bill because it is not meeting insurance guidelines and regulations. She is on Eliquis and will need to hold that for the procedure She has asthma that is sufficiently controlled and denies any other cardiac problems. There are no prior problems with anesthesia or sedation. There are no infectious disease problems. There is no known family history of colon cancer or polyps. Return office visit next available to evaluate the metoclopramide response. [facility] Medical History Loose stools SOB (shortness of breath) Medial meniscus tear Vaginosis Cellulitis Breast CA Chest pain Normal Pap smear Candidal vaginitis Encounter for pre-employment health screening examination Annual physical exam Peripheral neuropathy Lumbar spondylosis Obese Normal colonoscopy DVT (deep venous thrombosis) Asthma Hyperlipemia DM (diabetes mellitus) Surgical History History of foot surgery Hx of right mastectomy Hx of foot surgery S/P repair of paraesophageal hernia History of esophagogastroduodenoscopy (EGD) H/O colonoscopy Hx of meniscectomy of right knee Family History Father Dementia Mother No problems noted. Son No problems noted. Son No problems noted. Daughter No problems noted. Brother Substance use disorder Brother Substance use disorder Social History Housing: House Patient Tobacco Use Status: Never used Tobacco e-Cigarette/Vaping Use: Never Used service: No Current occupational status: unemployed Cognitive needs: No Hearing needs: No Vision needs: Yes Review of Systems Const Denies fatigue, Denies fever(s), Denies night sweats, Denies poor appetite and Denies weight loss ENT Reports Normal hearing present, Denies dental pain, Denies dysphagia, Denies hearing loss, Denies mouth pain, Denies odynophagia, Denies throat swelling, Denies tongue swelling and Reports other (Dentition adequate) Card Reports no additional complaints Resp Reports no additional complaints GI Details: Reports abdominal pain, Denies melena, Reports bloating, Denies hematochezia, Reports constipation, Denies GI cramping, Denies dysphagia, Denies excessive flatus, Denies early satiety, Denies heartburn, Reports diarrhea, Reports nausea, Denies odynophagia, Denies vomiting and Denies hematemesis Skin/Breast Denies pruritus, Denies lesions, Denies rash and Denies jaundice Neuro Reports Normal hearing present and Denies Abnormal speech present Endo Denies fatigue Aller/Immun Denies throat swelling and Denies tongue swelling Physical Exam Vital Signs: Last Vital Signs Pulse 100 02/01/25 09:20 BP 139/92 H 02/01/25 09:20 BMI result Body Mass Index 37.8 Const General: cooperative, no acute distress, well developed and well groomed Nutritional Appearance: well nourished and obese Orientation/consciousness: oriented to person, oriented to place and oriented to time Limitations: No language barrier HEENT Head: Yes normocephalic and Yes atraumatic Eyes General: appearance normal, both eyes and all related structures Pupils: Equal, round and reactive pupils present Neck Neck: Yes normal visual inspection and Yes no lymphadenopathy Thyroid: Thyroid normal Resp Effort & Inspection: normal respiratory effort and able to speak in complete sentences Auscultation: clear to auscultation bilaterally Cardio Rate: regular rate Rhythm: regular rhythm Heart sounds: Normal, physiologic split S2 sound present Peripheral pulses: radial pulses present and posterior tibial pulses present GI Inspection: No distended, Yes Abdominal panniculus present and Yes obesity Palpation (GI): Soft to palpation, nontender, no guarding, not rigid and No hepatosplenomegaly present Percussion: Yes normal to percussion Auscultation: normal bowel sounds Rectal Exam - Female: deferred Skin General skin exam: no rashes or lesions noted, turgor normal, skin not dry, no jaundice, No spider nevi and no striae Rashes: no rashes Nails: normal Neuro General: oriented to person, oriented to place and oriented to time Cranial nerves: Yes Equal, round and reactive pupils present and Yes Normal hearing present Speech: No Abnormal speech present Extrem General: Yes normal to inspection, No clubbing, No cyanosis and No edema Psych Appearance: grossly normal and well kempt Mental Status: mental status grossly normal Speech and movement: Normal speech and movement present Affect: normal affect Attitude: cooperative Thought process: Normal thought process present and not confabulating Thought content: Normal thought content present Insight: Fair insight present (Psych) Judgement: Fair judgement present (Psych) Assessment & Plan Assessment & Plan (1) Small bowel motility disorder: Comment: Determined by small-bowel follow-through study Code(s): K59.9 - Functional intestinal disorder, unspecified Category: Medical (2) Chronic idiopathic constipation: Code(s): K59.04 - Chronic idiopathic constipation Category: Medical (3) Pre-op examination: Code(s): Z01.818 - Encounter for other preprocedural examination Category: Medical (4) Normal colonoscopy: Comment: 2017, repeat in 5 yrs (? Incorrect she was supposed to have a 10 year follow-up which would make her due in 2026) a EB Category: Medical (5) DVT (deep venous thrombosis): Comment: recurrent on Eliquis Code(s): I82.409 - Acute embolism and thrombosis of unspecified deep veins of unspecified lower extremity Category: Medical (6) Egg protein allergy: Code(s): Z91.012 - Allergy to eggs Category: Medical (7) Change in bowel habit: Code(s): R19.4 - Change in bowel habit Category: Medical Plan The patient has been lost to follow-up since 07/2023. APPARENTLY SHE IS HERE FOR COLONOSCOPY although the repeat should be can years per myself and endoscopist I am not sure who thing she needs it this year. SHE CONTINUES TO HAVE THE SAME PROBLEMS. SHE HAS THE SEVERE BURNING in her abdomen for 5 days with absolutely no bowel movement and then when she does move her bowels she has to stay home all day and is completely watery. She is really getting quite fit up with this cycle as it is very uncomfortable and hard to live with. In the past, we had questions about whether this was precipitated by her work schedule and her inability to take the Linzess every day but now she is not working and she does take it every day and has not changed the cycle at all. We do know that she has a small bowel motility disorder. We had started her on metoclopramide but she stopped it because she says her primary told her it was ?too risky. ? She said this was based on her renal function. I find this to be patent only untrue as it really does not have any contraindications in terms of renal function and any side effects are extremely rare and tending occur only with high doses greater than 80 mg a day over a long period of time. We will be dealing with very low doses were starting at only 20 mg a day and usually the maximum I will prescribe as a total of 40 mg a day. This was all explained to the patient. Unfortunately, there is no other medication that does with this medicine does in the [place] so I think we need to revisit this. The patient is willing. For now we are going to hold off on the Linzess as we may consider lowering the dose depending on her response. Certainly she can use it if she does not have a bowel movement and she is very uncomfortable but I want to see what happens 1st just with the metoclopramide to simplify her medication regimen. She says she is due for colonoscopy per her primary because she has a ?cancer patient. ? this is not true per guidelines as this is not a colon cancer/crossover situation. However she would be due in 2026. To put her mind at ease I will try to get a colonoscopy based on a change in bowel habits. We certainly do not want to get stuck with a bill because it is not meeting insurance guidelines and regulations. She is on Eliquis and will need to hold that for the procedure She has asthma that is sufficiently controlled and denies any other cardiac problems. There are no prior problems with anesthesia or sedation. There are no infectious disease problems. There is no known family history of colon cancer or polyps. Return office visit next available to evaluate the metoclopramide response. Orders: Orders Colonoscopy - GI Use Only Today R19.4 - Change in bowel habit Medications: New metoclopramide HCl (Reglan) 5 mg PO QIDACHS 120 tabs 6RF K59.9 - Functional intestinal disorder, unspecified bisacodyl (Dulcolax (bisacodyl)) 10 mg (2 x 5 mg) PO BEDTIME 4 tabs 0RF 2 days peg 3350-electrolytes 236-22.74-6.74 -5.86 gram (Golytely) until fecal effluent is clear; do not exceed a total volume of 2,000 mL 240 mL PO Q10M 4,000 mL 0RF 1 day Z12.11 - Encounter for screening for malignant neoplasm of colon On Hold Linzess (linaclotide) Hold Comment: Doctor's Order 290 mcg PO DAILY 90 caps 6RF NS K59.04 - Chronic idiopathic constipation Coding Level of Care Code Est Pt Level 4 (40639) Diagnoses Small bowel motility disorder K59.9 Chronic idiopathic constipation K59.04 Pre-op examination Z01.818 Normal colonoscopy DVT (deep venous thrombosis) I82.409 Egg protein allergy Z91.012 Change in bowel habit R19.4 Time Spent (min) 38
[2025-02-01 09:20] VITALS: BP 139/92; PULSE 100; BMI 37.8
--- OUTSIDE RECORDS SUMMARY | 2025-02-01 09:36 | XMS_ITS | Patient Health Record ---
[facility] Address [address] [place] [address] Care Team Providers Care Household Personal Assistant Name Role Phone Michell Fatima MD Primary Care Provider Ronna Andrade Unavailable [phone] Allergies Allergen (clinical drug ingredient) Drug/Non Drug [...] Problem Acquired hammer toe of right foot (3059661778423 105) Other hammer toe(s) (acquired), right foot (M20.41) Active confirmed Problem Acquired hammer toe of left foot (4637628515253 103) Other hammer toe(s) (acquired), left foot (M20.42) Active confirmed Problem [id number] Type 2 diabetes mellitus without complications (E11.9) Active confirmed Plan Of Treatment Pending Test Test Name Order Date X ray : Foot, left 3V 05/21/2022 Insurance Providers Payer Name Payer Address Payer Phone Subscriber Number Group Number Insured Name Patient Relationship to Insured Coverage Start Date Coverage End Date [employer] [address] [place] [address] [phone] [id number] Ruel Skaggs Spouse - patient is the spouse of the insured [employer] [address] [place] [address] [id number] Katya Skaggs Self - patient is the insured Medical (General) History Medical History History ICD Code Arthritis asthma Back,Hip,and Knee pain Cancer Cataracts Diabetes mellitus type ll Gall bladder problems Chicken pox Joint implants/screws blindness left eye Surgical History Surgery Date(Month/Year) Excision Plantar fibroma 07/25/2022
--- OUTSIDE RECORDS SUMMARY | 2025-02-01 09:36 | XMS_ITS | Clinical Summary ---
Author Organization [facility] ity Address [address] [place] [id number] Care Team Providers Care Leasing Property Manager Name Role Phone Michell Fatima MD Primary Care Provider [phone] Social History Tobacco Use Types Packs/Day Years Used Date Smoking Tobacco: Never Assessed Comments Unknown Sex and Gender Information Value Date Recorded Sex Assigned at Not on file Legal Sex Female 3:08 PM EST Gender Identity Not on file Sexual Orientation Not on file Plan of Treatment Health Maintenance Due Date Last Done Comments Breast Cancer Screening 1966 DTaP,Tdap,and Td Vaccines (1 - Tdap) 1985 Hepatitis B Vaccines (1 of 3 - 19+ 3-dose series) 1985 Cervical Cancer Screening: P ap Smear 1987 Pneumococcal Vaccine: 50+ Ye ars (1 of 1 - PCV) 2016 Zoster Vaccines (1 of 2) 2016 COVID-19 Vaccine ( - 2023-2 5 season) 2024 Influenza Vaccine (Season Ended) 2025 HIB Vaccines Aged Out No longer eligi [...] patient's age to complete this topic Meningococcal B Vaccine Aged Out No l onger eligible based on patient's age to complete [...] age to complete this topic Care Teams Leasing Property Manager Relationship Specialty Start Date End Date Michell Fatima MD PCP - General Internal Medicine 11/11/17
== END 2025-02-01 10:08 | disposition home or self-care (01) ==
PROVIDERS: PCP Internal Medicine; Visit Provider Nurse Practitioner
DX: K59.9 Functional intestinal disorder, unspecified (principal); R19.4 Change in bowel habit; Z01.818 Encounter for other preprocedural examination; Z12.11 Encounter for screening for malignant neoplasm of colon
CPT/HCPCS: 99214

== ENCOUNTER → 2025-02-01 08:58 | Outpatient (BNVA) | payer MEDICARE, SELFPAY | PROVIDERS: PCP Internal Medicine; Visit Provider Nurse Practitioner | DX: Z01.818 Encounter for other preprocedural examination (principal); K59.9 Functional intestinal disorder, unspecified; K59.04 Chronic idiopathic constipation; I82.409 Acute embolism and thrombosis of unspecified deep veins of unspecified lower extremity; Z91.012 Allergy to eggs; R19.4 Change in bowel habit | CPT/HCPCS: 99212 ==

== ENCOUNTER 2025-02-11 08:00 | Outpatient (RCR) | payer BC, MEDICARE, SELFPAY ==
--- NOTE | 2025-01-19 10:48 | MHC.PT.EP ---
[facility] [place] Office [place] Office [place] Office [address] Kath Motta [address] [phone] F: [phone] F: [phone] F: [phone] F: [phone] Physical Therapy Plan of Care Date of Evaluation: 01/19/25 Date of Surgery: Diagnosis: pain in right shoulder Assessment: Patient is a 59 year old R handed female who presents with s/s consistent with pain in R shoulder. She does not work but enjoys being active around the house and able to enter into the community. Patient past medical history is breast cancer with chemo and mastecomy, lymphedema and port complication. Current impairments include pain, posture, ROM, strength, activity tolerance and functional mobility. Functional limitations include decreased ability to sleep, lift, carry, push, pull and exert with RUE. Patient is motivated with good rehab potential. Skilled PT will address impairments and functional limitations in order to achieve goals. Frequency and Duration: The patient will be seen 2x/week for 5 weeks Short Term Goals: I with HEP -2 weeks AROM full and pain free - 3 weeks Pain free sleep - 3 weeks Improved postural awareness - 3 weeks Cmo & President Goals: Shoulder Strength - 4/5 grossly - 5 weeks SPADI 30% disability or less - 5 weeks min tight b/l pec - 5 weeks MT/LT 4/5 b/l - 5 weeks centralized s/s - 5 weeks Treatment Plan: Modalities to reduce pain, spasms and effusion. Manual therapy to restore motion and function. Therapeutic exercise to improve strength and flexibility. Neuromuscular re-education for posture and balance. Therapeutic activities to return to functional activities of daily living. Electronically signed by: Ruel Cuellar, PT Please sign and return to therapist. Thank you for your referral.
--- NOTE | 2025-04-29 08:42 | MHC.PT.DC ---
[facility] [place] Office [place] Office [place] Office [address] Kath Motta [address] [phone] F: [phone] F: [phone] F: [phone] F: [phone] Physical Therapy Discharge Report Diagnosis: pain in right shoulder Date of Surgery: Date of Evaluation: 01/19/25 Date of Discharge: Treatments to Date: 4 Cancellations to Date: No Shows to Date: Discharge Status: Patient Elected to Stop Discharge Summary: 02/11/25: pt progressing well with skilled PT. improved activity tolerance. however, s/s still present. continue to progress as tolerated. 02/08; Pt fatigued with RTC strengthening. Pt c/o heaviness with wall slide rested and resolved. 01/26/25: pt progressed with ROM, stretching within pain free ROM. some lightheadedness experienced with PB flexion. we will hold going forward. Patient is a 59 year old R handed female who presents with s/s consistent with pain in R shoulder. She does not work but enjoys being active around the house and able to enter into the community. Patient past medical history is breast cancer with chemo and mastecomy, lymphedema and port complication. Current impairments include pain, posture, ROM, strength, activity tolerance and functional mobility. Functional limitations include decreased ability to sleep, lift, carry, push, pull and exert with RUE. Patient is motivated with good rehab potential. Skilled PT will address impairments and functional limitations in order to achieve goals. Electronically signed by: Ruel Cuellar, PT Please sign and return to therapist. Thank you for your referral.
== END 2025-04-29 08:43 | disposition home or self-care (01) ==
LOC: HO.PTCHIC 08:00
PROVIDERS: PCP Internal Medicine; Visit Provider Internal Medicine
DX: M25.511 Pain in right shoulder (principal)
CPT/HCPCS: 97110; 97163

== ENCOUNTER 2025-02-15 07:58 | Outpatient (AMB) | payer BC, MEDICARE, SELFPAY ==
--- OUTSIDE RECORDS SUMMARY | 2025-02-15 08:03 | XMS_ITS | Clinical Summary ---
Author Organization [facility] ity Address [address] [place] [address] Care Team Providers Care Vice President For Philanthropy Name Role Phone Michell Fatima MD Primary Care Provider [phone] Social History Tobacco Use Types Packs/Day Years [...] age to complete this topic Care Teams Vice President For Philanthropy Relationship Specialty Start Date End Date Michell Fatima MD PCP - General Internal Medicine 11/11/17
--- OUTSIDE RECORDS SUMMARY | 2025-02-15 08:03 | XMS_ITS | Patient Health Record ---
[facility] Address [address] [place] [address] Care Team Providers Care Curing Oven Tender Name Role Phone Michell Fatima MD Primary Care Provider Ronna Andrade Unavailable [phone] Allergies Allergen (clinical drug ingredient) Drug/Non Drug [...] Problem Acquired hammer toe of right foot (4500678156544 105) Other hammer toe(s) (acquired), right foot (M20.41) Active confirmed Problem Acquired hammer toe of left foot (0467785132147 103) Other hammer toe(s) (acquired), left foot (M20.42) Active confirmed Problem [id number] Type 2 diabetes mellitus without complications (E11.9) Active confirmed Plan Of Treatment Pending Test Test Name Order Date X ray : Foot, left 3V 05/21/2022 Insurance Providers Payer Name Payer Address Payer Phone Subscriber Number Group Number Insured Name Patient Relationship to Insured Coverage Start Date Coverage End Date [employer] [address] [place] [address] [phone] [id number] Ruel Skaggs Spouse - patient is the spouse of the insured [employer] [address] [place] [address] [id number] Katya Skaggs Self - patient is the insured Medical (General) History Medical History History ICD Code Arthritis asthma Back,Hip,and Knee pain Cancer Cataracts Diabetes mellitus type ll Gall bladder problems Chicken pox Joint implants/screws blindness left eye Surgical History Surgery Date(Month/Year) Excision Plantar fibroma 07/25/2022
--- NOTE | 2025-02-15 08:41 | A.OFFPC_ITS ---
Vital Signs 02/15/25 08:42 Height 5 ft 2 in Weight 204 lb BMI 37.3 BP 110/76 Blood Pressure Location Lt brachial Position Sitting Respiration 18 Pulse 102 H Pulse Source Pulse Oximeter Temp 98.7 F Temp Source Oral Pulse Oximetry (%) 95 Oxygen Delivery Method Room Air Intake Visit Reasons: 3 months f/up Intake Note: Pt is here today for 3 months follow up visit. Allergies codeine [CODEINE] Allergy (Severe, Verified 02/15/25 08:44) SWELLING dapagliflozin [From FARXIGA] Allergy (Intermediate, Verified 02/15/25 08:44) RASH latex [LATEX] Allergy (Intermediate, Verified 02/15/25 08:44) RASH montelukast [MONTELUKAST] Allergy (Mild, Verified 02/15/25 08:44) ill effects oxycodone [OXYCODONE] Allergy (Unknown, Verified 02/15/25 08:44) Rash Medication List - Last Reconciled 02/15/25 by Michell Fatima MD albuterol sulfate 2.5 mg inhaled every 20 min for up to 3 doses PRN; apixaban 5 mg PO BID atorvastatin 20 mg PO DAILY bisacodyl (Dulcolax (bisacodyl)) 10 mg (2 x 5 mg) PO BEDTIME 2 days blood sugar diagnostic (FreeStyle Lite Strips) check glucose once a day blood-glucose meter (OneTouch Ultra2 Meter) As directed blood-glucose meter (FreeStyle [place] kit) 1 bid cyclobenzaprine 10 mg PO TID PRN gabapentin (Neurontin) 100 mg PO BID glipizide 10 mg PO BID Linzess (linaclotide) 290 mcg PO DAILY NS meloxicam 15 mg PO DAILY metformin 1,000 mg PO BID metoclopramide HCl (Reglan) 5 mg PO QIDACHS multivitamin (Daily Multi-Vitamin tablet) 1 tab PO DAILY nebulizers As directed peg 3350-electrolytes 236-22.74-6.74 -5.86 gram (Golytely) 240 mL PO Q10M 1 day Trelegy Ellipta 100-62.5-25 mcg (txacojojshs-hmrusmopa-kklywcne) 1 ea inhalation DAILY NS Tobacco use date assessed: 11/19/24 Dental Screening Dental Screen Date: 11/19/24 HPI 3 months f/up HPI Details Patient presents for the follow-up of type 2 diabetes hyperlipidemia chronic asthma stable on current medications. Patient could not refill Mounjaro for 2 months because of the shortage. She has been following ADA diet and has not been checking her blood glucose regularly. Patient complains of chronic constipation for which she tried Linzess, followed by metoclopramide for 2 weeks without significant improvement. Patient has been taking MiraLax and stool softener daily. She has been increasing fiber intake. She is scheduled for colonoscopy. [facility] Medical History Loose stools SOB (shortness of breath) Medial meniscus tear Vaginosis Cellulitis Breast CA Chest pain Normal Pap smear Candidal vaginitis Encounter for pre-employment health screening examination Annual physical exam Peripheral neuropathy Lumbar spondylosis Obese Normal colonoscopy DVT (deep venous thrombosis) Asthma Hyperlipemia DM (diabetes mellitus) Surgical History History of foot surgery Hx of right mastectomy Hx of foot surgery S/P repair of paraesophageal hernia History of esophagogastroduodenoscopy (EGD) H/O colonoscopy Hx of meniscectomy of right knee Family History Father Dementia Mother No problems noted. Son No problems noted. Son No problems noted. Daughter No problems noted. Brother Substance use disorder Brother Substance use disorder Social History Housing: House Patient Tobacco Use Status: Never used Tobacco e-Cigarette/Vaping Use: Never Used service: No Current occupational status: unemployed Cognitive needs: No Hearing needs: No Vision needs: Yes Questionnaire Thrive Questionnaire Date Thrive assessed: 09/01/24 I am a: Patient RAMON-7 AMB Questionnaire RAMON-7 Date RAMON - 7 assessed: 11/19/24 Source: Developed by Drs. Denny Cooley, Eneida Fleming, Markell Mtz and colleagues, with an educational jenise from [employer]. Review of Systems Const All systems reviewed & are unremarkable except as noted in HPI and below Eyes Reports no additional complaints ENT Reports no additional complaints Card Reports no additional complaints Resp Reports no additional complaints GI Reports no additional complaints Reports no additional complaints Physical exam (Primary Care) Vital Signs: Last Vital Signs Temp 98.7 F 02/15/25 08:42 Pulse 102 H 02/15/25 08:42 Resp 18 02/15/25 08:42 BP 110/76 02/15/25 08:42 Pulse Ox 95 02/15/25 08:42 Oxygen Delivery Method Room Air 02/15/25 08:42 BMI result Body Mass Index 37.3 Tobacco/Smoking Status: Tobacco use Status Tobacco use date assessed 11/19/24 02/15/25 08:47 Patient Tobacco Use Status Never used Tobacco 02/15/25 08:47 e-Cigarette/Vaping Use Never Used 02/15/25 08:47 Thrive Assessment: Date of Thrive Assessment Date Thrive assessed 09/01/24 02/15/25 08:47 Const General: no acute distress HENMT Head: Yes normal to inspection Face and sinus: Yes normal facial exam Resp Effort & Inspection: normal respiratory effort Auscultation: clear to auscultation bilaterally Cardio Rhythm: regular rhythm Heart sounds: S1 normal heart sound present and S2 normal heart sound present GI Inspection: Yes normal to inspection Palpation (GI): Soft to palpation Percussion: Yes normal to percussion Auscultation: normal bowel sounds Results AMB Hemoglobin A1c AMB Hemoglobin A1c 6.7 % Last Edit by MAGGI Browne on 02/15/25 09:2 9 Results Reviewed Results Reviewed: Laboratory Last Values Hgb A1c (Clinic) 6.7 % (4.0-6.0) H 02/15/25 09:28 Coding Level of Care Code Est Pt Level 4 (28981) Diagnoses DM (diabetes mellitus) E11.9 Hyperlipemia E78.5 Asthma J45.909 Chronic constipation K59.09 Assessment & Plan Assessment & Plan (1) DM (diabetes mellitus): Comment: Intolerant to Farxiga and Trulicity(rash) Code(s): E11.9 - Type 2 diabetes mellitus without complications Category: Medical Plan: A1c is 6.7, ADA diet increase exercise weight loss discussed with the patient. She will restart Mounjaro 2.5 mg weekly. (2) Hyperlipemia: Code(s): E78.5 - Hyperlipidemia, unspecified Category: Medical Plan: Continue statin (3) Asthma: Code(s): J45.909 - Unspecified asthma, uncomplicated Category: Medical Plan: Controlled on Trelegy (4) Chronic constipation: Code(s): K59.09 - Other constipation Category: Medical Plan: Patient was advised to stop taking Reglan as it has not been effective for 2 weeks and patient is at risk for tardive dyskinesia. She was advised increase fiber intake, increase MiraLax and stool softener to twice a day for 1 week if there is no significant improvement lactulose up to twice a day will be started. Patient will follow-up in 1 month. Orders: Orders AMB Hemoglobin A1c Today Z13.9 - Encounter for screening, unspecified Medications: New lactulose 20 grams (30 mL) PO BID 1,500 mL 2RF Mounjaro (tirzepatide) 2.5 mg (0.5 mL) subcut QWEEK 2 mL 2RF NS Mounjaro (tirzepatide) 2.5 mg (0.5 mL) subcut QWEEK 6 mL 1RF NS Mounjaro (tirzepatide) 2.5 mg (0.5 mL) subcut QWEEK 2 mL 2RF NS Refilled atorvastatin 20 mg PO DAILY 90 tabs 3RF Discontinued metoclopramide HCl (Reglan) Discontinued Reason: Doctor's Order 5 mg PO QIDACHS 120 tabs 6RF K59.9 - Functional intestinal disorder, unspecified
[2025-02-15 08:42] VITALS: BP 110/76; PULSE 102; RESP 18; TEMP 37.1; O2SAT 95; BMI 37.3
== END 2025-02-15 10:00 | disposition home or self-care (01) ==
LOC: HO.HMCC 07:59
PROVIDERS: PCP Internal Medicine; Visit Provider Internal Medicine
DX: E11.9 Type 2 diabetes mellitus without complications (principal); E78.5 Hyperlipidemia, unspecified; J45.909 Unspecified asthma, uncomplicated; K59.09 Other constipation; Z13.9 Encounter for screening, unspecified

== ENCOUNTER → 2025-02-15 07:58 | Outpatient (BNVA) | payer MEDICARE, SELFPAY | PROVIDERS: PCP Internal Medicine; Visit Provider Internal Medicine | DX: E11.9 Type 2 diabetes mellitus without complications (principal); E78.5 Hyperlipidemia, unspecified; J45.909 Unspecified asthma, uncomplicated; K59.09 Other constipation | CPT/HCPCS: 83036 ==

== ENCOUNTER 2025-04-21 13:29 | Outpatient (AMB) | payer MEDICARE, SELFPAY ==
[2025-04-21 13:31] VITALS: BP 108/74; PULSE 93; RESP 18; TEMP 36.6; O2SAT 97; BMI 38.4
--- NOTE | 2025-04-21 13:31 | MHC.PC.OV ---
Vital Signs 04/21/25 13:31 Height 5 ft 2 in Weight 210 lb BMI 38.4 BP 108/74 Blood Pressure Location Lt brachial Position Sitting Respiration 18 Pulse 93 Pulse Source Pulse Oximeter Temp 97.9 F Temp Source Oral Pulse Oximetry (%) 97 Oxygen Delivery Method Room Air Intake Visit Reasons: 1 month follow up Intake Note: Pt is here today for 1 month follow up visit. Pt needs a refill on Gabapentin. Allergies codeine (CODEINE) Allergy (Severe, Verified 04/21/25 13:32) SWELLING dapagliflozin (From FARXIGA) Allergy (Intermediate, Verified 04/21/25 13:32) RASH latex (LATEX) Allergy (Intermediate, Verified 04/21/25 13:32) RASH montelukast (MONTELUKAST) Allergy (Mild, Verified 04/21/25 13:32) ill effects oxycodone (OXYCODONE) Allergy (Unknown, Verified 04/21/25 13:32) Rash Medication List - Last Reconciled 04/21/25 by Michell Fatima MD albuterol sulfate 2.5 mg inhaled every 20 min for up to 3 doses PRN; apixaban 5 mg PO BID atorvastatin 20 mg PO DAILY bisacodyl (Dulcolax (bisacodyl)) 10 mg (2 x 5 mg) PO BEDTIME 2 days blood sugar diagnostic (FreeStyle Lite Strips) check glucose once a day blood-glucose meter (OneTouch Ultra2 Meter) As directed blood-glucose meter (FreeStyle [place] kit) 1 bid gabapentin (Neurontin) 100 mg PO BID glipizide 10 mg PO BID guaifenesin (Tussin Chest Congestion) PO lactulose 20 grams (30 mL) PO BID Linzess (linaclotide) 290 mcg PO DAILY NS Held on 02/01/25. Instructions: Doctor's Order metformin 1,000 mg PO BID montelukast 10 mg PO BEDTIME Mounjaro (tirzepatide) 2.5 mg (0.5 mL) subcut QWEEK NS multivitamin (Daily Multi-Vitamin tablet) 1 tab PO DAILY nebulizers As directed oxybutynin chloride 2.5 mg PO BID peg 3350-electrolytes 236-22.74-6.74 -5.86 gram (Golytely) 240 mL PO Q10M 1 day Trelegy Ellipta 100-62.5-25 mcg (obzupdcormq-oymgimvti-nzctsldf) 1 ea inhalation DAILY NS Tobacco use date assessed: 04/21/25 Dental Screening Dental Screen Date: 11/19/24 HPI 1 month follow up HPI Details Patient presents for the follow-up of type 2 diabetes asthma hyperlipidemia. Patient has not been taking Mounjaro for 1 month because she lost her insurance. She has been decreasing caloric intake increasing physical activity and monitoring her blood glucose with the readings between 100-140 fasting. Patient is planning to restart zip bound. Chronic asthma and hyperlipidemia are controlled on current medications. Patient continues to complain of chronic constipation. She did not try lactulose yet, she has been taking Linzess which has not been helping and stool softeners to at the bedtime. Patient reports having bowel movements every 5 days after taking gtyd-bfn-bxfyguz laxatives. She has been waiting for colonoscopy for over 6 months. [facility] Medical History Loose stools SOB (shortness of breath) Medial meniscus tear Vaginosis Cellulitis Breast CA Chest pain Normal Pap smear Candidal vaginitis Encounter for pre-employment health screening examination Annual physical exam Peripheral neuropathy Lumbar spondylosis Obese Normal colonoscopy DVT (deep venous thrombosis) Asthma Hyperlipemia DM (diabetes mellitus) Surgical History History of foot surgery Hx of right mastectomy Hx of foot surgery S/P repair of paraesophageal hernia History of esophagogastroduodenoscopy (EGD) H/O colonoscopy Hx of meniscectomy of right knee Family History Father Dementia Mother No problems noted. Son No problems noted. Son No problems noted. Daughter No problems noted. Brother Substance use disorder Brother Substance use disorder Social History Housing: House Patient Tobacco Use Status: Never used Tobacco e-Cigarette/Vaping Use: Never Used service: No Current occupational status: unemployed Cognitive needs: No Hearing needs: No Vision needs: Yes Questionnaire Thrive Questionnaire Date Thrive assessed: 09/01/24 I am a: Patient AUDIT C Alcohol Use Questionnaire (AUDIT-C) 1. How often do you have a drink containing alcohol?: Never 3. How often do you have six or more drinks on one occasion?: Never Total Score: 0 RAMON-7 AMB Questionnaire RAMON-7 Date RAMON - 7 assessed: 11/19/24 Source: Developed by Drs. Denny Cooley, Eneida Fleming, Markell Mtz and colleagues, with an educational jenise from [employer]. Review of Systems Const All systems reviewed & are unremarkable except as noted in HPI and below Eyes Reports no additional complaints ENT Reports no additional complaints Card Reports no additional complaints Resp Reports no additional complaints GI Reports no additional complaints Reports no additional complaints Physical exam (Primary Care) Vital Signs: Last Vital Signs Temp 97.9 F 04/21/25 13:31 Pulse 93 04/21/25 13:31 Resp 18 04/21/25 13:31 BP 108/74 04/21/25 13:31 Pulse Ox 97 04/21/25 13:31 Oxygen Delivery Method Room Air 04/21/25 13:31 BMI result Body Mass Index 38.4 Tobacco/Smoking Status: Tobacco use Status Tobacco use date assessed 04/21/25 04/21/25 13:33 Patient Tobacco Use Status Never used Tobacco 04/21/25 13:33 e-Cigarette/Vaping Use Never Used 04/21/25 13:33 Thrive Assessment: Date of Thrive Assessment Date Thrive assessed 09/01/24 04/21/25 13:33 Const General: no acute distress HENMT Head: Yes normal to inspection Throat: Yes posterior oropharynx normal Resp Effort & Inspection: normal respiratory effort Auscultation: clear to auscultation bilaterally Cardio Rhythm: regular rhythm Heart sounds: S1 normal heart sound present and S2 normal heart sound present GI Inspection: Yes normal to inspection Palpation (GI): Soft to palpation Percussion: Yes normal to percussion Auscultation: normal bowel sounds Coding Level of Care Code Est Pt Level 4 (88337) Complex EM visit Add On G2211 Diagnoses Hyperlipemia E78.5 DM (diabetes mellitus) E11.9 Chronic constipation K59.09 Asthma J45.909 Assessment & Plan Assessment & Plan (1) Hyperlipemia: Code(s): E78.5 - Hyperlipidemia, unspecified Category: Medical Plan: Continue statin (2) DM (diabetes mellitus): Comment: Intolerant to Farxiga and Trulicity(rash) Code(s): E11.9 - Type 2 diabetes mellitus without complications Category: Medical Plan: Continue current medications ADA diet discussed with the patient. She will restart Mounjaro follow-up in 2 months with a fasting labs before (3) Chronic constipation: Code(s): K59.09 - Other constipation Category: Medical Plan: Patient will continue stool softener and stop Linzess since it has not been helpful. Patient will start lactulose increase fluids intake and regular physical activity. She follow-up with GI for colonoscopy (4) Asthma: Code(s): J45.909 - Unspecified asthma, uncomplicated Category: Medical Plan: Continue Trelegy Medications: Changed From lactulose 20 grams (30 mL) PO BID 1,500 mL 2RF To lactulose 20 grams (30 mL) PO BEDTIME 1,500 mL 2RF Refilled gabapentin (Neurontin) 1 cap Q AM, 2-3 caps QPM 100 mg PO BID 360 caps 5RF Mounjaro (tirzepatide) 2.5 mg (0.5 mL) subcut QWEEK 2 mL 2RF NS blood sugar diagnostic (FreeStyle Lite Strips) check glucose once a day 100 ea 3RF E11.9 - Type 2 diabetes mellitus without complications Discontinued Linzess (linaclotide) Discontinued Reason: Doctor's Order 290 mcg PO DAILY 90 caps 6RF NS K59.04 - Chronic idiopathic constipation
--- OUTSIDE RECORDS SUMMARY | 2025-04-21 13:37 | XMS_ITS | Patient Health Record ---
Author Organization [facility] Address [address] [place] [id number] Care Team Providers Care Healthcare Financial Analyst Name Role Phone Michell Fatima MD Primary Care Provider Denny South Unavailable [phone] Brisa Weinstein Unavailable Unavailable Allergies Allergen (clinical drug ingredient) Drug/Non Drug Allergy documented on EMR Reaction Allergy Type Onset Date Status oxycodone Oxycodone HCl Unknown Drug Allergy Act lorena Reason For Referral No Information Medications Medication SIG (Take, Route, Fr equency, Duration) Notes Start Date End Date Status ProAir HFA Active Loratadine Active Nebulizer NEEDED Active Benzonatate Active glipiZIDE Active Prednisone Not-Takin g Singulair Active Omeprazole 20 MG 1 capsule Orally Once a day Active albuterol NEEDED Active Omeprazole 20 MG 1 capsule Orally BID --before breakfast and supper for 30 day(s) 02/19/2018 Active Lidoderm NEEDED Active Ventolin HFA Active Flonase NEEDED Active metFORMIN HCl Active Eliquis Active Stool Softener Activ e Immunizations Vaccine Route Administration Date Status Comme nts Influenza Unknown 12/19/2017 Administered Social History Tobacco Use: Social History Observation Description Date Details (start date - stop date) Never Smoker NA - NA Tobacco Use/Smoking Question Answer Notes Patient is a nonsmoker Alcohol Screen Question Answer Notes Did you have a drink containing alcohol in the p ast year? No Points 0 Interpretation Negative Section Notes: Nonsmoker; no alcohol Problems Problem Type SNOMED Code ICD Code Onset Dates Problem Status W/U Status Risk Notes Problem [id number] Gastroesophageal reflux disease without esophagitis (K21.9) Active confirmed Problem [id number] Hiatal hernia (K44.9) Active confirmed Plan Of Treatment No Information Insurance Providers Payer Name Payer Address Payer Phone Subscriber Number Group Number Insured Name Patient Relationship to Insured Coverage Start Date Coverage End Date [facility] [address] [place], [place] [id number] [phone] [id number] ROJELIO CARBONE Self - patient is the insured Medicare of [facility] [address] [place] [address] [id number] ROJELIO CARBONE Self - patient is the insured MEDICAID OF [facility] [address] [place] [phone] [id number] ROJELIO CARBONE Self - patient is the insured Medical (General) History Medical History History ICD Code Insomnia GERD NIDDM Asthma Breast cancer on the right w ith chemotherapy/mastectomy and reconstruction--2011 UE Blood clots Fibromyalgia Hiatal hernia Raynaud's Denies [place],CVA,renal disease EGD 11/2016--small hiatal her anisa, gastric polyps, gastritis, and biopsies negative for H. pylori--by Dr. Ramon Colonoscopy 11/2016--normal--by Dr. Nita vieyra C. difficile infection in 2012. 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
--- OUTSIDE RECORDS SUMMARY | 2025-04-21 13:37 | XMS_ITS | Patient Health Record ---
Author Organization [facility] Address [address] [place] [address] Care Team Providers Care Community Development Specialist Name Role Phone Michell Fatima MD Primary Care Provider Ronna Andrade Unavailable [phone] Allergies Allergen (clinical drug ingredient) Drug/Non Drug Allergy documented on EMR Reaction Allergy Type Onset Date Status Latex Latex rash Allergy Active oxycodone Oxycodone vomiting Drug Allergy Active Reason For Referral No Information Medications Medication SIG (Take, Route, Frequency, Duration) Notes Start Date End Date Status HYDROcodone-Acetaminoph en 5-325 MG 1 tablet as needed Orally every 4-6 hrs; Duration: 7 days Active Rosuvastatin Calcium 5 MG Oral; Duration: 90 Active Trulicity 1.5 MG/0.5ML Subcutaneous; Dur ation: 28 Active metFORMIN HCl 1000 MG TAKE 1 TABLET BY M OUTH TWICE A DAY Oral; Duration: 90 Active Meloxicam 15 MG TAKE 1 TABLET BY LAMIN TH EVERY DAY Oral; Duration: 30 Active Linzess 145 MCG TAKE 1 CAPSULE BY MO UTH EVERY DAY Oral; Duration: 90 Active Gabapentin 100 MG Oral; Duration: 90 Active FreeStyle Lite Test - USE DIRECTED EV JAVAN GARCIA In Vitro; Duration: 50 Active Work Note . . . Patient can retu rn to work without restrictions on 09/24/22 09/10/2022 Active Eliquis 5 MG Oral; Duration: 90 Active Extra Depth Orthopedic Shoes (1 Pair) with Customized Heat Molded Multidensity Innersoles (3 Pair) as directed Dx: NIDDM (E11.9), Hammertoe Foot Deformity (M20.41,M20.42), Preulcerative Skin Lesion(s) (L85.1) 09/10/2022 Active Clotrimazole-Betamethas one 1-0.05 % APPLY TO AFFECTED AREA TWICE A DAY External; Duration: 90 Active albuterol PRN Winter Active Immunizations [...] Problem Acquired hammer toe of right foot (464419239323810 5) Other hammer toe(s) (acquired), right foot (M20.41) Active confirmed Problem Acquired hammer toe of left foot ([id number] 3) Other hammer toe(s) (acquired), left foot (M20.42) Active confirmed Problem Type II diabetes mellitus without complication (978261047) Type 2 diabetes mellitus without complications (E11.9) Active confirmed Plan Of Treatment Pending Test Test Name Order Date X ray : Foot, left 3V 05/21/2022 Insurance Providers Payer Name Payer Address Payer Phone Subscriber Number Group Number Insured Name Patient Relationship to Insured Coverage Start Date Coverage End Date [facility] Others [address] [place] [address] [phone] [id number] Ruel Skaggs Spouse - patient is the spouse of the insured Medicare [employer] [address] [place] [address] [phone] [id number] Katya Skaggs Self - patient is the insured Medical (General) History Medical History History ICD Code Arthritis asthma Back,Hip,and Knee pain Cancer Cataracts Diabetes mellitus type ll Gall bladder problems Chicken pox Joint implants/screws blindness left eye Surgical History Surgery Date(Month/Year) Excision Plantar fibroma 07/25/2022
== END 2025-04-21 14:40 | disposition home or self-care (01) ==
LOC: HO.HMCC 13:30
PROVIDERS: PCP Internal Medicine; Visit Provider Internal Medicine
DX: E78.5 Hyperlipidemia, unspecified (principal); E11.9 Type 2 diabetes mellitus without complications; K59.09 Other constipation; J45.909 Unspecified asthma, uncomplicated

== ENCOUNTER → 2025-04-21 13:29 | Outpatient (BNVA) | payer BC, MEDICARE, SELFPAY | PROVIDERS: PCP Internal Medicine; Visit Provider Internal Medicine | DX: E11.9 Type 2 diabetes mellitus without complications (principal); J45.909 Unspecified asthma, uncomplicated; E78.5 Hyperlipidemia, unspecified; K59.09 Other constipation | CPT/HCPCS: 99212 ==

== ENCOUNTER 2025-05-12 13:36 | Outpatient (AMB) | payer MEDICARE, SELFPAY ==
[2025-05-12 13:38] VITALS: BP 128/85; PULSE 110; BMI 38.1
--- NOTE | 2025-05-12 13:38 | A.OFFVIS_ITS ---
Vital Signs 05/12/25 13:38 Height 5 ft 2 in Weight 208 lb 8.917 oz BMI 38.1 BP 128/85 Blood Pressure Location Lt brachial Position Sitting Pulse 110 H Intake Visit Reasons: Eval Reglan r/s 04/06/25 Intake Note: Katya presents to in office follow up to evaluate Reglan. CC: Patient c/o nausea, abdominal cramping, nausea, and occasional vomiting. Director Of Public Works Required: No Accompanied by: Self / Same As Patient Allergies codeine (CODEINE) Allergy (Severe, Verified 05/12/25 13:53) SWELLING dapagliflozin (From FARXIGA) Allergy (Intermediate, Verified 05/12/25 13:53) RASH latex (LATEX) Allergy (Intermediate, Verified 05/12/25 13:53) RASH montelukast (MONTELUKAST) Allergy (Mild, Verified 05/12/25 13:53) ill effects oxycodone (OXYCODONE) Allergy (Unknown, Verified 05/12/25 13:53) Rash HPI HPI Eval Reglan r/s 04/06/25: Details: Assessment & Plan (1) Small bowel motility disorder: Comment: Determined by small-bowel follow-through study Code(s): K59.9 - Functional intestinal disorder, unspecified Category: Medical (2) Chronic idiopathic constipation: Code(s): K59.04 - Chronic idiopathic constipation Category: Medical (3) Pre-op examination: Code(s): Z01.818 - Encounter for other preprocedural examination Category: Medical (4) Normal colonoscopy: Comment: 2016, repeat in 5 yrs (? Incorrect she was supposed to have a 10 year follow-up which would make her due in 2026) a EB Category: Medical (5) DVT (deep venous thrombosis): Comment: recurrent on Eliquis Code(s): I82.409 - Acute embolism and thrombosis of unspecified deep veins of unspecified lower extremity Category: Medical (6) Egg protein allergy: Code(s): Z91.012 - Allergy to eggs Category: Medical (7) Change in bowel habit: Code(s): R19.4 - Change in bowel habit Category: Medical Plan The patient has been lost to follow-up since 07/2023. APPARENTLY SHE IS HERE FOR COLONOSCOPY although the repeat should be can years per myself and endoscopist I am not sure who thing she needs it this year. SHE CONTINUES TO HAVE THE SAME PROBLEMS. SHE HAS THE SEVERE BURNING in her abdomen for 5 days with absolutely no bowel movement and then when she does move her bowels she has to stay home all day and is completely watery. She is really getting quite fit up with this cycle as it is very uncomfortable and hard to live with. In the past, we had questions about whether this was precipitated by her work schedule and her inability to take the Linzess every day but now she is not working and she does take it every day and has not changed the cycle at all. We do know that she has a small bowel motility disorder. We had started her on metoclopramide but she stopped it because she says her primary told her it was ?too risky. ? She said this was based on her renal function. I find this to be patent only untrue as it really does not have any contraindications in terms of renal function and any side effects are extremely rare and tending occur only with high doses greater than 80 mg a day over a long period of time. We will be dealing with very low doses were starting at only 20 mg a day and usually the maximum I will prescribe as a total of 40 mg a day. This was all explained to the patient. Unfortunately, there is no other medication that does with this medicine does in the [place] so I think we need to revisit this. The patient is willing. For now we are going to hold off on the Linzess as we may consider lowering the dose depending on her response. Certainly she can use it if she does not have a bowel movement and she is very uncomfortable but I want to see what happens 1st just with the metoclopramide to simplify her medication regimen. She says she is due for colonoscopy per her primary because she has a ?cancer p atient. ? this is not true per guidelines as this is not a colon cancer/crossover situation. However she would be due in 2026. To put her mind at ease I will try to get a colonoscopy based on a change in bowel habits. We certainly do not want to get stuck with a bill because it is not meeting insurance guidelines and regulations. She is on Eliquis and will need to hold that for the procedure She has asthma that is sufficiently controlled and denies any other cardiac problems. There are no prior problems with anesthesia or sedation. There are no infectious disease problems. There is no known family history of colon cancer or polyps. Return office visit next available to evaluate the metoclopramide response. Orders: Orders Colonoscopy - GI Use Only Today R19.4 - Change in bowel habit Medications: New metoclopramide HCl (Reglan) 5 mg PO QIDACHS 120 tabs 6RF K59.9 - Functional intestinal disorder, unspecified bisacodyl (Dulcolax (bisacodyl)) 10 mg (2 x 5 mg) PO BEDTIME 4 tabs 0RF 2 days peg 3350-electrolytes 236-22.74-6.74 -5.86 gram (Golytely) until fecal effluent is clear; do not exceed a total volume of 2,000 mL 240 mL PO Q10M 4,000 mL 0RF 1 day Z12.11 - Encounter for screening for malignant neoplasm of colon On Hold Linzess (linaclotide) Hold Comment: Doctor's Order 290 mcg PO DAILY 90 caps 6RF NS K59.04 - Chronic idiopathic constipation COLONOSCOPY BIOPSY TODAY'S VISIT Her current GI regimen consists of Reglan 5 mg 4 times a day, and we had been holding the Linzess to see how she responds to the Reglan to see if we need to add another medication. In the past she did not take it because she was fearful of having to move her bowels when she was working. The reglan did not help her to move her bowels. She re started the Linzess 290mcg and bisacodyl 2 qhs but with these she has watery BM's - this is usualy a sign that the Linzess is too sttong so we will move to 145mcg. She was also given lactulaose by her PCP but this did not work and made her very gassy. SHe continues to have severe bloating after eating that causes her pain. She says my PCP says that if you don't schedule the colonoscopy she will send me somewhere else. I have no control over the scheduling currently, and I have no problem with her getting this procedure somewhere else if she can find better availability. However, she had an unremarkable scope in 2016 and colonoscopy is usually NOT a good diagnostic tool for constipation. IT certainly is not diagnostic for small bowel motility pathology. She thinks her PCP told her she had a large stool bolus that liquid was just going around and that the bisacodyl was going to cause her colon to expand because of this. I don't know how ileus or SBO or obstipation can be diagnosed w/o imaging, and this seems unlikely or she would have N/V and severe pain. I will get an abd XR to be safe. Katya says she does not want to see a different GI provider, but I explain that if she has the colonoscopy elsewhere this does not mean she can not come back to see us. Confounding factors to her situation are her Mounjaro, metformin and oxybutinin, her diabetes. In the past she has had a UGI showing small bowel delay which was again seen on a CT in 2023. However, the only way to address this is with reglan and she has not tolerated this. There had never been any sign of megacolon, which is the pathology that is sometimes seen in laxative abuse. ROV 3 weeks. [facility] Medical History (Updated 05/12/25 @ 13:54 by BANDAR Sheldon) Change in bowel habit Chronic constipation Loose stools SOB (shortness of breath) Medial meniscus tear Vaginosis Cellulitis Breast CA Chest pain Normal Pap smear Candidal vaginitis Encounter for pre-employment health screening examination Annual physical exam Peripheral neuropathy Lumbar spondylosis Obese Normal colonoscopy DVT (deep venous thrombosis) Asthma Hyperlipemia DM (diabetes mellitus) Surgical History History of foot surgery Hx of right mastectomy Hx of foot surgery S/P repair of paraesophageal hernia History of esophagogastroduodenoscopy (EGD) H/O colonoscopy Hx of meniscectomy of right knee Family History Father Dementia Mother No problems noted. Son No problems noted. Son No problems noted. Daughter No problems noted. Brother Substance use disorder Brother Substance use disorder Social History Housing: House Patient Tobacco Use Status: Never used Tobacco e-Cigarette/Vaping Use: Never Used service: No Current occupational status: unemployed Cognitive needs: No Hearing needs: No Vision needs: Yes Review of Systems Const Denies fatigue, Denies fever(s), Denies night sweats, Denies poor appetite and Denies weight loss ENT Reports Normal hearing present, Denies dental pain, Denies dysphagia, Denies hearing loss, Denies mouth pain, Denies odynophagia, Denies throat swelling, Denies tongue swelling and Reports other (Dentition adequate) Card Reports no additional complaints Resp Reports no additional complaints GI Details: Denies abdominal pain, Denies melena, Reports bloating, Denies hematochezia, Reports constipation, Denies GI cramping, Denies dysphagia, Denies excessive flatus, Denies early satiety, Denies heartburn, Reports diarrhea, Denies nausea, Denies odynophagia, Denies vomiting and Denies hematemesis Skin/Breast Denies pruritus, Denies lesions, Denies rash and Denies jaundice Neuro Reports Normal hearing present and Denies Abnormal speech present Endo Denies fatigue Aller/Immun Denies throat swelling and Denies tongue swelling Physical Exam Vital Signs: Last Vital Signs Pulse 110 H 05/12/25 13:38 BP 128/85 05/12/25 13:38 BMI result Body Mass Index 38.1 Const General: cooperative, no acute distress, well developed and well groomed Nutritional Appearance: well nourished and obese Orientation/consciousness: oriented to person, oriented to place and oriented to time Limitations: No language barrier HEENT Head: Yes normocephalic and Yes atraumatic Eyes General: appearance normal, both eyes and all related structures Pupils: Equal, round and reactive pupils present Neck Neck: Yes normal visual inspection and Yes no lymphadenopathy Thyroid: Thyroid normal Resp Effort & Inspection: normal respiratory effort and able to speak in complete sentences Auscultation: clear to auscultation bilaterally Cardio Rate: regular rate Rhythm: regular rhythm Heart sounds: Normal, physiologic split S2 sound present Peripheral pulses: radial pulses present and posterior tibial pulses present GI Inspection: No distended, Yes Abdominal panniculus present and Yes obesity Palpation (GI): Soft to palpation, nontender, no guarding, not rigid and No hepatosplenomegaly present Percussion: Yes normal to percussion Auscultation: normal bowel sounds Rectal Exam - Female: deferred Skin General skin exam: no rashes or lesions noted, turgor normal, skin not dry, no jaundice, No spider nevi and no striae Rashes: no rashes Nails: normal Neuro General: oriented to person, oriented to place and oriented to time Cranial nerves: Yes Equal, round and reactive pupils present and Yes Normal hearing present Speech: No Abnormal speech present Extrem General: Yes normal to inspection, No clubbing, No cyanosis and No edema Psych Appearance: grossly normal and well kempt Mental Status: mental status grossly normal Speech and movement: Normal speech and movement present Affect: normal affect Attitude: cooperative Thought process: Normal thought process present and not confabulating Thought content: Normal thought content present Insight: Fair insight present (Psych) Judgement: Fair judgement present (Psych) Assessment & Plan Assessment & Plan (1) Chronic idiopathic constipation: Code(s): K59.04 - Chronic idiopathic constipation Category: Medical (2) Small bowel motility disorder: Comment: Determined by small-bowel follow-through study Code(s): K59.9 - Functional intestinal disorder, unspecified Category: Medical Plan Her current GI regimen consists of Reglan 5 mg 4 times a day, and we had been holding the Linzess to see how she responds to the Reglan to see if we need to add another medication. In the past she did not take it because she was fearful of having to move her bowels when she was working. The reglan did not help her to move her bowels. She re started the Linzess 290mcg and bisacodyl 2 qhs but with these she has watery BM's - this is usualy a sign that the Linzess is too sttong so we will move to 145mcg. She was also given lactulaose by her PCP but this did not work and made her very gassy. SHe continues to have severe bloating after eating that causes her pain. She says my PCP says that if you don't schedule the colonoscopy she will send me somewhere else. I have no control over the scheduling currently, and I have no problem with her getting this procedure somewhere else if she can find better availability. However, she had an unremarkable scope in 2017 and colonoscopy is usually NOT a good diagnostic tool for constipation. IT certainly is not diagnostic for small bowel motility pathology. She thinks her PCP told her she had a large stool bolus that liquid was just going around and that the bisacodyl was going to cause her colon to expand because of this. I don't know how ileus or SBO or obstipation can be diagnosed w/o imaging, and this seems unlikely or she would have N/V and severe pain. I will get an abd XR to be safe. Katya says she does not want to see a different GI provider, but I explain that if she has the colonoscopy elsewhere this does not mean she can not come back to see us. Confounding factors to her situation are her Mounjaro, metformin and oxybutinin, her diabetes. In the past she has had a UGI showing small bowel delay which was again seen on a CT in 2023. However, the only way to address this is with reglan and she has not tolerated this. There had never been any sign of megacolon, which is the pathology that is sometimes seen in laxative abuse. ROV 3 weeks. COLONOSCOPY BIOPSY XR ABD Orders: Orders XR abdomen w decubitus Today K59.04 - Chronic idiopathic constipation, K59.9 - Functional intestinal disorder, unspecified Medications: New linaclotide (Linzess) Take first thing in the morning with a full glass of water. 145 mcg PO QAM 30 caps 6RF K58.1 - Irritable bowel syndrome with constipation On Hold lactulose Hold Comment: Doctor's Order 20 grams (30 mL) PO BEDTIME 1,500 mL 2RF Coding Level of Care Code Est Pt Level 3 (30270) Diagnoses Chronic idiopathic constipation K59.04 Small bowel motility disorder K59.9
--- OUTSIDE RECORDS SUMMARY | 2025-05-12 13:42 | XMS_ITS | Clinical Summary ---
Author Organization [facility] it Address [address] [place] [address] Care Team Providers Care Crime Data Specialist Name Role Phone Michell Fatima MD Primary Care Provider [phone] Social History Tobacco Use Types Packs/Day Years [...] Vaccine ( - 2023-2 5 season) 2024 Depression Screening 10/20/2024 Influenza Vaccine (#1) 2025 HIB Vaccines Aged Out No longer [...] age to complete this topic Care Teams Crime Data Specialist Relationship Specialty Start Date End Date Michell Fatiam MD PCP - General Internal Medicine 11/11/17
--- OUTSIDE RECORDS SUMMARY | 2025-05-12 13:42 | XMS_ITS | Patient Health Record ---
Author Organization [facility] Address [address] [place] [address] Care Team Providers Care Waste Oil Pumper Name Role Phone Michell Fatima MD Primary Care Provider Denny South Unavailable [phone] Brisa Weinstein Unavailable Unavailable Allergies Allergen (clinical [...] Problem Status W/U Status Risk Notes Problem [id number] Gastroesophageal reflux disease without esophagitis (K21.9) Active confirmed Problem [id number] Hiatal hernia (K44.9) Active confirmed Plan Of Treatment No Information Insurance Providers Payer Name Payer Address Payer Phone Subscriber Number Group Number Insured Name Patient Relationship to Insured Coverage Start Date Coverage End Date [facility] [address] [place], [place] [id number] [phone] [id number] ROJELIO CARBONE Self - patient is the insured Medicare of [facility] [address] [place] [address] [id number] ROJELIO CARBONE Self - patient is the insured MEDICAID OF [facility] [address] [place] [phone] [id number] ROJELIO CARBONE Self - patient is the insured Medical (General) History Medical History History ICD Code Insomnia GERD NIDDM Asthma Breast cancer on the right w ith chemotherapy/mastectomy and reconstruction--2011 UE Blood clots Fibromyalgia Hiatal hernia Raynaud's Denies [place],CVA,renal disease EGD 11/2016--small hiatal her anisa, gastric polyps, gastritis, and biopsies negative for H. pylori--by Dr. Ramon Colonoscopy 11/2016--normal--by Dr. Nita vieyra C. difficile infection in 2012. 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
== END 2025-05-12 14:20 | disposition home or self-care (01) ==
LOC: HO.HGI 13:37
PROVIDERS: PCP Internal Medicine; Visit Provider Nurse Practitioner
DX: K59.04 Chronic idiopathic constipation (principal); K59.9 Functional intestinal disorder, unspecified
CPT/HCPCS: 99213

== ENCOUNTER → 2025-05-12 13:36 | Outpatient (BNVA) | payer MEDICARE, SELFPAY | PROVIDERS: PCP Internal Medicine; Visit Provider Nurse Practitioner | DX: K59.04 Chronic idiopathic constipation (principal); K59.9 Functional intestinal disorder, unspecified | CPT/HCPCS: 99212 ==

== ENCOUNTER 2025-05-13 11:21 | Outpatient (REF) | payer BC, MEDICARE, SELFPAY ==
--- NOTE | ~2025-05-13 | XR_ITS ---
EXAMINATION: XR ABDOMEN COMPLETE CLINICAL INDICATION: K59.04 - Chronic idiopathic constipation COMPARISON: June 12, 2023 TECHNIQUE: Upright and supine x-rays of the abdomen. FINDINGS: There clips in right upper quadrant related to cholecystectomy. There is gaseous distention of the stomach and a short focal segment of small bowel in the right lower quadrant. Minimal colonic stool is evident. Numerous pelvic calcifications are chronic and consistent with phleboliths.. XR/XR abdomen min 2V IMPRESSION: Unremarkable examination. Electronically signed by: Aflredo Worthington MD 05/13/2025 11:46 AM EDT
--- OUTSIDE RECORDS SUMMARY | 2025-05-13 11:25 | XMS_ITS | Patient Health Record ---
[facility] Address [address] [place] [address] Care Team Providers Care Clinical Education Specialist Name Role Phone Michell Fatima MD Primary Care Provider Ronna Andrade Unavailable [phone] Allergies Allergen (clinical drug ingredient) Drug/Non Drug [...] Problem Acquired hammer toe of right foot ([id number] 9105) Other hammer toe(s) (acquired), right foot (M20.41) Active confirmed Problem Acquired hammer toe of left foot ([id number] 9103) Other hammer toe(s) (acquired), left foot (M20.42) Active confirmed Problem Type 2 diabetes mellitus without complications (E11.9) Active confirmed Plan Of Treatment Pending Test Test Name Order Date X ray : Foot, left 3V 05/21/2022 Insurance Providers Payer Name Payer Address Payer Phone Subscriber Number Group Number Insured Name Patient Relationship to Insured Coverage Start Date Coverage End Date [employer] [address] [place] [address] [phone] [id number] Ruel Skaggs Spouse - patient is the spouse of the insured [employer] [address] [place] [address] [phone] [id number] Katya Skaggs Self - patient is the insured Medical (General) History Medical History History ICD Code Arthritis asthma Back,Hip,and Knee pain Cancer Cataracts Diabetes mellitus type ll Gall bladder problems Chicken pox Joint implants/screws blindness left eye Surgical History Surgery Date(Month/Year) Excision Plantar fibroma 07/25/2022
--- OUTSIDE RECORDS SUMMARY | 2025-05-13 11:25 | XMS_ITS | Clinical Summary ---
Author Organization [facility] Address [address] [place] [address] Care Team Providers Care Production Tool Engineer Name Role Phone Michell Fatima MD Primary Care Provider [phone] Social History Tobacco Use Types Packs/Day Years [...] age to complete this topic Care Teams Production Tool Engineer Relationship Specialty Start Date End Date Michell Fatima MD PCP - General Internal Medicine 11/11/17
--- OUTSIDE RECORDS SUMMARY | 2025-05-13 11:25 | XMS_ITS | Patient Health Record ---
Author Organization [facility] Address [address] [place] [address] Care Team Providers Care Fiction Writer Name Role Phone Michell Fatima MD Primary Care Provider Denny South Unavailable [phone] Brisa Weinstein Unavailable Unavailable Allergies Allergen (clinical [...] Problem Status W/U Status Risk Notes Problem [id number] Gastroesophageal reflux disease without esophagitis (K21.9) Active confirmed Problem [id number] Hiatal hernia (K44.9) Active confirmed Plan Of Treatment No Information Insurance Providers Payer Name Payer Address Payer Phone Subscriber Number Group Number Insured Name Patient Relationship to Insured Coverage Start Date Coverage End Date [facility] [address] [place], [place] [id number] [phone] [id number] ROJELIO CARBONE Self - patient is the insured Medicare of [facility] [address] [place] [address] [id number] ROJELIO CARBONE Self - patient is the insured MEDICAID OF [facility] [address] [place] [phone] [id number] ROJELIO CARBONE Self - patient is the insured Medical (General) History Medical History History ICD Code Insomnia GERD NIDDM Asthma Breast cancer on the right w ith chemotherapy/mastectomy and reconstruction--2011 UE Blood clots Fibromyalgia Hiatal hernia Raynaud's Denies [place],CVA,renal disease EGD 11/2016--small hiatal her anisa, gastric polyps, gastritis, and biopsies negative for H. pylori--by Dr. Ramon Colonoscopy 11/2016--normal--by Dr. Nita vieyra C. difficile infection in 2012. 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
== END 2025-05-13 11:22 | disposition home or self-care (01) ==
LOC: HO.XRAY 11:21
PROVIDERS: PCP Internal Medicine; Visit Provider Nurse Practitioner
DX: K59.04 Chronic idiopathic constipation (principal); K59.9 Functional intestinal disorder, unspecified
CPT/HCPCS: 74019

== ENCOUNTER → 2025-05-13 11:26 | Outpatient (BNV) | payer BC, MEDICARE, SELFPAY | PROVIDERS: PCP Internal Medicine; Visit Provider Radiology Diagnostic Radiology | DX: R14.0 Abdominal distension (gaseous) (principal) | CPT/HCPCS: 74019 ==

== ENCOUNTER 2025-05-20 09:27 | Outpatient (REF) | payer BC, MEDICARE, SELFPAY ==
--- OUTSIDE RECORDS SUMMARY | 2025-05-20 09:38 | XMS_ITS | Patient Health Record ---
Author Organization [facility] Address [address] [place] [address] Care Team Providers Care Flatware Maker Name Role Phone Michell Fatima MD Primary Care Provider Denny South Unavailable [phone] Brisa Weinstein Unavailable Unavailable Allergies Allergen (clinical [...] Problem Status W/U Status Risk Notes Problem [id number] Gastroesophageal reflux disease without esophagitis (K21.9) Active confirmed Problem [id number] Hiatal hernia (K44.9) Active confirmed Plan Of Treatment No Information Insurance Providers Payer Name Payer Address Payer Phone Subscriber Number Group Number Insured Name Patient Relationship to Insured Coverage Start Date Coverage End Date [facility] [address] [place], [place] [id number] [phone] [id number] ROJELIO CARBONE Self - patient is the insured Medicare of [facility] [address] [place] [address] [id number] ROJELIO CARBONE Self - patient is the insured MEDICAID OF [facility] [address] [place] [phone] [id number] ROJELIO CARBONE Self - patient is the insured Medical (General) History Medical History History ICD Code Insomnia GERD NIDDM Asthma Breast cancer on the right w ith chemotherapy/mastectomy and reconstruction--2011 UE Blood clots Fibromyalgia Hiatal hernia Raynaud's Denies [place],CVA,renal disease EGD 11/2016--small hiatal her anisa, gastric polyps, gastritis, and biopsies negative for H. pylori--by Dr. Ramon Colonoscopy 11/2016--normal--by Dr. Nita vieyra C. difficile infection in 2012. 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
--- OUTSIDE RECORDS SUMMARY | 2025-05-20 09:39 | XMS_ITS | Clinical Summary ---
Author Organization [facility] Address [address] [place] [address] Care Team Providers Care Multimedia Authoring Specialist Name Role Phone Michell Fatima MD Primary Care Provider [phone] Social History Tobacco Use Types Packs/Day Years [...] age to complete this topic Care Teams Multimedia Authoring Specialist Relationship Specialty Start Date End Date Michell Fatima MD PCP - General Internal Medicine 11/11/17
--- OUTSIDE RECORDS SUMMARY | 2025-05-20 09:39 | XMS_ITS | Patient Health Record ---
[facility] Address [address] [place] [address] Care Team Providers Care Welder Tech Name Role Phone Michell Fatima MD Primary Care Provider Ronna Andrade Unavailable [phone] Allergies Allergen (clinical drug ingredient) Drug/Non Drug [...] Problem Acquired hammer toe of right foot (550649382719194 5) Other hammer toe(s) (acquired), right foot (M20.41) Active confirmed Problem Acquired hammer toe of left foot (905667265754061 3) Other hammer toe(s) (acquired), left foot (M20.42) Active confirmed Problem Type II diabetes mellitus without complication (409278971) Type 2 diabetes mellitus without complications (E11.9) Active confirmed Plan Of Treatment Pending Test Test Name Order Date X ray : Foot, left 3V 05/21/2022 Insurance Providers Payer Name Payer Address Payer Phone Subscriber Number Group Number Insured Name Patient Relationship to Insured Coverage Start Date Coverage End Date [facility] All Others [address] [place] [address] [phone] [id number] Ruel Skaggs Spouse - patient is the spouse of the insured Medicare National [employer] [address] [place] [address] [phone] [id number] Katya Skaggs Self - patient is the insured Medical (General) History Medical History History ICD Code Arthritis asthma Back,Hip,and Knee pain Cancer Cataracts Diabetes mellitus type ll Gall bladder problems Chicken pox Joint implants/screws blindness left eye Surgical History Surgery Date(Month/Year) Excision Plantar fibroma 07/25/2022
[2025-05-20 11:46] LABS: Alanine Aminotransferase 24 U/L (0-31); Albumin Level 4.1 g/dL (3.5-5.0); Alkaline Phosphatase 73 U/L (39-117); Anion Gap 9 (12-20); Aspartate Amino Transferase 24 U/L (5-31); Blood Urea Nitrogen 9 mg/dL (9-16); Calcium 8.6 mg/dL (8.4-10.2); Carbon Dioxide 28 mmol/L (22-29); Chloride 109 mmol/L (96-108); Cholesterol 186 mg/dL (<200); Estimated Glomerular Filt Rate > 60; HDL Cholesterol 58 mg/dL (>40); Potassium 4.3 mmol/L (3.3-5.1); Sodium 142 mmol/L (135-145); Total Protein 7.1 g/dL (6.5-8.0); Triglycerides 70 mg/dL (<150)
[2025-05-20 12:35] LABS: Hemoglobin A1C 203.4784 umol/L; Total Hemoglobin (HGBA1C) 3421.2599 umol/L
== END 2025-05-20 09:28 | disposition home or self-care (01) ==
LOC: HO.HMGCLDS 09:27
PROVIDERS: PCP Internal Medicine; Visit Provider Internal Medicine
DX: E11.9 Type 2 diabetes mellitus without complications (principal); E78.5 Hyperlipidemia, unspecified
CPT/HCPCS: 36415; 80053; 80061; 83036

== ENCOUNTER 2025-05-23 10:33 | Outpatient (AMB) | payer BC, MEDICARE, SELFPAY ==
--- NOTE | 2025-05-23 11:01 | MHC.PC.OV ---
Vital Signs 05/23/25 11:10 Height 5 ft 2 in Weight 211 lb BMI 38.6 BP 122/70 Blood Pressure Location Lt brachial Position Sitting Respiration 18 Pulse 87 Pulse Source Pulse Oximeter Temp 97.8 F Temp Source Oral Pulse Oximetry (%) 97 Oxygen Delivery Method Room Air Intake Visit Reasons: 1 month follow up Intake Note: Pt is here today for 1 month follow up visit. Allergies codeine (CODEINE) Allergy (Severe, Verified 05/23/25 11:14) SWELLING dapagliflozin (From FARXIGA) Allergy (Intermediate, Verified 05/23/25 11:14) RASH latex (LATEX) Allergy (Intermediate, Verified 05/23/25 11:14) RASH montelukast (MONTELUKAST) Allergy (Mild, Verified 05/23/25 11:14) ill effects oxycodone (OXYCODONE) Allergy (Unknown, Verified 05/23/25 11:14) Rash lactulose Adverse Reaction (Intermediate, Verified 05/23/25 11:52) Abdominal Pain Medication List - Last Reconciled 05/23/25 by Michell Fatima MD albuterol sulfate 2.5 mg inhaled every 20 min for up to 3 doses PRN; apixaban 5 mg PO BID atorvastatin 20 mg PO DAILY bisacodyl (Dulcolax (bisacodyl)) 10 mg (2 x 5 mg) PO BEDTIME 2 days blood sugar diagnostic (FreeStyle Lite Strips) check glucose once a day blood-glucose meter (OneTouch Ultra2 Meter) As directed blood-glucose meter (FreeStyle [place] kit) 1 bid fluticasone furoate 100 mcg/actuation 1 inh inhalation DAILY gabapentin (Neurontin) 100 mg PO BID glipizide 10 mg PO BID guaifenesin (Tussin Chest Congestion) PO lactulose 20 grams (30 mL) PO BEDTIME Held on 05/12/25. Instructions: Doctor's Order linaclotide (Linzess) 145 mcg PO QAM metformin 1,000 mg PO BID montelukast 10 mg PO BEDTIME Mounjaro (tirzepatide) 2.5 mg (0.5 mL) subcut QWEEK NS multivitamin (Daily Multi-Vitamin tablet) 1 tab PO DAILY nebulizers As directed oxybutynin chloride 2.5 mg PO BID Tobacco use date assessed: 05/23/25 Dental Screening Dental Screen Date: 11/19/24 HPI 1 month follow up HPI Details Patient presents for the follow-up on type 2 diabetes hyperlipidemia hypertension and chronic constipation. Patient did not take Mounjaro for a month because of delayed insurance approval. She has been taking Linzess and stool softener for chronic constipation and will have colonoscopy in few months. Patient could not tolerate lactulose for constipation. She developed abdominal bloating. [facility] Medical History Change in bowel habit Chronic constipation Loose stools SOB (shortness of breath) Medial meniscus tear Vaginosis Cellulitis Breast CA Chest pain Normal Pap smear Candidal vaginitis Encounter for pre-employment health screening examination Annual physical exam Peripheral neuropathy Lumbar spondylosis Obese Normal colonoscopy DVT (deep venous thrombosis) Asthma Hyperlipemia DM (diabetes mellitus) Surgical History History of foot surgery Hx of right mastectomy Hx of foot surgery S/P repair of paraesophageal hernia History of esophagogastroduodenoscopy (EGD) H/O colonoscopy Hx of meniscectomy of right knee Family History Father Dementia Mother No problems noted. Son No problems noted. Son No problems noted. Daughter No problems noted. Brother Substance use disorder Brother Substance use disorder Social History Housing: House Patient Tobacco Use Status: Never used Tobacco e-Cigarette/Vaping Use: Never Used service: No Current occupational status: unemployed Cognitive needs: No Hearing needs: No Vision needs: Yes Questionnaire Thrive Questionnaire Date Thrive assessed: 09/01/24 I am a: Patient RAMON-7 AMB Questionnaire RAMON-7 Date RAMON - 7 assessed: 11/19/24 Source: Developed by Drs. Denny Cooley, Eneida Fleming, Markell Mtz and colleagues, with an educational jenise from [employer]. Review of Systems Const All systems reviewed & are unremarkable except as noted in HPI and below Eyes Reports no additional complaints ENT Reports no additional complaints Card Reports no additional complaints Resp Reports no additional complaints GI Reports no additional complaints Reports no additional complaints Physical exam (Primary Care) Vital Signs: Last Vital Signs Temp 97.8 F 05/23/25 11:10 Pulse 87 05/23/25 11:10 Resp 18 05/23/25 11:10 BP 122/70 05/23/25 11:10 Pulse Ox 97 05/23/25 11:10 Oxygen Delivery Method Room Air 05/23/25 11:10 BMI result Body Mass Index 38.6 Tobacco/Smoking Status: Tobacco use Status Tobacco use date assessed 05/23/25 05/23/25 11:17 Patient Tobacco Use Status Never used Tobacco 05/23/25 11:17 e-Cigarette/Vaping Use Never Used 05/23/25 11:01 Thrive Assessment: Date of Thrive Assessment Date Thrive assessed 09/01/24 05/23/25 11:01 Const General: no acute distress HENMT Head: Yes normal to inspection Neck Neck: Yes supple Resp Effort & Inspection: normal respiratory effort Auscultation: clear to auscultation bilaterally Cardio Rhythm: regular rhythm Heart sounds: S1 normal heart sound present and S2 normal heart sound present GI Inspection: Yes normal to inspection Palpation (GI): Soft to palpation Percussion: Yes normal to percussion Auscultation: normal bowel sounds Coding Level of Care Code Est Pt Level 4 (04561) Diagnoses DM (diabetes mellitus) E11.9 Hyperlipemia E78.5 Chronic idiopathic constipation K59.04 Assessment & Plan Assessment & Plan (1) DM (diabetes mellitus): Comment: Intolerant to Farxiga and Trulicity(rash) Code(s): E11.9 - Type 2 diabetes mellitus without complications Category: Medical Plan: A1c is 7.6 from 6.7. ADA diet increase exercise weight loss discussed with the patient she will restart Mounjaro 2.5 mg and after month will increase the dose to 5 mg if tolerates. Follow-up in 3 months with a fasting labs before (2) Hyperlipemia: Code(s): E78.5 - Hyperlipidemia, unspecified Category: Medical Plan: Increase atorvastatin to 40 mg a day for the goal of LDL less than 100 (3) Chronic idiopathic constipation: Code(s): K59.04 - Chronic idiopathic constipation Category: Medical Plan: Continue Linzess and stool softener follow-up with GI Orders: Orders Comprehensive [place]. Panel Fast 3 Months E11.9 - Type 2 diabetes mellitus without complications, E78.5 - Hyperlipidemia, unspecified Hemoglobin A1c 3 Months E11.9 - Type 2 diabetes mellitus without complications, E78.5 - Hyperlipidemia, unspecified Microalbumin, Random (w Creat) 3 Months E11.9 - Type 2 diabetes mellitus without complications, E78.5 - Hyperlipidemia, unspecified Complete Blood Count Auto Diff 3 Months E11.9 - Type 2 diabetes mellitus without complications, E78.5 - Hyperlipidemia, unspecified Lipid Panel 3 Months E11.9 - Type 2 diabetes mellitus without complications, E78.5 - Hyperlipidemia, unspecified Medications: New atorvastatin (Lipitor) 40 mg PO BEDTIME 90 tabs 3RF Mounjaro (tirzepatide) 5 mg (0.5 mL) subcut QWEEK 2 mL 2RF NS Discontinued atorvastatin Discontinued Reason: Doctor's Order 20 mg PO DAILY 90 tabs 3RF lactulose Discontinued Reason: Doctor's Order 20 grams (30 mL) PO BEDTIME 1,500 mL 2RF
[2025-05-23 11:10] VITALS: BP 122/70; PULSE 87; RESP 18; TEMP 36.6; O2SAT 97; BMI 38.6
--- OUTSIDE RECORDS SUMMARY | 2025-05-23 11:20 | XMS_ITS | Clinical Summary ---
Author Organization [facility] Address [address] [place] [address] Care Team Providers Care Collision Worker Name Role Phone Michell Fatima MD Primary Care Provider [phone] Social History Tobacco Use Types Packs/Day Years [...] age to complete this topic Care Teams Collision Worker Relationship Specialty Start Date End Date Michell Fatima MD PCP - General Internal Medicine 11/11/17
--- OUTSIDE RECORDS SUMMARY | 2025-05-23 11:20 | XMS_ITS | Patient Health Record ---
[facility] Address [address] [place] [address] Care Team Providers Care Marine Geologist Name Role Phone Michell Fatima MD Primary Care Provider Ronna Andrade Unavailable [phone] Allergies Allergen (clinical drug ingredient) Drug/Non Drug [...] 15 MG TAKE 1 TABLET BY LAMIN EVERY DAY Oral; Duration: 30 Active Linzess [...] Problem Acquired hammer toe of right foot (752948400820103 5) Other hammer toe(s) (acquired), right foot (M20.41) Active confirmed Problem Acquired hammer toe of left foot (665646400622614 3) Other hammer toe(s) (acquired), left foot (M20.42) Active confirmed Problem Type II diabetes mellitus without complication (871702434) Type 2 diabetes mellitus without complications (E11.9) Active confirmed Plan Of Treatment Pending Test Test Name Order Date X ray : Foot, left 3V 05/21/2022 Insurance Providers Payer Name Payer Address Payer Phone Subscriber Number Group Number Insured Name Patient Relationship to Insured Coverage Start Date Coverage End Date [facility] All Others [address] [place] [address] [phone] [id number] Ruel Skaggs Spouse - patient is the spouse of the insured Medicare National Govt [employer] [address] [place] [address] [id number] Katya Skaggs Self - patient is the insured Medical (General) History Medical History History ICD Code Arthritis asthma Back,Hip,and Knee pain Cancer Cataracts Diabetes mellitus type ll Gall bladder problems Chicken pox Joint implants/screws blindness left eye Surgical History Surgery Date(Month/Year) Excision Plantar fibroma 07/25/2022
--- OUTSIDE RECORDS SUMMARY | 2025-05-23 11:20 | XMS_ITS | Patient Health Record ---
Author Organization [facility] Address [address] [place] [address] Care Team Providers Care Instrumentation Fitter Name Role Phone Michell Fatima MD Primary Care Provider Denny South Unavailable [phone] Brisa Weinstein Unavailable Unavailable Allergies Allergen (clinical [...] Problem Status W/U Status Risk Notes Problem [id number] Gastroesophageal reflux disease without esophagitis (K21.9) Active confirmed Problem [id number] Hiatal hernia (K44.9) Active confirmed Plan Of Treatment No Information Insurance Providers Payer Name Payer Address Payer Phone Subscriber Number Group Number Insured Name Patient Relationship to Insured Coverage Start Date Coverage End Date [facility] [address] [place], [place] [id number] [phone] [id number] ROJELIO CARBONE Self - patient is the insured Medicare of [facility] [address] [place] [address] [id number] ROJELIO CARBONE Self - patient is the insured MEDICAID OF [facility] [address] [place] [phone] [id number] ROJELIO CARBONE Self - patient is the insured Medical (General) History Medical History History ICD Code Insomnia GERD NIDDM Asthma Breast cancer on the right w ith chemotherapy/mastectomy and reconstruction--2011 UE Blood clots Fibromyalgia Hiatal hernia Raynaud's Denies NC,CVA,renal disease EGD 11/2016--small hiatal her anisa, gastric polyps, gastritis, and biopsies negative for H. pylori--by Dr. Ramon Colonoscopy 11/2016--normal--by Dr. Nita vieyra C. difficile infection in 2012. 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
== END 2025-05-23 12:32 | disposition home or self-care (01) ==
LOC: HO.HMCC 10:34
PROVIDERS: PCP Internal Medicine; Visit Provider Internal Medicine
DX: E11.9 Type 2 diabetes mellitus without complications (principal); E78.5 Hyperlipidemia, unspecified; K59.04 Chronic idiopathic constipation

== ENCOUNTER 2025-06-09 09:36 | Outpatient (AMB) | payer BC, MEDICARE, SELFPAY ==
--- NOTE | 2025-06-09 09:42 | A.OFFVIS_ITS ---
Vital Signs 06/09/25 09:44 Height 5 ft 2 in Weight 205 lb 0.478 oz BMI 37.5 BP 130/85 Blood Pressure Location Lt brachial Position Sitting Pulse 91 Intake Visit Reasons: Follow up constipation Intake Note: Katya presents in the office as a follow up for her constipation. 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 Required: No Allergies codeine (CODEINE) Allergy (Severe, Verified 06/09/25 09:44) SWELLING dapagliflozin (From FARXIGA) Allergy (Intermediate, Verified 06/09/25 09:44) RASH latex (LATEX) Allergy (Intermediate, Verified 06/09/25 09:44) RASH montelukast (MONTELUKAST) Allergy (Mild, Verified 06/09/25 09:44) ill effects oxycodone (OXYCODONE) Allergy (Unknown, Verified 06/09/25 09:44) Rash lactulose Adverse Reaction (Intermediate, Verified 06/09/25 09:44) Abdominal Pain HPI HPI Follow up constipation: Details: Assessment & Plan (1) Chronic idiopathic constipation: Code(s): K59.04 - Chronic idiopathic constipation Category: Medical (2) Small bowel motility disorder: Comment: Determined by small-bowel follow-through study Code(s): K59.9 - Functional intestinal disorder, unspecified Category: Medical Plan Her current GI regimen consists of Reglan 5 mg 4 times a day, and we had been holding the Linzess to see how she responds to the Reglan to see if we need to add another medication. In the past she did not take it because she was fearful of having to move her bowels when she was working. The reglan did not help her to move her bowels. She re started the Linzess 290mcg and bisacodyl 2 qhs but with these she has watery BM's - this is usualy a sign that the Linzess is too sttong so we will move to 145mcg. She was also given lactulaose by her PCP but this did not work and made her very gassy. SHe continues to have severe bloating after eating that causes her pain. She says my PCP says that if you don't schedule the colonoscopy she will send me somewhere else. I have no control over the scheduling currently, and I have no problem with her getting this procedure somewhere else if she can find better availability. However, she had an unremarkable scope in 2017 and colonoscopy is usually NOT a good diagnostic tool for constipation. IT certainly is not diagnostic for small bowel motility pathology. She thinks her PCP told her she had a large stool bolus that liquid was just going around and that the bisacodyl was going to cause her colon to expand because of this. I don't know how ileus or SBO or obstipation can be diagnosed w/o imaging, and this seems unlikely or she would have N/V and severe pain. I will get an abd XR to be safe. Katya says she does not want to see a different GI provider, but I explain that if she has the colonoscopy elsewhere this does not mean she can not come back to see us. Confounding factors to her situation are her Mounjaro, metformin and oxybutinin, her diabetes. In the past she has had a UGI showing small bowel delay which was again seen on a CT in 2023. However, the only way to address this is with reglan and she has not tolerated this. There had never been any sign of megacolon, which is the pathology that is sometimes seen in laxative abuse. ROV 3 weeks. Orders: Orders XR abdomen w decubitus Today K59.04 - Chronic idiopathic constipation, K59.9 - Functional intestinal disorder, unspecified Medications: New linaclotide (Linzess) Take first thing in the morning with a full glass of water. 145 mcg PO QAM 30 caps 6RF K58.1 - Irritable bowel syndrome with constipation On Hold lactulose Hold Comment: Doctor's Order 20 grams (30 mL) PO BEDTIME 1,500 mL 2RF COLONOSCOPY BIOPSY XR ABD 05/13/2025 FINDINGS: There clips in right upper quadrant related to cholecystectomy. There is gaseous distention of the stomach and a short focal segment of small bowel in the right lower quadrant. Minimal colonic stool is evident. Numerous pelvic calcifications are chronic and consistent with phleboliths.. XR/XR abdomen min 2V IMPRESSION: Unremarkable examination. TODAY'S VISIT Her last GI regimen consisted of metoclopramide 5 mg 5 times a day, Linzess 290 that we decrease to 145 due to watery BMs, bisacodyl. (Confounding factors to her situation are her Mounjaro, metformin and oxybutinin, her diabetes. In the past she has had a UGI showing small bowel delay which was again seen on a CT in 2023. However, the only way to address this is with reglan and she has not tolerated this. There had never been any sign of megacolon, which is the pathology that is sometimes seen in laxative abuse. ) [facility] Medical History Change in bowel habit Chronic constipation Loose stools SOB (shortness of breath) Medial meniscus tear Vaginosis Cellulitis Breast CA Chest pain Normal Pap smear Candidal vaginitis Encounter for pre-employment health screening examination Annual physical exam Peripheral neuropathy Lumbar spondylosis Obese Normal colonoscopy DVT (deep venous thrombosis) Asthma Hyperlipemia DM (diabetes mellitus) Surgical History History of foot surgery Hx of right mastectomy Hx of foot surgery S/P repair of paraesophageal hernia History of esophagogastroduodenoscopy (EGD) H/O colonoscopy Hx of meniscectomy of right knee Family History Father Dementia Mother No problems noted. Son No problems noted. Son No problems noted. Daughter No problems noted. Brother Substance use disorder Brother Substance use disorder Social History Housing: House Patient Tobacco Use Status: Never used Tobacco e-Cigarette/Vaping Use: Never Used service: No Current occupational status: unemployed Cognitive needs: No Hearing needs: No Vision needs: Yes Review of Systems Const Denies fatigue, Denies fever(s), Denies night sweats, Denies poor appetite and Denies weight loss ENT Reports Normal hearing present, Denies dental pain, Denies dysphagia, Denies hearing loss, Denies mouth pain, Denies odynophagia, Denies throat swelling, Denies tongue swelling and Reports other (Dentition adequate) Card Reports no additional complaints Resp Reports no additional complaints GI Details: Denies abdominal pain, Denies melena, Reports bloating, Denies hematochezia, Reports constipation, Denies GI cramping, Denies dysphagia, Reports excessive flatus, Denies early satiety, Reports heartburn, Denies diarrhea, Denies nausea, Denies odynophagia, Denies vomiting and Denies hematemesis Skin/Breast Denies pruritus, Denies lesions, Denies rash and Denies jaundice Neuro Reports Normal hearing present and Denies Abnormal speech present Endo Denies fatigue Aller/Immun Denies throat swelling and Denies tongue swelling Physical Exam Vital Signs: Last Vital Signs Pulse 91 06/09/25 09:44 BP 130/85 06/09/25 09:44 BMI result Body Mass Index 37.5 Const General: cooperative, no acute distress, well developed and well groomed Nutritional Appearance: well nourished and obese Orientation/consciousness: oriented to person, oriented to place and oriented to time Limitations: No language barrier HEENT Head: Yes normocephalic and Yes atraumatic Eyes General: appearance normal, both eyes and all related structures Pupils: Equal, round and reactive pupils present Neck Neck: Yes normal visual inspection and Yes no lymphadenopathy Thyroid: Thyroid normal Resp Effort & Inspection: normal respiratory effort and able to speak in complete sentences Auscultation: clear to auscultation bilaterally Cardio Rate: regular rate Rhythm: regular rhythm Heart sounds: Normal, physiologic split S2 sound present Peripheral pulses: radial pulses present and posterior tibial pulses present GI Inspection: No distended, Yes Abdominal panniculus present and Yes obesity Palpation (GI): Soft to palpation, nontender, no guarding, not rigid and No hepatosplenomegaly present Percussion: Yes normal to percussion Auscultation: normal bowel sounds Rectal Exam - Female: deferred Skin General skin exam: no rashes or lesions noted, turgor normal, skin not dry, no jaundice, No spider nevi and no striae Rashes: no rashes Nails: normal Neuro General: oriented to person, oriented to place and oriented to time Cranial nerves: Yes Equal, round and reactive pupils present and Yes Normal hearing present Speech: No Abnormal speech present Extrem General: Yes normal to inspection, No clubbing, No cyanosis and No edema Psych Appearance: grossly normal and well kempt Mental Status: mental status grossly normal Speech and movement: Normal speech and movement present Affect: normal affect Attitude: cooperative Thought process: Normal thought process present and not confabulating Thought content: Normal thought content present Insight: Fair insight present (Psych) and Limited insight present (Psych) Judgement: Fair judgement present (Psych) and Limited judgement present (Psych) Assessment & Plan Assessment & Plan (1) Chronic idiopathic constipation: Code(s): K59.04 - Chronic idiopathic constipation Category: Medical (2) Small bowel motility disorder: Comment: Determined by small-bowel follow-through study Code(s): K59.9 - Functional intestinal disorder, unspecified Category: Medical Plan History of Present Illness - The patient is a 59-year-old female presenting for follow-up on severe constipation and bloating. - She reports a mix of constipation and diarrhea, with recent watery stools following a period of no bowel movement for the past 2 weeks. She did not remember that our plan was to decrease the Linzess 245 micro g from 290, so I question whether she continued on the higher dose until she refilled the medication and that might explain the lack of bowel movement currently. - Symptoms arose post hernia repair, alongside polyp history. - She experiences side effects from Mounjaro and Metformin, inclusive of reduced gut mobility, abdominal pain, and bloating. - Probiotic use shows limited relief for burning pain and cramping. - Her last colonoscopy in 2018 showed polyps; we ordered a colonoscopy for which she is slightly overdue and I sent a repeat reminder to the schedulers to see if we can get this moving - Lifestyle includes a meticulous diet devoid of fried foods, breads, pasta, and red meat, focusing on vegetables and lean meats. -x-ray of the abdomen obtained at the last visit when she was complaining of constipation showed very little stool burden, so it seems that her bloating is not due to fecal buildup but more likely this is related to gas and bloating. We have never tried simethicone and I think this will be the 1st step. Plan - bring all of your meds to next visit so that we can know what dose your taking and go forward for titrating the Linzess dosage. - I approve and encouraged probiotic use which has been helpful for to her in the past. - Expedite colonoscopy scheduling to assess polyp history and bowel condition. - Introduce simethicone to address bloating and gas symptoms. If this is not effective we can consider treatments for SIBO with the introduction of Creon depending on the outcome of the simethicone challenge. - Continue dietary restrictions and monitor cholesterol levels through diet. Patient was informed and verbally consented to the use of an ambient scribe for clinic note documentation during this visit. Return office visit in 2 weeks Medications: New simethicone after meals 180 mg PO QID 120 caps 6RF 30 days Patient Instructions: Patient Instructions - Check and bring all current medication bottles, including vitamins and [id number] supplements, to next appointment. - Continue taking probiotics as they seem helpful in managing symptoms. - Consider using simethicone as recommended to relieve bloating and gas. - Follow dietary restrictions by avoiding fried foods, bread, rice, pasta, and red meat. Focus on vegetables and lean meats. - Report any significant changes in bowel habits or new symptoms. - Attend follow-up appointments to finalize colonoscopy scheduling. - Continue scheduled medications as prescribed until further notice. - Stay vigilant for signs of gastrointestinal bleeding or severe abdominal pain, and seek immediate care if they occur. Coding Level of Care Code Est Pt Level 3 (56540) Diagnoses Chronic idiopathic constipation K59.04 Small bowel motility disorder K59.9
[2025-06-09 09:44] VITALS: BP 130/85; PULSE 91; BMI 37.5
--- OUTSIDE RECORDS SUMMARY | 2025-06-09 10:53 | XMS_ITS | Patient Health Record ---
[facility] Address [address] [place] [address] Care Team Providers Care Mineral Resources Inspector Name Role Phone Michell Fatima MD Primary Care Provider Ronna Andrade Unavailable [phone] Allergies Allergen (clinical drug ingredient) Drug/Non Drug [...] Problem Acquired hammer toe of right foot (963499862424430 5) Other hammer toe(s) (acquired), right foot (M20.41) Active confirmed Problem Acquired hammer toe of left foot ([id number] 3) Other hammer toe(s) (acquired), left foot (M20.42) Active confirmed Problem Type II diabetes mellitus without complication (036801555) Type 2 diabetes mellitus without complications (E11.9) Active confirmed Plan Of Treatment Pending Test Test Name Order Date X ray : Foot, left 3V 05/21/2022 Insurance Providers Payer Name Payer Address Payer Phone Subscriber Number Group Number Insured Name Patient Relationship to Insured Coverage Start Date Coverage End Date [facility] All Others [address] [place] [address] [phone] [id number] Ruel Skaggs Spouse - patient is the spouse of the insured Medicare National [employer]t [employer] [address] [facility] [address] [id number] Katya Skaggs Self - patient is the insured Medical (General) History Medical History History ICD Code Arthritis asthma Back,Hip,and Knee pain Cancer Cataracts Diabetes mellitus type ll Gall bladder problems Chicken pox Joint implants/screws blindness left eye Surgical History Surgery Date(Month/Year) Excision Plantar fibroma 07/25/2022
--- OUTSIDE RECORDS SUMMARY | 2025-06-09 10:53 | XMS_ITS | Clinical Summary ---
Author Organization [facility] Address [address] [place] [address] Care Team Providers Care Log Peeler Name Role Phone Michell Fatima MD Primary Care Provider [phone] Social History Tobacco Use Types Packs/Day Years [...] age to complete this topic Care Teams Log Peeler Relationship Specialty Start Date End Date Michell Fatima MD PCP - General Internal Medicine 11/11/17
--- OUTSIDE RECORDS SUMMARY | 2025-06-09 10:53 | XMS_ITS | Patient Health Record ---
Author Organization [facility] Address [address] [place] [address] Care Team Providers Care Button Broacher Name Role Phone Michell Fatima MD Primary Care Provider Denny South Unavailable [phone] Brisa Weinstein Unavailable Unavailable Allergies Allergen (clinical [...] Problem Status W/U Status Risk Notes Problem [id number] Gastroesophageal reflux disease without esophagitis (K21.9) Active confirmed Problem [id number] Hiatal hernia (K44.9) Active confirmed Plan Of Treatment No Information Insurance Providers Payer Name Payer Address Payer Phone Subscriber Number Group Number Insured Name Patient Relationship to Insured Coverage Start Date Coverage End Date [facility] [address] [place], [place] [phone] [id number] ROJELIO CARBONE Self - patient is the insured Medicare of [facility] [address] [place] [address] [id number] ROJELIO CARBONE Self - patient is the insured MEDICAID OF [facility] [address] [place] [phone] [id number] ROJELIO CARBONE Self - patient is the insured Medical (General) History Medical History History ICD Code Insomnia GERD NIDDM Asthma Breast cancer on the right w ith chemotherapy/mastectomy and reconstruction--2011 UE Blood clots Fibromyalgia Hiatal hernia Raynaud's Denies RI,CVA,renal disease EGD 11/2016--small hiatal her anisa, gastric polyps, gastritis, and biopsies negative for H. pylori--by Dr. Ramon Colonoscopy 11/2016--normal--by Dr. Nita vieyra C. difficile infection in 2012. 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
== END 2025-06-09 10:19 | disposition home or self-care (01) ==
LOC: HO.HGI 09:37
PROVIDERS: PCP Internal Medicine; Visit Provider Nurse Practitioner
DX: K59.04 Chronic idiopathic constipation (principal); K59.9 Functional intestinal disorder, unspecified
CPT/HCPCS: 99213

== ENCOUNTER 2025-06-24 09:34 | Outpatient (AMB) | payer BC, MEDICARE, SELFPAY ==
[2025-06-24 09:36] VITALS: BP 134/83; PULSE 95; BMI 38.2
--- NOTE | 2025-06-24 09:36 | MHC.OFFVIS ---
Vital Signs 06/24/25 09:36 Height 5 ft 2 in Weight 208 lb 15.971 oz BMI 38.2 BP 134/83 Blood Pressure Location Lt brachial Position Sitting Pulse 95 Intake Visit Reasons: 2w Intake Note: Katya returns to in office 2 weeks follow up for constipation. CC: Patient reports having constipation and that is usually (up and down). Procurement Analyst Required: No Accompanied by: Self / Same As Patient Allergies codeine (CODEINE) Allergy (Severe, Verified 06/24/25 09:39) SWELLING dapagliflozin (From FARXIGA) Allergy (Intermediate, Verified 06/24/25 09:39) RASH latex (LATEX) Allergy (Intermediate, Verified 06/24/25 09:39) RASH montelukast (MONTELUKAST) Allergy (Mild, Verified 06/24/25 09:39) ill effects oxycodone (OXYCODONE) Allergy (Unknown, Verified 06/24/25 09:39) Rash lactulose Adverse Reaction (Intermediate, Verified 06/24/25 09:39) Abdominal Pain HPI HPI 2w: Details: Assessment & Plan (1) Chronic idiopathic constipation: Code(s): K59.04 - Chronic idiopathic constipation Category: Medical (2) Small bowel motility disorder: Comment: Determined by small-bowel follow-through study Code(s): K59.9 - Functional intestinal disorder, unspecified Category: Medical Plan History of Present Illness - The patient is a 59-year-old female presenting for follow-up on severe constipation and bloating. - She reports a mix of constipation and diarrhea, with recent watery stools following a period of no bowel movement for the past 2 weeks. She did not remember that our plan was to decrease the Linzess 145 micro g from 290, so I question whether she continued on the higher dose until she refilled the medication and that might explain the lack of bowel movement currently. - Symptoms arose post hernia repair, alongside polyp history. - She experiences side effects from Mounjaro and Metformin, inclusive of reduced gut mobility, abdominal pain, and bloating. - Probiotic use shows limited relief for burning pain and cramping. - Her last colonoscopy in 2018 showed polyps; we ordered a colonoscopy for which she is slightly overdue and I sent a repeat reminder to the schedulers to see if we can get this moving - Lifestyle includes a meticulous diet devoid of fried foods, breads, pasta, and red meat, focusing on vegetables and lean meats. -x-ray of the abdomen obtained at the last visit when she was complaining of constipation showed very little stool burden, so it seems that her bloating is not due to fecal buildup but more likely this is related to gas and bloating. We have never tried simethicone and I think this will be the 1st step. Plan - bring all of your meds to next visit so that we can know what dose your taking and go forward for titrating the Linzess dosage. - I approve and encouraged probiotic use which has been helpful for to her in the past. - Expedite colonoscopy scheduling to assess polyp history and bowel condition. - Introduce simethicone to address bloating and gas symptoms. If this is not effective we can consider treatments for SIBO with the introduction of Creon depending on the outcome of the simethicone challenge. - Continue dietary restrictions and monitor cholesterol levels through diet. Patient was informed and verbally consented to the use of an ambient scribe for clinic note documentation during this visit. Return office visit in 2 weeks Medications: New simethicone after meals 180 mg PO QID 120 caps 6RF 30 days Patient Instructions: Patient Instructions - Check and bring all current medication bottles, including vitamins and [id number] supplements, to next appointment. - Continue taking probiotics as they seem helpful in managing symptoms. - Consider using simethicone as recommended to relieve bloating and gas. - Follow dietary restrictions by avoiding fried foods, bread, rice, pasta, and red meat. Focus on vegetables and lean meats. - Report any significant changes in bowel habits or new symptoms. - Attend follow-up appointments to finalize colonoscopy scheduling. - Continue scheduled medications as prescribed until further notice. - Stay vigilant for signs of gastrointestinal bleeding or severe abdominal pain, and seek immediate care if they occur. TODAY'S VISIT [facility] Medical History (Updated 06/24/25 @ 09:45 by BANDAR Sheldon) CAP (community acquired pneumonia) Change in bowel habit Chronic constipation Loose stools SOB (shortness of breath) Medial meniscus tear Vaginosis Cellulitis Breast CA Chest pain Normal Pap smear Candidal vaginitis Encounter for pre-employment health screening examination Annual physical exam Peripheral neuropathy Lumbar spondylosis Obese Normal colonoscopy DVT (deep venous thrombosis) Asthma Hyperlipemia DM (diabetes mellitus) Surgical History History of foot surgery Hx of right mastectomy Hx of foot surgery S/P repair of paraesophageal hernia History of esophagogastroduodenoscopy (EGD) H/O colonoscopy Hx of meniscectomy of right knee Family History Father Dementia Mother No problems noted. Son No problems noted. Son No problems noted. Daughter No problems noted. Brother Substance use disorder Brother Substance use disorder Social History Housing: House Patient Tobacco Use Status: Never used Tobacco e-Cigarette/Vaping Use: Never Used service: No Current occupational status: unemployed Cognitive needs: No Hearing needs: No Vision needs: Yes Review of Systems Const Denies fatigue, Denies fever(s), Denies night sweats, Reports poor appetite and Reports weight loss ENT Reports Normal hearing present, Denies dental pain, Denies dysphagia, Denies hearing loss, Denies mouth pain, Denies odynophagia, Denies throat swelling, Denies tongue swelling and Reports other (Dentition adequate) Card Reports no additional complaints Resp Reports no additional complaints GI Details: Denies abdominal pain, Denies melena, Reports bloating, Denies hematochezia, Reports constipation, Denies GI cramping, Denies dysphagia, Denies excessive flatus, Denies early satiety, Reports heartburn, Denies diarrhea, Denies nausea, Denies odynophagia, Denies vomiting and Denies hematemesis Skin/Breast Denies pruritus, Denies lesions, Denies rash and Denies jaundice Neuro Reports Normal hearing present and Denies Abnormal speech present Endo Denies fatigue Aller/Immun Denies throat swelling and Denies tongue swelling Physical Exam Vital Signs: Last Vital Signs Pulse 95 06/24/25 09:36 BP 134/83 06/24/25 09:36 BMI result Body Mass Index 38.2 Const General: cooperative, no acute distress, well developed and well groomed Nutritional Appearance: well nourished and obese Orientation/consciousness: oriented to person, oriented to place and oriented to time Limitations: No language barrier HEENT Head: Yes normocephalic and Yes atraumatic Eyes General: appearance normal, both eyes and all related structures Pupils: Equal, round and reactive pupils present Neck Neck: Yes normal visual inspection and Yes no lymphadenopathy Thyroid: Thyroid normal Resp Effort & Inspection: normal respiratory effort and able to speak in complete sentences Auscultation: clear to auscultation bilaterally Cardio Rate: regular rate Rhythm: regular rhythm Heart sounds: Normal, physiologic split S2 sound present Peripheral pulses: radial pulses present and posterior tibial pulses present GI Inspection: No distended, Yes Abdominal panniculus present and Yes obesity Palpation (GI): Soft to palpation, nontender, no guarding, not rigid, No hepatosplenomegaly present and Hepatosplenomegaly present Percussion: Yes normal to percussion Auscultation: normal bowel sounds Rectal Exam - Female: deferred Skin General skin exam: no rashes or lesions noted, turgor normal, skin not dry, no jaundice, No spider nevi and no striae Rashes: no rashes Nails: normal Neuro General: oriented to person, oriented to place and oriented to time Cranial nerves: Yes Equal, round and reactive pupils present and Yes Normal hearing present Speech: No Abnormal speech present Extrem General: Yes normal to inspection, No clubbing, No cyanosis and No edema Psych Appearance: grossly normal and well kempt Mental Status: mental status grossly normal Speech and movement: Normal speech and movement present Affect: normal affect Attitude: cooperative Thought process: Normal thought process present and not confabulating Thought content: Normal thought content present Insight: Good insight present (Psych) Judgement: Good judgement present (Psych) Assessment & Plan Assessment & Plan (1) Abdominal bloating: Code(s): R14.0 - Abdominal distension (gaseous) Category: Medical (2) Chronic idiopathic constipation: Code(s): K59.04 - Chronic idiopathic constipation Category: Medical (3) Small bowel motility disorder: Comment: Determined by small-bowel follow-through study Code(s): K59.9 - Functional intestinal disorder, unspecified Category: Medical (4) Egg protein allergy: Code(s): Z91.012 - Allergy to eggs Category: Medical Plan HER CURRENT GI REGIMEN CONSISTS OF LINZESS 145 MICRO G DAILY AND SIMETHICONE (which was not covered by her insurance and she did not buy [id number]) and her constipation regimen is complicated by the use of Mounjaro, metformin, and oxybutynin. - The patient is a 60-year-old female presenting with bloating and constipation. - Experiencing significant bloating described as feeling like a sausage, worse in the mornings, and intensifying throughout the day. - Reports no alleviation of bloating symptoms since starting a lower dose of Linzess 145mcg; constipation has persisted for 2 weeks w/o any BM. But 290mcg caused diarrhea. I suggest that she now add bisacodyl starting a 1 tab qhs and going to 2 tabs if needed and continuing the LInzess. -Of note, the bloating was not alleviated even when I had diarrhea. -I encouraged her to purchase the simethicone [id number] and see if this eliminates her bloating problem. Prior abdominal x-ray did show a fair amount of bloating and gas. However, we know that she has problems with small bowel motility but can not tolerate metoclopramide for this. SHe also comments on her Mounjaro, expressing frustration over her total pill burden as she is on metformin, glipizide and Mounjaro. She would be in favor of increasing her Mounjaro to try to eliminate another pill. I explained that some diabetics need to have the disease managed through more than 1 metabolic pathway, and if she is concerned she needs to discuss this with the person who is managing her diabetes. I did let her know that if the Mounjaro increases it could change her bowel movements, but I can always work with her to readjust her GI medications to offset this. The patient has significantly altered her diet, eliminating red meat, pasta, rice, potatoes, and bread, and currently consuming primarily vegetables. She has lost approximately 24 pounds by changing her dietary habits. Return office visit in 6 weeks COLONOSCOPY BIOPSY Coding Level of Care Code Est Pt Level 3 (23800) Diagnoses Abdominal bloating R14.0 Chronic idiopathic constipation K59.04 Small bowel motility disorder K59.9 Egg protein allergy Z91.012
--- OUTSIDE RECORDS SUMMARY | 2025-06-24 10:17 | XMS_ITS | Patient Health Record ---
Author Organization [facility] Address [address] [place] [address] Care Team Providers Care Religious Education Director Name Role Phone Michell Fatima MD Primary Care Provider Denny South Unavailable [phone] Brisa Weinstein Unavailable Unavailable Allergies Allergen (clinical [...] Problem Status W/U Status Risk Notes Problem [id number] Gastroesophageal reflux disease without esophagitis (K21.9) Active confirmed Problem [id number] Hiatal hernia (K44.9) Active confirmed Plan Of Treatment No Information Insurance Providers Payer Name Payer Address Payer Phone Subscriber Number Group Number Insured Name Patient Relationship to Insured Coverage Start Date Coverage End Date [facility] [address] [place], [place] [id number] [phone] [id number] ROJELIO CARBONE Self - patient is the insured Medicare of [facility] [address] [place] [address] [id number] ROJELIO CARBONE Self - patient is the insured MEDICAID OF [facility] [address] [place] [phone] [id number] ROJELIO CARBONE Self - patient is the insured Medical (General) History Medical History History ICD Code Insomnia GERD NIDDM Asthma Breast cancer on the right w ith chemotherapy/mastectomy and reconstruction--2011 UE Blood clots Fibromyalgia Hiatal hernia Raynaud's Denies [place],CVA,renal disease EGD 11/2016--small hiatal her anisa, gastric polyps, gastritis, and biopsies negative for H. pylori--by Dr. Ramon Colonoscopy 11/2016--normal--by Dr. Nita vieyra C. difficile infection in 2012. 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
--- OUTSIDE RECORDS SUMMARY | 2025-06-24 10:17 | XMS_ITS | Patient Health Record ---
[facility] Address [address] [place] [address] Care Team Providers Care Grill Attendant Name Role Phone Michell Fatima MD Primary Care Provider Ronna Andrade Unavailable [phone] Allergies Allergen (clinical drug ingredient) Drug/Non Drug [...] Problem Acquired hammer toe of right foot (889705662984273 5) Other hammer toe(s) (acquired), right foot (M20.41) Active confirmed Problem Acquired hammer toe of left foot (089612299137400 3) Other hammer toe(s) (acquired), left foot (M20.42) Active confirmed Problem Type II diabetes mellitus without complication (609512356) Type 2 diabetes mellitus without complications (E11.9) Active confirmed Plan Of Treatment Pending Test Test Name Order Date X ray : Foot, left 3V 05/21/2022 Insurance Providers Payer Name Payer Address Payer Phone Subscriber Number Group Number Insured Name Patient Relationship to Insured Coverage Start Date Coverage End Date [facility] Others [address] [place] [address] [phone] [id number] Ruel Skaggs Spouse - patient is the spouse of the insured Medicare National Govt [facility] [address] [place] [address] [id number] Katya Skaggs Self - patient is the insured Medical (General) History Medical History History ICD Code Arthritis asthma Back,Hip,and Knee pain Cancer Cataracts Diabetes mellitus type ll Gall bladder problems Chicken pox Joint implants/screws blindness left eye Surgical History Surgery Date(Month/Year) Excision Plantar fibroma 07/25/2022
--- OUTSIDE RECORDS SUMMARY | 2025-06-24 10:17 | XMS_ITS | Clinical Summary ---
Author Organization [facility] Address [address] [place] [address] Care Team Providers Care Drapery Counselor Name Role Phone Michell Fatima MD Primary [...] 2016 Zoster Vaccines (1 of 2) 2016 Depression Screening 10/20/2024 COVID-19 Vaccine ( - 2023-2 5 season) 2025 Influenza Vaccine (#1) 2025 RSV Immunization Adult Patie nts (1 - 1-dose 75+ series) 2041 HIB Vaccines Aged Out No longer eligi [...] age to complete this topic Care Teams Drapery Counselor Relationship Specialty Start Date End Date Michell Fatima MD PCP - General Internal Medicine 11/11/17
== END 2025-06-24 10:20 | disposition home or self-care (01) ==
LOC: HO.HGI 09:35
PROVIDERS: PCP Internal Medicine; Visit Provider Nurse Practitioner
DX: R14.0 Abdominal distension (gaseous) (principal); K59.04 Chronic idiopathic constipation; K59.9 Functional intestinal disorder, unspecified; Z91.012 Allergy to eggs
CPT/HCPCS: 99213

== ENCOUNTER → 2025-06-24 09:34 | Outpatient (BNVA) | payer BC, MEDICARE, SELFPAY | PROVIDERS: PCP Internal Medicine; Visit Provider Nurse Practitioner | DX: K59.04 Chronic idiopathic constipation (principal); R14.0 Abdominal distension (gaseous); K59.9 Functional intestinal disorder, unspecified; Z91.012 Allergy to eggs; Z13.89 Encounter for screening for other disorder ==

== ENCOUNTER 2025-07-26 13:41 | Outpatient (AMB) | payer BC, MEDICARE, SELFPAY ==
[2025-07-26 14:50] VITALS: BP 104/70; PULSE 95; RESP 18; TEMP 36.4; O2SAT 97; BMI 36.6
--- NOTE | 2025-07-26 14:50 | A.OFFPC_ITS ---
Vital Signs 07/26/25 14:50 Height 5 ft 2 in Weight 200 lb BMI 36.6 BP 104/70 Blood Pressure Location Rt brachial Position Sitting Respiration 18 Pulse 95 Pulse Source Pulse Oximeter Temp 97.5 F Temp Source Oral Pulse Oximetry (%) 97 Oxygen Delivery Method Room Air Intake Visit Reasons: Follow up discuss meds Allergies codeine (CODEINE) Allergy (Severe, Verified 06/24/25 09:39) SWELLING dapagliflozin (From [facility]) Allergy (Intermediate, Verified 06/24/25 09:39) RASH latex (LATEX) Allergy (Intermediate, Verified 06/24/25 09:39) RASH montelukast (MONTELUKAST) Allergy (Mild, Verified 06/24/25 09:39) ill effects oxycodone (OXYCODONE) Allergy (Unknown, Verified 06/24/25 09:39) Rash lactulose Adverse Reaction (Intermediate, Verified 06/24/25 09:39) Abdominal Pain Medication List - Last Reconciled 07/26/25 by Michell Fatima MD albuterol sulfate 2.5 mg inhaled every 20 min for up to 3 doses PRN; apixaban 5 mg PO BID atorvastatin (Lipitor) 40 mg PO BEDTIME bisacodyl (Dulcolax (bisacodyl)) 10 mg (2 x 5 mg) PO BEDTIME 2 days blood sugar diagnostic (FreeStyle Lite Strips) check glucose once a day blood-glucose meter (OneTouch Ultra2 Meter) As directed blood-glucose meter (FreeStyle [place] kit) 1 bid fluticasone furoate 100 mcg/actuation 1 inh inhalation DAILY gabapentin (Neurontin) 100 mg PO BID glipizide 10 mg PO BID linaclotide (Linzess) 145 mcg PO QAM metformin 1,000 mg PO BID montelukast 10 mg PO BEDTIME Mounjaro (tirzepatide) 5 mg (0.5 mL) subcut QWEEK NS multivitamin (Daily Multi-Vitamin tablet) 1 tab PO DAILY multivitamin 1 tab PO DAILY nebulizers As directed oxybutynin chloride 2.5 mg PO BID simethicone 180 mg PO QID 30 days Tobacco use date assessed: 05/23/25 Dental Screening Dental Screen Date: 11/19/24 HPI Follow up discuss meds HPI Details Patient presents complaining of generalized arthralgia and morning stiffness of small and large joints lasting up to 2 hours in the morning for the last few weeks. She denies joint swelling erythema or warmth. Patient reports improving blood glucose readings down to 80s.She has been checking her blood glucose only once a week. She would like to stop some her diabetic medications. Patient has been tolerating Mounjaro well but reports chronic constipation getting worse since the increasing the dose to 5 mg last week. Patient has colonoscopy scheduled in 2 weeks. [facility] Medical History (Updated 07/26/25 @ 15:37 by Michell Fatima MD) CAP (community acquired pneumonia) Change in bowel habit Chronic constipation Loose stools SOB (shortness of breath) Medial meniscus tear Vaginosis Cellulitis Breast CA Chest pain Normal Pap smear Candidal vaginitis Encounter for pre-employment health screening examination Annual physical exam Peripheral neuropathy Lumbar spondylosis Obese Normal colonoscopy DVT (deep venous thrombosis) Asthma Hyperlipemia DM (diabetes mellitus) Surgical History History of foot surgery Hx of right mastectomy Hx of foot surgery S/P repair of paraesophageal hernia History of esophagogastroduodenoscopy (EGD) H/O colonoscopy Hx of meniscectomy of right knee Family History Father Dementia Mother No problems noted. Son No problems noted. Son No problems noted. Daughter No problems noted. Brother Substance use disorder Brother Substance use disorder Social History Housing: House Patient Tobacco Use Status: Never used Tobacco e-Cigarette/Vaping Use: Never Used service: No Current occupational status: unemployed Cognitive needs: No Hearing needs: No Vision needs: Yes Questionnaire PHQ-9 Over the last 2 weeks, how often have you been bothered by any of the following problems? 1. Little interest or pleasure in doing things: not at all 2. Feeling down, depressed, or hopeless: not at all 3. Trouble falling or staying asleep, or sleeping too much: not at all 4. Feeling tired or having little energy: not at all 5. Poor appetite or overeating: not at all 6. Feeling bad about yourself - or that you are a failure or have let yourself or your family down: not at all 7. Trouble concentrating on things, such as reading the newspaper or watching television: not at all 8. Moving or speaking so slowly that other people could have noticed. Or the opposite - being so fidgety or restless that you have been moving around a lot more than usual: not at all 9. Thoughts that you would be better off or of hurting yourself in some way: not at all Total score: 0 Depression Screening Interpretation: Negative Depression Screening Done: Yes Source: Developed by Drs. Denny Cooley, Markell Izaguirre and colleagues, with an educational jenise from [employer]. Thrive Questionnaire Date Thrive assessed: 07/26/25 RAMON-7 AMB Questionnaire RAMON-7 Date RAMON - 7 assessed: 11/19/24 Feeling nervous, anxious, or on edge: 0 = Not at all Not being able to stop or control worryin = Not at all Worrying too much about different things: 0 = Not at all Trouble relaxin = Not at all Being so restless that it is hard to sit still: 0 = Not at all Becoming easily annoyed or irritable: 0 = Not at all Feeling afraid as if something awful might happen: 0 = Not at all Total RAMON-7 score (0-4 normal; 5-9 mild; 10-14 moderate; 15-21 severe): 0 Source: Developed by Drs. Denny Cooley, Markell Izaguirre and colleagues, with an educational jenise from [employer]. Review of Systems Const All systems reviewed & are unremarkable except as noted in HPI and below Eyes Reports no additional complaints ENT Reports no additional complaints Card Reports no additional complaints Resp Reports no additional complaints GI Reports no additional complaints Reports no additional complaints Physical exam (Primary Care) Vital Signs: Last Vital Signs Temp 97.5 F 07/26/25 14:50 Pulse 95 07/26/25 14:50 Resp 18 07/26/25 14:50 BP 104/70 07/26/25 14:50 Pulse Ox 97 07/26/25 14:50 Oxygen Delivery Method Room Air 07/26/25 14:50 BMI result Body Mass Index 36.6 Tobacco/Smoking Status: Tobacco use Status Tobacco use date assessed 05/23/25 07/26/25 14:51 Patient Tobacco Use Status Never used Tobacco 07/26/25 14:51 e-Cigarette/Vaping Use Never Used 07/26/25 14:51 PHQ-9: PHQ-9 Score PHQ-9: Total score 0 07/26/25 15:00 Depression Screening Interpretation: Negative Thrive Assessment: Date of Thrive Assessment Date Thrive assessed 07/26/25 07/26/25 14:51 Const General: no acute distress HENMT Head: Yes normal to inspection Face and sinus: Yes normal facial exam Eyes General: appearance normal, both eyes and all related structures Resp Effort & Inspection: normal respiratory effort Auscultation: diminished lung sounds Cardio Rhythm: regular rhythm Heart sounds: S1 normal heart sound present and S2 normal heart sound present GI Inspection: Yes normal to inspection Palpation (GI): Soft to palpation Percussion: Yes normal to percussion Auscultation: normal bowel sounds Extrem Other: There is no joint tenderness erythema warmth of both hands wrists elbows and knees Coding Level of Care Code Est Pt Level 4 (19859) Diagnoses Arthralgia M25.50 DM (diabetes mellitus) E11.9 Chronic idiopathic constipation K59.04 DVT (deep venous thrombosis) I82.409 Assessment & Plan Assessment & Plan (1) Arthralgia: Code(s): M25.50 - Pain in unspecified joint Category: Medical Plan: For general arthralgia arthritis panel will be checked. Patient was advised to hold statin for 1 month to rule out statin induced arthralgia. (2) DM (diabetes mellitus): Comment: Intolerant to Farxiga and Trulicity(rash) Code(s): E11.9 - Type 2 diabetes mellitus without complications Category: Medical Plan: A1c is 6.8, down from 7.4, ADA diet increase physical activity weight loss discussed with the patient. She was advised to continue same medications. Mounjaro can be increased to 7.5 mg in the month if patient's constipation improves with dietary changes (3) Chronic idiopathic constipation: Code(s): K59.04 - Chronic idiopathic constipation Category: Medical Plan: Continue current bowel regimen and colonoscopy in 2 weeks (4) DVT (deep venous thrombosis): Comment: recurrent, on Eliquis for lifetime Code(s): I82.409 - Acute embolism and thrombosis of unspecified deep veins of unspecified lower extremity Category: Medical Plan: Patient was advised to stop Eliquis 3 days before colonoscopy Orders: Orders C Reactive Protein Today M25.50 - Pain in unspecified joint Rheumatoid Factor Today M25.50 - Pain in unspecified joint Cyclic Citrullinated Peptide Today M25.50 - Pain in unspecified joint RICARDO Reflex Titer and Pattern Today M25.50 - Pain in unspecified joint Complete Blood Count Auto Diff Today M25.50 - Pain in unspecified joint Referrals Addiction Medicine Referral M25.50 - Pain in unspecified joint Medications: New valacyclovir (Valtrex) 2,000 mg (2 x 1 gram) PO Q12H 4 tabs 0RF
--- OUTSIDE RECORDS SUMMARY | 2025-07-26 16:55 | XMS_ITS | Clinical Summary ---
Author Organization [facility] Address [id number] [place] [id number] Care Team Providers Care Agile Tester Name Role Phone Michell Fatima MD Primary [...] age to complete this topic Care Teams Agile Tester Relationship Specialty Start Date End Date Michell Fatima MD PCP - General Internal Medicine 11/11/17
--- OUTSIDE RECORDS SUMMARY | 2025-07-26 16:55 | XMS_ITS | Patient Health Record ---
Author Organization [facility] Address [address] [place] [address] Care Team Providers Care Oil Rig Roughneck Name Role Phone Michell Fatima MD Primary Care Provider Ronna Andrade Unavailable [phone] Allergies Allergen (clinical drug ingredient) Drug/Non Drug [...] Problem Acquired hammer toe of right foot ([id number] 5) Other hammer toe(s) (acquired), right foot (M20.41) Active confirmed Problem Acquired hammer toe of left foot ([id number] 3) Other hammer toe(s) (acquired), left foot (M20.42) Active confirmed Problem Type II diabetes mellitus without complication (141321176) Type 2 diabetes mellitus without complications (E11.9) Active confirmed Plan Of Treatment Pending Test Test Name Order Date X ray : Foot, left 3V 05/21/2022 Insurance Providers Payer Name Payer Address Payer Phone Subscriber Number Group Number Insured Name Patient Relationship to Insured Coverage Start Date Coverage End Date [facility] All Others [address] [place] [address] [phone] [id number] Ruel Skaggs Spouse - patient is the spouse of the insured Medicare National Govt [employer] [address] [facility] [place] [address] [id number] Katya Skaggs Self - patient is the insured Medical (General) History Medical History History ICD Code Arthritis asthma Back,Hip,and Knee pain Cancer Cataracts Diabetes mellitus type ll Gall bladder problems Chicken pox Joint implants/screws blindness left eye Surgical History Surgery Date(Month/Year) Excision Plantar fibroma 07/25/2022
--- OUTSIDE RECORDS SUMMARY | 2025-07-26 16:55 | XMS_ITS | Patient Health Record ---
Author Organization [facility] Address [address] [place] [id number] Care Team Providers Care Registered Dental Assistant Name Role Phone Michell Fatima MD Primary Care Provider Denny South Unavailable [phone] Brisa Weinstein Unavailable Unavailable Allergies Allergen (clinical [...] Problem Status W/U Status Risk Notes Problem [id number] Gastroesophageal reflux disease without esophagitis (K21.9) Active confirmed Problem [id number] Hiatal hernia (K44.9) Active confirmed Plan Of Treatment No Information Insurance Providers Payer Name Payer Address Payer Phone Subscriber Number Group Number Insured Name Patient Relationship to Insured Coverage Start Date Coverage End Date [facility] [address] [place], [place] [id number] [phone] [id number] ROJELIO CARBONE Self - patient is the insured Medicare of [facility] [address] [place] [address] [id number] ROJELIO CARBONE Self - patient is the insured MEDICAID OF [facility] [address] [place] [phone] [id number] ROJELIO CARBONE Self - patient is the insured Medical (General) History Medical History History ICD Code Insomnia GERD NIDDM Asthma Breast cancer on the right w ith chemotherapy/mastectomy and reconstruction--2011 UE Blood clots Fibromyalgia Hiatal hernia Raynaud's Denies [place],CVA,renal disease EGD 11/2016--small hiatal her anisa, gastric polyps, gastritis, and biopsies negative for H. pylori--by Dr. Ramon Colonoscopy 11/2016--normal--by Dr. Nita vieyra C. difficile infection in 2012. 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
== END 2025-07-26 15:32 | disposition home or self-care (01) ==
LOC: HO.HMCC 13:42
PROVIDERS: PCP Internal Medicine; Visit Provider Internal Medicine
DX: M25.50 Pain in unspecified joint (principal); E11.9 Type 2 diabetes mellitus without complications; K59.04 Chronic idiopathic constipation; I82.409 Acute embolism and thrombosis of unspecified deep veins of unspecified lower extremity

== ENCOUNTER 2025-08-05 09:24 | Outpatient (AMB) | payer BC, MEDICARE, SELFPAY ==
--- NOTE | 2025-08-05 09:26 | MHC.OFFVIS ---
Vital Signs 08/05/25 09:37 Height 5 ft 2 in Weight 200 lb BMI 36.6 Intake Visit Reasons: CIC, bloating Intake Note: Katya presents to in office follow up of CIC and abd bloating. CC: Patient states that she continues having the same symptoms. 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 Required: No Accompanied by: Self / Same As Patient Allergies codeine (CODEINE) Allergy (Severe, Verified 08/05/25 10:00) SWELLING dapagliflozin (From FARXIGA) Allergy (Intermediate, Verified 08/05/25 10:00) RASH latex (LATEX) Allergy (Intermediate, Verified 08/05/25 10:00) RASH montelukast (MONTELUKAST) Allergy (Mild, Verified 08/05/25 10:00) ill effects oxycodone (OXYCODONE) Allergy (Unknown, Verified 08/05/25 10:00) Rash egg (eggs) Allergy (Verified 08/05/25 10:00) Unknown lactulose Adverse Reaction (Intermediate, Verified 08/05/25 10:00) Abdominal Pain HPI HPI CIC, bloating: Details: Assessment & Plan (1) Abdominal bloating: Code(s): R14.0 - Abdominal distension (gaseous) Category: Medical (2) Chronic idiopathic constipation: Code(s): K59.04 - Chronic idiopathic constipation Category: Medical (3) Small bowel motility disorder: Comment: Determined by small-bowel follow-through study Code(s): K59.9 - Functional intestinal disorder, unspecified Category: Medical (4) Egg protein allergy: Code(s): Z91.012 - Allergy to eggs Category: Medical Plan HER CURRENT GI REGIMEN CONSISTS OF LINZESS 145 MICRO G DAILY AND SIMETHICONE (which was not covered by her insurance and she did not buy [id number]) and her constipation regimen is complicated by the use of Mounjaro, metformin, and oxybutynin. - The patient is a 60-year-old female presenting with bloating and constipation. - Experiencing significant bloating described as feeling like a sausage, worse in the mornings, and intensifying throughout the day. - Reports no alleviation of bloating symptoms since starting a lower dose of Linzess 145mcg; constipation has persisted for 2 weeks w/o any BM. But 290mcg caused diarrhea. I suggest that she now add bisacodyl starting a 1 tab qhs and going to 2 tabs if needed and continuing the LInzess. -Of note, the bloating was not alleviated even when I had diarrhea. -I encouraged her to purchase the simethicone [id number] and see if this eliminates her bloating problem. Prior abdominal x-ray did show a fair amount of bloating and gas. However, we know that she has problems with small bowel motility but can not tolerate metoclopramide for this. She also comments on her Mounjaro, expressing frustration over her total pill burden as she is on metformin, glipizide and Mounjaro. She would be in favor of increasing her Mounjaro to try to eliminate another pill. I explained that some diabetics need to have the disease managed through more than 1 metabolic pathway, and if she is concerned she needs to discuss this with the person who is managing her diabetes. I did let her know that if the Mounjaro increases it could change her bowel movements, but I can always work with her to readjust her GI medications to offset this. The patient has significantly altered her diet, eliminating red meat, pasta, rice, potatoes, and bread, and currently consuming primarily vegetables. She has lost approximately 24 pounds by changing her dietary habits. Return office visit in 6 weeks COLONOSCOPY BIOPSY TODAYS VISIT [facility], [facility] Medical History CAP (community acquired pneumonia) Change in bowel habit Chronic constipation Loose stools SOB (shortness of breath) Medial meniscus tear Vaginosis Cellulitis Breast CA Chest pain Normal Pap smear Candidal vaginitis Encounter for pre-employment health screening examination Annual physical exam Peripheral neuropathy Lumbar spondylosis Obese Normal colonoscopy DVT (deep venous thrombosis) Asthma Hyperlipemia DM (diabetes mellitus) Surgical History Hx of arthroscopy of knee (08/25/24) History of foot surgery Hx of right mastectomy Hx of foot surgery S/P repair of paraesophageal hernia History of esophagogastroduodenoscopy (EGD) H/O colonoscopy Hx of meniscectomy of right knee Family History Father Dementia Mother No problems noted. Son No problems noted. Son No problems noted. Daughter No problems noted. Brother Substance use disorder Brother Substance use disorder Social History Housing: House Patient Tobacco Use Status: Never used Tobacco e-Cigarette/Vaping Use: Never Used service: No Current occupational status: unemployed Cognitive needs: No Hearing needs: No Vision needs: Yes Review of Systems Const Denies fatigue, Denies fever(s), Denies night sweats, Denies poor appetite and Reports weight loss (Intentional dieting) ENT Reports Normal hearing present, Denies dental pain, Denies dysphagia, Denies hearing loss, Denies mouth pain, Denies odynophagia, Denies throat swelling, Denies tongue swelling and Reports other (Dentition adequate) Card Reports no additional complaints Resp Reports no additional complaints GI Details: Denies abdominal pain, Denies melena, Reports bloating, Denies hematochezia, Reports constipation, Denies GI cramping, Denies dysphagia, Denies excessive flatus, Denies early satiety, Denies heartburn, Denies diarrhea, Denies nausea, Denies odynophagia, Denies vomiting and Denies hematemesis Skin/Breast Denies pruritus, Denies lesions, Denies rash and Denies jaundice Neuro Reports Normal hearing present and Denies Abnormal speech present Endo Denies fatigue Aller/Immun Denies throat swelling and Denies tongue swelling Physical Exam Vital Signs: BMI result Body Mass Index 36.6 Const General: cooperative, no acute distress, well developed and well groomed Nutritional Appearance: well nourished and obese Orientation/consciousness: oriented to person, oriented to place and oriented to time Limitations: No language barrier HEENT Head: Yes normocephalic and Yes atraumatic Eyes General: appearance normal, both eyes and all related structures Pupils: Equal, round and reactive pupils present Neck Neck: Yes normal visual inspection and Yes no lymphadenopathy Thyroid: Thyroid normal Resp Effort & Inspection: normal respiratory effort and able to speak in complete sentences Auscultation: clear to auscultation bilaterally Cardio Rate: regular rate Rhythm: regular rhythm Heart sounds: Normal, physiologic split S2 sound present Peripheral pulses: radial pulses present and posterior tibial pulses present GI Inspection: No distended, Yes Abdominal panniculus present and Yes obesity Palpation (GI): Soft to palpation, nontender, no guarding, not rigid and No hepatosplenomegaly present Percussion: Yes normal to percussion Auscultation: normal bowel sounds Rectal Exam - Female: deferred Skin General skin exam: no rashes or lesions noted, turgor normal, skin not dry, no jaundice, No spider nevi and no striae Rashes: no rashes Nails: normal Neuro General: oriented to person, oriented to place and oriented to time Cranial nerves: Yes Equal, round and reactive pupils present and Yes Normal hearing present Speech: No Abnormal speech present Extrem General: Yes normal to inspection, No clubbing, No cyanosis and No edema Psych Appearance: grossly normal and well kempt Mental Status: mental status grossly normal Speech and movement: Normal speech and movement present Affect: normal affect Attitude: cooperative Thought process: Normal thought process present and not confabulating Thought content: Normal thought content present Insight: Fair insight present (Psych) Judgement: Fair judgement present (Psych) Assessment & Plan Assessment & Plan (1) Egg protein allergy: Code(s): Z91.012 - Allergy to eggs Category: Medical (2) Abdominal bloating: Code(s): R14.0 - Abdominal distension (gaseous) Category: Medical (3) Small bowel motility disorder: Comment: Determined by small-bowel follow-through study Code(s): K59.9 - Functional intestinal disorder, unspecified Category: Medical (4) Chronic idiopathic constipation: Code(s): K59.04 - Chronic idiopathic constipation Category: Medical Plan Her current GI regimen consists of Linzess 145 micro g and simethicone. She says that the 145 micro g dose gives her diarrhea, but she prefers it that way. She did find the simethicone helpful with the bloating was was afraid to take it more than 2 weeks fearing ?my body will get used to it and will work. ? I encouraged her to continue using it since it is a surfactant that is not absorbed systemically so I doubt that her body would change how it reacts to it. So far as is the only thing that is given her any significant relief from the bloating. She is also feeling very achy today because she says her primary care provider told her to stop taking all of her medications prior to the colonoscopy. I let her know that the only medications she really needs to stop is her Mounjaro a week ahead of time (her colonoscopy is on Friday) which she did stop, potentially her glipizide just so that it does not drop her sugar on prep day, and her Eliquis. There is really no reason to discontinue the others particularly her gabapentin as this helps her with sleep and with her pain control. She feels relieved saying she will take it tonight, and I think this is reasonable as it is unrealistic to expect her to stop all of these medications with a full 3 days to go before her procedure. It is also completely unnecessary for the procedure sake. Apparently her statin has been discontinued by her primary, likely to evaluate its potential effect on myalgias. I did educate her that as they increase the dose of her Mounjaro going forward for her diabetes we may need to change her constipation management to offset the effects that the GLP 1 has on the GI system. It has had a very good positive affect on her diabetes so we definitely do not want to interfere with this therapy. She continues to be very concerned about medication cost as she has a limited income, and she is hoping that as they titrate her Mounjaro up she may be able to stop either the glipizide or the metformin. Clearly this will be up to the prescriber. At this point she will keep the appointment set 11 14 after her procedure Medications: Refilled linaclotide (Linzess) Take first thing in the morning with a full glass of water. 145 mcg PO QAM 30 caps 6RF K58.1 - Irritable bowel syndrome with constipation Coding Level of Care Code Est Pt Level 3 (30445) Diagnoses Egg protein allergy Z91.012 Abdominal bloating R14.0 Small bowel motility disorder K59.9 Chronic idiopathic constipation K59.04
[2025-08-05 09:37] VITALS: BMI 36.6
--- OUTSIDE RECORDS SUMMARY | 2025-08-05 10:28 | XMS_ITS | Clinical Summary ---
Author Organization [facility] Address [id number] [place] [id number] Care Team Providers Care Professor Of Medicine Name Role Phone Michell Fatima MD Primary Care Provider [phone] Social History Tobacco Use Types Packs/Day Years [...] age to complete this topic Care Teams Professor Of Medicine Relationship Specialty Start Date End Date Michell Fatima MD PCP - General Internal Medicine 11/11/17
== END 2025-08-05 10:24 | disposition home or self-care (01) ==
LOC: HO.HGI 09:25
PROVIDERS: PCP Internal Medicine; Visit Provider Nurse Practitioner
DX: R14.0 Abdominal distension (gaseous) (principal); K59.9 Functional intestinal disorder, unspecified; K59.04 Chronic idiopathic constipation
CPT/HCPCS: 99213

== ENCOUNTER 2025-08-08 08:56 | Day surgery (SDC) | payer BC, MEDICARE, SELFPAY ==
--- OUTSIDE RECORDS SUMMARY | 2025-07-04 07:52 | XMS_ITS | Patient Health Record ---
Author Organization [facility] Address [address] [place] [address] Care Team Providers Care Entry Level Automotive Technician Name Role Phone Michell Fatima MD Primary Care Provider Denny South Unavailable [phone] Brisa Weinstein Unavailable Unavailable Allergies Allergen (clinical [...] Problem Status W/U Status Risk Notes Problem [id number] Gastroesophageal reflux disease without esophagitis (K21.9) Active confirmed Problem [id number] Hiatal hernia (K44.9) Active confirmed Plan Of Treatment No Information Insurance Providers Payer Name Payer Address Payer Phone Subscriber Number Group Number Insured Name Patient Relationship to Insured Coverage Start Date Coverage End Date [facility] [address] [place], [place] [id number] [phone] [id number] ROJELIO CARBONE Self - patient is the insured Medicare of [facility] [address] [place] [address] [id number] ROJELIO CARBONE Self - patient is the insured MEDICAID OF [facility] [address] [place] [phone] [id number] ROJELIO CARBONE Self - patient is the insured Medical (General) History Medical History History ICD Code Insomnia GERD NIDDM Asthma Breast cancer on the right w ith chemotherapy/mastectomy and reconstruction--2011 UE Blood clots Fibromyalgia Hiatal hernia Raynaud's Denies [place],CVA,renal disease EGD 11/2016--small hiatal her anisa, gastric polyps, gastritis, and biopsies negative for H. pylori--by Dr. Ramon Colonoscopy 11/2016--normal--by Dr. Nita vieyra C. difficile infection in 2012. 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
--- OUTSIDE RECORDS SUMMARY | 2025-07-04 07:52 | XMS_ITS | Clinical Summary ---
Author Organization [facility] Address [address] [place] [address] Care Team Providers Care Energy Conservation Technician Name Role Phone Michell Fatima MD Primary Care Provider [phone] Social History Tobacco Use Types Packs/Day Years [...] age to complete this topic Care Teams Energy Conservation Technician Relationship Specialty Start Date End Date Michell Fatima MD PCP - General Internal Medicine 11/11/17
--- OUTSIDE RECORDS SUMMARY | 2025-07-04 07:52 | XMS_ITS | Patient Health Record ---
[facility] Address [address] [place] [address] Care Team Providers Care Vocational Training Teacher Name Role Phone Michell Fatima MD Primary Care Provider Ronna Andrade Unavailable [phone] Allergies Allergen (clinical drug ingredient) Drug/Non Drug [...] Problem Acquired hammer toe of right foot (485730472854641 5) Other hammer toe(s) (acquired), right foot (M20.41) Active confirmed Problem Acquired hammer toe of left foot (496922806766220 3) Other hammer toe(s) (acquired), left foot (M20.42) Active confirmed Problem Type II diabetes mellitus without complication (742307131) Type 2 diabetes mellitus without complications (E11.9) Active confirmed Plan Of Treatment Pending Test Test Name Order Date X ray : Foot, left 3V 05/21/2022 Insurance Providers Payer Name Payer Address Payer Phone Subscriber Number Group Number Insured Name Patient Relationship to Insured Coverage Start Date Coverage End Date [facility] All Others [address] [place] [address] [phone] [id number] Ruel Skaggs Spouse - patient is the spouse of the insured Medicare National Govt [employer] [address] [facility] [place] [address] [phone] [id number] Katya Skaggs Self - patient is the insured Medical (General) History Medical History History ICD Code Arthritis asthma Back,Hip,and Knee pain Cancer Cataracts Diabetes mellitus type ll Gall bladder problems Chicken pox Joint implants/screws blindness left eye Surgical History Surgery Date(Month/Year) Excision Plantar fibroma 07/25/2022
[2025-08-04 09:24] VITALS: BMI 36.6
--- NOTE | 2025-08-05 09:09 | HO.ANESPROP2 ---
Documented by User: Ryann Hernandez NP 08/05/25 09:13 HPI - Anesthesia Eval Consult details Narrative: 60yo F for Colonoscopy Eliquis for DVT Anesthesia Pre-Procedure Meds Is the patient on any of the following meds?: GLP1/DPP4 PMFSH Active Problems Active Problems: All Active Problems Arthralgia (Acute) Abdominal bloating (Acute) Pre-op examination (Acute) Shoulder pain, right (Acute) Arm pain (Acute) Tear of medial meniscus of left knee (Acute) Internal derangement of left knee (Acute) Left medial knee pain (Acute) Lumbar facet arthropathy (Acute) Lumbar spondylosis with myelopathy (Acute) Hip pain, bilateral (Acute) 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 allergy (Acute) Chronic idiopathic constipation (Acute) Bone cyst of foot (Acute) Plantar fasciitis of left foot (Acute) Peripheral neuropathy (Acute) Herpes (Acute) Obese (Acute) Normal colonoscopy (Acute) DVT (deep venous thrombosis) (Acute) Asthma (Acute) Hyperlipemia (Acute) DM (diabetes mellitus) (Acute) Past Medical History Medical History CAP (community acquired pneumonia) Change in bowel habit Chronic constipation Loose stools SOB (shortness of breath) Medial meniscus tear Vaginosis Cellulitis Breast CA Chest pain Normal Pap smear Candidal vaginitis Encounter for pre-employment health screening examination Annual physical exam Peripheral neuropathy Lumbar spondylosis Obese Normal colonoscopy DVT (deep venous thrombosis) Asthma Hyperlipemia DM (diabetes mellitus) Family History Family History Father Dementia Mother No problems noted. Son No problems noted. Son No problems noted. Daughter No problems noted. Brother Substance use disorder Brother Substance use disorder Family history of problems with anesthesia: No Surgical History Surgical History Hx of arthroscopy of knee (08/25/24) History of foot surgery Hx of right mastectomy Hx of foot surgery S/P repair of paraesophageal hernia History of esophagogastroduodenoscopy (EGD) H/O colonoscopy Hx of meniscectomy of right knee History of Problems with Anesthesia: No Social History Social History Housing: House Patient Tobacco Use Status: Never used Tobacco e-Cigarette/Vaping Use: Never Used Use of substances other than those prescribed or required for medical reasons: No Advance Directives: No Advance Directives Information Provided: Yes service: No Current occupational status: unemployed Cognitive needs: No Hearing needs: No Vision needs: Yes Meds Allergies Allergy/AdvReac Type Severity Reaction Status Date / Time codeine (CODEINE) Allergy Severe SWELLING Verified 08/05/25 10:00 dapagliflozin (From FARXIGA) Allergy Intermediate RASH Verified 08/05/25 10:00 latex (LATEX) Allergy Intermediate RASH Verified 08/05/25 10:00 montelukast (MONTELUKAST) Allergy Mild ill effects Verified 08/05/25 10:00 oxycodone (OXYCODONE) Allergy Unknown Rash Verified 08/05/25 10:00 egg (eggs) Allergy Unknown Verified 08/05/25 10:00 lactulose AdvReac Intermediate Abdominal Verified 08/05/25 10:00 Pain Home Medications ?Medication ?Instructions ?Recorded ?Confirmed ?Last Taken ?Type multivitamin (Daily Multi-Vitamin 1 tab PO DAILY 07/17/21 08/04/25 Unknown History tablet) oxybutynin chloride 5 mg tablet 2.5 mg PO BID 04/21/25 08/04/25 Unknown History fluticasone furoate 100 1 inh inhalation DAILY 05/12/25 08/04/25 Unknown History mcg/actuation blister powder for inhalation Exam Height,Weight and Vital Signs: Height 5 ft 2 in Weight 90.718 kg Assessment and Plan Assessment Anesthesia Assessment: Chart Reviewed Final Anesthetic Review Family History of Problems with Anesthesia: No History of Problems with Anesthesia: No Documented by User: Jonathan Reina MD 08/08/25 09:47 [facility] Past Medical History Medical History CAP (community acquired pneumonia) Change in bowel habit Chronic constipation Loose stools SOB (shortness of breath) Medial meniscus tear Vaginosis Cellulitis Breast CA Chest pain Normal Pap smear Candidal vaginitis Encounter for pre-employment health screening examination Annual physical exam Peripheral neuropathy Lumbar spondylosis Obese Normal colonoscopy DVT (deep venous thrombosis) Asthma Hyperlipemia DM (diabetes mellitus) Family History Family History Father Dementia Mother No problems noted. Son No problems noted. Son No problems noted. Daughter No problems noted. Brother Substance use disorder Brother Substance use disorder Surgical History Surgical History Hx of arthroscopy of knee (08/25/24) History of foot surgery Hx of right mastectomy Hx of foot surgery S/P repair of paraesophageal hernia History of esophagogastroduodenoscopy (EGD) H/O colonoscopy Hx of meniscectomy of right knee Social History Social History Housing: House Patient Tobacco Use Status: Never used Tobacco e-Cigarette/Vaping Use: Never Used Use of substances other than those prescribed or required for medical reasons: No Advance Directives: No Advance Directives Information Provided: Yes service: No Current occupational status: unemployed Cognitive needs: No Hearing needs: No Vision needs: Yes Meds Allergies Allergy/AdvReac Type Severity Reaction Status Date / Time codeine (CODEINE) Allergy Severe SWELLING Verified 08/05/25 10:00 dapagliflozin (From FARXIGA) Allergy Intermediate RASH Verified 08/05/25 10:00 latex (LATEX) Allergy Intermediate RASH Verified 08/05/25 10:00 montelukast (MONTELUKAST) Allergy Mild ill effects Verified 08/05/25 10:00 oxycodone (OXYCODONE) Allergy Unknown Rash Verified 08/05/25 10:00 egg (eggs) Allergy Unknown Verified 08/05/25 10:00 lactulose AdvReac Intermediate Abdominal Verified 08/05/25 10:00 Pain Home Medications ?Medication ?Instructions ?Recorded ?Confirmed ?Last Taken ?Type multivitamin (Daily Multi-Vitamin 1 tab PO DAILY 07/17/21 08/04/25 Unknown History tablet) oxybutynin chloride 5 mg tablet 2.5 mg PO BID 04/21/25 08/04/25 Unknown History fluticasone furoate 100 1 inh inhalation DAILY 05/12/25 08/04/25 Unknown History mcg/actuation blister powder for inhalation Exam Airway Mallampati Class: III TM Dist: >3cm Neck ROM: Full Loose/Missing/Broken Teeth: No Heart: RRR Lungs: CTA Assessment and Plan Assessment Anesthesia Assessment: Anesthesia Plan Discussed Final Anesthetic Review NPO: Yes ASA Class: III Final Preanesthetic Review: No Changes in Pt Med Stat, Meds/Allgs Chart Reviewed, Consent Obtained/Reviewed and Anes Risks/Benef Reviewed Patient Risk: Low Procedure Risk: Low Anesthetic Plan Anesthetic Plan: MAC: Disposition: Standard PACU
[2025-08-08 09:06] VITALS: BMI 37.1
[2025-08-08] MEDS: Lactated Ringers 1,000 ML 100 ML IVCONT (09:17)
--- NOTE | 2025-08-08 09:20 | MHC.SHP ---
Pre-Procedural Eval Section A - 24 Hr Update-Section A only Date of Service: 08/08/25 The patient is an INPATIENT: No The patient has been examined within 24 hours of the surgical procedure. The History & Physical has been completed within 30 days and I have reviewed it.: No Section B - Complete if H&P > 30 days Chief Complaint: Colon cancer screening, constipation Relevant Family History (Specify if Yes): No Relevant Social History: None (Former smoker) Present Medications: see Short Stay Collaborative assessment Medical History: Significant History (Peripheral neuropathy Lumbar spondylosis Obese Normal colonoscopy DVT (deep venous thrombosis) Asthma Hyperlipemia DM (diabetes mellitus)) History of Previous Operations: Relevant previous surgery/procedure and date(s) (Hx of arthroscopy of knee (08/25/24) History of foot surgery Hx of right mastectomy Hx of foot surgery S/P repair of paraesophageal hernia History of esophagogastroduodenoscopy (EGD) H/O colonoscopy Hx of meniscectomy of right knee) Allergies: Allergies Allergy/AdvReac Type Severity Reaction Status Date / Time codeine (CODEINE) Allergy Severe SWELLING Verified 08/05/25 10:00 dapagliflozin (From FARXIGA) Allergy Intermediate RASH Verified 08/05/25 10:00 latex (LATEX) Allergy Intermediate RASH Verified 08/05/25 10:00 montelukast (MONTELUKAST) Allergy Mild ill effects Verified 08/05/25 10:00 oxycodone (OXYCODONE) Allergy Unknown Rash Verified 08/05/25 10:00 egg (eggs) Allergy Unknown Verified 08/05/25 10:00 lactulose AdvReac Intermediate Abdominal Verified 08/05/25 10:00 Pain Review of Systems Sugical H&P ROS: Negative: Constitution, Cardiovascular, Respiratory and Gastrointestinal Exam Surgical H&P Exam: Normal: Heart, Normal: Lungs, Normal: Extremities and Normal: Abdomen Plan Diagnosis/Plan: Unchanged I have reviewed the history and physical and performed a pertinent physical examination on my patient. No changes have occurred unless specified. Time Spent With Patient Time: Total time managing care of this patient today ____ minutes.
[2025-08-08 09:21] VITALS: BP 142/93; PULSE 86; RESP 16; TEMP 36.4; O2SAT 97
[2025-08-08 09:22] LABS: Glucose, Whole Blood 118 mg/dL (60-115)
--- NOTE | 2025-08-08 10:30 | HO.OPN-COLON ---
Colonoscopy Operative Note Operative Note Date of Service: 08/08/25 Narrative: COLONOSCOPY TILL CECUM WITH BIOPSIES Pre-op diagnosis: Colon cancer screening. Post-op diagnosis:? 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 Vi Marti MD Anesthesia:?MAC Consent: Indications for the procedure and potential complications of bleeding, perforation, reaction to medications and missed diagnosis were discussed with the patient and informed consent was obtained. Instrument: Olympus PCF H 190 L variable stiffness pediatric colonoscope Monitoring: Vital signs and clinical assessment, intermittent blood pressure monitoring, continuous EKG monitoring, Pulse oximetry and Carbon Dioxide monitoring were done throughout the procedure. Please see anesthesia flowsheet. Colon withdrawl time was 12 minutes. Procedure: The patient was placed in the left lateral decubitis position and pre-procedure medications were administered. After a digital rectal examination of the ano-rectum, the video colonoscope was inserted into the rectum and advanced through the colon to the cecum. The colonoscope was slowly withdrawn in a retrograde panoramic fashion and the colon mucosa was carefully examined including a retroflexed view of the rectum. Findings and interventions are described below. 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 [place] Bowel Preparation Scale Right colon; 3 Transverse colon: 3 Left colon; 3 (0 = Unprepared colon segment with mucosa not seen due to solid stool that cannot be cleared. 1 = Portion of mucosa of the colon segment seen, but other areas of the colon segment not well seen due to staining, residual stool and/or opaque liquid. 2 = Minor amount of residual staining, small fragments of stool and/or opaque liquid, but mucosa of colon segment seen well. 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 No polyps were detected Moderate hemorrhoids on retroflexed exam. Plan: Pt has a FU appointment on 08/23/25 with Marcie Arcos NP Repeat Colonoscopy in 10 years - patient placed on the colonoscopy recall list for repeat colonoscopy in 10 years. Above findings were reviewed with the patient and relevant handouts were given and the discharge area.
[2025-08-08 10:33] VITALS: BP 109/66; PULSE 94; RESP 16; TEMP 36.1; O2SAT 98
[2025-08-08 10:48] VITALS: BP 128/82; PULSE 85; RESP 20; O2SAT 98
== END 2025-08-08 11:08 | disposition home or self-care (01) ==
PROVIDERS: PCP Internal Medicine; Visit Provider Internal Medicine Gastroenterology
PROC: 0DJD8ZZ Inspection of Lower Intestinal Tract, Via Natural or Artificial Opening Endoscopic (ICD-10-PCS; CPT 45378; principal; 2025-08-08 10:10)
DX: Z12.11 Encounter for screening for malignant neoplasm of colon (principal); R14.0 Abdominal distension (gaseous); K59.04 Chronic idiopathic constipation; Z86.0109 Personal history of other colon polyps; E11.9 Type 2 diabetes mellitus without complications; K63.89 Other specified diseases of intestine; K64.8 Other hemorrhoids
CPT/HCPCS: 45380; 82947; 88305; J2250; J2704

== ENCOUNTER → 2025-08-08 08:56 | Outpatient (BNV) | payer BC, MEDICARE, SELFPAY | PROVIDERS: PCP Internal Medicine; Visit Provider Internal Medicine Gastroenterology | DX: Z12.11 Encounter for screening for malignant neoplasm of colon (principal); K63.89 Other specified diseases of intestine; K64.8 Other hemorrhoids | CPT/HCPCS: 45380 ==

== ENCOUNTER 2025-08-23 12:13 | Outpatient (AMB) | payer BC, MEDICARE, SELFPAY ==
--- NOTE | 2025-08-23 12:15 | MHC.OFFVIS ---
Vital Signs 08/23/25 12:19 Height 5 ft 2 in Weight 200 lb 9.93 oz BMI 36.7 BP 113/70 Blood Pressure Location Lt brachial Position Sitting Pulse 99 Intake Visit Reasons: s/p colo Intake Note: Katya presents in the office as a follow up for her colonoscopy. CC: She states that she is just here for a colonoscopy. Window Glass Installer Required: No Allergies codeine (CODEINE) Allergy (Severe, Verified 08/23/25 12:25) SWELLING dapagliflozin (From FARXIGA) Allergy (Intermediate, Verified 08/23/25 12:25) RASH latex (LATEX) Allergy (Intermediate, Verified 08/23/25 12:25) RASH montelukast (MONTELUKAST) Allergy (Mild, Verified 08/23/25 12:25) ill effects oxycodone (OXYCODONE) Allergy (Unknown, Verified 08/23/25 12:25) Rash egg (eggs) Allergy (Verified 08/23/25 12:25) Unknown lactulose Adverse Reaction (Intermediate, Verified 08/23/25 12:25) Abdominal Pain HPI HPI s/p colo: Details: Assessment & Plan (1) Abdominal bloating: Code(s): R14.0 - Abdominal distension (gaseous) Category: Medical (2) Chronic idiopathic constipation: Code(s): K59.04 - Chronic idiopathic constipation Category: Medical (3) Small bowel motility disorder: Comment: Determined by small-bowel follow-through study Code(s): K59.9 - Functional intestinal disorder, unspecified Category: Medical (4) Egg protein allergy: Code(s): Z91.012 - Allergy to eggs Category: Medical Plan HER CURRENT GI REGIMEN CONSISTS OF LINZESS 145 MICRO G DAILY AND SIMETHICONE (which was not covered by her insurance and she did not buy [id number]) and her constipation regimen is complicated by the use of Mounjaro, metformin, and oxybutynin. - The patient is a 60-year-old female presenting with bloating and constipation. - Experiencing significant bloating described as feeling like a sausage, worse in the mornings, and intensifying throughout the day. - Reports no alleviation of bloating symptoms since starting a lower dose of Linzess 145mcg; constipation has persisted for 2 weeks w/o any BM. But 290mcg caused diarrhea. I suggest that she now add bisacodyl starting a 1 tab qhs and going to 2 tabs if needed and continuing the LInzess. -Of note, the bloating was not alleviated even when I had diarrhea. -I encouraged her to purchase the simethicone [id number] and see if this eliminates her bloating problem. Prior abdominal x-ray did show a fair amount of bloating and gas. However, we know that she has problems with small bowel motility but can not tolerate metoclopramide for this. She also comments on her Mounjaro, expressing frustration over her total pill burden as she is on metformin, glipizide and Mounjaro. She would be in favor of increasing her Mounjaro to try to eliminate another pill. I explained that some diabetics need to have the disease managed through more than 1 metabolic pathway, and if she is concerned she needs to discuss this with the person who is managing her diabetes. I did let her know that if the Mounjaro increases it could change her bowel movements, but I can always work with her to readjust her GI medications to offset this. The patient has significantly altered her diet, eliminating red meat, pasta, rice, potatoes, and bread, and currently consuming primarily vegetables. She has lost approximately 24 pounds by changing her dietary habits. Return office visit in 6 weeks COLONOSCOPY 08/08/25 Findings: Terminal Ileum: Not evaluated Cecum: Normal Ascending Colon: Mild melanosis coli noted in the entire colon - biopsies were obtained. Transverse Colon: Mild melanosis coli noted in the entire colon Descending Colon: Mild melanosis coli noted in the entire colon Sigmoid Colon: Mild melanosis coli noted in the entire colon Rectum: Normal Ano-rectum: Moderate internal hemorrhoids Impression and Post Procedure Diagnosis: Colonoscopy Findings: Mild melanosis coli noted in the entire colon - biopsies were obtained from the right colon. No polyps were detected Moderate hemorrhoids on retroflexed exam. Plan: Pt has a FU appointment on 08/23/25 with Marcie Arcos NP Repeat Colonoscopy in 10 years - patient placed on the colonoscopy recall list for repeat colonoscopy in 10 years. () however her family history of colon cancer and personal history of polyps was lost to computer conversion history so she needs to be recalled in 5 years) BIOPSY Received: 08/08/25 Diagnosis Colon, right, biopsy: Colonic mucosa within normal limits; no pigment deposition identified TODAYS VISIT She is agreeable to a 5 year follow up. The procedure was well tolerated. The results were explained and the patient is agreeable to the follow-up interval as stated. The bowel pattern has returned to normal. Education was provided to tell any 1st degree relatives about their findings to be sure that they are screened by age 45. Educated that they will be put on a recall list when it is time for their repeat scope but should they move out of state or away from the hospital they will need to remember along with their primary to repeat the procedure in a timely fashion to avoid any adverse complications. [facility] Medical History (Updated 08/23/25 @ 12:45 by BANDAR Sheldon) CAP (community acquired pneumonia) Change in bowel habit Chronic constipation Loose stools SOB (shortness of breath) Medial meniscus tear Vaginosis Cellulitis Breast CA Chest pain Normal Pap smear Candidal vaginitis Encounter for pre-employment health screening examination Annual physical exam Peripheral neuropathy Lumbar spondylosis Obese Normal colonoscopy DVT (deep venous thrombosis) Asthma Hyperlipemia DM (diabetes mellitus) Surgical History Hx of arthroscopy of knee (08/25/24) History of foot surgery Hx of right mastectomy Hx of foot surgery S/P repair of paraesophageal hernia History of esophagogastroduodenoscopy (EGD) H/O colonoscopy Hx of meniscectomy of right knee Family History Father Dementia Mother No problems noted. Son No problems noted. Son No problems noted. Daughter No problems noted. Brother Substance use disorder Brother Substance use disorder Social History Housing: House Patient Tobacco Use Status: Never used Tobacco e-Cigarette/Vaping Use: Never Used service: No Current occupational status: unemployed Cognitive needs: No Hearing needs: No Vision needs: Yes Review of Systems Const Denies fatigue, Denies fever(s), Denies night sweats, Denies poor appetite and Denies weight loss ENT Reports Normal hearing present, Denies dental pain, Denies dysphagia, Denies hearing loss, Denies mouth pain, Denies odynophagia, Denies throat swelling, Denies tongue swelling and Reports other (Dentition adequate) Card Reports no additional complaints Resp Reports no additional complaints GI Details: Denies abdominal pain, Denies melena, Reports bloating, Denies hematochezia, Reports constipation, Denies GI cramping, Denies dysphagia, Denies excessive flatus, Denies early satiety, Reports heartburn, Denies diarrhea, Reports loose stools, Denies nausea, Denies odynophagia, Denies vomiting and Denies hematemesis Skin/Breast Denies pruritus, Denies lesions, Denies rash and Denies jaundice Neuro Reports Normal hearing present and Denies Abnormal speech present Endo Denies fatigue Aller/Immun Denies throat swelling and Denies tongue swelling Physical Exam Vital Signs: Last Vital Signs Pulse 99 08/23/25 12:19 BP 113/70 08/23/25 12:19 BMI result Body Mass Index 36.7 Const General: cooperative, no acute distress, well developed and well groomed Nutritional Appearance: well nourished and obese Orientation/consciousness: oriented to person, oriented to place and oriented to time Limitations: No language barrier HEENT Head: Yes normocephalic and Yes atraumatic Eyes General: appearance normal, both eyes and all related structures Pupils: Equal, round and reactive pupils present Neck Neck: Yes normal visual inspection and Yes no lymphadenopathy Thyroid: Thyroid normal Resp Effort & Inspection: normal respiratory effort and able to speak in complete sentences Auscultation: clear to auscultation bilaterally Cardio Rate: regular rate Rhythm: regular rhythm Heart sounds: Normal, physiologic split S2 sound present Peripheral pulses: radial pulses present and posterior tibial pulses present GI Inspection: No distended, Yes Abdominal panniculus present and Yes obesity Palpation (GI): Soft to palpation, nontender, no guarding, not rigid and No hepatosplenomegaly present Percussion: Yes normal to percussion Auscultation: normal bowel sounds Rectal Exam - Female: deferred Skin General skin exam: no rashes or lesions noted, turgor normal, skin not dry, no jaundice, No spider nevi and no striae Rashes: no rashes Nails: normal Neuro General: oriented to person, oriented to place and oriented to time Cranial nerves: Yes Equal, round and reactive pupils present and Yes Normal hearing present Speech: No Abnormal speech present Extrem General: Yes normal to inspection, No clubbing, No cyanosis and No edema Psych Appearance: grossly normal and well kempt Mental Status: mental status grossly normal Speech and movement: Normal speech and movement present Affect: normal affect Attitude: cooperative Thought process: Normal thought process present and not confabulating Thought content: Normal thought content present Insight: Fair insight present (Psych) and Limited insight present (Psych) Judgement: Fair judgement present (Psych) and Limited judgement present (Psych) Assessment & Plan Assessment & Plan (1) Normal colonoscopy: Comment: 2024=neg scope repeat 10 years; 2017, repeat in 5 yrs (? Incorrect she was supposed to have a 10 year follow-up which would make her due in 2026) a EB Category: Medical (2) Tubular adenoma of colon: Comment: 2024=neg scope repeat 10 years; neg scope 2016 She had a TA on her first colonoscopy that was lost in record r/t computer conversion) Code(s): D12.6 - Benign neoplasm of colon, unspecified Category: Medical (3) Family history of colon cancer: Comment: brother Code(s): Z80.0 - Family history of malignant neoplasm of digestive organs Category: Medical Plan HER CURRENT GI REGIMEN CONSISTS OF LINZESS 145 MICRO G DAILY AND SIMETHICONE She is agreeable to a 5 year follow up. The procedure was well tolerated. The results were explained and the patient is agreeable to the follow-up interval as stated. The bowel pattern has returned to normal. Education was provided to tell any 1st degree relatives about their findings to be sure that they are screened by age 45. Educated that they will be put on a recall list when it is time for their repeat scope but should they move out of state or away from the hospital they will need to remember along with their primary to repeat the procedure in a timely fashion to avoid any adverse complications. She continues to feel that the Linzess and the simethicone are working well for her. She says she will frequently have watery stools but she prefers this to feeling bloated and constipated. Return office visit in 6 months Medications: Changed From linaclotide (Linzess) Take first thing in the morning with a full glass of water. 145 mcg PO QAM 30 caps 6RF K58.1 - Irritable bowel syndrome with constipation To linaclotide (Linzess) Take first thing in the morning with a full glass of water. 145 mcg PO QAM 90 caps 1RF 90 days K58.1 - Irritable bowel syndrome with constipation Refilled linaclotide (Linzess) Take first thing in the morning with a full glass of water. 145 mcg PO QAM 30 caps 6RF K58.1 - Irritable bowel syndrome with constipation simethicone after meals 180 mg PO QID 360 caps 1RF 30 days Coding Level of Care Code Est Pt Level 3 (17713) Diagnoses Normal colonoscopy Tubular adenoma of colon D12.6 Family history of colon cancer Z80.0
[2025-08-23 12:19] VITALS: BP 113/70; PULSE 99; BMI 36.7
--- OUTSIDE RECORDS SUMMARY | 2025-08-23 14:59 | XMS_ITS | Patient Health Record ---
[facility] Address [address] [place] [address] Care Team Providers Care Pineapple Plantation Manager Name Role Phone Michell Fatima MD Primary Care Provider Ronna Andrade Unavailable [phone] Allergies Allergen (clinical drug ingredient) Drug/Non Drug [...] Problem Acquired hammer toe of right foot (505823926022865 5) Other hammer toe(s) (acquired), right foot (M20.41) Active confirmed Problem Acquired hammer toe of left foot (309500599734892 3) Other hammer toe(s) (acquired), left foot (M20.42) Active confirmed Problem Type II diabetes mellitus without complication (856985567) Type 2 diabetes mellitus without complications (E11.9) Active confirmed Plan Of Treatment Pending Test Test Name Order Date X ray : Foot, left 3V 05/21/2022 Insurance Providers Payer Name Payer Address Payer Phone Subscriber Number Group Number Insured Name Patient Relationship to Insured Coverage Start Date Coverage End Date [facility] All Others [address] [place] [address] [phone] [id number] Ruel Skaggs Spouse - patient is the spouse of the insured [employer] [address] [place] [address] [id number] Katya Skaggs Self - patient is the insured Medical (General) History Medical History History ICD Code Arthritis asthma Back,Hip,and Knee pain Cancer Cataracts Diabetes mellitus type ll Gall bladder problems Chicken pox Joint implants/screws blindness left eye Surgical History Surgery Date(Month/Year) Excision Plantar fibroma 07/25/2022
--- OUTSIDE RECORDS SUMMARY | 2025-08-23 14:59 | XMS_ITS | Patient Health Record ---
Author Organization [facility] Address [address] [place] [address] Care Team Providers Care Cupola Patcher Name Role Phone Michell Fatima MD Primary Care Provider Denny South Unavailable [phone] Brisa Weinstein Unavailable Unavailable Allergies Allergen (clinical [...] 1 capsule Orally BID --before breakfast and supper; Duration: 30 day(s) 02/19/2018 Active Lidoderm NEEDED Active [...] Problem Status W/U Status Risk Notes Problem Gastroesophageal reflux disease without esophagitis (410026978) Gastroesophageal reflux disease without esophagitis (K21.9) Active confirmed Problem Hiatal hernia (24485095) Hiatal hernia (K44.9) Active confirmed Plan Of Treatment No Information Insurance Providers Payer Name Payer Address Payer Phone Subscriber Number Group Number Insured Name Patient Relationship to Insured Coverage Start Date Coverage End Date [facility] [address] [place], [place] [id number] [phone] [id number] ROJELIO CARBONE Self - patient is the insured Medicare of [facility] [address] [place] [address] [id number] ROJELIO CARBONE Self - patient is the insured MEDICAID OF [facility] [address] [place] [address] [phone] [id number] ROJELIO CARBONE Self - patient is the insured Medical (General) History Medical History History ICD Code Insomnia GERD NIDDM Asthma Breast cancer on the right w ith chemotherapy/mastectomy and reconstruction--2011 UE Blood clots Fibromyalgia Hiatal hernia Raynaud's Denies [place],CVA,renal disease EGD 11/2016--small hiatal her anisa, gastric polyps, gastritis, and biopsies negative for H. pylori--by Dr. Ramon Colonoscopy 11/2016--normal--by Dr. Nita vieyra C. difficile infection in 2012. 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
--- OUTSIDE RECORDS SUMMARY | 2025-08-23 14:59 | XMS_ITS | Clinical Summary ---
Author Organization [facility] Address [id number] [place] [id number] Care Team Providers Care Construction Engineer Name Role Phone Michell Fatima MD Primary Care Provider [phone] Social History Tobacco Use Types Packs/Day Years [...] age to complete this topic Care Teams Construction Engineer Relationship Specialty Start Date End Date Michell Fatima MD PCP - General Internal Medicine 11/11/17
== END 2025-08-23 12:54 | disposition home or self-care (01) ==
LOC: HO.HGI 12:13
PROVIDERS: PCP Internal Medicine; Visit Provider Nurse Practitioner
DX: D12.6 Benign neoplasm of colon, unspecified (principal); Z80.0 Family history of malignant neoplasm of digestive organs
CPT/HCPCS: 99213

== ENCOUNTER 2025-08-24 08:40 | Outpatient (AMB) | payer BC, MEDICARE, SELFPAY ==
[2025-08-24 08:44] VITALS: BP 118/80; PULSE 96; RESP 17; TEMP 36.6; O2SAT 99; BMI 36.6
--- NOTE | 2025-08-24 08:44 | MHC.PC.OV ---
Vital Signs 08/24/25 08:44 Height 5 ft 2 in Weight 200 lb BMI 36.6 BP 118/80 Blood Pressure Location Lt brachial Position Sitting Respiration 17 Pulse 96 Pulse Source Pulse Oximeter Temp 97.8 F Temp Source Oral Pulse Oximetry (%) 99 Oxygen Delivery Method Room Air Intake Visit Reasons: 3m follow up Intake Note: Pt is here today for 3 months follow up visit. Allergies codeine (CODEINE) Allergy (Severe, Verified 08/24/25 08:48) SWELLING dapagliflozin (From FARGA) Allergy (Intermediate, Verified 08/23/25 12:25) RASH latex (LATEX) Allergy (Intermediate, Verified 08/23/25 12:25) RASH montelukast (MONTELUKAST) Allergy (Mild, Verified 08/23/25 12:25) ill effects oxycodone (OXYCODONE) Allergy (Unknown, Verified 08/23/25 12:25) Rash egg (eggs) Allergy (Verified 08/23/25 12:25) Unknown lactulose Adverse Reaction (Intermediate, Verified 08/23/25 12:25) Abdominal Pain Medication List - Last Reconciled 08/24/25 by Michell Fatima MD albuterol sulfate 2.5 mg inhaled every 20 min for up to 3 doses PRN; apixaban 5 mg PO BID atorvastatin (Lipitor) 40 mg PO BEDTIME atorvastatin (Lipitor) 80 mg PO BEDTIME bisacodyl (Dulcolax (bisacodyl)) 10 mg (2 x 5 mg) PO BEDTIME 2 days blood sugar diagnostic (FreeStyle Lite Strips) check glucose once a day blood-glucose meter (OneTouch Ultra2 Meter) As directed blood-glucose meter (FreeStyle [place] kit) 1 bid fluticasone furoate 100 mcg/actuation 1 inh inhalation DAILY gabapentin (Neurontin) 100 mg PO BID glipizide 10 mg PO BID linaclotide (Linzess) 145 mcg PO QAM 90 days metformin 1,000 mg PO BID montelukast 10 mg PO BEDTIME Mounjaro (tirzepatide) 5 mg (0.5 mL) subcut QWEEK NS multivitamin (Daily Multi-Vitamin tablet) 1 tab PO DAILY nebulizers As directed oxybutynin chloride 2.5 mg PO BID simethicone 180 mg PO QID 30 days valacyclovir (Valtrex) 2,000 mg (2 x 1 gram) PO Q12H Tobacco use date assessed: 05/23/25 Dental Screening Dental Screen Date: 11/19/24 HPI 3m follow up HPI Details Presents for the follow-up of type 2 diabetes hyperlipidemia. She reports improved fasting blood glucose readings down to 140s. Patient has been following ADA diet and exercising regularly. She has been tolerating 5 mg of Mounjaro and would like to increase the dose next month. Patient had negative colonoscopy in July and has been managing her chronic constipation with a stool softener, Metamucil and Linzess. Patient reports increasing coughing and occasional wheezing when exposed to cold air. She has been using albuterol more than twice a week. Patient has not been using fluticasone regularly for the last 2 months. She denies nocturnal wheezing or shortness or breath. [facility] Medical History (Updated 08/24/25 @ 09:19 by Michell Fatima MD) CAP (community acquired pneumonia) Change in bowel habit Chronic constipation Loose stools SOB (shortness of breath) Medial meniscus tear Vaginosis Cellulitis Breast CA Chest pain Normal Pap smear Candidal vaginitis Encounter for pre-employment health screening examination Annual physical exam Peripheral neuropathy Lumbar spondylosis Obese Normal colonoscopy DVT (deep venous thrombosis) Asthma Hyperlipemia DM (diabetes mellitus) Surgical History Hx of arthroscopy of knee (08/25/24) History of foot surgery Hx of right mastectomy Hx of foot surgery S/P repair of paraesophageal hernia History of esophagogastroduodenoscopy (EGD) H/O colonoscopy Hx of meniscectomy of right knee Family History Father Dementia Mother No problems noted. Son No problems noted. Son No problems noted. Daughter No problems noted. Brother Substance use disorder Brother Substance use disorder Social History Housing: House Patient Tobacco Use Status: Never used Tobacco e-Cigarette/Vaping Use: Never Used service: No Current occupational status: unemployed Cognitive needs: No Hearing needs: No Vision needs: Yes Questionnaire PHQ-9 Over the last 2 weeks, how often have you been bothered by any of the following problems? 1. Little interest or pleasure in doing things: not at all 2. Feeling down, depressed, or hopeless: not at all 3. Trouble falling or staying asleep, or sleeping too much: not at all 4. Feeling tired or having little energy: not at all 5. Poor appetite or overeating: not at all 6. Feeling bad about yourself - or that you are a failure or have let yourself or your family down: not at all 7. Trouble concentrating on things, such as reading the newspaper or watching television: not at all 8. Moving or speaking so slowly that other people could have noticed. Or the opposite - being so fidgety or restless that you have been moving around a lot more than usual: not at all 9. Thoughts that you would be better off or of hurting yourself in some way: not at all Total score: 0 Depression Screening Interpretation: Negative Depression Screening Done: Yes Source: Developed by Drs. Denny Cooley, Markell Izaguirre and colleagues, with an educational jenise from [employer]. Thrive Questionnaire Date Thrive assessed: 07/26/25 RAMON-7 AMB Questionnaire RAMON-7 Date RAMON - 7 assessed: 11/19/24 Feeling nervous, anxious, or on edge: 0 = Not at all Not being able to stop or control worryin = Not at all Worrying too much about different things: 0 = Not at all Trouble relaxin = Not at all Being so restless that it is hard to sit still: 0 = Not at all Becoming easily annoyed or irritable: 0 = Not at all Feeling afraid as if something awful might happen: 0 = Not at all Total RAMON-7 score (0-4 normal; 5-9 mild; 10-14 moderate; 15-21 severe): 0 Source: Developed by Drs. Denny Cooley, Markell Izaguirre and colleagues, with an educational jenise from [employer]. Review of Systems Const All systems reviewed & are unremarkable except as noted in HPI and below Eyes Reports no additional complaints ENT Reports no additional complaints Card Reports no additional complaints Resp Reports no additional complaints GI Reports no additional complaints Physical exam (Primary Care) Vital Signs: Last Vital Signs Temp 97.8 F 11/05/25 08:44 Pulse 96 08/24/25 08:44 Resp 17 08/24/25 08:44 BP 118/80 08/24/25 08:44 Pulse Ox 99 08/24/25 08:44 Oxygen Delivery Method Room Air 08/24/25 08:44 BMI result Body Mass Index 36.6 Tobacco/Smoking Status: Tobacco use Status Tobacco use date assessed 05/23/25 08/24/25 08:45 Patient Tobacco Use Status Never used Tobacco 08/24/25 08:45 e-Cigarette/Vaping Use Never Used 08/24/25 08:45 PHQ-9: PHQ-9 Score PHQ-9: Total score 0 08/24/25 08:56 Depression Screening Interpretation: Negative Thrive Assessment: Date of Thrive Assessment Date Thrive assessed 07/26/25 08/24/25 08:45 Const General: no acute distress HENMT Head: Yes normal to inspection Mouth: Normal oral and palatal mucosa present Throat: Yes posterior oropharynx normal Eyes General: appearance normal, both eyes and all related structures Neck Neck: Yes no lymphadenopathy and Yes supple Resp Effort & Inspection: normal respiratory effort Auscultation: clear to auscultation bilaterally Cardio Rhythm: regular rhythm Heart sounds: S1 normal heart sound present and S2 normal heart sound present GI Inspection: Yes normal to inspection Palpation (GI): Soft to palpation Results AMB Hemoglobin A1c AMB Hemoglobin A1c 6.5 % Last Edit by MAGGI Browne on 08/24/25 09:05 Coding Level of Care Code Est Pt Level 4 (15804) Diagnoses DM (diabetes mellitus) E11.9 Normal colonoscopy Hyperlipemia E78.5 DVT (deep venous thrombosis) I82.409 Asthma J45.909 Assessment & Plan Assessment & Plan (1) DM (diabetes mellitus): Comment: Intolerant to Farxiga and Trulicity(rash) Code(s): E11.9 - Type 2 diabetes mellitus without complications Category: Medical Plan: A1c is 6.5. Continue ADA diet increase physical activity and decreasing caloric intake discussed with the patient. She will continue current medication and will increase Moujaro to 7.5 mg next month. Patient will follow-up in 3 months with a fasting labs before (2) Normal colonoscopy: Comment: 2024=neg scope repeat 10 years; Category: Medical Plan: Continue current bowel management (3) Hyperlipemia: Code(s): E78.5 - Hyperlipidemia, unspecified Category: Medical Plan: LDL is more than 100, atorvastatin will be increased to 80 mg a day. (4) DVT (deep venous thrombosis): Comment: recurrent, on Eliquis for lifetime Code(s): I82.409 - Acute embolism and thrombosis of unspecified deep veins of unspecified lower extremity Category: Medical Plan: Continue Eliquis (5) Asthma: Code(s): J45.909 - Unspecified asthma, uncomplicated Category: Medical Plan: Patient will restart fluticasone inhaler and continue albuterol as needed. Orders: Orders AMB Hemoglobin A1c Today Z13.9 - Encounter for screening, unspecified Comprehensive [place]. Panel Fast 3 Months E11.9 - Type 2 diabetes mellitus without complications Hemoglobin A1c 3 Months E11.9 - Type 2 diabetes mellitus without complications Lipid Panel 3 Months E11.9 - Type 2 diabetes mellitus without complications Complete Blood Count Auto Diff 3 Months E11.9 - Type 2 diabetes mellitus without complications Microalbumin, Random (w Creat) 3 Months E11.9 - Type 2 diabetes mellitus without complications Medications: New Mounjaro (tirzepatide) 7.5 mg (0.5 mL) subcut QWEEK 6 mL 3RF NS atorvastatin (Lipitor) 80 mg PO BEDTIME 90 tabs 3RF fluticasone furoate 100 mcg/actuation 1 inh inhalation DAILY 30 ea 2RF Refilled metformin 1,000 mg PO BID 180 tabs 3RF gabapentin (Neurontin) 1 cap Q AM, 2-3 caps QPM 100 mg PO BID 360 caps 5RF glipizide 10 mg PO BID 180 tabs 3RF Discontinued atorvastatin (Lipitor) Discontinued Reason: Doctor's Order 40 mg PO BEDTIME 90 tabs 3RF
--- OUTSIDE RECORDS SUMMARY | 2025-08-24 09:06 | XMS_ITS | Patient Health Record ---
[facility] Address [address] [place] [address] Care Team Providers Care Mechanical Integrity Engineer Name Role Phone Michell Fatima MD Primary Care Provider Ronna Andrade Unavailable [phone] Allergies Allergen (clinical drug ingredient) Drug/Non Drug [...] Problem Acquired hammer toe of right foot (754044075216910 5) Other hammer toe(s) (acquired), right foot (M20.41) Active confirmed Problem Acquired hammer toe of left foot (469893153436418 3) Other hammer toe(s) (acquired), left foot (M20.42) Active confirmed Problem Type II diabetes mellitus without complication (698447968) Type 2 diabetes mellitus without complications (E11.9) Active confirmed Plan Of Treatment Pending Test Test Name Order Date X ray : Foot, left 3V 05/21/2022 Insurance Providers Payer Name Payer Address Payer Phone Subscriber Number Group Number Insured Name Patient Relationship to Insured Coverage Start Date Coverage End Date [facility] All Others [address] [place] [address] [phone] [id number] Ruel Skaggs Spouse - patient is the spouse of the insured [employer] [address] [place] [address] [phone] [id number] Katya Skaggs Self - patient is the insured Medical (General) History Medical History History ICD Code Arthritis asthma Back,Hip,and Knee pain Cancer Cataracts Diabetes mellitus type ll Gall bladder problems Chicken pox Joint implants/screws blindness left eye Surgical History Surgery Date(Month/Year) Excision Plantar fibroma 07/25/2022
--- OUTSIDE RECORDS SUMMARY | 2025-08-24 09:06 | XMS_ITS | Patient Health Record ---
Author Organization [facility] Address [address] [place] [address] Care Team Providers Care Executive Admin Name Role Phone Michell Fatima MD Primary Care Provider Denny South Unavailable [phone] Brisa Weinstein Unavailable Unavailable Allergies Allergen (clinical [...] Notes Problem Gastroesophageal reflux disease without esophagitis (130651471) Gastroesophageal reflux disease without esophagitis (K21.9) Active confirmed Problem Hiatal hernia (88915499) Hiatal hernia (K44.9) Active confirmed Plan Of Treatment No Information Insurance Providers Payer Name Payer Address Payer Phone Subscriber Number Group Number Insured Name Patient Relationship to Insured Coverage Start Date Coverage End Date [facility] [address] [place], [place] [id number] [phone] [id number] ROJELIO CARBONE Self - patient is the insured Medicare of [facility] [address] [place] [address] [id number] ROJELIO CARBONE Self - patient is the insured MEDICAID OF [facility] [address] [place] [address] [phone] [id number] ROJELIO CARBONE Self - patient is the insured Medical (General) History Medical History History ICD Code Insomnia GERD NIDDM Asthma Breast cancer on the right w ith chemotherapy/mastectomy and reconstruction--2011 UE Blood clots Fibromyalgia Hiatal hernia Raynaud's Denies DE,CVA,renal disease EGD 11/2016--small hiatal her anisa, gastric polyps, gastritis, and biopsies negative for H. pylori--by Dr. Ramon Colonoscopy 11/2016--normal--by Dr. Nita vieyra C. difficile infection in 2012. 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
--- OUTSIDE RECORDS SUMMARY | 2025-08-24 09:06 | XMS_ITS | Clinical Summary ---
Author Organization [facility] Address [address] [place] [address] Care Team Providers Care Passenger Car Conductor Name Role Phone Michell Fatima MD Primary Care Provider [phone] Social History Tobacco Use Types Packs/Day Years [...] age to complete this topic Care Teams Passenger Car Conductor Relationship Specialty Start Date End Date Michell Fatima MD PCP - General Internal Medicine 11/11/17
== END 2025-08-24 09:23 | disposition home or self-care (01) ==
LOC: HO.HMCC 08:41
PROVIDERS: PCP Internal Medicine; Visit Provider Internal Medicine
DX: E11.9 Type 2 diabetes mellitus without complications (principal); E78.5 Hyperlipidemia, unspecified; I82.409 Acute embolism and thrombosis of unspecified deep veins of unspecified lower extremity; J45.909 Unspecified asthma, uncomplicated; Z13.9 Encounter for screening, unspecified

== ENCOUNTER → 2025-08-24 08:40 | Outpatient (BNVA) | payer BC, MEDICARE, SELFPAY | PROVIDERS: PCP Internal Medicine; Visit Provider Internal Medicine | DX: E11.9 Type 2 diabetes mellitus without complications (principal); E78.5 Hyperlipidemia, unspecified; I82.409 Acute embolism and thrombosis of unspecified deep veins of unspecified lower extremity; J45.909 Unspecified asthma, uncomplicated | CPT/HCPCS: 83036; 96127 ==